=== PATIENT | female | born 1970 | race Two or more races ===

== ENCOUNTER 2020-05-09 17:50 | Outpatient (REF) | payer MEDICAID, SELFPAY | END 2020-05-09 17:51 | disposition home or self-care (01) | LOC: HO.LAB 17:50 | PROVIDERS: PCP Family Medicine; Visit Provider Internal Medicine | DX: Z20.828 Contact with and (suspected) exposure to other viral communicable diseases (principal) | CPT/HCPCS: 87635 ==

== ENCOUNTER 2020-05-09 18:02 | Emergency (ER) | payer MEDICAID, SELFPAY ==
[2020-05-09 21:18] VITALS: BP 145/73; PULSE 84; RESP 20; TEMP 36.6; O2SAT 98; BMI 57.8
[2020-05-09 21:47] VITALS: BP 150/87; PULSE 95; RESP 16; TEMP 36.6; O2SAT 98
[2020-05-09 21:53] LABS: MANUAL DIFF FLAG NO
[2020-05-09 21:54] LABS: Basophils Absolute Auto 0.1 X10*3/uL (0.0-0.2); Basophils Percent Auto 0.5 % (0-2); Eosinophils Absolute Auto 0.1 X10*3/uL (0.0-0.4); Eosinophils Percent Auto 1.3 % (0-4); Imm Gran Abs Auto 0.07 X10*3/uL (0.00-0.03); Imm Gran Pct Auto 0.7 % (0.0-0.4); Lymphocytes Absolute Auto 2.8 X10*3/uL (1.2-4.9); Lymphocytes Percent Auto 26.9 % (20-40); Mean Corpuscular HGB Conc 31.8 g/dl (31.0-35.0); Mean Corpuscular Hemoglobin 27.1 pg (27.0-33.0); Mean Corpuscular Volume 85.1 fL (80-98); Mean Platelet Volume 10.3 fL (9.4-12.3); Monocytes Absolute Auto 0.6 X10*3/uL (0.1-1.2); Monocytes Percent Auto 5.4 % (2-11); Neutrophils Absolute Auto 6.8 X10*3/uL (2.0-8.3); Neutrophils Percent Auto 65.2 % (45-73); Platelet Count 251 X10*3/uL (160-400); Red Blood Count 5.17 X10*6/uL (4.20-5.50); White Blood Count 10.4 X10*3/uL (4.8-10.8)
[2020-05-09 22:00] VITALS: BP 146/76; PULSE 76; RESP 16; O2SAT 96
[2020-05-09 22:04] LABS: Glucose Urine UA NEG (NEG); Leukocyte Esterase Urine TRACE (NEG); Nitrite Urine NEG (NEG); Specific Gravity - Urine >= 1.030 (1.005-1.025); Urine Blood 1+ (NEG); Urine Ketones 15 MG/DL (NEG); Urine Protein TRACE MG/DL (NEG-TRACE)
[2020-05-09 22:06] LABS: Appearance Urine CLOUDY; Color Urine YELLOW
[2020-05-09 22:19] LABS: Alanine Aminotransferase 15 U/L (0-31); Albumin Level 3.6 g/dL (3.5-5.0); Alkaline Phosphatase 82 U/L (39-117); Anion Gap 13 (12-20); Aspartate Amino Transferase 14 U/L (5-31); Bilirubin Direct < 0.2 mg/dL (0.0-0.5); Bilirubin Total 0.3 mg/dL (0.0-1.0); Blood Urea Nitrogen 15 mg/dL (9-16); Calcium 8.4 mg/dL (8.4-10.2); Carbon Dioxide 20 mmol/L (22-29); Chloride 108 mmol/L (96-108); Creatinine Clr Calc Pharmacy 89.1; Estimated Glomerular Filt Rate > 60; Glucose Random 96 mg/dL (60-115); Lipase 13 U/L (8-78); Potassium 4.5 mmol/l (3.3-5.1); Sodium 136 mmol/L (135-145); Total Protein 6.5 g/dL (6.5-8.0)
--- NOTE | 2020-05-09 22:19 | US_ITS ---
EXAMINATION: US ABDOMEN LIMITED CLINICAL INFORMATION: Right upper quadrant pain. COMPARISON: CT abdomen pelvis 09/02/2018 TECHNIQUE: Real-time imaging of the gallbladder was performed. FINDINGS: GALLBLADDER: The gallbladder is physiologically distended without evidence of stones, sludge, polyps, wall thickening or pericholecystic fluid. The patient did exhibit some tenderness over the gallbladder while scanning. COMMON BILE DUCT: Normal in caliber measuring 0.8 cm in diameter. US/US abdomen limited IMPRESSION: Normal-appearing gallbladder. No gallstones are seen. The patient did exhibit some tenderness over the gallbladder while scanning.
--- NOTE | 2020-05-09 22:21 | ED_ITS ---
HPI - Abdominal Pain General Chief Complaint: Abdominal Pain Stated Complaint: ABD PAIN Time Seen by Provider: 05/09/20 22:11 Source: patient Mode of arrival: ambulatory Limitations: no limitations and language barrier History of Present Illness HPI narrative: patient with no significant abdominal problems complaining of pain diffuse upper abdomen more on the right side since yesterday evening associated with fullness denies any nausea or vomiting no fever no diarrhea , patient does notice pain when she urinated with strong order for last few days MD elicited complaint: abdominal pain Onset (ago): day(s) (1) Pain Consistency: intermittent Location: epigastric, LUQ and RUQ Severity: mild Quality: cramping Migration to: no migration Exacerbating factors: eating Relieving factors: nothing Associated symptoms: denies other symptoms Related Data Previous Rx's Medication Instructions Recorded simethicone 180 mg capsule 180 mg PO QID #90 cap 05/06/20 dicyclomine 20 mg PO TID PRN #20 tab 05/10/20 levofloxacin 500 mg PO DAILY 5 Days #5 tab 05/10/20 phenazopyridine [Pyridium] 200 mg PO TID PRN #6 tab 05/10/20 Allergies Allergy/AdvReac Type Severity Reaction Status Date / Time No Known Allergies Allergy Unverified 03/31/20 16:15 Review of Systems Review of Systems REVIEW OF SYSTEMS: Pertinent positives and negatives are stated above in the history. GEN: no fevers, chills, fatigue HEENT: no nasal congestion, sore throat, ear pain NEURO: no headache, dizziness, focal weakness PULM: no cough, shortness of breath CV: no chest pain, palpitations, LE edema ABD: no nausea, vomiting, diarrhea : no dysuria, urgency, frequency SKIN: no rash ROS otherwise negative x 10 Physical Exam Vital Signs: Vital Signs: Vital Signs Temp Pulse Resp BP Pulse Ox 05/09/20 22:00 76 16 146/76 H 96 05/09/20 21:47 97.9 F 95 16 150/87 H 98 05/09/20 21:18 97.9 F 84 20 145/73 H 98 Body Mass Index 57.8 Appearance: Alert. Oriented X3. No acute distress. Eyes: Pupils equal, round and reactive to light. ENT: Pharynx normal. Neck: Normal inspection. Neck supple. CVS: Normal heart rate and rhythm. Pulses normal. Respiratory: No respiratory distress. Breath sounds normal. Abdomen: Soft and mild tenderness right upper quadrant and epigastric area no rebound tenderness or guarding no mass palpable Skin: Skin warm and dry. Normal skin color. Normal skin turgor. Extremities: No lower extremity edema. Good range of movement Neuro: Oriented X 3. No motor deficit. No sensory deficit. MDM - Abdominal Pain Differential Diagnosis Differential diagnosis: Likely constipation, gastroenteritis and gastritis Differential diagnosis narrative:: cholelithiasis, UTI Lab Data Result diagrams: 05/09/20 21:42 05/09/20 21:42 Labs: Lab Results 05/09/20 05/09/20 05/09/20 Range/Units 21:42 21:42 21:46 WBC 10.4 (4.8-10.8) X10*3/uL RBC 5.17 (4.20-5.50) X10*6/uL Hgb 14.0 (12.0-16.0) g/dl Hct 44.0 (37-47) % MCV 85.1 (80-98) fL MCH 27.1 (27.0-33.0) pg MCHC 31.8 (31.0-35.0) g/dl RDW 15.0 (11.0-16.0) % Plt Count 251 (160-400) X10*3/uL MPV 10.3 (9.4-12.3) fL Immature Gran % (Auto) 0.7 H (0.0-0.4) % Neut % (Auto) 65.2 (45-73) % Lymph % (Auto) 26.9 (20-40) % [place] % (Auto) 5.4 (2-11) % Eos % (Auto) 1.3 (0-4) % Baso % (Auto) 0.5 (0-2) % Lymph # (Auto) 2.8 (1.2-4.9) X10*3/uL [place] # (Auto) 0.6 (0.1-1.2) X10*3/uL Eos # (Auto) 0.1 (0.0-0.4) X10*3/uL Baso # (Auto) 0.1 (0.0-0.2) X10*3/uL Abs Immat Gran (auto) 0.07 H (0.00-0.03) X10*3/uL Absolute Neuts (auto) 6.8 (2.0-8.3) X10*3/uL Absolute Nucleated RBC 0.000 (0.0-0.012) X10*3/uL Nucleated RBC % (auto) 0.0 (0.0-0.2) /100WBC Sodium 136 (135-145) mmol/L Potassium 4.5 (3.3-5.1) mmol/l Chloride 108 (96-108) mmol/L Carbon Dioxide 20 L (22-29) mmol/L Anion Gap 13 (12-20) BUN 15 (9-16) mg/dL Creatinine 0.64 (0.5-1.4) mg/dL Estim Creat Clear Calc 89.1 Estimated GFR > 60 Random Glucose 96 (60-115) mg/dL Calcium 8.4 (8.4-10.2) mg/dL Total Bilirubin 0.3 (0.0-1.0) mg/dL Direct Bilirubin < 0.2 (0.0-0.5) mg/dL AST 14 (5-31) U/L ALT 15 (0-31) U/L Alkaline Phosphatase 82 (39-117) U/L Total Protein 6.5 (6.5-8.0) g/dL Albumin 3.6 (3.5-5.0) g/dL Lipase 13 (8-78) U/L Urine Color YELLOW Urine Appearance CLOUDY Urine pH 6.0 (5.0-8.0) Ur Specific [place] >= 1.030 H (1.005-1.025) Urine Protein TRACE (NEG-TRACE) MG/DL Urine Glucose (UA) NEG (NEG) MG/DL Urine Ketones 15 (NEG) MG/DL Urine Blood 1+ H (NEG) Urine Nitrite NEG (NEG) Ur Leukocyte Esterase TRACE H (NEG) Urine RBC 0-2 (0) /HPF Urine WBC 30-49 H (0-4) /HPF Ur Squamous Epith Cells 2+ /LPF Urine Bacteria 3+ /LPF Discharge Plan Discharge Clinical Impression: UTI (urinary tract infection) Qualifiers: Urinary tract infection type: acute cystitis Hematuria presence: without hematuria Qualified Code(s): N30.00 - Acute cystitis without hematuria Patient Disposition: Home, Self-Care Instructions: Urinary Tract Infection in Women (ED) Additional Instructions: drink plenty of fluids, take medication as prescribed, follow-up with primary care doctor if not better Prescriptions: New levofloxacin 500 mg tablet 500 mg PO DAILY 5 Days Qty: 5 RF: 0 phenazopyridine [Pyridium] 200 mg tablet 200 mg PO TID PRN (Reason: pain) Qty: 6 RF: 0 dicyclomine 20 mg tablet 20 mg PO TID PRN (Reason: abd cramps) Qty: 20 RF: 0 No Action simethicone 180 mg capsule 180 mg PO QID Qty: 90 RF: 1 Stand Alone Forms: Work/School Release [facility] Past Medical History Medical History Depression Fibroma Gastritis High cholesterol Hypertension Social History Social History Alcohol intake: never Smoking Status: Never smoker Smoked in Last 30 Days: No Use of substances other than those prescribed or required for medical reasons: No Advance Directives: No
[2020-05-09 22:38] LABS: Bacteria Urine 3+ /LPF; RBC Urine 0-2 /HPF (0); Squamous Epithelial Cell Urine 2+ /LPF; WBC Urine 30-49 /HPF (0-4)
[2020-05-09] MEDS: Dicyclomine HCl 10 MG CAPSULE 20 MG PO (22:39)
--- NOTE | 2020-05-09 22:42 | PC.NURSE ---
ultra sound at the bedside with the pt. pt has pain to her right upper quadrant.
--- NOTE | 2020-05-09 22:53 | PC.NURSE ---
pt zahra ultrasound, po mediation give and waiting results. pt skin pink warm and dry no s/s of distress.
[2020-05-10] VITALS: BP 140/71; PULSE 84; RESP 16; O2SAT 100
[2020-05-10] MEDS: levoFLOXacin 500 MG TABLET PO (00:13)
[2020-05-10] MEDS: Phenazopyridine HCL 200 MG TABLET PO (00:13)
== END 2020-05-10 00:20 | disposition home or self-care (01) ==
PROVIDERS: Emergency Provider Internal Medicine; PCP Family Medicine
DX: N30.00 Acute cystitis without hematuria (principal); R10.11 Right upper quadrant pain; Z79.899 Other long term (current) drug therapy
CPT/HCPCS: 36415; 76705; 80048; 80076; 81001; 81003; 83690; 85025; 87086; 99284

== ENCOUNTER 2020-08-09 17:16 | Outpatient (REF) | payer MEDICAID, SELFPAY | END 2020-08-09 17:17 | disposition home or self-care (01) | LOC: HO.LAB 17:16 | PROVIDERS: Visit Provider Internal Medicine | DX: Z20.822 Contact with and (suspected) exposure to COVID-19 (principal) | CPT/HCPCS: 36415; C9803; U0003 ==

== ENCOUNTER → 2020-08-16 14:35 | Outpatient (BNVA) | payer MEDICAID, SELFPAY | PROVIDERS: PCP Family Medicine; Referring Provider Family Medicine; Visit Provider Nurse Practitioner ==

== ENCOUNTER → 2020-10-14 13:05 | Outpatient (BNVA) | payer MEDICAID, SELFPAY | PROVIDERS: PCP Family Medicine; Visit Provider Nurse Practitioner ==

== ENCOUNTER 2020-12-08 14:37 | Outpatient (REF) | payer MEDICAID, SELFPAY | END 2020-12-08 14:38 | disposition home or self-care (01) | LOC: HO.LAB 14:37 | PROVIDERS: Visit Provider Obstetrics & Gynecology | DX: N93.9 Abnormal uterine and vaginal bleeding, unspecified (principal) | CPT/HCPCS: 58100; 88305; 99202 ==

== ENCOUNTER → 2020-12-26 08:58 | Outpatient (BNVA) | payer MEDICAID, SELFPAY | PROVIDERS: Visit Provider Obstetrics & Gynecology ==

== ENCOUNTER → 2021-03-23 10:53 | Outpatient (BNVA) | payer MEDICAID, SELFPAY | PROVIDERS: Visit Provider Obstetrics & Gynecology | DX: N93.9 Abnormal uterine and vaginal bleeding, unspecified (principal) | CPT/HCPCS: 99212 ==

== ENCOUNTER 2021-04-03 12:38 | Outpatient (REF) | payer MEDICAID, SELFPAY ==
--- NOTE | ~2021-04-03 | MM_ITS ---
EXAMINATION: MM SCREENING DIGITAL BREAST TOMOSYNTHESIS, BILATERAL CLINICAL INFORMATION: Screening. Asymptomatic. The lifetime risk of breast cancer based on the Tyrer-Cuzick Model is 17%. COMPARISON: Mammography: May 28, 2019 and studies dating back to May 07, 2011 TECHNIQUE: Digital breast tomosynthesis is performed in both the craniocaudal and mediolateral oblique views along with computer-aided detection (CAD). Synthesized 2D images are generated from the tomosynthesis. FINDINGS: There are scattered areas of fibroglandular density (ACR BI-RADS breast composition Category b). There are no significant masses, abnormal calcifications, or other abnormalities. MM/MM tomosynthesis screening BI IMPRESSION: There are no significant changes from prior study. ASSESSMENT: BI-RADS 1: Negative RECOMMENDATION: Routine annual mammography screening. This patient's information was entered into a reminder system with a target due date for their next mammogram.
== END 2021-04-03 12:39 | disposition home or self-care (01) ==
LOC: HO.MAMMO 12:38
PROVIDERS: PCP Family Medicine; Visit Provider Family Medicine
DX: Z12.31 Encounter for screening mammogram for malignant neoplasm of breast (principal)
CPT/HCPCS: 77063; 77067

== ENCOUNTER → 2021-04-17 14:16 | Outpatient (BNVA) | payer MEDICAID, SELFPAY | PROVIDERS: PCP Family Medicine; Visit Provider Nurse Practitioner ==

== ENCOUNTER 2021-04-19 13:11 | Outpatient (REF) | payer MEDICAID, SELFPAY ==
[2021-04-22 16:16] LABS: HPV mRNA E6/E7 rflx Not Detected (Not Detected)
== END 2021-04-19 13:12 | disposition home or self-care (01) ==
LOC: HO.LAB 13:11
PROVIDERS: Visit Provider Obstetrics & Gynecology
DX: Z01.411 Encounter for gynecological examination (general) (routine) with abnormal findings (principal); Z11.51 Encounter for screening for human papillomavirus (HPV); D21.9 Benign neoplasm of connective and other soft tissue, unspecified; N93.9 Abnormal uterine and vaginal bleeding, unspecified
CPT/HCPCS: 87624; 88142

== ENCOUNTER 2021-05-10 11:19 | Outpatient (REF) | payer MEDICAID, SELFPAY ==
--- NOTE | ~2021-05-10 | US_ITS ---
EXAMINATION: ULTRASOUND OF THE PELVIS CLINICAL INFORMATION: Abnormal uterine and vaginal bleeding.. COMPARISON: 04/06/2019. TECHNIQUE: Transabdominal and transvaginal pelvic ultrasound. A transvaginal study was performed in addition to the transabdominal study which did not yield an adequate examination of the uterus and ovaries due to superimposed distended gas-filled loops of bowel. FINDINGS: The uterus is normal in size and appearance, measuring 10.6 x 4.6 x 7.3 cm longitudinally, anteroposteriorly and transversely. The endometrial stripe thickness is prominent but homogenous, measuring 1.5 cm in thickness. Multiple myometrial masses are noted. The dominant is seen at the anterior fundus measuring 3.6 x 3.6 x 3.9 cm. This is similar to prior, showing somewhat heterogeneous echogenicity without significant Doppler vascularity. There is a second lesion along the anterior body measuring 1 x 0.9 x 0.9 cm. This is mostly hypoechoic. The ovaries bilaterally are visualized and appear normal, with the right ovary measuring 1.4 x 1.1 x 1.6 cm and the left ovary measuring 1.4 x 1.3 x 1.6 cm. No adnexal mass or free fluid collection seen. US/US pelvic and transvaginal IMPRESSION: Prominent endometrial stripe, though homogenous. Correlate with cycle. Uterine fibroids are again noted with the dominant fibroid appearing somewhat decreased in size from prior in 2019. No adnexal mass.
== END 2021-05-10 11:20 | disposition home or self-care (01) ==
LOC: HO.US 11:19
PROVIDERS: Visit Provider Obstetrics & Gynecology
DX: N93.9 Abnormal uterine and vaginal bleeding, unspecified (principal); D21.9 Benign neoplasm of connective and other soft tissue, unspecified
CPT/HCPCS: 76830; 76856

== ENCOUNTER → 2021-05-24 10:47 | Outpatient (BNVA) | payer MEDICAID, SELFPAY | PROVIDERS: Visit Provider Obstetrics & Gynecology | DX: D21.9 Benign neoplasm of connective and other soft tissue, unspecified (principal); E78.00 Pure hypercholesterolemia, unspecified; I10 Essential (primary) hypertension; Z78.0 Asymptomatic menopausal state | CPT/HCPCS: 99212 ==

== ENCOUNTER → 2022-07-26 09:18 | Outpatient (BNVA) | payer MEDICAID, SELFPAY | PROVIDERS: Visit Provider Obstetrics & Gynecology | DX: Z13.89 Encounter for screening for other disorder (principal) ==

== ENCOUNTER 2022-08-01 11:20 | Outpatient (REF) | payer MEDICAID, SELFPAY ==
--- NOTE | ~2022-08-01 | MM_ITS ---
EXAMINATION: MM SCREENING DIGITAL BREAST TOMOSYNTHESIS, BILATERAL CLINICAL INFORMATION: Screening. Asymptomatic. The lifetime risk of breast cancer based on the Tyrer-Cuzick Model is 5.9%. COMPARISON: Mammography: April 03, 2021 and studies dating back to May 07, 2011 TECHNIQUE: Digital breast tomosynthesis is performed in both the craniocaudal and mediolateral oblique views along with computer-aided detection (CAD). Synthesized 2D images are generated from the tomosynthesis. FINDINGS: There are scattered areas of fibroglandular density (ACR BI-RADS breast composition Category b). There are no significant masses, abnormal calcifications, or other abnormalities. MM/MM tomosynthesis screening BI IMPRESSION: No significant changes from prior exam. ASSESSMENT: BI-RADS 1: Negative RECOMMENDATION: Routine annual mammography screening. This patient's information was entered into a reminder system with a target due date for their next mammogram.
== END 2022-08-01 11:21 | disposition home or self-care (01) ==
LOC: HO.MAMMO 11:20
PROVIDERS: PCP Family Medicine; Visit Provider Family Medicine
DX: Z12.31 Encounter for screening mammogram for malignant neoplasm of breast (principal)
CPT/HCPCS: 77063; 77067

== ENCOUNTER 2022-08-21 11:43 | Outpatient (REF) | payer MEDICAID, SELFPAY ==
--- NOTE | ~2022-08-21 | US_ITS ---
EXAMINATION: US PELVIS COMPLETE CLINICAL INFORMATION: Benign neoplasm of connective tissue; the last menstrual period was approximately one week prior. COMPARISON: Pelvic ultrasound dated 05/10/2021. TECHNIQUE: Transabdominal and transvaginal imaging were performed. FINDINGS: The uterus is of normal size and echogenicity measuring 10.3 x 4.5 x 6.3 cm. The uterus is anteverted. A regular, homogeneous endometrium is identified measuring 0.9 cm. Nabothian cysts are seen within the cervix. FIBROIDS: There are 2 fibroids seen. 1. Location: Posterior fundus, myometrial. Size: 3.7 x 3.9 x 3.6 cm. Prior: 3.6 x 3.6 x 3.9 cm. Fibroid characteristics: Heterogeneously hyperechoic. 2. Location: Upper posterior body, myometrial. Size: 1.0 x 0.7 x 0.8 cm. Prior: 0.9 x 0.8 x 0.9 cm. Fibroid characteristics: Heterogeneous echotexture. The right ovary is nonvisualized. The left ovary is normal in size and echotexture, measuring 2.4 x 1.7 x 1.3 cm for a volume of 2.9 mL. There is no pelvic free fluid. A 6 x 8 x 5 mm simple left paraovarian cyst is noted.. US/US pelvic and transvaginal IMPRESSION: 1. Uterine fibroids are seen, as detailed. 2. Nabothian cysts are seen within the cervix. 3. An 8 mm left paraovarian simple cyst is incidentally noted. 4. The right ovary is nonvisualized.
== END 2022-08-21 11:44 | disposition home or self-care (01) ==
LOC: HO.US 11:43
PROVIDERS: Visit Provider Obstetrics & Gynecology
DX: D21.9 Benign neoplasm of connective and other soft tissue, unspecified (principal)
CPT/HCPCS: 76830; 76856

== ENCOUNTER → 2022-09-04 12:44 | Outpatient (BNVA) | payer MEDICAID, SELFPAY | PROVIDERS: PCP Family Medicine; Visit Provider Obstetrics & Gynecology | DX: D21.9 Benign neoplasm of connective and other soft tissue, unspecified (principal) | CPT/HCPCS: 99212 ==

== ENCOUNTER 2022-09-26 10:09 | Outpatient (REF) | payer MEDICAID, SELFPAY ==
[2022-09-26 11:16] LABS: MANUAL DIFF FLAG NO
[2022-09-26 11:57] LABS: Basophils Percent Auto 0.9 % (0-2); Eosinophils Absolute Auto 0.2 X10*3/uL (0.0-0.4); Eosinophils Percent Auto 3.4 % (0-4); Hematocrit 41.9 % (37.0-47.0); Hemoglobin 13.5 g/dl (12.0-16.0); Imm Gran Abs Auto 0.01 X10*3/uL (0.00-0.03); Imm Gran Pct Auto 0.2 % (0.0-0.4); Lymphocytes Absolute Auto 1.3 X10*3/uL (1.2-4.9); Lymphocytes Percent Auto 28.4 % (20-40); Mean Corpuscular HGB Conc 32.2 g/dl (31.0-35.0); Mean Corpuscular Hemoglobin 27.5 pg (27.0-33.0); Mean Corpuscular Volume 85.3 fL (80.0-98.0); Mean Platelet Volume 10.7 fL (9.4-12.3); Monocytes Absolute Auto 0.5 X10*3/uL (0.1-1.2); Monocytes Percent Auto 10.4 % (2-11); Neutrophils Absolute Auto 2.7 x10*3/uL (2.0-8.3); Neutrophils Percent Auto 56.7 % (45-73); Platelet Count 197 X10*3/uL (160-400); Red Blood Count 4.91 X10*6/uL (4.20-5.50); Red Cell Distribution Width 13.4 % (11.0-16.0); White Blood Count 4.7 X10*3/uL (4.8-10.8)
[2022-09-26 12:43] LABS: Alanine Aminotransferase 22 U/L (0-31); Albumin Level 3.8 g/dL (3.5-5.0); Alkaline Phosphatase 95 U/L (39-117); Anion Gap 14 (12-20); Aspartate Amino Transferase 18 U/L (5-31); Bilirubin Total 0.4 mg/dL (0.0-1.0); Blood Urea Nitrogen 14 mg/dL (9-16); Calcium 8.9 mg/dL (8.4-10.2); Carbon Dioxide 22 mmol/L (22-29); Chloride 107 mmol/L (96-108); Estimated Glomerular Filt Rate > 60; Glucose Random 83 mg/dL (60-115); Potassium 4.5 mmol/L (3.3-5.1); Sodium 138 mmol/L (135-145); Total Protein 6.9 g/dL (6.5-8.0)
== END 2022-09-26 10:10 | disposition home or self-care (01) ==
LOC: HO.LAB 10:09
PROVIDERS: PCP Family Medicine; Visit Provider Nurse Practitioner
DX: R10.9 Unspecified abdominal pain (principal)
CPT/HCPCS: 36415; 80053; 85025; 99212

== ENCOUNTER 2022-10-11 11:29 | Outpatient (REF) | payer MEDICAID, SELFPAY ==
--- NOTE | ~2022-10-11 | CT_ITS ---
EXAMINATION: CT ABDOMEN AND PELVIS WITH CONTRAST CLINICAL INFORMATION: Abdominal pain. COMPARISON: Ultrasound pelvis 08/21/2022. CT abdomen and pelvis 09/02/2018. TECHNIQUE: Multidetector volumetric images were obtained from the superior aspect of the liver through the pubic symphysis following administration 85 mL of Omnipaque 350 intravenous contrast. Sagittal and coronal reformatted images were obtained on the technologist's workstation. Oral contrast: No This CT examination was performed using dose optimization techniques as appropriate, variously including the following: *Automated exposure control *Adjustment of mA and/or kV according to patient size (this includes techniques or standardized protocols for targeted exams where dose is matched to indication/reason for exam; i.e. extremities or head) *Use of iterative reconstruction technique DLP: 543 mGy-cm. FINDINGS: LUNG BASES: The visualized lung bases are unremarkable. LIVER, GALLBLADDER, AND BILIARY TREE: The liver is normal in size, shape, and mild hypoattenuation. No focal hepatic lesion or biliary ductal dilatation is present. The gallbladder is unremarkable with no evidence of radiopaque gallstones, gallbladder wall thickening, or obvious pericholecystic inflammatory changes. PANCREAS: There is a 1.12 cm hypodensity in the distal body of pancreas, new since the previous study question focal fatty infiltration. It is unchanged. SPLEEN: Unremarkable. ADRENAL GLANDS: Unremarkable. KIDNEYS AND URETERS: The kidneys are normal in size, shape, and attenuation. No hydronephrosis, hydroureter, or calculi seen. No perinephric stranding. BLADDER: Unremarkable. GASTROINTESTINAL TRACT: The small and large bowel are unremarkable. The appendix is unremarkable. Previously visualized focal mural thickening involving a small bowel segment in the midabdomen is not visualized at this time. Oral contrast-opacified small bowel loops are normal caliber. The colon is unremarkable. Appendix is normal caliber. No free air or free fluid seen. ABDOMINAL WALL: No significant hernia is appreciated. LYMPH NODES: Normal. VASCULAR: Unremarkable. PELVIC VISCERA: There is a large hypodense lesion in the fundal uterus likely a fibroid measuring 4.3 x 5.1 x 4.1 cm. Previously it measured 4.7 x 4.8 x 4.1 cm. There is a small amount of free fluid in the cul-de-sac. No abnormal-sized pelvic or inguinal lymph nodes seen. OSSEOUS STRUCTURES: Unremarkable. CT/CT abdomen pelvis w IV con IMPRESSION: Increasing uterine fibroid likely cause of patient's abdominal pain. Correlate with ultrasound and GUIDE ALPINE followup. The GI tract is unremarkable. Especially, no small bowel mural thickening seen at this time. Hypodensity in the distal body of the pancreas likely focal fatty nodule, unchanged. Fleischner guidelines were followed.
[2022-10-11] MEDS: Barium Sulfate Oral (Vanilla) 450 ML ORAL.SUSP 900 ML PO (13:50)
[2022-10-11] MEDS: iohexoL 350 MG/ML 100 ML INFUS..BTL IV (13:51)
== END 2022-10-11 11:30 | disposition home or self-care (01) ==
LOC: HO.CT 11:29
PROVIDERS: Visit Provider Nurse Practitioner
DX: R10.9 Unspecified abdominal pain (principal)
CPT/HCPCS: 74177; Q9967

== ENCOUNTER → 2022-10-24 10:39 | Outpatient (BNVA) | payer MEDICAID, SELFPAY | PROVIDERS: PCP Family Medicine; Visit Provider Nurse Practitioner | DX: K59.04 Chronic idiopathic constipation (principal); K21.9 Gastro-esophageal reflux disease without esophagitis; K58.2 Mixed irritable bowel syndrome; R10.9 Unspecified abdominal pain | CPT/HCPCS: 99212 ==

== ENCOUNTER → 2022-11-27 11:16 | Outpatient (BNVA) | payer MEDICAID, SELFPAY | PROVIDERS: PCP Family Medicine; Visit Provider Nurse Practitioner | DX: K58.2 Mixed irritable bowel syndrome (principal); K21.9 Gastro-esophageal reflux disease without esophagitis; R10.9 Unspecified abdominal pain | CPT/HCPCS: 99212 ==

== ENCOUNTER → 2023-01-08 09:56 | Outpatient (BNVA) | payer MEDICAID, SELFPAY | PROVIDERS: PCP Family Medicine; Visit Provider Nurse Practitioner | DX: K58.2 Mixed irritable bowel syndrome (principal); R10.9 Unspecified abdominal pain; K21.9 Gastro-esophageal reflux disease without esophagitis; Z79.899 Other long term (current) drug therapy; Z80.0 Family history of malignant neoplasm of digestive organs | CPT/HCPCS: 99212 ==

== ENCOUNTER 2023-08-01 09:44 | Outpatient (REF) | payer MEDICAID, SELFPAY ==
[2023-08-01 12:22] LABS: HBc Num1 0.11 S/CO (0.00-0.79); HIV AB/AG Nonreactive (Nonreactive); HIV Num 1 0.04 S/CO (0.00-0.99); Hepatitis B Core Antibody Nonreactive (Nonreactive); ~HepC Num1 0.38 S/CO (0.00-0.79); ~Hepatitis C Antibody Nonreactive (Nonreactive)
[2023-08-01 12:23] LABS: Syphilis Screen Nonreactive (Nonreactive)
[2023-08-01 15:41] LABS: CT PCR NOT DETECTED (Not Detect.); NG PCR NOT DETECTED (Not Detect.)
[2023-08-02 15:17] LABS: BV Int Neg Control Negative (Negative); BV Int Pos Control Positive (Positive)
== END 2023-08-01 09:45 | disposition home or self-care (01) ==
LOC: HO.LAB 09:44
PROVIDERS: PCP Family Medicine; Visit Provider Advanced Practice Midwife
DX: Z01.419 Encounter for gynecological examination (general) (routine) without abnormal findings (principal); Z11.4 Encounter for screening for human immunodeficiency virus [HIV]; N39.41 Urge incontinence; Z20.2 Contact with and (suspected) exposure to infections with a predominantly sexual mode of transmission; R23.2 Flushing
CPT/HCPCS: 0353U; 83001; 86704; 86780; 86803; 87389; 87480; 87510; 87660; 99396

== ENCOUNTER 2023-08-01 09:44 | Outpatient (AMB) | payer MEDICAID, SELFPAY ==
--- NOTE | 2023-08-01 09:48 | A.OFFVIS_ITS ---
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 She is doing well with concerns: Urgency incontinence. Attempting to eat a healthy diet with calcium and vitamin D and stays active with exercise. Currently sexually active. LMP: 07/05/2023, prior to that had skipped for six- month, she reports hot flashes Denies any vaginal dryness or irritation. STI testing offered; she accepts. Last pap smear; 2020. Last mammogram; 2022. Colonoscopy is being scheduled. Family history of breast, colon cancer. Sister had BRCA testing which was negative. [facility] Medical History Diarrhea in adult patient Gastritis Fibroma Hypertension High cholesterol Depression Surgical History History of esophagogastroduodenoscopy (EGD) Hx of colonoscopy History of tubal ligation Family History (Updated 08/01/23 @ 09:51 by BEATRIZ De Oliveira) Mother History of breast cancer Colon cancer Sister History of breast cancer Other Diabetes HTN (hypertension) Heart problem Social History Alcohol intake: never Patient Tobacco Use Status: Never used Tobacco Gender identity: Female Female Reproductive History Menstrual Age of Menarche: 11 Date of last menstrual period: 07/05/23 control method: permanent sterilization Permanent Sterilization: BTL Total pregnancies: 2 Full term: 2 Number of Living Children: 2 Date of last pap smear: 04/19/21 (neg pap and hpv) Date of Mammogram: 08/01/22 (Birad 1) Review of Systems Const All systems reviewed & are unremarkable except as noted in HPI and below Reports as per HPI Eyes Reports no additional complaints ENT Reports no additional complaints Card Reports no additional complaints Resp Reports no additional complaints GI Reports as per HPI and Reports no additional complaints Reports as per HPI Musc Reports no additional complaints Skin/Breast Reports as per HPI Neuro Reports no additional complaints Psych Reports no additional complaints Endo Reports no additional complaints Armen/Lymph Reports no additional complaints Aller/Immun Reports no additional complaints Physical Exam Vital Signs: Last Vital Signs BP 134/84 08/01/23 09:49 BMI result Body Mass Index 54.9 Const General: cooperative, healthy appearing, no acute distress, well developed and alert Orientation/consciousness: patient oriented x3 HEENT Head: Yes normal to inspection Eyes General: appearance normal, both eyes and all related structures Neck Neck: Yes normal visual inspection Thyroid: Thyroid normal Chest Chest palpation & inspection: normal inspection of the chest and other (no puckering, dimpling, peau de orange, retraction, discharge, masses) Breast/axilla inspection: normal inspection of the breasts Breast/axilla palpation: normal palpation of the breasts Resp Effort & Inspection: normal respiratory effort GI Inspection: Yes normal to inspection Palpation (GI): Soft to palpation Rectal Exam - Female: deferred General: Yes bladder normal to palpation External Female Exam: normal external appearance and normal appearance of the urethra Speculum Exam - Vagina: normal appearance of the vagina, normal palpation and normal vaginal discharge Speculum Exam - Cervix: normal appearance of the cervix and normal palpation Bimanual exam- vagina & uterus: normal bimanual exam, normal palpation, uterine size normal, bladder normal to palpation, normal palpation and non-tender Bimanual Exam- Adnexa, other: no masses Skin General skin exam: no rashes or lesions noted Rashes: no rashes Neuro General: patient oriented x3 Cognition (Neuro): normal cognition Extrem General: Yes normal to inspection Psych Attitude: cooperative Thought process: Normal thought process present Assessment & Plan Assessment & Plan (1) Urgency incontinence: Code(s): N39.41 - Urge incontinence (2) Encounter for well woman exam with routine gynecological exam: Code(s): Z01.419 - Encounter for gynecological examination (general) (routine) without abnormal findings Plan Discussed: Current recommendations for pap smears per ASCCP guidelines. Breast awareness, periodic self breast exams and yearly mammogram. Maintain a healthy lifestyle, well balanced diet including Calcium 1,200 mg and Vitamin D 600 IU daily, and routine exercise. Monitor menstrual cycles, report any unscheduled bleeding, bleeding episodes <21 days apart or heavy/prolonged menstrual bleeding. Once bleeding has stopped for a full 12 months she would be considered menopausal, leading that point would not be considered normal. Call the office for a follow up for any concerns. Referral sent to urology. STD blood work with additional FSH ordered. All of her questions and concerns were addressed to the best of my ability. RTO in 1 year for annual human resources district manager exam. This note is constructed using voice recognition software. While every effort has been made to ensure accuracy, hands parter errors may have been included. Orders: Orders Hepatitis B Core Antibody Today Z20.2 - Contact with and (suspected) exposure to infections with a predominantly sexual mode of transmission Syphilis Screen Today Z20.2 - Contact with and (suspected) exposure to infections with a predominantly sexual mode of transmission Bacterial Vaginosis Panel Today Z20.2 - Contact with and (suspected) exposure to infections with a predominantly sexual mode of transmission US pelvic and transvaginal Today D21.9 - Benign neoplasm of connective and other soft tissue, unspecified HIV Ab/Ag Today Z20.2 - Contact with and (suspected) exposure to infections with a predominantly sexual mode of transmission Hepatitis C Antibody Today Z20.2 - Contact with and (suspected) exposure to infections with a predominantly sexual mode of transmission Follicle Stimulating Hormone Today R23.2 - Flushing CT NG by PCR Today Z20.2 - Contact with and (suspected) exposure to infections with a predominantly sexual mode of transmission Referrals Urology Referral N39.41 - Urge incontinence Coding Level of Care Code Est Pt Prev Care 40-64y(03580) Diagnoses Urgency incontinence N39.41 Encounter for well woman exam with routine gynecological exam Z01.419
[2023-08-01 09:49] VITALS: BP 134/84; BMI 57.0
== END 2023-08-01 10:33 | disposition home or self-care (01) ==
LOC: HO.HWS 09:44
PROVIDERS: PCP Family Medicine; Visit Provider Advanced Practice Midwife
DX: N39.41 Urge incontinence (principal); Z01.419 Encounter for gynecological examination (general) (routine) without abnormal findings
CPT/HCPCS: 99396

== ENCOUNTER 2023-08-01 10:31 | Outpatient (REF) | payer MEDICAID, SELFPAY | END 2023-08-01 10:32 | disposition home or self-care (01) | LOC: HO.LNP 10:31 | PROVIDERS: Visit Provider Advanced Practice Midwife | DX: Z13.89 Encounter for screening for other disorder (principal) ==

== ENCOUNTER 2023-08-07 11:46 | Outpatient (REF) | payer MEDICAID, SELFPAY | END 2023-08-07 11:47 | disposition home or self-care (01) | LOC: HO.MAMMO 11:46 | PROVIDERS: PCP Family Medicine; Visit Provider Family Medicine | DX: Z12.31 Encounter for screening mammogram for malignant neoplasm of breast (principal) | CPT/HCPCS: 77063; 77067 ==

== ENCOUNTER → 2023-08-07 12:00 | Outpatient (BNV) | payer MEDICAID, SELFPAY | PROVIDERS: PCP Family Medicine; Visit Provider Radiology Diagnostic Radiology | DX: Z12.31 Encounter for screening mammogram for malignant neoplasm of breast (principal) | CPT/HCPCS: 77063; 77067 ==

== ENCOUNTER 2023-08-16 11:35 | Outpatient (REF) | payer MEDICAID, SELFPAY ==
--- NOTE | ~2023-08-16 | US_ITS ---
EXAMINATION: US PELVIS CLINICAL INFORMATION: Fibroid uterus. COMPARISON: Pelvic ultrasound 08/21/2022. TECHNIQUE: Ultrasound of the pelvis is performed using both transabdominal and transvaginal transducers along with Doppler. Transvaginal imaging is performed due to inadequate visualization transabdominally. FINDINGS: Uterus: The uterus is anteverted and measures 11.5 x 4.2 x 6.4 cm. The double wall endometrial thickness is 1.1 mm. Posterior fundal fibroid measuring 4.5 cm, increased from 3.9 cm. Posterior body fibroid measures 1.7 cm, increased from 0.7 cm. Adnexa: The right ovary measures 4.6 x 2.8 x 2.8 cm, volume 19 mL. Simple cysts measuring 2.3 and 2.2 cm consistent with physiologic cysts. No imaging follow-up is recommended. The left ovary measures 2.1 x 1.7 x 2.0 cm, volume 4 mL. 1.6 cm simple cyst consistent with a physiologic cyst. No follow-up imaging is recommended. No free fluid. US/US pelvic and transvaginal IMPRESSION: Mildly increased size of uterine fibroids compared to pelvic ultrasound 08/21/2022.
== END 2023-08-16 11:36 | disposition home or self-care (01) ==
LOC: HO.US 11:35
PROVIDERS: PCP Family Medicine; Visit Provider Advanced Practice Midwife
DX: D21.9 Benign neoplasm of connective and other soft tissue, unspecified (principal)
CPT/HCPCS: 76830; 76856

== ENCOUNTER 2023-09-03 10:00 | Outpatient (REF) | payer MEDICAID, SELFPAY ==
[2023-09-04 14:00] LABS: CT PCR NOT DETECTED (Not Detect.); NG PCR NOT DETECTED (Not Detect.)
[2023-09-05 11:34] LABS: BV Int Neg Control Negative (Negative); BV Int Pos Control Positive (Positive)
== END 2023-09-03 10:01 | disposition home or self-care (01) ==
LOC: HO.HHCLNP 10:00
PROVIDERS: Visit Provider Emergency Medicine
DX: N93.9 Abnormal uterine and vaginal bleeding, unspecified (principal)
CPT/HCPCS: 0353U; 87480; 87510; 87660

== ENCOUNTER 2023-09-03 11:26 | Outpatient (REF) | payer MEDICAID, SELFPAY ==
[2023-09-03 13:14] LABS: MANUAL DIFF FLAG NO
[2023-09-03 13:38] LABS: Basophils Absolute Auto 0.1 X10*3/uL (0.0-0.2); Basophils Percent Auto 1.1 % (0-2); Eosinophils Absolute Auto 0.2 X10*3/uL (0.0-0.4); Eosinophils Percent Auto 2.9 % (0-4); Hematocrit 42.1 % (37.0-47.0); Hemoglobin 13.7 g/dl (12.0-16.0); Imm Gran Abs Auto 0.02 X10*3/uL (0.00-0.03); Imm Gran Pct Auto 0.4 % (0.0-0.4); Lymphocytes Percent Auto 35.8 % (20-40); Mean Corpuscular HGB Conc 32.5 g/dl (31.0-35.0); Mean Corpuscular Hemoglobin 27.8 pg (27.0-33.0); Mean Corpuscular Volume 85.6 fL (80.0-98.0); Monocytes Absolute Auto 0.4 X10*3/uL (0.1-1.2); Monocytes Percent Auto 7.6 % (2-11); Neutrophils Absolute Auto 2.9 x10*3/uL (2.0-8.3); Neutrophils Percent Auto 52.2 % (45-73); Platelet Count 266 X10*3/uL (160-400); Red Blood Count 4.92 X10*6/uL (4.20-5.50); Red Cell Distribution Width 13.5 % (11.0-16.0); White Blood Count 5.5 X10*3/uL (4.8-10.8)
[2023-09-03 13:51] LABS: HCG Quantitative < 2 mIU/mL
== END 2023-09-03 11:27 | disposition home or self-care (01) ==
LOC: HO.HHCL 11:26
PROVIDERS: Visit Provider Emergency Medicine
DX: N93.9 Abnormal uterine and vaginal bleeding, unspecified (principal)
CPT/HCPCS: 0353U; 36415; 84702; 85025; 87480; 87510; 87660

== ENCOUNTER 2023-09-10 13:11 | Outpatient (AMB) | payer MEDICAID, SELFPAY ==
--- NOTE | 2023-09-10 13:13 | A.OFFVIS_ITS ---
Intake Vital Signs 09/10/23 13:17 Height 4 ft 3 in Weight 214 lb BMI 57.8 BP 124/78 Intake Visit Reasons: US follow up Drilling Assistant Required: Yes Drilling Assistant Language: Charge Gang Weigher Name: Francisca [id number] Information Interpreted: non-clinical & clinical Whey Department Operator: Whey Department Operator Present Accompanied by: Self / Same As Patient Allergies No Known Allergies Allergy (Verified 09/10/23 13:18) Is last menstrual period known: Yes Last menstrual period: 08/20/23 Post menopausal: Yes Patient : No Do you need a note to return to daycare/school/sports/work: No HPI HPI Comments History of Present Illness Details Patient is here today for a follow up ultrasound results. Due to a history of fibroids. She reports spacing of a menses up to 6 months. Last menses end of June. And reported bleeding for 2 weeks after her transvaginal ultrasound recently. She denies any pelvic pain, bloating or pelvic pressure. PFSH Medical History Diarrhea in adult patient Gastritis Fibroma Hypertension High cholesterol Depression Surgical History History of esophagogastroduodenoscopy (EGD) Hx of colonoscopy History of tubal ligation Family History Mother History of breast cancer Colon cancer Sister History of breast cancer Other Diabetes HTN (hypertension) Heart problem Social History Alcohol intake: never Patient Tobacco Use Status: Never used Tobacco Patient : No Gender identity: Female Female Reproductive History Menstrual Age of Menarche: 11 Date of last menstrual period: 08/20/23 Review of Systems Const All systems reviewed & are unremarkable except as noted in HPI and below Endo Reports no additional complaints Physical Exam Vital Signs: Last Vital Signs BP 124/78 09/10/23 13:17 BMI result Body Mass Index 57.8 Const General: cooperative, healthy appearing and no acute distress Psych Appearance: well kempt Attitude: cooperative Thought process: Normal thought process present Results Reviewed Results Reviewed: [address] [address] Ultrasound Report Signed Patient: Yoana Prather MR#: [id number] : 1970 Acct:[id number] Age/Sex: 52 / F ADM Date: 08/16/23 Loc: .[place] Attending Dr: Deepti Gibson CNM Ordering Physician: Deepti Gibson CNM Date of Service: 08/16/23 Procedure(s): US pelvic and transvaginal Accession Number(s): [id number] cc: Deepti Gibson CNM; Jennifer Brown MD~ EXAMINATION: US PELVIS CLINICAL INFORMATION: Fibroid uterus. COMPARISON: Pelvic ultrasound 08/21/2022. TECHNIQUE: Ultrasound of the pelvis is performed using both transabdominal and transvaginal transducers along with Doppler. Transvaginal imaging is performed due to inadequate visualization transabdominally. FINDINGS: Uterus: The uterus is anteverted and measures 11.5 x 4.2 x 6.4 cm. The double wall endometrial thickness is 1.1 mm. Posterior fundal fibroid measuring 4.5 cm, increased from 3.9 cm. Posterior body fibroid measures 1.7 cm, increased from 0.7 cm. Adnexa: The right ovary measures 4.6 x 2.8 x 2.8 cm, volume 19 mL. Simple cysts measuring 2.3 and 2.2 cm consistent with physiologic cysts. No imaging follow-up is recommended. The left ovary measures 2.1 x 1.7 x 2.0 cm, volume 4 mL. 1.6 cm simple cyst consistent with a physiologic cyst. No follow-up imaging is recommended. No free fluid. US/US pelvic and transvaginal IMPRESSION: Mildly increased size of uterine fibroids compared to pelvic ultrasound 08/21/2022. Dictated By: Ervin Davalos MD Signed By: <Electronically signed by Ervin Davalos MD in OV> 08/19/23 1636 DD/ 1208 TD/TT: Sterile Preparation Technician: LORA Assessment & Plan Assessment & Plan (1) Abnormal uterine bleeding: Code(s): N93.9 - Abnormal uterine and vaginal bleeding, unspecified (2) Fibroids: Code(s): D21.9 - Benign neoplasm of connective and other soft tissue, unspecified Plan Discussed: Fibroid, overall increased in size from the last examination. Bilateral ovarian cyst benign in nature. Advised most likely will resolve on their own but if there is any pelvic pain unilaterally or other concerns she agrees to report back to the office. Monitor menstrual cycles, report any unscheduled bleeding, bleeding episodes <21 days apart or heavy/prolonged menstrual bleeding. Discussed perimenopause versus menopause, menopausal diagnosis is made retrospectively after 1 year of no menstrual cycle. Advised to call if there is any further vaginal bleeding that is heavy, prolonged or closely spaced. Sign for release of remaining of records from [facility]. She is agreeable to do her TSH today cassettes not on record. She declines an endometrial biopsy today and agrees to call the office if she has another bleeding episode as described above. Repeat the ultrasound for stability yearly, we will do that 2 weeks before her next annual on July. Advised to call sooner if there is any pelvic pain, bloating, pressure, or unscheduled irregular bleeding prolonged heavy are closely spaced as noted. All of her questions and concerns were addressed to the best of my ability and shared decision making. She is agreeable to the plan of care. This note is constructed using voice recognition software. While every effort has been made to ensure accuracy, manager construction errors may have been included. Orders: Orders Thyroid Stimulating Hormone Today N93.9 - Abnormal uterine and vaginal bleeding, unspecified US pelvic and transvaginal 07/15/24 D21.9 - Benign neoplasm of connective and other soft tissue, unspecified Coding Level of Care Code Est Pt Level 3 (71250) Diagnoses Abnormal uterine bleeding N93.9 Fibroids D21.9
[2023-09-10 13:17] VITALS: BP 124/78; BMI 57.8
== END 2023-09-10 14:30 | disposition home or self-care (01) ==
LOC: HO.HWS 13:12
PROVIDERS: PCP Family Medicine; Visit Provider Advanced Practice Midwife
DX: N93.9 Abnormal uterine and vaginal bleeding, unspecified (principal); D21.9 Benign neoplasm of connective and other soft tissue, unspecified
CPT/HCPCS: 99213

== ENCOUNTER 2023-09-10 13:11 | Outpatient (REF) | payer MEDICAID, SELFPAY ==
[2023-09-10 16:15] LABS: Thyroid Stimulating Hormone 0.94 uIU/mL (0.32-4.0)
== END 2023-09-10 13:12 | disposition home or self-care (01) ==
LOC: HO.LAB 13:11
PROVIDERS: PCP Family Medicine; Visit Provider Advanced Practice Midwife
DX: N93.9 Abnormal uterine and vaginal bleeding, unspecified (principal); D21.9 Benign neoplasm of connective and other soft tissue, unspecified
CPT/HCPCS: 36415; 84443; 99212

== ENCOUNTER 2023-09-20 12:52 | Outpatient (AMB) | payer MEDICAID, SELFPAY ==
--- NOTE | 2023-09-20 12:59 | A.OFFVIS_ITS ---
Intake Intake Visit Reasons: Urge incontinence Intake Note: New Patient presents for initial visit for incontinence Urology Medications: none Blood Thinner: none PVR: 0ml's Wireless Retail Manager Required: Yes Accompanied by: Self / Same As Patient Allergies No Known Allergies Allergy (Verified 09/20/23 13:42) Medication List - Last Reconciled 09/20/23 by CLAUDE Lewis atorvastatin 10 mg PO BEDTIME calcium polycarbophil (Fiber Laxative (calcium polycarbophil)) 1,250 mg (2 x 625 mg) PO BID 30 days cholecalciferol (vitamin D3) 25 mcg PO DAILY dicyclomine 20 mg PO QID lisinopril 20 mg PO DAILY omeprazole 20 mg PO DAILY 30 days oxybutynin chloride ER 10 mg PO DAILY 30 days simethicone 180 mg PO QID HPI HPI Comments History of Present Illness Details Yoana is a very pleasant 52-year-old Hebrew-speaking female patient of Dr. Brown. She has a past medical history of gastritis, constipation, fibroma, hypertension, hypercholesteremia, and depression. She presents to the office today as a new patient for ongoing lower urinary tract symptoms. In discussion with the patient today she reports noting ongoing lower urinary tract symptoms to be worsening over the last few months. However, she reports these symptoms have been present for quite some time. She reports noting urinary frequency, urinary urgency, and episodes of incontinence if not near a bathroom. She otherwise denies hematuria, dysuria, foul smelling urine, changes to urinary stream, flank pain, fever, and or chills. She also reports to be having intermittent issues with nocturia. She reports variability. She reports some nights she gets up approximately 1-2 times a night however other times she gets up more than 3 times per night. Discussed at length potential causes for lower urinary tract symptoms patient is experiencing. In office urinalysis results reviewed with the patient today. PVR 0 mL. Discussed further treatment options with lifestyle modifications, pelvic floor therapy, and or medications. This was discussed at length. Also discussed near future in office cystoscopy and or urodynamics if symptoms persist and/or worsen. Will obtain retroperitoneal ultrasound for further assessment evaluation. She otherwise offers no other issues or concerns at this time. [facility] Medical History Diarrhea in adult patient Gastritis Fibroma Hypertension High cholesterol Depression Surgical History History of esophagogastroduodenoscopy (EGD) Hx of colonoscopy History of tubal ligation Family History Mother History of breast cancer Colon cancer Sister History of breast cancer Other Diabetes HTN (hypertension) Heart problem Social History Alcohol intake: never Patient Tobacco Use Status: Never used Tobacco Gender identity: Female Female Reproductive History Menstrual Age of Menarche: 11 Review of Systems Const Reports no additional complaints Eyes Reports no additional complaints ENT Reports no additional complaints Card Reports as per HPI Resp Reports no additional complaints GI Reports as per HPI Reports as per HPI Musc Reports no additional complaints Neuro Reports no additional complaints Psych Reports as per HPI Endo Reports no additional complaints Armen/Lymph Reports no additional complaints Aller/Immun Reports no additional complaints Physical Exam Const General: cooperative, healthy appearing, comfortable, no acute distress, well developed, alert and awake Nutritional Appearance: overweight Orientation/consciousness: patient oriented x3 Limitations: no limitations HEENT Head: Yes normal to inspection, Yes normocephalic and Yes atraumatic Ears: hearing grossly normal bilaterally Eyes General: appearance normal, both eyes and all related structures Neck Neck: Yes normal visual inspection and Yes trachea midline Chest Chest palpation & inspection: normal inspection of the chest Resp Effort & Inspection: normal respiratory effort and able to speak in complete sentences Cardio Rate: regular rate GI Inspection: Yes normal to inspection General: Yes no CVA tenderness Back/Spine/Pelvis Back: no CVA tenderness Skin General skin exam: no rashes or lesions noted Neuro General: patient oriented x3 Extrem General: Yes normal to inspection Psych Appearance: grossly normal and well kempt Mental Status: mental status grossly normal Speech and movement: Normal speech and movement present and Clear speech present Affect: normal affect Attitude: cooperative Thought process: Normal thought process present Thought content: Normal thought content present Insight: Fair insight present (Psych) Judgement: Fair judgement present (Psych) Office Procedures Post Void Residual Post Residual Void Post Void Residual (PVR): 0 25679-Tdoc Void Residual by ultrasound Results AMB Urinalysis, Automated UA Leukoctes 0 Cole/uL Last Edit by Leti Pimentel on 09/20/23 13:19 UA Nitrite Negative Last Edit by Brandyce Loren on 09/20/23 13:19 UA Urobilinogen 0.2 mg/dL Last Edit by [employer] Meetingsyce Loren on 09/20/23 13:19 UA Protein 15 mg/dL Last Edit by Brandroel Pimentel on 09/20/23 13:19 UA pH 5.5 Last Edit by [employer] Meetingsyce Bress on 09/20/23 13:19 UA Blood 0 Elfego/uL Last Edit by [employer] Meetingsyce Exelonixvandana on 09/20/23 13:19 UA Specific [place] 1.025 Last Edit by [employer] Meetingsyce Exelonixvandana on 09/20/23 13:19 UA Ketone Negative Last Edit by [employer] Meetingsycdeny Exelonixvandana on 09/20/23 13:19 UA Bilirubin 0 mg/dL Last Edit by Dr. Scribblesdeny Pimentel on 09/20/23 13:19 UA Glucose 0 mg/dL Last Edit by Dr. Scribblesdeny Pimentel on 09/20/23 13:19 Results Reviewed Results Reviewed: Laboratory Last Values Urine pH (Auto) 5.5 09/20/23 13:06 Specific [place] (Auto) 1.025 09/20/23 13:06 Urine Protein (Auto) 15 mg/dL 09/20/23 13:06 Glucose (UA)(Auto) 0 mg/dL 09/20/23 13:06 Urine Ketones (Auto) Negative 09/20/23 13:06 Urine Blood (Auto) 0 Elfego/uL 09/20/23 13:06 Urine Nitrite (Auto) Negative 09/20/23 13:06 Urine Bilirubin (Auto) 0 mg/dL 09/20/23 13:06 Urine Urobilinogen (Auto) 0.2 mg/dL 09/20/23 13:06 Leukocyte Esterase (Auto) 0 Cole/uL 09/20/23 13:06 Assessment & Plan Assessment & Plan (1) Stress incontinence: Code(s): N39.3 - Stress incontinence (female) (male) (2) Urinary frequency: Code(s): R35.0 - Frequency of micturition (3) Urinary urgency: Code(s): R39.15 - Urgency of urination Plan In office urinalysis results reviewed with the patient today; as noted above. PVR 0 mL. Discussed at length lifestyle modifications to assist with lower urinary tract symptoms. Discussed pelvic floor therapy. Discussed bladder triggers/irritants. Start oxybutynin as discussed and prescribed. Will obtain retroperitoneal ultrasound for further assessment evaluation. Follow-up in 2 months with imaging to be completed prior; or sooner with any issues, concerns, and or questions. Orders: Orders AMB Urinalysis Automated Today Z13.9 - Encounter for screening, unspecified AMB Post Void Residual by ultrasound Today Z13.9 - Encounter for screening, unspecified US retroperitoneal comp Today N39.3 - Stress incontinence (female) (male), R35.0 - Frequency of micturition, R39.15 - Urgency of urination Medications: New oxybutynin chloride ER 10 mg PO DAILY 30 days 30 tabs 2RF N32.81 - Overactive bladder Patient Instructions: The patient had an opportunity to ask questions regarding the treatment plan. All questions were answered. Physical exam, labs, and imaging were discussed and reviewed in detail. As well as risks, benefits, and discussion of treatment choices. No major barriers to understanding were identified. The patient expressed understanding and agreement with the above treatment plan. The patient was made aware they should contact our office by phone for worsening of their current condition, the appearance of new symptoms, or with any questions or concerns. Compliance is encouraged with any medications and follow up testing that is ordered. It is a privilege to be allowed the opportunity to participate in? your urological care.? Again, if you have any questions or concerns If you have any questions or concerns please do not hesitate to contact me. The office is [phone]. This note is constructed using voice recognition software. While every effort has been made to ensure accuracy arterial embalmer errors may have been included. Yours sincerely, CLAUDE Lewis Coding Level of Care Code New Pt Level 4 (26260) Diagnoses Stress incontinence N39.3 Urinary frequency R35.0 Urinary urgency R39.15 CPT Codes Post Residual Void - PVR CPT Code: 52934-Npfh Void Residual by ultrasound ([id number])
== END 2023-09-20 13:43 | disposition home or self-care (01) ==
PROVIDERS: PCP Family Medicine; Visit Provider Nurse Practitioner Family
DX: N39.3 Stress incontinence (female) (male) (principal); R35.0 Frequency of micturition; R39.15 Urgency of urination; Z13.9 Encounter for screening, unspecified
CPT/HCPCS: 99204

== ENCOUNTER → 2023-09-20 12:52 | Outpatient (BNVA) | payer MEDICAID, SELFPAY | PROVIDERS: PCP Family Medicine; Visit Provider Nurse Practitioner Family | DX: N39.3 Stress incontinence (female) (male) (principal); R35.0 Frequency of micturition; R39.15 Urgency of urination | CPT/HCPCS: 51798; 81003; 99212 ==

== ENCOUNTER 2023-09-26 13:09 | Outpatient (REF) | payer MEDICAID, SELFPAY ==
--- NOTE | ~2023-09-26 | US_ITS ---
EXAMINATION: US RETROPERITONEAL COMPLETE (RENAL) CLINICAL INFORMATION: Urgency of urination. COMPARISON: CT abdomen and pelvis 10/11/2022. Ultrasound abdomen limited 05/09/2020. TECHNIQUE: Real-time imaging of the kidneys and bladder. FINDINGS: RIGHT KIDNEY: 11.1 x 5.6 x 6.6 cm (SAG x AP x TRV). The kidney is normal in size, contour, and echogenicity. Renal cortical thickness is normal. No calculi or focal parenchymal lesions. No hydronephrosis. LEFT KIDNEY: 12.0 x 4.9 x 5.4 cm (SAG x AP x TRV). The kidney is normal in size, contour, and echogenicity. Renal cortical thickness is normal. No calculi or focal parenchymal lesions. No hydronephrosis. BLADDER: Well distended and normal. Bilateral ureteral jets are demonstrated. Prevoid bladder volume is 200 mL. Postvoid bladder volume is 15 mL. US/US retroperitoneal comp IMPRESSION: Unremarkable examination.
== END 2023-09-26 13:10 | disposition home or self-care (01) ==
LOC: HO.US 13:09
PROVIDERS: PCP Family Medicine; Visit Provider Nurse Practitioner Family
DX: R39.15 Urgency of urination (principal); R35.0 Frequency of micturition; N39.3 Stress incontinence (female) (male)
CPT/HCPCS: 76770

== ENCOUNTER 2023-11-21 14:32 | Outpatient (AMB) | payer MEDICAID, SELFPAY ==
--- NOTE | 2023-11-21 14:35 | MHC.OFFVIS ---
Intake Visit Reasons: 2m/US(set) Intake Note: Patient is Present for Follow Up Urology Medication: Oxybutynin Antibiotic Allergies:None Blood Thinners: None Wafer Production Lead Worker Name: TAD OLIVEROSTrev MCKAY Allergies No Known Allergies Allergy (Verified 11/21/23 14:50) Medication List - Last Reconciled 11/21/23 by CLAUDE Lewis atorvastatin 10 mg PO BEDTIME calcium polycarbophil (Fiber Laxative (calcium polycarbophil)) 1,250 mg (2 x 625 mg) PO BID 30 days cholecalciferol (vitamin D3) 25 mcg PO DAILY dicyclomine 20 mg PO QID lisinopril 20 mg PO DAILY omeprazole 20 mg PO DAILY 30 days oxybutynin chloride ER 10 mg PO DAILY 90 days simethicone 180 mg PO QID HPI Comments Details: Yoana is a very pleasant 52-year-old Maltese-speaking female patient of Dr. Brown. She has a past medical history of gastritis, constipation, fibroma, hypertension, hypercholesteremia, and depression. She is being followed up on today via video telehealth. Of note, patient was seen approximately 2 months ago as a new patient for ongoing lower urinary tract symptoms at which time a retroperitoneal ultrasound was ordered and she was started on 10 mg of oxybutynin daily. Recent retroperitoneal ultrasound results reviewed with the patient today. Bilateral kidneys with no calculi, lesions, and or hydronephrosis. The bladder is distended and normal. Bilateral ureteral jets are demonstrated. Pre void bladder volume is approximately 200 mL. Postvoid bladder volume is approximately 15 mL. Unremarkable retroperitoneal examination. In discussion with the patient today she reports feeling happy with her current voiding parameters on 10 mg of oxybutynin as she feels lower urinary tract symptoms she had been experiencing (urinary frequency, urinary urgency, and episodes of incontinence if not near a bathroom) have significantly improved. She currently denies any bothersome urinary issues or concerns. She denies hematuria, dysuria, foul smelling urine, changes to urinary stream, flank pain, fever, and or chills. She otherwise offers no other issues or concerns at this time. [facility] Medical History Diarrhea in adult patient Gastritis Fibroma Hypertension High cholesterol Depression Surgical History History of esophagogastroduodenoscopy (EGD) Hx of colonoscopy History of tubal ligation Family History Mother History of breast cancer Colon cancer Sister History of breast cancer Other Diabetes HTN (hypertension) Heart problem Social History Alcohol intake: never Patient Tobacco Use Status: Never used Tobacco Gender identity: Female Female Reproductive History Menstrual Age of Menarche: 11 Review of Systems Const Reports no additional complaints Eyes Reports no additional complaints ENT Reports no additional complaints Card Reports as per HPI Resp Reports no additional complaints GI Reports as per HPI Reports as per HPI Musc Reports no additional complaints Neuro Reports no additional complaints Psych Reports as per HPI Endo Reports no additional complaints Armen/Lymph Reports no additional complaints Aller/Immun Reports no additional complaints Physical Exam Const General: cooperative, healthy appearing, comfortable, no acute distress, well developed, alert and awake Orientation/consciousness: patient oriented x3 Resp Effort & Inspection: normal respiratory effort and able to speak in complete sentences Neuro General: patient oriented x3 Psych Appearance: grossly normal and well kempt Speech and movement: Clear speech present Affect: normal affect Attitude: cooperative Thought process: Normal thought process present Thought content: Normal thought content present Insight: Fair insight present (Psych) Judgement: Fair judgement present (Psych) Telehealth Telehealth Telehealth Platform: [facility] Location of provider rendering services: practice address Location of patient: address on file Patient Identification confirmed using: Name, : Yes Telehealth method: voice only Patient verbally consented to treatment: Yes Patient verbally consented to billing insurance company: Yes Patient informed of any privacy concerns related to visit: Yes Minutes spent on Phone/Video with Pt.: 15 Results Reviewed Results Reviewed: Date of Service: 09/26/23 EXAMINATION: US RETROPERITONEAL COMPLETE (RENAL) FINDINGS: RIGHT KIDNEY: 11.1 x 5.6 x 6.6 cm (SAG x AP x TRV). The kidney is normal in size, contour, and echogenicity. Renal cortical thickness is normal. No calculi or focal parenchymal lesions. No hydronephrosis. LEFT KIDNEY: 12.0 x 4.9 x 5.4 cm (SAG x AP x TRV). The kidney is normal in size, contour, and echogenicity. Renal cortical thickness is normal. No calculi or focal parenchymal lesions. No hydronephrosis. BLADDER: Well distended and normal. Bilateral ureteral jets are demonstrated. Prevoid bladder volume is 200 mL. Postvoid bladder volume is 15 mL. IMPRESSION: Unremarkable examination. Assessment & Plan Assessment & Plan (1) Stress incontinence: Code(s): N39.3 - Stress incontinence (female) (male) Category: Medical (2) Urinary frequency: Code(s): R35.0 - Frequency of micturition Category: Medical (3) Urinary urgency: Code(s): R39.15 - Urgency of urination Category: Medical Plan Recent retroperitoneal ultrasound results reviewed with the patient today; as noted above. Patient reports lower urinary tract symptoms have been significantly improved with 10 mg of oxybutynin She currently denies any bothersome urinary issues or concerns. She reports be happy with current voiding parameters on 10 mg of oxybutynin; will continue; refill provided. Discussed bladder triggers/irritants. Follow-up in 6 months with PVR; or sooner with any issues, concerns, and or questions. Medications: Changed From oxybutynin chloride ER 10 mg PO DAILY 30 days 30 tabs 2RF N32.81 - Overactive bladder To oxybutynin chloride ER 10 mg PO DAILY 90 tabs 2RF 90 days N32.81 - Overactive bladder Patient Instructions: The patient had an opportunity to ask questions regarding the treatment plan. All questions were answered. Physical exam, labs, and imaging were discussed and reviewed in detail. As well as risks, benefits, and discussion of treatment choices. No major barriers to understanding were identified. The patient expressed understanding and agreement with the above treatment plan. The patient was made aware they should contact our office by phone for worsening of their current condition, the appearance of new symptoms, or with any questions or concerns. Compliance is encouraged with any medications and follow up testing that is ordered. It is a privilege to be allowed the opportunity to participate in? your urological care.? Again, if you have any questions or concerns If you have any questions or concerns please do not hesitate to contact me. The office is [phone]. This note is constructed using voice recognition software. While every effort has been made to ensure accuracy dowel setting machine operator errors may have been included. Yours sincerely, ALONDRA Lewis Coding Level of Care Code Tele Est Pt Level 3 (23862) Diagnoses Stress incontinence N39.3 Urinary frequency R35.0 Urinary urgency R39.15
== END 2023-11-21 14:55 | disposition home or self-care (01) ==
LOC: HO.HUSH 14:32
PROVIDERS: PCP Family Medicine; Visit Provider Nurse Practitioner Family
DX: N39.3 Stress incontinence (female) (male) (principal); R35.0 Frequency of micturition; R39.15 Urgency of urination
CPT/HCPCS: 99213

== ENCOUNTER → 2023-11-21 14:32 | Outpatient (BNVA) | payer MEDICAID, SELFPAY | PROVIDERS: PCP Family Medicine; Visit Provider Nurse Practitioner Family ==

== ENCOUNTER 2024-02-28 09:40 | Outpatient (AMB) | payer MEDICAID, SELFPAY ==
[2024-02-28 09:42] VITALS: BP 124/76
--- NOTE | 2024-02-28 09:42 | A.OFFVIS_ITS ---
Vital Signs 02/28/24 09:42 Height 4 ft 3 in BP 124/76 Intake Visit Reasons: Ultrasound/lab follow up Organizational Development Director Required: Yes Organizational Development Director Language: Maintenance Worker House Trailer Name: Mary District Manager Primary Care Sales: District Manager Primary Care Sales Present Allergies No Known Allergies Allergy (Verified 02/28/24 09:42) Is last menstrual period known: Yes HPI Comments Details: Patient is here today for ultrasound findings, history of uterine fibroid. Admits to having an episode of spotting 2 weeks following her transvaginal ultrasound, follow up by what she reports as a normal cycle in September. Labs 08/01/2023- FSH 18, TSH 0.94. Cycles have skip for the last 6 months, experiencing hot flashes. EMB was negative in 2020. [facility] Medical History Diarrhea in adult patient Gastritis Fibroma Hypertension High cholesterol Depression Surgical History History of esophagogastroduodenoscopy (EGD) Hx of colonoscopy History of tubal ligation Family History Mother History of breast cancer Colon cancer Sister History of breast cancer Other Diabetes HTN (hypertension) Heart problem Social History Alcohol intake: never Patient Tobacco Use Status: Never used Tobacco Gender identity: Female Female Reproductive History Menstrual Age of Menarche: 11 Review of Systems Const All systems reviewed & are unremarkable except as noted in HPI and below Endo Reports no additional complaints Physical Exam Vital Signs: Last Vital Signs BP 124/76 02/28/24 09:42 Const General: cooperative, healthy appearing and no acute distress Psych Appearance: well kempt Attitude: cooperative Thought process: Normal thought process present Results Reviewed Results Reviewed: [address] [address] Ultrasound Report Signed Patient: Yoana Prather MR#: [id number] : 1970 Acct:[id number] Age/Sex: 52 / F ADM Date: 08/16/23 Loc: HO.US Attending Dr: Deepti Gibson CNM Ordering Physician: Deepti Gibson CNM Date of Service: 08/16/23 Procedure(s): US pelvic and transvaginal Accession Number(s): [id number] cc: Deepti Gibson CNM; Jennifer Brown MD~ EXAMINATION: US PELVIS CLINICAL INFORMATION: Fibroid uterus. COMPARISON: Pelvic ultrasound 08/21/2022. TECHNIQUE: Ultrasound of the pelvis is performed using both transabdominal and transvaginal transducers along with Doppler. Transvaginal imaging is performed due to inadequate visualization transabdominally. FINDINGS: Uterus: The uterus is anteverted and measures 11.5 x 4.2 x 6.4 cm. The double wall endometrial thickness is 1.1 mm. Posterior fundal fibroid measuring 4.5 cm, increased from 3.9 cm. Posterior body fibroid measures 1.7 cm, increased from 0.7 cm. Adnexa: The right ovary measures 4.6 x 2.8 x 2.8 cm, volume 19 mL. Simple cysts measuring 2.3 and 2.2 cm consistent with physiologic cysts. No imaging follow-up is recommended. The left ovary measures 2.1 x 1.7 x 2.0 cm, volume 4 mL. 1.6 cm simple cyst consistent with a physiologic cyst. No follow-up imaging is recommended. No free fluid. US/US pelvic and transvaginal IMPRESSION: Mildly increased size of uterine fibroids compared to pelvic ultrasound 08/21/2022. Dictated By: Ervin Davalos MD Signed By: <Electronically signed by Ervin Davalos MD in OV> 08/19/23 1636 DD/ 1208 TD/TT: Concrete Buildings Assembler: LORA Assessment & Plan Assessment & Plan (1) Fibroid: Code(s): D21.9 - Benign neoplasm of connective and other soft tissue, unspecified Category: Medical (2) Encounter to discuss test results: Code(s): Z71.2 - Person consulting for explanation of examination or test findings Plan Discussed: Ultrasound findings mild increase in fibroid size. Counseled re: Leiomyoma: common pelvic neoplasm. Differential diagnosis-may include but not limited to- leiomyosarcoma which is a rare uterine sarcoma 3-7/100,000, difficult to distinguish from fibroids on ultrasound from uterine sarcoma's. Unlikely any single test will have a highly positive predictive value. Hysterectomy is not recommended for sole purpose of excluding malignant neoplasm. Consult for surgical exploration, medical treatment, other treatments, verses expectant management, pros and cons, risks and benefits. Expectant management follow up in 6 months, then yearly for stability. Order placed. Report any AUB. Pelvic pressure, bloating, or pain. Referral to MD if indicated for level of care if indicated. Perimenopause versus menopause changes and diagnosis. Recommend an endometrial biopsy to rule out any abnormal pathology is within the uterine area including atypia, precancer or cancer. All of her questions and concerns were addressed to the best of my ability and shared decision making. She is agreeable to the plan of care. This note is constructed using voice recognition software. While every effort has been made to ensure accuracy, bowling or skating front desk clerk errors may have been included. Orders: Orders US pelvic and transvaginal Today D21.9 - Benign neoplasm of connective and other soft tissue, unspecified Coding Level of Care Code Est Pt Level 3 (25784) Diagnoses Fibroid D21.9 Encounter to discuss test results Z71.2
== END 2024-02-28 10:08 | disposition home or self-care (01) ==
PROVIDERS: PCP Family Medicine; Visit Provider Advanced Practice Midwife
DX: D21.9 Benign neoplasm of connective and other soft tissue, unspecified (principal); Z71.2 Person consulting for explanation of examination or test findings
CPT/HCPCS: 99213

== ENCOUNTER → 2024-02-28 09:40 | Outpatient (BNVA) | payer MEDICAID, SELFPAY | PROVIDERS: PCP Family Medicine; Visit Provider Advanced Practice Midwife | DX: Z71.2 Person consulting for explanation of examination or test findings (principal); D21.9 Benign neoplasm of connective and other soft tissue, unspecified | CPT/HCPCS: 99212 ==

== ENCOUNTER 2024-03-11 08:00 | Outpatient (REF) | payer MEDICAID, SELFPAY | END 2024-03-11 08:01 | disposition home or self-care (01) | LOC: HO.LNP 08:00 | PROVIDERS: Visit Provider Emergency Medicine | DX: R10.13 Epigastric pain (principal); R19.7 Diarrhea, unspecified | CPT/HCPCS: 87338; 87507 ==

== ENCOUNTER 2024-04-01 11:22 | Outpatient (REF) | payer MEDICAID, SELFPAY ==
[2024-04-01 13:58] LABS: Estimated Average Glucose 114 mg/dL; Hemoglobin A1c % 5.6 % (<6.0)
[2024-04-01 14:35] LABS: TSH reflex Free T4 0.88 uIU/mL (0.32-4.0)
[2024-04-01 14:38] LABS: Anion Gap 12 (12-20)
[2024-04-01 14:43] LABS: Alanine Aminotransferase 69 U/L (0-31); Albumin Level 4.1 g/dL (3.5-5.0); Alkaline Phosphatase 102 U/L (39-117); Aspartate Amino Transferase 40 U/L (5-31); Bilirubin Total 0.4 mg/dL (0.0-1.0); Blood Urea Nitrogen 17 mg/dL (9-16); Calcium 9.2 mg/dL (8.4-10.2); Carbon Dioxide 21 mmol/L (22-29); Chloride 108 mmol/L (96-108); Cholesterol 268 mg/dL (<200); Estimated Glomerular Filt Rate > 60; Glucose Random 95 mg/dL (60-115); HDL Cholesterol 50 mg/dL (>40); LDL Cholesterol Calculated 199 mg/dL (<100); Potassium 4.2 mmol/L (3.3-5.1); Sodium 137 mmol/L (135-145); Total Protein 7.4 g/dL (6.5-8.0); Triglycerides 96 mg/dL (<150)
[2024-04-01 15:16] LABS: Reflex LDLD? No
== END 2024-04-01 11:23 | disposition home or self-care (01) ==
LOC: HO.HHCL 11:22
PROVIDERS: Visit Provider Family Medicine
DX: I10 Essential (primary) hypertension (principal)
CPT/HCPCS: 36415; 80053; 80061; 83036; 84443

== ENCOUNTER 2024-04-06 11:16 | Outpatient (REF) | payer MEDICAID, SELFPAY ==
--- NOTE | ~2024-04-06 | US_ITS ---
EXAMINATION: US PELVIS CLINICAL INFORMATION: Fibroids. COMPARISON: 08/16/[address] abdomen and pelvis 10/11/2022. TECHNIQUE: Ultrasound of the pelvis is performed using both transabdominal and transvaginal transducers along with Doppler. Transvaginal imaging is performed due to inadequate visualization transabdominally. FINDINGS: Uterus: The uterus is anteverted and measures 11.4 x 4.6 x 5.6 cm. The double wall endometrial thickness is 0.5 mm. The uterus surface is smooth in contour and has normal myometrial echogenicity. 2 uterine fibroids are seen, both of which appear smaller than previously noted. The largest is at the fundus measuring 3.4 x 3.8 x 3.4 cm (previously 3.9 x 4.5 x 3.8 cm). The smaller fibroid is just below this measuring 1.1 x 0.7 x 0.7 cm (previously 1.1 x 1.7 x 1.2 cm). Nabothian cysts are present in the cervix. Adnexa: The right ovary was not seen. Left ovary measures 1.1 x 1.3 x 1.1 cm for a volume of 0.8 mL. No free fluid is seen. US/US pelvic and transvaginal IMPRESSION: 1. Uterine fibroids have decreased in size. 2. The right ovary was not seen. Electronically signed by: Crescencio Suarez MD 04/22/2024 10:53 PM EDT
== END 2024-04-06 11:17 | disposition home or self-care (01) ==
LOC: HO.US 11:16
PROVIDERS: PCP Family Medicine; Visit Provider Advanced Practice Midwife
DX: D21.9 Benign neoplasm of connective and other soft tissue, unspecified (principal)
CPT/HCPCS: 76830; 76856

== ENCOUNTER 2024-05-07 09:58 | Outpatient (AMB) | payer MEDICAID, SELFPAY ==
--- NOTE | 2024-05-07 10:03 | MHC.OFFVIS ---
Vital Signs 05/07/24 10:08 BP 130/68 Intake Visit Reasons: US follow up/EMB Unload Associate Required: Yes Unload Associate Language: Side Seam Envelope Machine Operator Name: Isidra [id number] Information Interpreted: non-clinical & clinical Manager Research Development: Manager Research Development Present Allergies No Known Allergies Allergy (Verified 05/07/24 10:07) Is last menstrual period known: Yes HPI Comments Details: Patient is here today for a follow up pelvic ultrasound results, history of fibroid, and experienced 1 episode of vaginal bleeding after the transvaginal probe lasting 2 weeks in August. FSH 07/2023=18. No further bleeding episodes. She denies any pelvic pain or bloating. She reports some hot flashes. [facility] Medical History (Updated 05/07/24 @ 10:31 by Deepti Gibson CNM) Perimenopause Diarrhea in adult patient Gastritis Fibroma Hypertension High cholesterol Depression Surgical History History of esophagogastroduodenoscopy (EGD) Hx of colonoscopy History of tubal ligation Family History Mother History of breast cancer Colon cancer Sister History of breast cancer Other Diabetes HTN (hypertension) Heart problem Social History Alcohol intake: never Patient Tobacco Use Status: Never used Tobacco Gender identity: Female Female Reproductive History Menstrual Age of Menarche: 11 Review of Systems Const All systems reviewed & are unremarkable except as noted in HPI and below Endo Reports no additional complaints Physical Exam Vital Signs: Last Vital Signs BP 130/68 05/07/24 10:08 Const General: cooperative, healthy appearing and no acute distress Psych Appearance: well kempt Attitude: cooperative Thought process: Normal thought process present Results Reviewed Results Reviewed: [address] [address] Ultrasound Report Signed Patient: Yoana Prather MR#: [id number] : 1970 Acct:[id number] Age/Sex: 53 / F ADM Date: 04/06/24 Loc: HO.US Attending Dr: Deepti Gibson CNM Ordering Physician: Deepti Gibson CNM Date of Service: 04/06/24 Procedure(s): US pelvic and transvaginal Accession Number(s): [id number] cc: Deepti Gibson CNM; Jennifer Brown MD~ EXAMINATION: US PELVIS CLINICAL INFORMATION: Fibroids. COMPARISON: 08/16/[address] abdomen and pelvis 10/11/2022. TECHNIQUE: Ultrasound of the pelvis is performed using both transabdominal and transvaginal transducers along with Doppler. Transvaginal imaging is performed due to inadequate visualization transabdominally. FINDINGS: Uterus: The uterus is anteverted and measures 11.4 x 4.6 x 5.6 cm. The double wall endometrial thickness is 0.5 mm. The uterus surface is smooth in contour and has normal myometrial echogenicity. 2 uterine fibroids are seen, both of which appear smaller than previously noted. The largest is at the fundus measuring 3.4 x 3.8 x 3.4 cm (previously 3.9 x 4.5 x 3.8 cm). The smaller fibroid is just below this measuring 1.1 x 0.7 x 0.7 cm (previously 1.1 x 1.7 x 1.2 cm). Nabothian cysts are present in the cervix. Adnexa: The right ovary was not seen. Left ovary measures 1.1 x 1.3 x 1.1 cm for a volume of 0.8 mL. No free fluid is seen. US/US pelvic and transvaginal IMPRESSION: 1. Uterine fibroids have decreased in size. 2. The right ovary was not seen. Electronically signed by: Crescencio Suarez MD 04/22/2024 10:53 PM EDT Dictated By: Crescencio Suarez MD Signed By: <Electronically signed by Crescencio Suarez MD in OV> 04/22/24 8570 DD/ 1139 TD/TT: 04/06/24 1150 Peanut Shaker: RAMOS Assessment & Plan Assessment & Plan (1) Fibroid: Code(s): D21.9 - Benign neoplasm of connective and other soft tissue, unspecified Category: Medical (2) Encounter to discuss test results: Code(s): Z71.2 - Person consulting for explanation of examination or test findings (3) Hot flashes: Code(s): R23.2 - Flushing (4) Perimenopause: Code(s): N95.1 - Menopausal and female climacteric states Plan Discussed: Ultrasound findings: 2 staple fibroids. Counseled re: Leiomyoma: common pelvic neoplasm. Differential diagnosis-may include but not limited to- leiomyosarcoma which is a rare uterine sarcoma 3-7/100,000, difficult to distinguish from fibroids on ultrasound from uterine sarcoma's. Unlikely any single test will have a highly positive predictive value. Hysterectomy is not recommended for sole purpose of excluding malignant neoplasm. Consult for surgical exploration, medical treatment, other treatments, verses expectant management, pros and cons, risks and benefits. Report any AUB, pelvic pressure, bloating, or pain. Referral to MD if indicated for level of care if indicated. Discussed perimenopausal transitioning. Advised to monitor any bleeding episodes in if there is any closely spaced less than 24 days apart or heavy prolonged bleeding to report back to the office immediately. Menopause is diagnosed after 12 consecutive months of absence of menses. Self-help measures for hot flashes. Annual exam as scheduled for 08/03/2024. All of her questions and concerns were addressed to the best of my ability and shared decision making. She is agreeable to the plan of care. This note is constructed using voice recognition software. While every effort has been made to ensure accuracy, ophthalmic photographer errors may have been included. Coding Level of Care Code Est Pt Level 3 (53608) Diagnoses Fibroid D21.9 Encounter to discuss test results Z71.2 Hot flashes R23.2 Perimenopause N95.1
[2024-05-07 10:08] VITALS: BP 130/68
== END 2024-05-07 10:47 | disposition home or self-care (01) ==
PROVIDERS: PCP Family Medicine; Visit Provider Advanced Practice Midwife
DX: D21.9 Benign neoplasm of connective and other soft tissue, unspecified (principal); Z71.2 Person consulting for explanation of examination or test findings; N95.1 Menopausal and female climacteric states; R23.2 Flushing
CPT/HCPCS: 99213

== ENCOUNTER → 2024-05-07 09:58 | Outpatient (BNVA) | payer MEDICAID, SELFPAY | PROVIDERS: PCP Family Medicine; Visit Provider Advanced Practice Midwife | DX: N95.1 Menopausal and female climacteric states (principal); R23.2 Flushing; D21.9 Benign neoplasm of connective and other soft tissue, unspecified; Z71.2 Person consulting for explanation of examination or test findings | CPT/HCPCS: 99212 ==

== ENCOUNTER 2024-05-18 09:54 | Outpatient (AMB) | payer MEDICAID, SELFPAY ==
--- NOTE | 2024-05-18 09:56 | A.OFFVIS_ITS ---
Intake Visit Reasons: 6m follow up Intake Note: Patient presents today for follow up on: frequency, urgency, and incontinence Urology Medication: Oxybutynin Antibiotic Allergies:None Blood Thinners: None PVR:0ml's Steamer Tender Required: Yes Steamer Tender Name: KAHLILRUSSELL MARY Accompanied by: Self / Same As Patient Allergies No Known Allergies Allergy (Verified 05/18/24 10:24) Medication List - Last Reconciled 05/18/24 by CLAUDE Lewis atorvastatin 10 mg PO BEDTIME calcium polycarbophil (Fiber Laxative (calcium polycarbophil)) 1,250 mg (2 x 625 mg) PO BID 30 days cholecalciferol (vitamin D3) 25 mcg PO DAILY dicyclomine 20 mg PO QID lisinopril 20 mg PO DAILY omeprazole 20 mg PO DAILY 30 days oxybutynin chloride ER 10 mg PO DAILY 90 days simethicone 180 mg PO QID HPI Comments Details: Yoana is a very pleasant 53-year-old Bruneian-speaking female patient of Dr. Brown. She has a past medical history of gastritis, constipation, fibroma, hypertension, hypercholesteremia, and depression. She presents to the office today for follow-up of her overactive bladder. In discussion with the patient today she reports to be doing and feeling well. She reports no bothersome u rinary issues or concerns since her last visit approximately 6 months ago. She reports compliance with oxybutynin 10 mg daily in discusses feeling this has been extremely helpful in episodes of urinary frequency and urgency she had been experiencing. In office urinalysis results reviewed with the patient today. PVR 0 mL. Previous workup has included a retroperitoneal ultrasound 10/05 noting bilateral kidneys with no calculi, lesions, and or hydronephrosis. The bladder is distended and normal. Bilateral ureteral jets are demonstrated. Pre void bladder volume is approximately 200 mL. Postvoid bladder volume is approximately 15 mL. Unremarkable retroperitoneal examination. She currently denies any bothersome urinary issues or concerns. She denies hematuria, dysuria, foul smelling urine, changes to urinary stream, flank pain, fever, and or chills. She otherwise offers no other issues or concerns at this time. [facility] Medical History Perimenopause Diarrhea in adult patient Gastritis Fibroma Hypertension High cholesterol Depression Surgical History History of esophagogastroduodenoscopy (EGD) Hx of colonoscopy History of tubal ligation Family History Mother History of breast cancer Colon cancer Sister History of breast cancer Other Diabetes HTN (hypertension) Heart problem Social History Alcohol intake: never Patient Tobacco Use Status: Never used Tobacco Gender identity: Female Female Reproductive History Menstrual Age of Menarche: 11 Review of Systems Const Reports no additional complaints Eyes Reports no additional complaints ENT Reports no additional complaints Card Reports as per HPI Resp Reports no additional complaints GI Reports as per HPI Reports as per HPI Musc Reports no additional complaints Neuro Reports no additional complaints Psych Reports as per HPI Endo Reports no additional complaints Armen/Lymph Reports no additional complaints Aller/Immun Reports no additional complaints Physical Exam Const General: cooperative, healthy appearing, comfortable, no acute distress, well developed, alert and awake Nutritional Appearance: overweight Orientation/consciousness: patient oriented x3 Limitations: no limitations HEENT Head: Yes normal to inspection, Yes normocephalic and Yes atraumatic Ears: hearing grossly normal bilaterally Eyes General: appearance normal, both eyes and all related structures Neck Neck: Yes normal visual inspection and Yes trachea midline Chest Chest palpation & inspection: normal inspection of the chest Resp Effort & Inspection: normal respiratory effort and able to speak in complete sentences Cardio Rate: regular rate GI Inspection: Yes normal to inspection General: Yes no CVA tenderness Back/Spine/Pelvis Back: no CVA tenderness Skin General skin exam: no rashes or lesions noted Neuro General: patient oriented x3 Extrem General: Yes normal to inspection Psych Appearance: grossly normal and well kempt Mental Status: mental status grossly normal Speech and movement: Normal speech and movement present and Clear speech present Affect: normal affect Attitude: cooperative Thought process: Normal thought process present Thought content: Normal thought content present Insight: Fair insight present (Psych) Judgement: Fair judgement present (Psych) Office Procedures Post Void Residual Post Residual Void Post Void Residual (PVR): 0 [id number]-[id number] Void Residual by ultrasound Results AMB Urinalysis, Automated UA Leukoctes 0 Ocle/uL Last Edit by [employer] Loren on 05/18/24 10:12 UA Nitrite Last Edit by [employer] on 05/18/24 10:12 UA Urobilinogen 0.2 mg/dL Last Edit by Grata on 05/18/24 10:12 UA Protein 15 mg/dL Last Edit by [employer] on 05/18/24 10:12 UA pH 5.5 Last Edit by [employer] on 05/18/24 10:12 UA Blood 0 Elfego/uL Last Edit by [employer] on 05/18/24 10:12 UA Specific [place] 1.025 Last Edit by Grata on 05/18/24 10:12 UA Ketone Last Edit by Grata on 05/18/24 10:12 UA Bilirubin 1 mg/dL Last Edit by Grata on 05/18/24 10:12 UA Glucose 0 mg/dL Last Edit by [employer] on 05/18/24 10:12 Results Reviewed Results Reviewed: Laboratory Last Values Urine pH (Auto) 5.5 05/18/24 10:10 Specific [place] (Auto) 1.025 05/18/24 10:10 Urine Protein (Auto) 15 mg/dL 05/18/24 10:10 Glucose (UA)(Auto) 0 mg/dL 05/18/24 10:10 Urine Blood (Auto) 0 Elfego/uL 05/18/24 10:10 Urine Bilirubin (Auto) 1 mg/dL 05/18/24 10:10 Urine Urobilinogen (Auto) 0.2 mg/dL 05/18/24 10:10 Leukocyte Esterase (Auto) 0 Cole/uL 05/18/24 10:10 Assessment & Plan Assessment & Plan (1) Stress incontinence: Code(s): N39.3 - Stress incontinence (female) (male) Category: Medical (2) Urinary frequency: Code(s): R35.0 - Frequency of micturition Category: Medical (3) Urinary urgency: Code(s): R39.15 - Urgency of urination Category: Medical Plan In office urinalysis results reviewed with the patient today; as noted above. PVR 0 mL. Patient currently denies any bothersome urinary issues or concerns. She reports be happy with current voiding parameters. Continue oxybutynin 10 mg daily as discussed and prescribed; refill provided. Follow-up in 6 months with PVR; or sooner with any issues, concerns, and or questions. Orders: Orders AMB Urinalysis Automated Today Z13.9 - Encounter for screening, unspecified AMB Post Void Residual by ultrasound Today N39.3 - Stress incontinence (female) (male) Medications: Refilled oxybutynin chloride ER 10 mg PO DAILY 90 days 90 tabs 3RF N32.81 - Overactive bladder Patient Instructions: The patient had an opportunity to ask questions regarding the treatment plan. All questions were answered. Physical exam, labs, and imaging were discussed and reviewed in detail. As well as risks, benefits, and discussion of treatment choices. No major barriers to understanding were identified. The patient expressed understanding and agreement with the above treatment plan. The patient was made aware they should contact our office by phone for worsening of their current condition, the appearance of new symptoms, or with any questions or concerns. Compliance is encouraged with any medications and follow up testing that is ordered. It is a privilege to be allowed the opportunity to participate in? your urological care.? Again, if you have any questions or concerns If you have any questions or concerns please do not hesitate to contact me. The office is [phone]. This note is constructed using voice recognition software. While every effort has been made to ensure accuracy revenue manager errors may have been included. Yours sincerely, CLAUDE Lewis Coding Level of Care Code Est Pt Level 3 (24445) Complex EM visit Add On G2211 Diagnoses Stress incontinence N39.3 Urinary frequency R35.0 Urinary urgency R39.15 CPT Codes Post Residual Void - PVR CPT Code: 10222-[id number] Void Residual by ultrasound ([id number])
== END 2024-05-18 10:26 | disposition home or self-care (01) ==
LOC: HO.HUSH 09:55
PROVIDERS: PCP Family Medicine; Visit Provider Nurse Practitioner Family
DX: N39.3 Stress incontinence (female) (male) (principal); R35.0 Frequency of micturition; R39.15 Urgency of urination; Z13.9 Encounter for screening, unspecified
CPT/HCPCS: 99213

== ENCOUNTER → 2024-05-18 09:54 | Outpatient (BNVA) | payer MEDICAID, SELFPAY | PROVIDERS: PCP Family Medicine; Visit Provider Nurse Practitioner Family | DX: N39.3 Stress incontinence (female) (male) (principal); R35.0 Frequency of micturition; R39.15 Urgency of urination | CPT/HCPCS: 51798; 81003; 99212 ==

== ENCOUNTER 2024-05-20 11:38 | Outpatient (AMB) | payer MEDICAID, SELFPAY ==
--- NOTE | 2024-05-20 11:47 | A.OFFVIS_ITS ---
Vital Signs 05/20/24 11:57 Height 4 ft 3 in Weight 208 lb 8.917 oz BMI 56.4 BP 149/59 H Blood Pressure Location Rt brachial Position Sitting Pulse 61 Intake Visit Reasons: Follow up Gerd Intake Note: Patient in office today in follow up of GERD. CC: Patient states that last Saturday she ate spaghettis and she woke up around 3 PM with pain vomiting and feelings that she needed to have a BM. She states that she still having LUQ abdominal pain and c/o nausea and watery mouth. She also reports seeing mild blood yesterday when she wiped after having a BM. She states that she was never scheduled for colonoscopy. Allergies No Known Allergies Allergy (Verified 05/20/24 12:00) HPI HPI Follow up Gerd: Details: Assessment & Plan (1) Irritable bowel syndrome with both constipation and diarrhea: Code(s): K58.2 - Mixed irritable bowel syndrome Plan: [place]ic #Victor Manuel, Live She continues to do well and has not had to go back to the [employer]. She is doing well on higher dose 220 mg Bentyl 4 times a day, her fiber therapy, simethicone, and omeprazole. At this time she is satisfied with her GI regimen. She is overdue for repeat colonoscopy, as the last was in 2018 and she was to have a 3 year repeat r/t high risk for CRC familiar. There are no prior problems with anesthesia or sedation. She denies any cardiac or respiratory problems. No ID problems. Strong FHX of crc in 1st and second degree relatives. ROV 6 mos and after scope. (2) Left sided abdominal pain: Code(s): R10.9 - Unspecified abdominal pain (3) GERD (gastroesophageal reflux disease): Code(s): K21.9 - Gastro-esophageal reflux disease without esophagitis (4) Family history of colon cancer: Comment: 10/2018 Dr. Owens- [facility] [place] CURRENT PLAN: The patient is high risk with marginal prep. Would recommend that repeat screening to be done in 3 years. High-risk with mother with colon cancer and first-degree cousins with colon cancer. Code(s): Z80.0 - Family history of malignant neoplasm of digestive organs Medications: New peg 3350-electrolytes 236-22.74-6.74 -5.86 gram (Golytely) until fecal effluent is clear; do not exceed a total volume of 2,000 mL 240 mL PO Q10M 1 day 4,000 mL 0RF Z12.11 - Encounter for screening for malignant neoplasm of colon Refilled simethicone 180 mg PO QID 30 days 120 caps 6RF omeprazole 20 mg PO DAILY 30 days 30 caps 6RF K21.9 - Gastro-esophageal reflux disease without esophagitis dicyclomine 20 mg PO QID 30 days 120 tabs 6RF calcium polycarbophil (Fiber Laxative (calcium polycarbophil)) 1,250 mg (2 x 625 mg) PO BID 30 days 120 tabs 6RF K58.2 - Mixed irritable bowel syndrome Discontinued linaclotide (Linzess) Discontinued Reason: Doctor's Order 145 mcg PO DAILY 30 days 30 caps 6RF K59.04 - Chronic idiopathic constipation COLONOSCOPY BIOPSY ? TODAY'S VISIT [place]ic #Eliane Live Patient has been lost to follow-up since 12/2022 She made some spaghetti and then she had nausea and swelling in the LUQ with pain. She forced herself to vomit and only green bile was produced. SHe then became white and her BP dropped. When she calmed down, she had a BM with a little blood. She says she had a similar pain ocne before and she presented to [facility] walk in and they checked her stool and it was negative for HP. She says she never received a call to schedule the colonoscopy. At this time she has a little pain in the left flank with slight nausea. She admits that she does not move her bowels but every 2-3 days. In the past she a constipation alternating with diarrhea but now her medication regimen is changed to include Wegovy along with chlorthalidone and oxybutynin all which are contributing factors to constipation. With this I think we need to restart her Linzess 72 micro g and titrate to affect her side effect. To be thorough all scan ultrasound of the abdomen to rule out any gallbladder disease. She is overdue for colonoscopy and will also add an upper endoscopy to be thorough. Bentyl 4 times a day, her fiber therapy, simethicone, and omeprazole. She is overdue for repeat colonoscopy, as the last was in 2018 and she was to have a 3 year repeat r/t high risk for CRC familiar. There are no prior problems with anesthesia or sedation. She denies any cardiac or respiratory problems. No ID problems. Strong FHX of crc in 1st and second degree relatives. Return office visit in 4 weeks. [facility] Medical History (Updated 07/23/24 @ 09:09 by WILMER Roberts) Urinary urgency Well woman exam Perimenopause Diarrhea in adult patient Gastritis Fibroma Hypertension High cholesterol Depression Surgical History History of esophagogastroduodenoscopy (EGD) Hx of colonoscopy History of tubal ligation Family History Mother History of breast cancer Colon cancer Sister History of breast cancer Other Diabetes HTN (hypertension) Heart problem Social History Alcohol intake: never Patient Tobacco Use Status: Never used Tobacco Gender identity: Female Female Reproductive History Menstrual Age of Menarche: 11 Review of Systems Const Denies fatigue, Denies fever(s), Denies night sweats, Denies poor appetite and Denies weight loss ENT Reports Normal hearing present, Denies dental pain, Denies dysphagia, Denies hearing loss, Denies mouth pain, Denies odynophagia, Denies throat swelling, Denies tongue swelling and Reports other (Dentition adequate) Card Reports no additional complaints Resp Reports no additional complaints GI Details: Reports abdominal pain, Denies melena, Denies bloating, Denies hematochezia, Reports constipation, Denies GI cramping, Denies dysphagia, Denies excessive flatus, Denies early satiety, Denies heartburn, Denies diarrhea, Reports nausea, Denies odynophagia, Denies vomiting and Denies hematemesis Skin/Breast Denies pruritus, Denies lesions, Denies rash and Denies jaundice Neuro Reports Normal hearing present and Denies Abnormal speech present Endo Denies fatigue Aller/Immun Denies throat swelling and Denies tongue swelling Physical Exam Vital Signs: Last Vital Signs Pulse 61 05/20/24 11:57 BP 149/59 H 05/20/24 11:57 BMI result Body Mass Index 56.4 Const General: cooperative, no acute distress, well developed and well groomed Nutritional Appearance: well nourished and obese Orientation/consciousness: oriented to person, oriented to place and oriented to time Limitations: language barrier HEENT Head: Yes normocephalic and Yes atraumatic Eyes General: appearance normal, both eyes and all related structures Pupils: Equal, round and reactive pupils present Neck Neck: Yes normal visual inspection and Yes no lymphadenopathy Thyroid: Thyroid normal Resp Effort & Inspection: normal respiratory effort and able to speak in complete sentences Auscultation: clear to auscultation bilaterally Cardio Rate: regular rate Rhythm: regular rhythm Heart sounds: Normal, physiologic split S2 sound present Peripheral pulses: radial pulses present and posterior tibial pulses present GI Inspection: No distended, Yes Abdominal panniculus present and Yes obesity Palpation (GI): Soft to palpation, Tenderness to palpation present (GI) in the LUQ, no guarding, not rigid and No hepatosplenomegaly present Percussion: Yes normal to percussion Auscultation: normal bowel sounds Rectal Exam - Female: deferred Skin General skin exam: no rashes or lesions noted, turgor normal, skin not dry, no jaundice, No spider nevi and no striae Rashes: no rashes Nails: normal Neuro General: oriented to person, oriented to place and oriented to time Cranial nerves: Yes Equal, round and reactive pupils present and Yes Normal hearing present Speech: No Abnormal speech present Extrem General: Yes normal to inspection, No clubbing, No cyanosis and No edema Psych Appearance: grossly normal and well kempt Mental Status: mental status grossly normal Speech and movement: Normal speech and movement present Affect: normal affect Attitude: cooperative Thought process: Normal thought process present and not confabulating Thought content: Normal thought content present Insight: Limited insight present (Psych) Judgement: Limited judgement present (Psych) Results Reviewed Results Reviewed: Laboratory Tests 09/03/23 04/01/24 11:28 11:25 WBC 5.5 Hgb 13.7 Hct 42.1 Plt Count 266 D Estimated GFR > 60 Total Bilirubin 0.4 AST 40 H ALT 69 H Alkaline Phosphatase 102 TSH 0.88 Assessment & Plan Assessment & Plan (1) GERD (gastroesophageal reflux disease): Code(s): K21.9 - Gastro-esophageal reflux disease without esophagitis Category: Medical (2) Chronic idiopathic constipation: Code(s): K59.04 - Chronic idiopathic constipation Category: Medical (3) Family history of colon cancer: Comment: 10/2018 Dr. Owens- [facility] [place] CURRENT PLAN: The patient is high risk with marginal prep. Would recommend that repeat screening to be done in 3 years. High-risk with mother with colon cancer and first-degree cousins with colon cancer. Code(s): Z80.0 - Family history of malignant neoplasm of digestive organs Category: Medical (4) Upper abdominal pain: Code(s): R10.10 - Upper abdominal pain, unspecified Category: Medical (5) Pre-op examination: Code(s): Z01.818 - Encounter for other preprocedural examination Category: Medical (6) Left sided abdominal pain: Code(s): R10.9 - Unspecified abdominal pain Category: Medical Plan Icelandic #Eliane Live Patient has been lost to follow-up since 12/2022 She made some spaghetti and then she had nausea and swelling in the LUQ with pain. She forced herself to vomit and only green bile was produced. SHe then became white and her BP dropped. When she calmed down, she had a BM with a little blood. She says she had a similar pain ocne before and she presented to [facility] walk in and they checked her stool and it was negative for HP. She says she never received a call to schedule the colonoscopy. At this time she has a little pain in the left flank with slight nausea. She admits that she does not move her bowels but every 2-3 days. In the past she a constipation alternating with diarrhea but now her medication regimen is changed to include Wegovy along with chlorthalidone and oxybutynin all which are contributing factors to constipation. With this I think we need to restart her Linzess 72 micro g and titrate to affect her side effect. To be thorough all scan ultrasound of the abdomen to rule out any gallbladder disease. She is overdue for colonoscopy and will also add an upper endoscopy to be thorough. Bentyl 4 times a day, her fiber therapy, simethicone, and omeprazole. She is overdue for repeat colonoscopy, as the last was in 2018 and she was to have a 3 year repeat r/t high risk for CRC familiar. There are no prior problems with anesthesia or sedation. She denies any cardiac or respiratory problems. No ID problems. Strong FHX of crc in 1st and second degree relatives. Return office visit in 4 weeks. Orders: Orders EGD/[facility] Combo - GI Use Only 05/20/24 R10.10 - Upper abdominal pain, unspecified Complete Blood Count Auto Diff 05/20/24 R10.10 - Upper abdominal pain, unspecified, K59.04 - Chronic idiopathic constipation TSH reflex Free T4 05/20/24 R10.10 - Upper abdominal pain, unspecified, K59.04 - Chronic idiopathic constipation US abdomen complete 05/20/24 R10.10 - Upper abdominal pain, unspecified Comprehensive Met. Panel 05/20/24 R10.10 - Upper abdominal pain, unspecified, K59.04 - Chronic idiopathic constipation Medications: New linaclotide (Linzess) 72 mcg PO QAM 30 caps 3RF K59.04 - Chronic idiopathic constipation bisacodyl (Dulcolax (bisacodyl)) 10 mg (2 x 5 mg) PO BEDTIME 4 tabs 0RF 2 days peg 3350-electrolytes 236-22.74-6.74 -5.86 gram (Golytely) until fecal effluent is clear; do not exceed a total volume of 2,000 mL 240 mL PO Q10M 4,000 mL 0RF 1 day Z12.11 - Encounter for screening for malignant neoplasm of colon Coding Level of Care Code Est Pt Level 4 (80317) Diagnoses GERD (gastroesophageal reflux disease) K21.9 Chronic idiopathic constipation K59.04 Family history of colon cancer Z80.0 Upper abdominal pain R10.10 Pre-op examination Z01.818 Left sided abdominal pain R10.9
[2024-05-20 11:57] VITALS: BP 149/59; PULSE 61; BMI 56.4
== END 2024-05-20 13:00 | disposition home or self-care (01) ==
LOC: HO.HGI 11:38
PROVIDERS: PCP Family Medicine; Visit Provider Nurse Practitioner
DX: K21.9 Gastro-esophageal reflux disease without esophagitis (principal); K59.04 Chronic idiopathic constipation; Z12.11 Encounter for screening for malignant neoplasm of colon; Z80.0 Family history of malignant neoplasm of digestive organs
CPT/HCPCS: 99214

== ENCOUNTER → 2024-05-20 11:38 | Outpatient (BNVA) | payer MEDICAID, SELFPAY | PROVIDERS: PCP Family Medicine; Visit Provider Nurse Practitioner | DX: Z01.818 Encounter for other preprocedural examination (principal); K21.9 Gastro-esophageal reflux disease without esophagitis; K58.2 Mixed irritable bowel syndrome; K59.04 Chronic idiopathic constipation; R11.2 Nausea with vomiting, unspecified; R10.12 Left upper quadrant pain; Z80.0 Family history of malignant neoplasm of digestive organs | CPT/HCPCS: 99212 ==

== ENCOUNTER 2024-06-05 08:56 | Outpatient (REF) | payer MEDICAID, SELFPAY ==
[2024-06-05 13:07] LABS: MANUAL DIFF FLAG NO
[2024-06-05 13:15] LABS: Basophils Absolute Auto 0.1 X10*3/uL (0.0-0.2); Basophils Percent Auto 1.1 % (0-2); Eosinophils Absolute Auto 0.1 X10*3/uL (0.0-0.4); Eosinophils Percent Auto 2.6 % (0-4); Hematocrit 41.6 % (37.0-47.0); Hemoglobin 13.7 g/dl (12.0-16.0); Imm Gran Abs Auto 0.01 X10*3/uL (0.00-0.03); Imm Gran Pct Auto 0.2 % (0.0-0.4); Lymphocytes Absolute Auto 2.1 X10*3/uL (1.2-4.9); Lymphocytes Percent Auto 38.4 % (20-40); Mean Corpuscular HGB Conc 32.9 g/dl (31.0-35.0); Mean Corpuscular Hemoglobin 27.6 pg (27.0-33.0); Mean Corpuscular Volume 83.7 fL (80.0-98.0); Mean Platelet Volume 11.2 fL (9.4-12.3); Monocytes Absolute Auto 0.4 X10*3/uL (0.1-1.2); Monocytes Percent Auto 7.5 % (2-11); Neutrophils Absolute Auto 2.8 x10*3/uL (2.0-8.3); Neutrophils Percent Auto 50.2 % (45-73); Platelet Count 242 X10*3/uL (160-400); Red Blood Count 4.97 X10*6/uL (4.20-5.50); White Blood Count 5.5 X10*3/uL (4.8-10.8)
[2024-06-05 13:53] LABS: Alanine Aminotransferase 39 U/L (0-31); Alkaline Phosphatase 103 U/L (39-117); Anion Gap 13 (12-20); Aspartate Amino Transferase 27 U/L (5-31); Bilirubin Total 0.3 mg/dL (0.0-1.0); Blood Urea Nitrogen 14 mg/dL (9-16); Calcium 9.5 mg/dL (8.4-10.2); Carbon Dioxide 24 mmol/L (22-29); Chloride 103 mmol/L (96-108); Estimated Glomerular Filt Rate > 60; Glucose Random 87 mg/dL (60-115); Sodium 136 mmol/L (135-145); Total Protein 7.3 g/dL (6.5-8.0)
== END 2024-06-05 08:57 | disposition home or self-care (01) ==
LOC: HO.US 08:56
PROVIDERS: PCP Family Medicine; Visit Provider Nurse Practitioner
DX: R10.13 Epigastric pain (principal); R10.10 Upper abdominal pain, unspecified; K59.04 Chronic idiopathic constipation
CPT/HCPCS: 36415; 76700; 80053; 84443; 85025

== ENCOUNTER 2024-06-05 11:01 | Outpatient (REF) | payer MEDICAID, SELFPAY | END 2024-06-05 11:02 | disposition home or self-care (01) | LOC: HO.HHCL 11:01 | PROVIDERS: Visit Provider Nurse Practitioner | DX: Z13.89 Encounter for screening for other disorder (principal) ==

== ENCOUNTER 2024-07-17 10:56 | Outpatient (REF) | payer MEDICAID, SELFPAY ==
--- NOTE | ~2024-07-17 | US_ITS ---
CLINICAL HISTORY: D21.9 - Benign neoplasm of connective and other soft tissue, unspecified US female pelvis LMP: Postmenopausal. Technique: Ultrasound examination of the pelvis was performed with transabdominal and transvaginal technique for better visualization of the uterus. Images include: color Doppler. Comparison: None Findings: Anteverted uterus measuring 9.2.4.6 x 6.7 cm with fibroids. There is a subserosal fibroid at the fundus measuring 3.9 x 4.2 x 4.2 cm, previously reported by car tester to measure 3.4 x 3.8 x 3.4 cm. There is an intramural fibroid in the posterior uterine body measuring 1.1 x 1.0 x 1.2 cm, previously reported by car tester to measure 1.1 x 0.7 x 0.7 cm. Normal endometrial thickness of 0.7 cm. Nabothian cysts in the cervix. The right ovary was not visualized. No lesions in the right adnexa. The left ovary is normal in size, measuring 2.0 x 1.4 x 0.9 cm, volume of 1.3 mL. There is normal echogenicity and vascularity. No lesions. No free fluid. Impression: Fibroid uterus. Mild interval increase in size of the fibroids reported by the car tester; the prior study was not available at time interpretation. An addendum can be provided if the prior study or prior report is submitted for review. This document has been electronically signed by: Mone Quevedo MD on 07/20/2024 16:17:00
== END 2024-07-17 10:57 | disposition home or self-care (01) ==
LOC: HO.US 10:56
PROVIDERS: PCP Family Medicine; Visit Provider Advanced Practice Midwife
DX: D21.9 Benign neoplasm of connective and other soft tissue, unspecified (principal)
CPT/HCPCS: 76830; 76856

== ENCOUNTER → 2024-07-17 10:58 | Outpatient (BNV) | payer MEDICAID, SELFPAY | PROVIDERS: PCP Family Medicine; Visit Provider Radiology Diagnostic Radiology | DX: D25.9 Leiomyoma of uterus, unspecified (principal); N85.4 Malposition of uterus | CPT/HCPCS: 76830; 76856 ==

== ENCOUNTER 2024-08-04 10:39 | Outpatient (AMB) | payer MEDICAID, SELFPAY ==
--- NOTE | 2024-08-04 10:47 | MHC.OFFVIS ---
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 She is doing well with no laminator preforms concerns. Currently sexually active. Denies any vaginal dryness or irritation. STI testing offered; she declines. Menopausal for over a year. Attempting to eat a healthy diet with vitamin D and stays active with exercise at work. Last pap smear; 2020. Last mammogram; 2023. Colonoscopy is ?UTD. Denies any family history of breast, ovarian or colon cancer. [facility] Medical History (Updated 08/04/24 @ 14:51 by Deepti Gibson CNM) Encounter for annual routine gynecological examination Endometrial thickening on ultrasound FH: breast cancer Urinary urgency Well woman exam Perimenopause Diarrhea in adult patient Gastritis Fibroma Hypertension High cholesterol Depression Surgical History History of esophagogastroduodenoscopy (EGD) Hx of colonoscopy History of tubal ligation Family History Mother History of breast cancer Colon cancer Sister History of breast cancer Other Diabetes HTN (hypertension) Heart problem Social History Alcohol intake: never Patient Tobacco Use Status: Never used Tobacco Gender identity: Female Female Reproductive History Menstrual Age of Menarche: 11 control method: permanent sterilization Permanent Sterilization: BTL Total pregnancies: 2 Full term: 2 Number of Living Children: 2 Date of last pap smear: 04/19/21 (neg pap and hpv) Date of Mammogram: 08/07/23 (Birad 1) Review of Systems Const All systems reviewed & are unremarkable except as noted in HPI and below Reports as per HPI Eyes Reports no additional complaints ENT Reports no additional complaints Card Reports no additional complaints Resp Reports no additional complaints GI Reports as per HPI and Reports no additional complaints Reports as per HPI Musc Reports no additional complaints Skin/Breast Reports as per HPI Neuro Reports no additional complaints Psych Reports no additional complaints Endo Reports no additional complaints Armen/Lymph Reports no additional complaints Aller/Immun Reports no additional complaints Physical Exam Vital Signs: Last Vital Signs BP 108/66 08/04/24 10:51 BMI result Body Mass Index 55.1 Const General: cooperative, healthy appearing, no acute distress, well developed and alert Orientation/consciousness: patient oriented x3 HEENT Head: Yes normal to inspection Eyes General: appearance normal, both eyes and all related structures Neck Neck: Yes normal visual inspection Thyroid: Thyroid normal Chest Chest palpation & inspection: normal inspection of the chest and other (no puckering, dimpling, peau de orange, retraction, discharge, masses) Breast/axilla inspection: normal inspection of the breasts Breast/axilla palpation: normal palpation of the breasts Resp Effort & Inspection: normal respiratory effort GI Inspection: Yes normal to inspection Palpation (GI): Soft to palpation Rectal Exam - Female: deferred General: Yes bladder normal to palpation External Female Exam: normal external appearance and normal appearance of the urethra Speculum Exam - Vagina: normal appearance of the vagina, normal palpation and normal vaginal discharge Speculum Exam - Cervix: normal appearance of the cervix and normal palpation Bimanual exam- vagina & uterus: normal bimanual exam, normal palpation, uterine size normal, bladder normal to palpation, normal palpation and non-tender Bimanual Exam- Adnexa, other: no masses Skin General skin exam: no rashes or lesions noted Rashes: no rashes Neuro General: patient oriented x3 Cognition (Neuro): normal cognition Extrem General: Yes normal to inspection Psych Attitude: cooperative Thought process: Normal thought process present Results Reviewed Results Reviewed: [address] [address] Ultrasound Report Signed Patient: Yoana Prather MR#: [id number] : 1970 Acct:[id number] Age/Sex: 53 / F ADM Date: 07/17/24 Loc: HO.US Attending Dr: Deepti Gibson CNM Ordering Physician: Deepti Gibson CNM Date of Service: 07/17/24 Procedure(s): US pelvic and transvaginal Accession Number(s): [id number] cc: Deepti Gibson CNM; Jennifer Brown MD~ CLINICAL HISTORY: D21.9 - Benign neoplasm of connective and other soft tissue, unspecified US female pelvis LMP: Postmenopausal. Technique: Ultrasound examination of the pelvis was performed with transabdominal and transvaginal technique for better visualization of the uterus. Images include: color Doppler. Comparison: None Findings: Anteverted uterus measuring 9.2.4.6 x 6.7 cm with fibroids. There is a subserosal fibroid at the fundus measuring 3.9 x 4.2 x 4.2 cm, previously reported by school occupational therapist to measure 3.4 x 3.8 x 3.4 cm. There is an intramural fibroid in the posterior uterine body measuring 1.1 x 1.0 x 1.2 cm, previously reported by school occupational therapist to measure 1.1 x 0.7 x 0.7 cm. Normal endometrial thickness of 0.7 cm. Nabothian cysts in the cervix. The right ovary was not visualized. No lesions in the right adnexa. The left ovary is normal in size, measuring 2.0 x 1.4 x 0.9 cm, volume of 1.3 mL. There is normal echogenicity and vascularity. No lesions. No free fluid. Impression: Fibroid uterus. Mild interval increase in size of the fibroids reported by the school occupational therapist; the prior study was not available at time interpretation. An addendum can be provided if the prior study or prior report is submitted for review. 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 The patient expressed understanding and agreement with the plan of care. All of her questions and concerns were addressed to the best of my ability. (2) Endometrial thickening on ultrasound: Code(s): R93.89 - Abnormal findings on diagnostic imaging of other specified body structures Category: Medical Plan: Discussed: Plan for endometrial biopsy due to thickened endometrial lining in postmenopausal range. Advised biopsy procedure to rule out uterine abnormality include atypical, pre cancerous, cancer cells. Pre procedure planning reviewed to eat and drink and take Tylenol or ibuprofen depending on contraindications allergies follow up by manufacture's instructions 1 hour before her procedure time. Patient is agreeable to schedule appointment will be made before leaving the office today. (3) Fibroid: Code(s): D21.9 - Benign neoplasm of connective and other soft tissue, unspecified Category: Medical Plan: Discussed: Enlarging fibroids in post menopause, hormonal disruption, Counseled re: Leiomyoma: common pelvic neoplasm. Differential diagnosis-may include but not limited to- leiomyosarcoma which is a rare uterine sarcoma 3-7/100,000, difficult to distinguish from fibroids on ultrasound from uterine sarcoma's. Unlikely any single test will have a highly positive predictive value. Hysterectomy is not recommended for sole purpose of excluding malignant neoplasm. Consult for surgical exploration, medical treatment, other treatments, verses expectant management, pros and cons, risks and benefits. Expectant management follow up in 4months, then yearly for stability. Patient prefers to proceed with expectant management. Report any PMB, pelvic pressure, bloating, or pain. Referral to MD if indicated for level of care if indicated. Total time I personally spent on visit and management today: ?25 minutes. Time spent included review of pertinent office notes in the electronic health record; review of laboratory and imaging results; review of personal family medical history; performing physical examination; discussing diagnosis and plan of care with the patient; documenting the encounter in the EMR. (4) Encounter for annual routine gynecological examination: Code(s): Z01.419 - Encounter for gynecological examination (general) (routine) without abnormal findings Category: Medical Plan Discussed: Current recommendations for pap smears per ASCCP guidelines. Breast awareness, periodic self breast exams and yearly mammogram. Maintain a healthy lifestyle, well balanced diet including Calcium 1,200 mg and Vitamin D 600 IU daily, and routine exercise. Contact the office with any postmenopausal bleeding. Patient verbalizes understanding and agrees to the plan of care. She was given opportunity to ask questions and all questions were answered to the best of my ability. RTO in 1 year for annual laminator preforms exam. This note is constructed using voice recognition software. While every effort has been made to ensure accuracy, equipment or machinery cleaner errors may have been included. Orders: Orders US pelvic and transvaginal 10/13/24 D21.9 - Benign neoplasm of connective and other soft tissue, unspecified Referrals Breast Surgery Referral Z80.3 - Family history of malignant neoplasm of breast Coding Level of Care Code Est Pt Level 3 (68124) Est Pt Prev Care 40-64y(40766) Diagnoses FH: breast cancer Z80.3 Endometrial thickening on ultrasound R93.89 Fibroid D21.9 Encounter for annual routine gynecological examination Z01.419
[2024-08-04 10:51] VITALS: BP 108/66; BMI 55.1
--- OUTSIDE RECORDS SUMMARY | 2024-08-04 12:04 | XMS_ITS | Clinical Summary ---
Author Organization [facility] [employer] [facility] ity Address [address] [place] [address] Care Team Providers Care Ropewalk Rope Maker Name Role Phone Unavailable Primary Care Provider Unavailabl e Social History Tobacco Use Types Packs/Day Years Used Date Smoking Tobacco: Never Assessed Sex and Gender Information Value Date Recorded Sex Assigned at Not on file Gender Identity Not on file Sexual Orientation Not on file Plan of Treatment Health Maintenance Due Date Last Done Comments Breast Cancer Screening 1969 DTaP,Tdap,and Td Vaccines (1 - Tdap) 1988 Hepatitis B Vaccines (1 of 3 - 19+ 3-dose series) 1988 Cervical Cancer Screening: P ap Smear 1990 Zoster Vaccines (1 of 2) 12/07/2019 Colorectal Cancer Screening: Colonoscopy 06/12/2022 Depression Screening 06/12/2022 HIV Screening 06/12/2022 Hepatitis C Screening 06/12/2022 Social Influencers of Health Screening 06/12/2022 COVID-19 Vaccine (2023-2 5 season) 2024 Influenza Vaccine (#1) 2024 HIB Vaccines Aged Out No longer eligi ble based on patient's age to complete this topic HPV Vaccines Aged Out No longer eligi ble based on patient's age to complete this topic Hepatitis A Vaccines Aged Out No long er eligible based on patient's age to complete this topic IPV Vaccines Aged Out No longer eligi ble based on patient's age to complete this topic MMR Vaccines Aged Out No longer eligi ble based on patient's age to complete this topic Meningococcal ACWY Vaccine Aged Out N o longer eligible based on patient's age to complete this topic Pneumococcal Vaccine: Pediat rics (0 to 5 Years) and At-Risk Patients (6 to 64 Years) Aged Out No longer eligible b ased on patient's age to complete this topic RSV Immunization Patients Un fish 20 months Aged Out No longer eligible b ased on patient's age to complete this topic Varicella Vaccines Aged Out No longer eligible based on patient's age to complete this topic
--- OUTSIDE RECORDS SUMMARY | 2024-08-04 12:05 | XMS_ITS | Encounter Summary ---
Author Organization [employer] Address [address] [facility] 7t [place] [address] Care Team Providers Care Nursing Program Chair Name Role Phone Jeninfer Brown MD Primary Care Provider [phone] Scott Riley PharmD Unavailable [phone] Reason for Visit * Reason Onset Date Comments Med Refill 04/06/2024 Encounter Details Date Type Department Care Team (Late st Contact Info) Description 04/06/2024 Refill [facility] [address] [place] [address] Ayan Madsen MD [address] [place] [address] Social History Tobacco Use Types Packs/Day Years Used Date Smoking Tobacco: Never Passive Smoke Exposure: Never Smokeless Tobacco: Never Depression Answer Date Recorded Patient Health Questionnaire-9 Score 5 03/11/2024 Patient Health Questionnaire-9 Score 5 03/11/2024 Last PHQ-9: Questionnaire Data Not on file 0 03/11/2024 Housing Stability Answer Date Recorded What is your housing situation today? I do not have housing (Staying with others, in a hotel, in a usp, living outside on the street, on a beach, in a car, or in a park 02/21/[address] you li ve. Do you have problems with any of the following? None of the above 02/21/2024 Food Insecurity Answer Date Recorded Within the past 12 months, y ou worried that your food would run out before you got money to buy more: Never True 02/21/2024 Within the past 12 months,th e food you bought just didn't last and you didn't have enough money to get more: Never True 03/2024 Transportation Answer Date Recorded In the past 12 months, has l ack of transportation kept you from medical appts, meetings, work or from getting things needed for daily living? I am not sure 02/28/2024 Utilities Answer Date Recorded In the past 12 months, has t he electric, gas, oil or water company threatened to shut off services in your home? No 02/21/2024 Depression Answer Date Recorded Patient Health Questionnaire-2 Score 2 03/11/2024 Internet Access Answer Date Recorded Internet Access Q1 Yes 03/13/2024 Internet Access Q2 Not on file 03/13/2024 Comments Unknown Sex and Gender Information Value Date Recorded Sex Assigned at Female 05/14/2022 10:19 AM EDT Legal Sex Female 10:19 AM EDT Gender Identity Female 05/14/2022 10:19 AM EDT Sexual Orientation Choose not to disclose 2021 10:19 AM EDT documented as of this encounter Plan of Treatment Upcoming Encounters Date Type Department Care Team (Late st Contact Info) Description 08/21/2024 11:00 AM EST Medication Management [facility] [address] [place] [phone] Scott Riley, PharmD [address] [place] [address] documented as of this encounter Visit Diagnoses Not on filedocumented in this encounter Additional Health Concerns Assessment Noted Time PHQ-9 Depression Total Score: 5 03/11/20 24 11:51 AM EDT documented as of this encounter Care Teams Nursing Program Chair Relationship Specialty Start Date End Date Jennifer Brown MD [address] [place] [phone] PCP - General Family Medicine 07/15/18 Scott Riley, PharmD [address] [place] [address] Pharmacist Internal Medicine 07/01/24 documented as of this encounter
--- OUTSIDE RECORDS SUMMARY | 2024-08-04 12:05 | XMS_ITS | Encounter Summary ---
Author Organization [employer] Address 75 [facility] 7t [place] [address] Care Team Providers Care Instructional Technology Instructor Name Role Phone Jennifer Brown MD Primary Care Provider [phone] Scott Riley PharmD Unavailable [phone] Reason for Visit * Reason Onset Date Comments Letter for School/Work 07/24/2024 Encounter Details Date Type Department Care Team ([facility] st Contact Info) Description 07/24/2024 Telephone [facility] [address] [place] [address] Scott Riley, PharmD [address] [place] [address] Letter for School/Work Social History Tobacco Use Types Packs/Day Years [...] with others, in a hotel, in a jail, living outside on the street, on a [...] AM EDT documented as of this encounter Miscellaneous Notes * Telephone Encounter - Luci Mendoza - 07/24/2024 4:03 PM EST Work note documented in this encounter Plan of Treatment Upcoming Encounters Date Type Department Care Team (Late st Contact Info) Description 08/21/2024 11:00 AM EST Medication Management [facility] [address] [place] [address] Scott Riley PharmD [address] [place] [address] documented as of this encounter Visit Diagnoses Not on filedocumented in this encounter Additional Health Concerns Assessment Noted Time PHQ-9 Depression Total Score: 5 03/11/20 24 11:51 AM EDT documented as of this encounter Care Teams Instructional Technology Instructor Relationship Specialty Start Date End Date Jennifer Brown MD [address] [place] [address] PCP - General Family Medicine 07/15/18 Scott Riley, PharmD [address] [place] [address] Pharmacist Internal Medicine 07/01/24 documented as of this encounter
--- OUTSIDE RECORDS SUMMARY | 2024-08-04 12:05 | XMS_ITS | Encounter Summary ---
Author Organization [employer] Address 75 [facility] 7t [place] [address] Care Team Providers Care Cdl Flatbed Truck Driver Name Role Phone Jennifer Brown MD Primary Care Provider [phone] Scott Riley PharmD Unavailable [phone] Encounter Details Date Type Department Care Team (Latest Contact Info) Description 07/23/2024 Travel Social History Tobacco Use Types Packs/Day Years [...] with others, in a hotel, in a care home, living outside on the street, on a [...] Description 08/21/2024 11:00 AM EST Medication Management [facility] [address] [place] [address] Scott Riley, PharmD [address] [place] [address] documented as of this encounter Visit Diagnoses Not on filedocumented in this encounter Additional Health Concerns Assessment Noted Time PHQ-9 Depression Total Score: 5 03/11/20 24 11:51 AM EDT documented as of this encounter Care Teams Cdl Flatbed Truck Driver Relationship Specialty Start Date End Date Jennifer Brown MD [address] [place] [id number] PCP - General Family Medicine 07/15/18 Scott Riley, PharmD [address] [place] [address] Pharmacist Internal Medicine 07/01/24 documented as of this encounter
--- OUTSIDE RECORDS SUMMARY | 2024-08-04 12:05 | XMS_ITS | Encounter Summary ---
Author Organization [employer] Address [address] [facility] 7t [place] [address] Care Team Providers Care Wholesaler Name Role Phone Jennifer Brown MD Primary Care Provider [phone] Scott Riley PharmD Unavailable [phone] Reason for Visit * Reason Onset Date Comments Prior Authorization 03/12/2024 Encounter Details Date Type Department Care Team (Late st Contact Info) Description 03/12/2024 Telephone [facility] [address] [place] [address] Jennifer Brown MD [address] [place] [address] Prior Authorization Social History Tobacco Use Types Packs/Day Years [...] with others, in a hotel, in a snf, living outside on the street, on a [...] encounter Miscellaneous Notes * Telephone Encounter - Kathleen Emerson - 03/12/2024 3:02 PM EDT Tc from pt stating script for Semaglutide-Weight Management (Wegovy) 0.25 MG/0.5ML solution auto-injector requires a PA, Transmission Operator confirmed with pharmacy. documented in this encounter Plan of Treatment Upcoming Encounters Date Type Department Care Team (Late st Contact Info) Description 08/21/2024 11:00 AM EST Medication Management [facility] [address] [place] [address] Scott Riley, PharmD [address] [place] [address] documented as of this encounter Visit Diagnoses Not on filedocumented in this encounter Additional Health Concerns Assessment Noted Time PHQ-9 Depression Total Score: 5 03/11/20 24 11:51 AM EDT documented as of this encounter Care Teams Wholesaler Relationship Specialty Start Date End Date Jennifer Brown MD [address] [place] [address] PCP - General Family Medicine 07/15/18 Scott Riley, AnabellaD [address] [place] [address] Pharmacist Internal Medicine 07/01/24 documented as of this encounter
--- OUTSIDE RECORDS SUMMARY | 2024-08-04 12:05 | XMS_ITS | Encounter Summary ---
Author Organization [employer] Address [address] [facility] 7t [place] [address] Care Team Providers Care Blood Donor Unit Assistant Name Role Phone Jennifer Brown MD Primary Care Provider [phone] Scott Riley PharmD Unavailable [phone] Reason for Visit * Reason Onset Date Comments Med Refill 07/15/2024 Encounter Details Date Type Department Care Team (Late st Contact Info) Description 07/15/2024 Refill [facility] [address] [place] [address] Lisbeth Felton ANP [address] [place] [address] Social History Tobacco Use Types Packs/Day Years [...] with others, in a hotel, in a mcfp, living outside on the street, on a [...] Description 08/21/2024 11:00 AM EST Medication Management [facility] [address] [place] [phone] Scott Riley, PharmD [address] [place] [address] documented as of this encounter Visit Diagnoses Not on filedocumented in this encounter Additional Health Concerns Assessment Noted Time PHQ-9 Depression Total Score: 5 03/11/20 24 11:51 AM EDT documented as of this encounter Care Teams Blood Donor Unit Assistant Relationship Specialty Start Date End Date Jennifer Brown MD [address] [place] [address] PCP - General Family Medicine 07/15/18 Scott Riley, PharmD [address] [place] [address] Pharmacist Internal Medicine 07/01/24 documented as of this encounter
--- OUTSIDE RECORDS SUMMARY | 2024-08-04 12:05 | XMS_ITS | Encounter Summary ---
Author Organization [employer] Address 75 [facility] 7t [place] [address] Care Team Providers Care Skidder Loader Name Role Phone Jennifer Brown MD Primary Care Provider [phone] Scott Riley PharmD Unavailable [phone] Reason for Visit * Reason Onset Date Comments Prior Authorization 07/20/2024 Encounter Details Date Type Department Care Team (Late st Contact Info) Description 07/20/2024 Telephone [facility] [address] [place] [address] Jennifer Brown MD [address] [place] [address] Prior Authorization Social History Tobacco Use Types [...] encounter Miscellaneous Notes * Telephone Encounter - Madhu Salgado RN - 07/20/2024 1:12 PM EST PA request received for wegovy. [facility] preferred formulary is now zebound. Patient is currentlyprescribed the 1.7mg dose of wegovy would you like to send the equivalent dose of zepbound? documented in this encounter Plan of Treatment Upcoming Encounters Date Type Department Care Team (Late st Contact Info) Description 08/21/2024 11:00 AM EST Medication Management [facility] [address] [place] [address] Scott Riley, PharmD [address] [place] [address] documented as of this encounter Visit Diagnoses Not on filedocumented in this encounter Additional Health Concerns Assessment Noted Time PHQ-9 Depression Total Score: 5 03/11/20 24 11:51 AM EDT documented as of this encounter Care Teams Skidder Loader Relationship Specialty Start Date End Date Jennifer Brown MD [address] [place] [address] PCP - General Family Medicine 07/15/18 Scott Riley, AnabellaD [address] [place] [address] Pharmacist Internal Medicine 07/01/24 documented as of this encounter
--- OUTSIDE RECORDS SUMMARY | 2024-08-04 12:05 | XMS_ITS | Encounter Summary ---
Author Organization [employer] Address 75 [facility] 7t [place] [address] Care Team Providers Care Road Design Draftsperson Name Role Phone Jennifer Brown MD Primary Care Provider [phone] Scott Riley PharmD Unavailable [phone] Encounter Details Date Type Department Care Team ([facility] st Contact Info) Description 07/23/2024 3:15 PM EST Office Visit [facility] [address] [place] [address] Emmy Caruso, OD [address] [place] [address] Presbyopia (Primary Dx); Cortical cataract of right eye Social History Tobacco Use Types Packs/Day Years [...] with others, in a hotel, in a fpc, living outside on the street, on a [...] AM EDT documented as of this encounter Progress Notes * Emmy Caruso, JUHI - 07/23/2024 3:15 PM EST Eye Care Progress Note Patient ID: Yoana Prather is a 53 y.o. female. HPI Patient reports blurry vision both eyes (OU) at near. Patient does not wear any glasses Today is the patient's first eye exam. Last edited by Emmy Caruso, OD on 07/23/2024 3:05 PM. Current Outpatient Medications Medication Sig Dispense Refill Acetaminophen Extra Strength 500 MG tablet TAKE 1 TO 2 TABLETS BY MOUTH EVERY 8 HOURS NEEDED FORPAIN OR FEVER 30 tablet 3 atorvastatin (Lipitor) 10 MG tablet Take 1 tablet (10 mg) by mouth at bedtime. 90 tablet 1 Blood Pressure kit Use to check blood pressure once daily. XL Cuff 1 kit 0 chlorthalidone (Hygroton) 25 MG tablet Take 0.5 tablets (12.5 mg) by mouth Once per day. 45 tablet 3 cholecalciferol (Vitamin D High Potency) 25 MCG (1000 UT) capsule Take 1 capsule (25 mcg) by mouth Once per day. 90 capsule 3 Diclofenac Sodium 1 % gel APPLY 2 GRAMS APPLY TO THE AFFECTED AREA(S) TWICE DAILY NEEDED FOR PAIN 100 g 3 dicyclomine (Bentyl) 20 MG tablet Take 20 mg by mouth 4 times daily. famotidine (Pepcid) 20 MG tablet Take 1 tablet (20 mg) by mouth 2 times daily. 180 tablet 0 Linzess 72 MCG capsule Take 72 mcg by mouth in the morning. lisinopril 40 MG tablet Take 1 tablet (40 mg) by mouth Once per day. 90 tablet 3 naproxen (Naprosyn) 500 MG tablet Take 1 tablet (500 mg) by mouth with breakfast and with evening meal. 60 tablet 3 omeprazole (PriLOSEC) [address] capsule TAKE 1 CAPSULE BY MOUTH EVERY TWELVE HOURS 180 capsule 0 oxybutynin XL (Ditropan-XL) 10 MG 24 hr tablet Take 10 mg by mouth Once per day. Semaglutide-Weight Management (Wegovy) 1 MG/0.5ML solution auto-injector INJECT 1mg SUBCUTANEOUSLY ONCE A WEEK 2 mL 0 Semaglutide-Weight Management (Wegovy) 1.7 MG/0.75ML solution auto-injector INJECT ONE PEN (=1.7 MG) SUBCUTANEOUSLY ONCE A WEEK 3 mL 0 Simethicone Ultra Strength 180 MG capsule Take 180 mg by mouth 4 times daily. No current facility-administered medications for this visit. Past Medical History: Diagnosis Date Hypertension Obesity Past Surgical History: Procedure Laterality Date TUBAL LIGATION Family History Problem Relation Name Age of Onset Colon cancer Mother Breast cancer Mother Other (diabetes mellitus) Father Asthma Father Breast cancer Sister Tobacco Use: Low Risk (07/23/2024) Tobacco Smoking Tobacco Use: Never Smokeless Tobacco Use: Never Passive Exposure: Never No Known Allergies ROS Positive for: Eyes Negative for: Constitutional, Gastrointestinal, Neurological, Skin, Genitourinary, Musculoskeletal,HENT, Endocrine, Cardiovascular, Respiratory, Psychiatric, Allergic/Imm, Heme/Lymph Last edited by Emmy Caruso OD on 07/23/2024 3:05 PM. Base Eye Exam Visual Acuity (Snellen - Linear) Right Left Both Dist sc 20/20 20/20 Near sc 20/30 Tonometry (iCare , 3:13 PM) Right Left Pressure 13 14 Pupils Pupils APD Right PERRL None Left PERRL None Visual Andrade (Counting fingers) Left Right Full Full Extraocular Movement Right Left Full Full Neuro/Psych Oriented x3: Yes Mood/Affect: Normal Dilation Both eyes: 1.0% Mydriacyl @ 3:13 PM Slit Lamp and Fundus Exam External Exam Right Left External Normal Normal Slit Lamp Exam Right Left Lids/Lashes Clean and clear Clean and clear Conjunctiva/Sclera White and quiet White and quiet Cornea Clear Clear Anterior Chamber Deep and quiet, angles open Deep and quiet, angles open Iris Flat, round Flat, round Lens Cortical spoking inferior Clear Fundus Exam Right Left Vitreous Clear Clear Disc [place] and healthy [place] and healthy C/D Ratio Vertical 0.45 0.45 C/D Ratio Horizontal 0.45 0.45 Macula Flat, even pigmentation Flat, even pigmentation Vessels AV 2/3, normal course and caliber AV 2/3, normal course and caliber Periphery No holes/tears/detachments 360 No holes/tears/detachments 360 Refraction Manifest Refraction Sphere Cylinder Add Right -0.25 Sphere +2.00 Left +0.00 Sphere +2.00 Final Rx Sphere Cylinder Add Right -0.25 Sphere +2.00 Left +0.00 Sphere +2.00 Expiration Date: 07/23/2025 Assessment and Plan Diagnoses and all orders for this visit: Presbyopia - Dispensed updated spec Rx Cortical cataract of right eye - Visually insignificant both eyes (OU) - Discussed the importance of UV protection including wearing sunglasses and avoiding smoking RTC in 1 year for comprehensive eye exam or soon as needed Emmy Caruso, OD 07/23/2024, 3:42 PM Assessment Coordinator Source: ___ None __x_ Bilingual Staff ___ Qualified Staff Chemistry Technician ___ Telephone Assessment Coordinator; ID# ___ Assessment Coordinator brought by patient (family member, friend, HEALTH MANAGEMENT CONSULTANT, etc) ___ In person transit driver ___ Ipad Assessment Coordinator; ID#: Language Spoken During Exam: Canadian documented in this encounter Plan of Treatment Upcoming Encounters Date Type Department Care Team (Late st Contact Info) Description 08/21/2024 11:00 AM EST Medication Management [facility] [address] [place] [address] Scott Riley, AnabellaD [address] [place], [place] [phone] documented as of this encounter Visit Diagnoses Diagnosis Presbyopia- Primary Cortical cataract of right eye Unspecified cataract documented in this encounter Additional Health Concerns Assessment Noted Time PHQ-9 Depression Total Score: 5 03/11/20 24 11:51 AM EDT documented as of this encounter Care Teams Road Design Draftsperson Relationship Specialty Start Date End Date Jennifer Brown MD [address] [place] [address] PCP - General Family Medicine 07/15/18 Scott Riley, Teresa [address] [place] [address] Pharmacist Internal Medicine 07/01/24 documented as of this encounter
--- OUTSIDE RECORDS SUMMARY | 2024-08-04 12:05 | XMS_ITS | Encounter Summary ---
Author Organization [employer] Address [address] [facility] 7t [place] [address] Care Team Providers Care Senior Sales Representative Name Role Phone Jennifer Brown MD Primary Care Provider [phone] Scott Riley PharmD Unavailable [phone] Reason for Visit * Reason Onset Date Comments Med Refill 11/07/2023 Encounter Details Date Type Department Care Team (Late st Contact Info) Description 11/07/2023 Refill [facility] [address] [place] [address] Jennifer Brown MD [address] [place] [address] Trochanteric bursitis of both hips; Viral syndrome Social History Tobacco Use Types Packs/Day Years Used Date Smoking Tobacco: Never Passive Smoke Exposure: Never Smokeless Tobacco: Never Depression Answer Date Recorded Patient Health Questionnaire-9 Score 0 07/12/2022 Housing Stability Answer Date Recorded What is your housing situation today? I am not s ure 05/14/[address] you li ve. Do you have problems with any of the following? I am not sure 05/14/2023 Food Insecurity Answer Date Recorded Within the past 12 months, y ou worried that your food would run out before you got money to buy more: Sometimes True 2022 Within the past 12 months,th e food you bought just didn't last and you didn't have enough money to get more: Sometimes True 05/14/2023 Transportation Answer Date Recorded In the past 12 months, has l ack of transportation kept you from medical appts, meetings, work or from getting things needed for daily living? No 05/14/2023 Utilities Answer Date Recorded In the past 12 months, has t he electric, gas, oil or water company threatened to shut off services in your home? No 05/14/2023 Depression Answer Date Recorded Patient Health Questionnaire-2 Score 0 07/12/2022 Comments Unknown Sex and Gender Information Value [...] Description 08/21/2024 11:00 AM EST Medication Management [facility] [address] [place] [phone] Scott Riley, AnabellaD [address] [place] [phone] documented as of this encounter Visit Diagnoses Diagnosis Trochanteric bursitis of both hips Viral syndrome Unspecified viral infection, in conditions classified elsewhere and of unspecified site documented in this encounter Additional Health Concerns Assessment Noted Time PHQ-9 Depression Total Score: 0 07/12/20 22 10:25 AM EST documented as of this encounter Care Teams Senior Sales Representative Relationship Specialty Start Date End Date Jennifer Brown MD [address] [place] [address] PCP - General Family Medicine 07/15/18 Scott Riley, PharmD [address] [place] [address] Pharmacist Internal Medicine 07/01/24 documented as of this encounter
--- OUTSIDE RECORDS SUMMARY | 2024-08-04 12:05 | XMS_ITS | Encounter Summary ---
Author Organization [employer] Address [address] [facility] 7t [place] [address] Care Team Providers Care Magnetic Healer Name Role Phone Jennifer Brown MD Primary Care Provider [phone] Scott Riley PharmD Unavailable [phone] Reason for Visit * Reason Onset Date Comments Med Refill 07/15/2024 Encounter Details Date Type Department Care Team (Late st Contact Info) Description 07/15/2024 Refill [facility] [address] [place] [address] Jennifer Brown MD [address] [place] [address] Social History Tobacco Use Types Packs/Day Years [...] with others, in a hotel, in a custodial, living outside on the street, on a [...] Description 08/21/2024 11:00 AM EST Medication Management [facility] [address] [place] [phone] Scott Riley, PharmD [address] [place] [address] documented as of this encounter Visit Diagnoses Not on filedocumented in this encounter Additional Health Concerns Assessment Noted Time PHQ-9 Depression Total Score: 5 03/11/20 24 11:51 AM EDT documented as of this encounter Care Teams Magnetic Healer Relationship Specialty Start Date End Date Jennifer Brown MD [address] [place] [address] PCP - General Family Medicine 07/15/18 Scott Rilye, PharmD [address] [place] [address] Pharmacist Internal Medicine 07/01/24 documented as of this encounter
--- OUTSIDE RECORDS SUMMARY | 2024-08-04 12:05 | XMS_ITS | Encounter Summary ---
Author Organization [employer] Address [address] [facility] 7t [place] [address] Care Team Providers Care Sap Administrator Name Role Phone Jennifer Brown MD Primary Care Provider [phone] Scott Riley PharmD Unavailable [phone] Reason for Visit * Reason Onset Date Comments Med Refill 07/15/2024 Encounter Details Date Type Department Care Team (Late st Contact Info) Description 07/15/2024 Refill [facility] 230 [place] [address] Jennifer Brown MD 230 [place] [address] Vitamin D insufficiency; Viral syndrome; Trochanteric bursitis of both hips Social History Tobacco Use Types Packs/Day Years [...] with others, in a hotel, in a nursing home, living outside on the street, on [...] Description 08/21/2024 11:00 AM EST Medication Management [facility] [address] [place] [address] Scott Riley, Teresa [address] [place] [phone] documented as of this encounter Visit Diagnoses Diagnosis Vitamin D insufficiency Viral syndrome Unspecified viral infection, in conditions classified elsewhere and of unspecified site Trochanteric bursitis of both hips documented in this encounter Additional Health Concerns Assessment Noted Time PHQ-9 Depression Total Score: 5 03/11/20 24 11:51 AM EDT documented as of this encounter Care Teams Sap Administrator Relationship Specialty Start Date End Date Jennifer Brown MD [address] [place] [address] PCP - General Family Medicine 07/15/18 Soctt Riley, PharmD [address] [place] [address] Pharmacist Internal Medicine 07/01/24 documented as of this encounter
--- OUTSIDE RECORDS SUMMARY | 2024-08-04 12:05 | XMS_ITS | Encounter Summary ---
Author Organization [employer] Address [address] [facility] 7t [place] [address] Care Team Providers Care Die Baker Name Role Phone Jennifer Brown MD Primary Care Provider [phone] Scott Riley PharmD Unavailable [phone] Encounter Details Date Type Department Care Team (Latest Contact Info) Description 07/24/2024 Travel Social History Tobacco Use Types Packs/Day [...] Description 08/21/2024 11:00 AM EST Medication Management [facility] [address] [place] [phone] Scott Riley, PharmD [address] [place] [address] documented as of this encounter Visit Diagnoses Not on filedocumented in this encounter Additional Health Concerns Assessment Noted Time PHQ-9 Depression Total Score: 5 03/11/20 24 11:51 AM EDT documented as of this encounter Care Teams Die Baker Relationship Specialty Start Date End Date Jennifer Brown MD [address] [place] [phone] PCP - General Family Medicine 07/15/18 Scott Riley, PharmD [address] [place] [phone] Pharmacist Internal Medicine 07/01/24 documented as of this encounter
--- OUTSIDE RECORDS SUMMARY | 2024-08-04 12:05 | XMS_ITS | Encounter Summary ---
Author Organization [employer] Address [address] [facility] 7t [place] [address] Care Team Providers Care Metals Sales Representative Name Role Phone Jennifer Brown MD Primary Care Provider [phone] Scott Riley PharmD Unavailable [phone] Encounter Details Date Type Department Care Team (Late st Contact Info) Description 07/17/2024 Orders Only [facility] External Provider, [facility] Social History Tobacco Use Types Packs/Day Years [...] with others, in a hotel, in a correction, living outside on the street, on a [...] Description 08/21/2024 11:00 AM EST Medication Management [facility] 230 [place] [address] Scott Riley, PharmD [address] [place] [address] documented as of this encounter Procedures Procedure Name Priority Date/Time Associated Diagnosis Comments US PELVIS TRANSVAGINAL Routine 07/20/2024 4:17 PM EST documented in this encounter Results * US Pelvis Transvaginal (07/20/2024 4:17 PM EST) Anatomical Region Laterality Modality Pelvis Ultrasound 07/20/2024 4:17 PM EST Narrative 07/20/2024 4:18 PM EST ? [facility] ?[address] ?[place] [address] ? Ultrasound Report ? Signed ? Patient: Prather,Yoana ?MR#: [id number] ?? 59 ? : 1970 ?Acct:[id number] ? Age/Sex: 53 / F ?ADM Date: 01/03/25 ? Loc: HO.US ? Attending Dr: Deepti Gibson CNM ? Ordering Physician: Deepti Gibson CNM ?? Date of Service: 07/17/24 ?? Procedure(s): US pelvic and transvaginal ?? Accession Number(s): [id number] ? cc: Deepti Gibson CNM; Jennifer Brown MD ? CLINICAL HISTORY: D21.9 - Benign neoplasm of connective and other soft tissue, unspecified ? US female pelvis ? LMP: Postmenopausal. ? Technique: Ultrasound examination of the pelvis was performed with ?? transabdominal and transvaginal technique for better visualization of the ?? uterus. Images include: color Doppler. ? Comparison: None ? Findings: ?? Anteverted uterus measuring 9.2.4.6 x 6.7 cm with fibroids. There is a ?? subserosal fibroid at the fundus measuring 3.9 x 4.2 x 4.2 cm, previously ?? reported by aegis console operator track to measure 3.4 x 3.8 x 3.4 cm. There is an ?? intramural fibroid in the posterior uterine body measuring 1.1 x 1.0 x 1.2 ?? cm, previously reported by aegis console operator track to measure 1.1 x 0.7 x 0.7 cm. ?? Normal endometrial thickness of 0.7 cm. Nabothian cysts in the cervix. ?? The right ovary was not visualized. No lesions in the right adnexa. ?? The left ovary is normal in size, measuring 2.0 x 1.4 x 0.9 cm, volume of ?? 1.3 mL. There is normal echogenicity and vascularity. No lesions. ?? No free fluid. ? Impression: ?? Fibroid uterus. Mild interval increase in size of the fibroids reported by ?? the aegis console operator track; the prior study was not available at time interpretation. ?? An addendum can be provided if the prior study or prior report is ?? submitted for review. ? This document has been electronically signed by: Mone Quevedo MD ?? on 07/20/2024 16:17:00 ? Dictated By: ?Mone Lyon MD ? Signed By: ?<Electronically signed by Mone Lyon MD in OV> ? 07/20/24 1617 ? DD/ 1617 ? TD/TT: 07/20/24 1617 ? Customer Consultant: ? Procedure Note Ken Otero - 07/20/2024 [facility] [address] [facility] [place] [address] Ultrasound Report Signed Patient: Yoana PratherMR#: [id number] 59 : 1970Acct:[id number] Age/Sex: 53 / FADM Date: 07/17/24 Loc: HO.US Attending Dr: Deepti Gibson CNM Ordering Physician: Deepti Gibson CNM Date of Service: 07/17/24 Procedure(s): US pelvic and transvaginal Accession Number(s): [id number] cc: Deepti Gibson CNM; Jennifer Brown MD CLINICAL HISTORY: D21.9 - Benign neoplasm of connective and other softtissue, unspecified US female pelvis LMP: Postmenopausal. Technique: Ultrasound examination of the pelvis was performed with transabdominal and transvaginal technique for better visualization of the uterus. Images include: color Doppler. Comparison: None Findings: Anteverted uterus measuring 9.2.4.6 x 6.7 cm with fibroids. There is a subserosal fibroid at the fundus measuring 3.9 x 4.2 x 4.2 cm, previously reported by aegis console operator track to measure 3.4 x 3.8 x 3.4 cm. There is an intramural fibroid in the posterior uterine body measuring 1.1 x 1.0 x 1.2 cm, previously reported by aegis console operator track to measure 1.1 x 0.7 x 0.7 cm. Normal endometrial thickness of 0.7 cm. Nabothian cysts in the cervix. The right ovary was not visualized. No lesions in the right adnexa. The left ovary is normal in size, measuring 2.0 x 1.4 x 0.9 cm, volume of 1.3 mL. There is normal echogenicity and vascularity. No lesions. No free fluid. Impression: Fibroid uterus. Mild interval increase in size of the fibroids reported by the aegis console operator track; the prior study was not available at time interpretation. An addendum can be provided if the prior study or prior report is submitted for review. This document has been electronically signed by: Mone Quevedo MD on 07/20/2024 16:17:00 Dictated By: Mone Lyon MD Signed By: <Electronically signed by Mone Lyon MD in OV> 07/20/241616 DD/ 16 TD/TT: 07/20/24 1617 Customer Consultant: [facility] External Provider IMG US PROCEDURES Final Result documented in this encounter Visit Diagnoses Not on filedocumented in this encounter Additional Health Concerns Assessment Noted Time PHQ-9 Depression Total Score: 5 03/11/20 24 11:51 AM EDT documented as of this encounter Care Teams Metals Sales Representative Relationship Specialty Start Date End Date Jennifer Brown MD [address] [place] [address] PCP - General Family Medicine 07/15/18 Scott Riley, AnabellaD [address] [place] [address] Pharmacist Internal Medicine 07/01/24 documented as of this encounter
--- OUTSIDE RECORDS SUMMARY | 2024-08-04 12:05 | XMS_ITS | Encounter Summary ---
Author Organization [employer] Address [address] [facility] 7t [place] [address] Care Team Providers Care Embroidery Supervisor Name Role Phone Jenniefr Brown MD Primary Care Provider [phone] Scott Riley PharmD Unavailable [phone] Reason for Visit * Reason Onset Date Comments Med Refill 07/15/2024 Encounter Details Date Type Department Care Team (Late st Contact Info) Description 07/15/2024 Refill [facility] [address] [place] [address] Jennifer Brown MD [address] [place] [address] Social History Tobacco Use Types Packs/Day Years [...] with others, in a hotel, in a senior living, living outside on the street, on a [...] Description 08/21/2024 11:00 AM EST Medication Management [facility] [address] [place] [phone] Scott Riley, PharmD [address] [place] [address] documented as of this encounter Visit Diagnoses Not on filedocumented in this encounter Additional Health Concerns Assessment Noted Time PHQ-9 Depression Total Score: 5 03/11/20 24 11:51 AM EDT documented as of this encounter Care Teams Embroidery Supervisor Relationship Specialty Start Date End Date Jennifer Brown MD [address] [place] [address] PCP - General Family Medicine 07/15/18 Scott Riley, PharmD [address] [place] [phone] Pharmacist Internal Medicine 07/01/24 documented as of this encounter
--- OUTSIDE RECORDS SUMMARY | 2024-08-04 12:05 | XMS_ITS | Encounter Summary ---
Author Organization [employer] Address [address] [facility] 7t [place] [address] Care Team Providers Care Bait Tier Name Role Phone Jennifer Brown MD Primary Care Provider [phone] Scott Riley PharmD Unavailable [phone] Reason for Visit * Reason Onset Date Comments Med Refill 05/15/2024 Encounter Details Date Type Department Care Team (Late st Contact Info) Description 05/15/2024 Refill [facility] 230 [place] [address] Jennifer Brown MD [address] [place] [address] Social History Tobacco Use Types Packs/Day Years [...] Description 08/21/2024 11:00 AM EST Medication Management [facility] [address] [place] [phone] Scott Riley, PharmD [address] [place] [address] documented as of this encounter Visit Diagnoses Not on filedocumented in this encounter Additional Health Concerns Assessment Noted Time PHQ-9 Depression Total Score: 5 03/11/20 24 11:51 AM EDT documented as of this encounter Care Teams Bait Tier Relationship Specialty Start Date End Date Jennifer Brown MD [address] [place] [phone] PCP - General Family Medicine 07/15/18 Scott Riley, PharmD [address] [place] [phone] Pharmacist Internal Medicine 07/01/24 documented as of this encounter
--- OUTSIDE RECORDS SUMMARY | 2024-08-04 12:05 | XMS_ITS | Encounter Summary ---
Author Organization [employer] Address [address] [facility] 7t [place] [address] Care Team Providers Care Wheelchair Rental Clerk Name Role Phone Jennifer Brown MD Primary Care Provider [phone] Scott Riley PharmD Unavailable [phone] Reason for Visit * Reason Onset Date Comments Med Refill 11/07/2023 Encounter Details Date Type Department Care Team (Late st Contact Info) Description 11/07/2023 Refill [facility] [address] [place] [address] Jennifer Brown MD [address] [place] [address] Vitamin D insufficiency Social History Tobacco Use Types Packs/Day Years [...] Description 08/21/2024 11:00 AM EST Medication Management [facility] [address] [place] [address] Scott Riley, PharmD [address] [place] [address] documented as of this encounter Visit Diagnoses Diagnosis Vitamin D insufficiency documented in this encounter Additional Health Concerns Assessment Noted Time PHQ-9 Depression Total Score: 0 07/12/20 22 10:25 AM EST documented as of this encounter Care Teams Wheelchair Rental Clerk Relationship Specialty Start Date End Date Jennifer Brown MD [address] [place] [phone] PCP - General Family Medicine 07/15/18 Scott Riley, PharmD [address] [place] [address] Pharmacist Internal Medicine 07/01/24 documented as of this encounter
--- OUTSIDE RECORDS SUMMARY | 2024-08-04 12:05 | XMS_ITS | Clinical Summary ---
Author Organization [employer] Address [address] [facility] [address] [place] [address] Care Team Providers Care Area Field Person Name Role Phone Jennifer Brown MD Primary Care Provider [phone] Scott Riley PharmD Unavailable [phone] Allergies No known active allergies Medications * This document contains information received from the source organization and may not represent a complete record from that organization. Simethicone Ultra Strength 180 MG capsule Take 180 mg by mouth 4 times daily. 022 Active dicyclomine (Bentyl) 20 MG tablet Take 20 mg by mouth 4 times daily. Active oxybutynin XL (Ditropan-XL) 10 MG 24 hr tablet Take 10 mg by mouth Once per day. Active cholecalciferol (Vitamin D High Potency) 25 MCG (1000 UT) capsuleIndicatio ns:Vitamin D insufficiency Take 1 capsule (25 mcg) by mouth Once per day. 90 capsule 3 Active Diclofenac Sodium 1 % gel APPLY 2 GRAMS APPLY TO THE AFFECTED AREA(S) TWICE DAILY NEEDED FOR PAIN 100 g 3 024 Active Acetaminophen Extra Strength 500 MG tabletIndication s:Viral syndrome TAKE 1 TO 2 TABLETS BY MOUTH EVERY 8 HOURS NEEDED FOR PAIN OR FEVER 30 tablet 3 024 Active naproxen (Naprosyn) 500 MG tabletIndication s:Trochanteric bursitis of both hips Take 1 tablet (500 mg) by mouth with breakfast and with evening meal. 60 tablet 3 024 Active lisinopril 40 MG tablet Take 1 tablet (40 mg) by mouth Once per day. 90 tablet 3 024 Active famotidine (Pepcid) 20 MG tablet Take 1 tablet (20 mg) by mouth 2 times daily. 180 tablet 024 Active Linzess 72 MCG capsule Take 72 mcg by mouth in the morning. 024 Active Blood Pressure kitIndications:P rimary hypertension Use to check blood pressure once daily. XL Cuff 1 kit Active omeprazole (PriLOSEC) [address] capsule TAKE 1 CAPSULE BY MOUTH EVERY TWELVE HOURS 180 capsule 024 Active Semaglutide-Weig ht Management (Wegovy) 1.7 MG/0.75ML solution auto-injector INJECT ONE PEN (=1.7 MG) SUBCUTANEOUSLY ONCE A WEEK 3 mL 025 Active atorvastatin (Lipitor) 40 MG tabletIndication s:Dyslipidemia Take 1 tablet (40 mg) by mouth Once per day. 90 tablet 3 025 Active chlorthalidone (Hygroton) 25 MG tabletIndication s:Primary hypertension Take 1 tablet by mouth once daily 90 tablet 3 025 Active chlorthalidone (Hygroton) 25 MG tablet Take 0.5 tablets (12.5 mg) by mouth Once per day. 45 tablet 3 024 2024 Discontinued(D ose adjustment) atorvastatin (Lipitor) 10 MG tablet Take 1 tablet (10 mg) by mouth at bedtime. 90 tablet 1 024 2024 Discontinued(D ose adjustment) Semaglutide-Weig ht Management (Wegovy) 1 MG/0.5ML solution auto-injector INJECT 1mg SUBCUTANEOUSLY ONCE A WEEK 2 mL 024 2024 Discontinued Active Problems Problem Noted Date Diagnosed Date Anxiety 03/11/2024 Assessment & Plan (03/11/2024 11:18 AM EDT): - patient was seen by [facility] Adjustment disorder with mixed anxiety and depre ssed mood 03/11/2024 Pain of right heel 07/15/2022 Assessment & Plan (03/11/2024 4:36 AM EDT): -Likely plantar fasciitis -Continue wearing comfortable shoes -Ice, judicious use of NSAIDs or APAP, and heel stretching exercise -Reviewed stretching exercise she can do at home -Offered podiatry referral, but pt does not have time -Consider imaging if her symptoms worsen Assessment & Plan (07/15/2022 4:41 PM EST): -Likely plantar fasciitis -Continue wearing comfortable shoes -Ice, judicious use of NSAIDs or APAP, and heel stretching exercise -Reviewed stretching exercise she can do at home -Offered podiatry referral, but pt does not have time -Consider imaging if her symptoms worsen Trochanteric bursitis of both hips 07/15/2022 Assessment & Plan (03/11/2024 4:37 AM EDT): -She has a difficulty finding time for PT -Reviewed home exercise -She is not interested in referral to orthopedist Assessment & Plan (07/15/2022 5:09 PM EST): -She has a difficulty finding time for PT -Reviewed home exercise -She is not interested in referral to orthopedist Chronic idiopathic constipation 07/12/2022 Assessment & Plan (03/11/2024 4:36 AM EDT): -Followed by [facility] -Continue working on fiber-rich diet -Continue linaclotide Assessment & Plan (07/15/2022 4:57 PM EST): -Followed by [facility] -Continue working on fiber-rich diet -Continue linaclotide Dyslipidemia 07/12/2022 Assessment & Plan (03/11/2024 4:37 AM EDT): -Last lipid profile: TC 286; TG 140; HDL 66; LDL 191 -Current medication: Atorvastatin 10 mg at bedtime -Treatment Hx: Previously on pravastatin, but switched to atorvastatin due to inadequate response -Continue working on medication adherence -Continue working on lifestyle modifications Assessment & Plan (07/15/2022 5:02 PM EST): -Last lipid profile: TC 286; TG 140; HDL 66; LDL 191 -Current medication: Atorvastatin 10 mg at bedtime -Treatment Hx: Previously on pravastatin, but switched to atorvastatin due to inadequate response -Continue working on medication adherence -Continue working on lifestyle modifications Hepatitis C antibody test positive 07/12/2022 Assessment & Plan (03/11/2024 4:37 AM EDT): -Hepatitis C antibody reactive in 2018 -Completed immunizations for Hep A and B -Viral load undetectable, most recently checked on 01/30/22 -LFT wnl on 01/30/22 -Continue precautionary measure -Continue periodic lab Assessment & Plan (07/15/2022 5:06 PM EST): -Hepatitis C antibody reactive in 2018 -Completed immunizations for Hep A and B -Viral load undetectable, most recently checked on 01/30/22 -LFT wnl on 01/30/22 -Continue precautionary measure -Continue periodic lab Leiomyoma 07/12/2022 Assessment & Plan (03/11/2024 4:38 AM EDT): -Evaluated by [facility] -Anticipating shrinkage since she is going through menopause Assessment & Plan (07/15/2022 5:07 PM EST): -Evaluated by [facility] -Anticipating shrinkage since she is going through menopause Obesity 07/12/2022 Assessment & Plan (03/11/2024 11:17 AM EDT): - continue lifestyle modifications - consider sleep study - will start GLP1-RA and discussed about its risks and benefits Assessment & Plan (07/15/2022 5:00 PM EST): -Continue working on lifestyle modifications Tubular adenoma of colon 07/12/2022 Assessment & Plan (03/11/2024 4:36 AM EDT): -Family Hx colon cancer -10/21/18 Colonoscopy: ascending colon polyp (tubular adenoma), diverticulosis, poor prep. -Recommended repeat in 3 yrs -Called [facility] office; they will review her pathology report and will contact pt Assessment & Plan (07/15/2022 4:59 PM EST): -Family Hx colon cancer -10/21/18 Colonoscopy: ascending colon polyp (tubular adenoma), diverticulosis, poor prep. -Recommended repeat in 3 yrs -Called [facility] office; they will review her pathology report and will contact pt Vitamin D insufficiency 04/21/2018 Primary hypertension 07/24/2014 Assessment & Plan (03/13/2024 6:11 AM EDT): -Goal BP < 140/90 per JNC-8 and < 130/80 per ACC/AHA guideline (Tx threshold >= 140/90) -BP at goal today -Treatment Hx: Dx 2014, initially tried hydrochlorothiazide, but changed to lisinopril due to ineffectiveness -Continue working on lifestyle modifications -Continue current medication: Lisinopril 20 mg daily; will add chlorthalidone 12.5 mg daily, anticipates GLP1-RA will improve her BP as well once she loses weight -Follow up with RN in 3 wks for BP check; if SBP > 140, increase chlorthalidone to 25 mg daily and recheck BMP Assessment & Plan (07/15/2022 4:56 PM EST): -Goal BP < 140/90 per JNC-8 and < 130/80 per ACC/AHA guideline (Tx threshold >= 140/90) -BP at goal today -Treatment Hx: Dx 2014, initially tried hydrochlorothiazide, but changed to lisinopril due to ineffectiveness -Continue working on lifestyle modifications -Continue current medication: Lisinopril 20 mg daily -Follow up in 3-6 mo, sooner if any problem arises Resolved Problems Problem Noted Date Diagnosed Date Resolved Date Poor vision 03/11/2024 07/23/2024 Encounters Date Type Department Care Team Description 07/24/2024 Telephone [facility] [address] [place] [address] Scott Riley, PharmD Letter for School/Work 07/24/2024 Travel 07/23/2024 3:15 PM EST Office Visit [facility] [address] [place] [address] Emmy Caruso, OD Presbyopia (Primary Dx); Cortical cataract of right eye 07/23/2024 Travel 07/20/2024 Telephone [facility] [address] [place] [address] Jennifer Brown MD Prior Authorization 07/17/2024 Orders Only [facility] External Provider, [facility] 07/15/2024 Refill [facility] [address] [place] [address] Lisbeth Felton ANP 07/15/2024 Refill [facility] [address] [place] [address] Jennifer Brown MD 07/15/2024 Refill [facility] [address] [place] [address] Jennifer Brown MD Vitamin D insufficiency; Viral syndrome; Trochanteric bursitis of both hips 07/15/2024 Refill [facility] [address] [place] [address] Jennifer Brown MD 07/01/2024 Refill [facility] [address] [place] [address] Jennifer Brown MD 06/25/2024 Travel 06/17/2024 Refill [facility] [address], [place] [phone] Jennifer Brown MD 06/15/2024 Refill [facility] [address] [place] [address] Jennifer Brown MD 06/05/2024 Orders Only GENERIC EXTERNAL DATA DEPARTMENT Provider, Generic External Data 05/26/2024 Orders Only [facility] [address] [place] [address] Jennifer Brown MD Primary hypertension (Primary Dx) 05/15/2024 Refill [facility] [address] [place] [phone] Jennifer Brown MD 05/08/2024 Refill [facility] [address] [place] [address] Jennifer Brown MD from Last 3 Months Immunizations Name Administration Dates Next Due Hep A, Adult 01/12/2019,04/21/2018 Hep B, adult 09/15/2018,05/22/2018,04/21/2018 Influenza, IIV3, injectable 05/18/2014 Tdap 07/24/2024,05/18/2014 Zoster, Recombinant 02/27/2021,12/26/2020 Family History Medical History Relation Name Comments Asthma Father diabetes mellitus Father Breast cancer Mother Colon cancer Mother Breast cancer Sister Relation Name Status Comments Father Mother Sister Social History Tobacco Use Types Packs/Day Years Used Date Smoking Tobacco: Never Passive Smoke Exposure: Never Smokeless Tobacco: Never Tobacco Cessation:Counseling Given: Not Answered Depression Answer Date Recorded Patient Health Questionnaire-9 [...] not to disclose 2021 10:19 AM EDT Last Filed Vital Signs Vital Sign Reading Time Taken Comments Blood Pressure 136/84 07/24/2024 3:46 PM EST Pulse 62 07/24/2024 3:34 PM EST Temperature 36.6 ??C (97.8 ??F) 03/11/2024 10:25 AM E DT Respiratory Rate 18 04/17/2024 11:16 AM EDT Oxygen Saturation 98% 04/17/2024 11:16 AM EDT Inhaled Oxygen Concentration - - Weight 98.1 kg (216 lb 4 oz) 03/11/2024 10:25 AM EDT Height 146.1 cm (4' 9.5 ) 03/11/2024 10:25 AM ED T Body Mass Index 45.99 03/11/2024 10:25 AM EDT Plan of Treatment Upcoming Encounters Date Type Department Care Team (Late st Contact Info) Description 08/21/2024 11:00 AM EST Medication Management [facility] [address] [place] [address] Scott Riley, PharmD [address] [place] [address] Health Maintenance Due Date Last Done Comments CT Colonography 1970 FIT DNA/Cologuard 1970 FIT 1970 FOBT 1970 Sigmoidoscopy 1970 Colonoscopy 10/21/2021 10/21/2018 Colorectal Cancer Screening 10/21/2021 COVID-19 Vaccine ( season) 2024 Influenza Vaccine (#1) 2024 05/18/2014 SDOH Screening 02/27/2025 02/28/2024 Alcohol/Substance Use Screening 03/11/2025 03/11/2024 Depression Screening 03/11/2025 03/11/2024, 03/11/20 Tobacco Screening 07/23/2025 07/23/2024 Mammogram 08/07/2025 08/07/2023, 07/15, 08/01/2022, Additional history exists Cervical Cancer Screening 04/19/2026 HPV/Cotest 04/19/2026 04/19/2021 Pap Smear 04/19/2026 04/19/2021 Lipid Panel 04/01/2029 04/01/2024, 01/12, 11/30/2020, Additional history exists DTaP/Tdap/Td Vaccines (3 - Td or Tdap) 07/24/2034 07/24/2024, 05/18/2014 RSV Patients and Patients Aged 60 years or older (1 - 1-dose 75+ series) 2044 Hepatitis B Vaccines Completed 09/15/2018, 05/22/2018, 04/21/2018 Hepatitis A Vaccines Aged Out 01/12/2019, 04/21/20 18 No longer eligible based on patient's age to complete this topic Zoster Vaccines Completed 02/27/2021, 12/26/2020 HIV Screening Completed 08/01/2023, 11/12, 03/14/2020 Hepatitis C Screening Completed 08/01/2023 , 01/30/2022, 11/30/2020, Additional history exists HIB Vaccines Aged Out No longer eligi ble based on patient's age to complete this topic HPV Vaccines Aged Out No longer eligi ble based on patient's age to complete this topic IPV Vaccines Aged Out No longer eligi ble based on patient's age to complete this topic Meningococcal Vaccine Aged Out No junaid chicho eligible based on patient's age to complete this topic Pneumococcal Vaccine: Pediatrics (0 to 5 Years) and At-Risk Patients (6 to 64 Years) Aged Out No longer eligible based on patient's age to complete this topic RSV under 20 months Aged Out No longe r eligible based on patient's age to complete this topic Rotavirus Vaccines Aged Out No longer eligible based on patient's age to complete this topic Procedures Procedure Name Priority Date/Time Associated Diagnosis Comments US PELVIS TRANSVAGINAL Routine 07/20/2024 4:17 PM EST TSH W/REFLEX TO FT4 Routine 06/05/2024 1 1:06 AM EST COMPREHENSIVE METABOLIC PANEL Routine 06/05/2024 11:06 AM EST CBC WITH AUTO DIFFERENTIAL Routine 06/05/2024 11:06 AM EST US ABDOMEN COMPLETE Routine 06/05/2024 9 :35 AM EST LIPID PANEL WITH REFLEX TO DIRECT LDL Routine 04/01/2024 11:25 AM EDT Primary hypertension BI MAMMOGRAM SCREENING TOMOSYNTHESIS BILATERAL Routine 08/07/2023 12:04 PM EST HEPATITIS C ANTIBODY Routine 08/01/2023 10:52 AM EST HIV 1/2 ANTIGEN/ANTIBODY, FOURTH GENERATION W/RFL Routine 08/01/2023 10:52 AM EST HM PAP/HPV Routine 04/19/2021 HM COLONOSCOPY Routine 10/21/2018 from Last 3 Months or Most Recently Relevant to Health Maintenance Results * US Pelvis Transvaginal (07/20/2024 4:17 PM EST) Anatomical Region Laterality Modality Pelvis Ultrasound 07/20/2024 4:17 PM EST Narrative 07/20/2024 4:18 PM EST ? [facility] ?[address] ?[place] [address] ? Ultrasound Report ? Signed ? Patient: Prather,Yoana ?MR#: [id number] ?? 59 ? : 1970 ?Acct:[id number] ? Age/Sex: 53 / F ?ADM Date: 07/17/24 ? Loc: HO.US ? Attending Dr: Deepti Gibson CNM ? Ordering Physician: Deepti Gibson CNLexie ?? Date of Service: 07/17/24 ?? Procedure(s): US pelvic and transvaginal ?? Accession Number(s): [id number] ? cc: Deepti Gibson CNM; Jennifer Brown [...] x 4.2 cm, previously ?? reported by spring assembler to measure 3.4 x 3.8 x 3.4 cm. There is an ?? intramural fibroid in the posterior uterine body measuring 1.1 x 1.0 x 1.2 ?? cm, previously reported by spring assembler to measure 1.1 x 0.7 x 0.7 [...] of the fibroids reported by ?? the spring assembler; the prior study was not available at time interpretation. ?? An addendum can be provided if the prior study or prior report is ?? submitted for review. ? This document has been electronically signed by: Mone Quevedo MD ?? on 07/20/2024 16:17:00 ? Dictated By: ?Mone Lyon MD ? Signed By: ?<Electronically signed by Mone Lyon MD in OV> ? 07/20/247 ? DD/ 16 ? TD/TT: 07/20/241616 ? Court Reporter: ? Procedure Note Shanna Image - 07/20/2024 [facility] [address] [place] [phone] Ultrasound Report Signed Patient: Yoana PratherMR#: [id number] 59 : 1970Acct:[id number] Age/Sex: 53 / FADM Date: 07/17/24 Loc: HO.US Attending Dr: Deepti Gibson CNM Ordering Physician: Deepti Gibson CNM Date of Service: 07/17/24 Procedure(s): US pelvic and transvaginal Accession Number(s): [id number] cc: Deepti Gibson CNM; Jennifer Brown MD [...] 4.2 x 4.2 cm, previously reported by spring assembler to measure 3.4 x 3.8 x 3.4 cm. There is an intramural fibroid in the posterior uterine body measuring 1.1 x 1.0 x 1.2 cm, previously reported by spring assembler to measure 1.1 x 0.7 x 0.7 [...] size of the fibroids reported by the spring assembler; the prior study was not available at time interpretation. An addendum can be provided if the prior study or prior report is submitted for review. This document has been electronically signed by: Mone Quevedo MD on 07/20/2024 16:17:00 Dictated By: Mone Lyon MD Signed By: <Electronically signed by Mone Lyon MD in OV> 07/20/247 DD/ 161 TD/TT: 07/20/[address] Reporter: us [facility] External Provider IMG US PROCEDURES Final Result * TSH with Reflex to Free T4 (06/05/2024 11:06 AM EST) TSH reflex Free T4 0.90 0.32 - 4.0 uIU/mL [facility] 06/05/2024 11:0 6 AM EST 06/05/2024 1:07 PM EST us Generic External Data Provider LAB BLOOD ORDERAB LES Final Result [facility] [address] [place] [phone] * CBC auto differential (06/05/2024 11:06 AM EST) Pathologist [facility] White Blood Count 5.5 4.8 - 10.8 X10*3/uL [facility] Red Blood Count 4.97 4.20 - 5.50 X10*6/uL [facility] Hemoglobin 13.7 12.0 - 16.0 g/dl [facility] Hematocrit 41.6 37.0 - 47.0 % [facility] Mean Corpuscular Volume 83.7 80.0 - 98.0 fL [facility] Mean Corpuscular Hemoglobin 27.6 27.0 - 33.0 pg [facility] Mean Corpuscular HGB Conc 32.9 31.0 - 35.0 g/dl [facility] Red Cell Distribution Width 14.0 11.0 - 16.0 % [facility] Platelet Count 242 160 - 400 X10*3/uL [facility] Mean Platelet Volume 11.2 9.4 - 12.3 fL [facility] Neutrophils Percent Auto 50.2 45 - 73 % [facility] Imm Gran Pct Auto 0.2 0.0 - 0.4 % [facility] Lymphocytes Percent Auto 38.4 20 - 40 % [facility] Monocytes Percent Auto 7.5 2 - 11 % [facility] Eosinophils Percent Auto 2.6 0 - 4 % [facility] Basophils Percent Auto 1.1 0 - 2 % [facility] NRBC Pct Auto 0.0 0.0 - 0.2 /100WBC [facility] Neutrophils Absolute Auto 2.8 2.0 - 8.3 x10*3/uL [facility] Imm Gran Abs Auto 0.01 0.00 - 0.03 X10*3/uL [facility] Lymphocytes Absolute Auto 2.1 1.2 - 4.9 X10*3/uL [facility] Monocytes Absolute Auto 0.4 0.1 - 1.2 X10*3/uL [facility] Eosinophils Absolute Auto 0.1 0.0 - 0.4 X10*3/uL [facility] Basophils Absolute Auto 0.1 0.0 - 0.2 X10*3/uL [facility] NRBC Abs Auto 0.000 0.0 - 0.012 X10*3/uL [facility] 06/05/2024 11:0 6 AM EST 06/05/2024 1:03 PM EST us Generic External Data Provider LAB BLOOD ORDERAB LES Final Result [facility] [address] [place], [place] [phone] * (ABNORMAL) Comprehensive Metabolic Panel (06/05/2024 11:06 AM EST) Sodium 136 135 - 145 mmol/L [facility] Potassium 4.0 3.3 - 5.1 mmol/L [facility] Chloride 103 96 - 108 mmol/L [facility] Carbon Dioxide 24 22 - 29 mmol/L [facility] Anion Gap 13 12 - 20 [facility] Urea Nitrogen (BUN) 14 9 - 16 mg/dL [facility] Creatinine, Serum 0.61 0.5 - 1.4 mg/dL [facility] Estimated Glomerular Filt Rate >60 [facility] Comment:Chronic Kidney Disea se: Estimated GFR < 60 mL/min/1.69a0Cglmxs Kidney Disease: Estimated GFR < 15 mL/min/1.73m2 Glucose 87 60 - 115 mg/dL [facility] Calcium 9.5 8.4 - 10.2 mg/dL [facility] Bilirubin, Total 0.3 0.0 - 1.0 mg/dL [facility] Aspartate Amino Transferase 27 5 - 31 U/L [facility] Alanine Aminotransferase 39(H) 0 - 31 U/L [facility] Total Protein 7.3 6.5 - 8.0 g/dL [facility] Albumin Level 4.0 3.5 - 5.0 g/dL [facility] Alkaline Phosphatase 103 39 - 117 U/L [facility] 06/05/2024 11:0 6 AM EST 06/05/2024 1:07 PM EST us Generic External Data Provider LAB BLOOD ORDERAB LES Final Result [facility] [address] [place] [phone] * US Abdomen Complete (06/05/2024 9:35 AM EST) Anatomical Region Laterality Modality Abdomen Ultrasound 06/05/2024 9:35 AM EST Narrative 07/05/2024 12:33 PM EST ? [facility] ?[address] ?[place] [address] ? Ultrasound Report ? Signed ? Patient: Prather,Yoana ?MR#: [id number] ?? 59 ? : 1970 ?Acct:[id number] ? Age/Sex: 53 / F ?ADM Date: 06/05/24 ? Loc: HO.US ? Attending Dr: Jillian Hewitt ANP-C ? Ordering Physician: Jillian Hewitt ANP-C ?? Date of Service: 06/05/24 ?? Procedure(s): US abdomen complete ?? Accession Number(s): [id number] ? cc: Jillian Hewitt-C; Jennifer Brown MD ? EXAMINATION: ?? US ABDOMEN COMPLETE ? CLINICAL INFORMATION: ?? Right upper abdominal pain, unspecified. ? COMPARISON: ?? Ultrasound kidneys and bladder 09/26/2023. CT abdomen and pelvis ?? 10/11/2022. Ultrasound abdomen limited 05/09/2020. ? TECHNIQUE: ?? Real-time imaging of the abdominal viscera. ? FINDINGS: ? PANCREAS: Normal. ? ABDOMINAL AORTA: The proximal, mid, and distal segments are normal in ?? caliber. ? INFERIOR VENA CAVA: Visualized portions are normal. ? LIVER: The liver is normal in size. The liver contour is normal. ?? Increased echogenicity of the liver parenchyma, this can be seen in the ?? setting of hepatic steatosis or liver parenchymal disease. No focal ?? hepatic lesion. There is no intrahepatic biliary duct dilatation seen. ? GALLBLADDER: Normal. The gallbladder is physiologically distended ?? without evidence of stones, sludge, polyps, wall thickening or ?? pericholecystic fluid. ? COMMON BILE DUCT: Normal in caliber measuring 0.23 cm in diameter. ? RIGHT KIDNEY: Normal. No hydronephrosis. No renal calculi or focal ?? parenchymal lesions. The kidney measures 10.3 cm in maximum dimension. ? LEFT KIDNEY: Normal. No hydronephrosis. No renal calculi or focal ?? parenchymal lesions. The kidney measures 10.2 cm in maximum dimension. ? SPLEEN: Normal. The spleen measures 9.3 cm in maximum dimension. ? FREE FLUID: None. ? US/US abdomen complete ?? IMPRESSION: ? 1. ??Increased echogenicity of the liver parenchyma, this can be seen in ?? the setting of hepatic steatosis or liver parenchymal disease. ? 2. ??Ultrasound otherwise normal. ? Electronically signed by: ??Emerald Robison MD ??07/05/2024 12:30 PM EST ? Dictated By: ?Emerald Robison MD ? Signed By: ?<Electronically signed by Emerald Robison MD in OV> ?07/05/24 1230 ? DD/ 0935 ? TD/TT: 06/05/24 1003 ? Court Reporter: HS ? Procedure Note Ken Otero - 07/05/2024 [facility] [address] [facility] [place] [address] Ultrasound Report Signed Patient: Yoana PratherMR#: [id number] 59 : 1970Acct:[id number] Age/Sex: 53 / FADM Date: 06/05/24 Loc: HO.US Attending Dr: Jillian GUILLEN Ordering Physician: Jillian Hewitt Date of Service: 06/05/24 Procedure(s): US abdomen complete Accession Number(s): [id number] cc: Jillian Hewitt; Jennifer Brown MD EXAMINATION: US ABDOMEN COMPLETE CLINICAL INFORMATION: Right upper abdominal pain, unspecified. COMPARISON: Ultrasound kidneys and bladder 09/26/2023. CT abdomen and pelvis 10/11/2022. Ultrasound abdomen limited 05/09/2020. TECHNIQUE: Real-time imaging of the abdominal viscera. FINDINGS: PANCREAS: Normal. ABDOMINAL AORTA: The proximal, mid, and distal segments are normal in caliber. INFERIOR VENA CAVA: Visualized portions are normal. LIVER: The liver is normal in size. The liver contour is normal. Increased echogenicity of the liver parenchyma, this can be seen in the setting of hepatic steatosis or liver parenchymal disease. No focal hepatic lesion. There is no intrahepatic biliary duct dilatation seen. GALLBLADDER: Normal. The gallbladder is physiologically distended without evidence of stones, sludge, polyps, wall thickening or pericholecystic fluid. COMMON BILE DUCT: Normal in caliber measuring 0.23 cm in diameter. RIGHT KIDNEY: Normal. No hydronephrosis. No renal calculi or focal parenchymal lesions. The kidney measures 10.3 cm in maximum dimension. LEFT KIDNEY: Normal. No hydronephrosis. No renal calculi or focal parenchymal lesions. The kidney measures 10.2 cm in maximum dimension. SPLEEN: Normal. The spleen measures 9.3 cm in maximum dimension. FREE FLUID: None. US/US abdomen complete IMPRESSION: 1. Increased echogenicity of the liver parenchyma, this can be seen in the setting of hepatic steatosis or liver parenchymal disease. 2. Ultrasound otherwise normal. Electronically signed by: Emerald Robison MD 07/05/2024 12:30 PM [facility] Dictated By: Emerald Robison MD Signed By: <Electronically signed by Emerald Robison MD in OV> 07/05/24 1230 DD/ 0935 TD/TT: 06/05/[address] Reporter: KAR[facility] External Provider IMG US PROCEDURES Edited Result - Final * (ABNORMAL) Lipid Panel with Reflex to Direct LDL (04/01/2024 11:25 AM EDT) Triglycerides 96 <150 mg/dL [facility] Comment:Desirable Triglyceri de: less than 150 mg/dLBorderline High Triglyceride 150-199 mg/dLHigh Triglyceride: 200-499 mg/dLVery High Triglyceride: greater than or equal to 5OO mg/dL Cholesterol 268(H) <200 mg/dL [facility] Comment:Desirable Cholestero l: less than 200 mg/dLBorderline High Cholesterol: 200-239 mg/dLHigh Cholesterol: greater than 239 mg/dL LDL Cholesterol Calculated 199(H) <100 mg/dL [facility] Comment:Desirable LDL: less than 100 mg/dLNear Optimal/Above Optimal LDL: 110- 129 mg/dLBorderline High LDL: 130-159 mg/dLHigh LDL: 160-189 mg/dLVery High LDL: greater than or equal to 190 mg/dL HDL Cholesterol 50 >40 mg/dL [facility] Comment:Desirable HDL: great er than 40 mg/dL Note: This HDL assay may give artificially low results in patients with liver disease. Blood 04/01/2024 11:2 5 AM EDT 04/01/2024 1:00 PM EDT Jennifer Brown MD LAB BLOOD ORDERABLES Final Resul t [facility] [address] [place] [address] [phone] * BI Mammogram Screening Tomosynthesis Bilateral (08/07/2023 12:04 PM EST) Anatomical Region Laterality Modality Breast Bilateral Mammography 08/07/2023 12:0 4 PM EST Narrative 08/20/2023 6:14 AM EST ? [facility] ? [address] ?[place] [address] ? Mammography Report ? Signed ? Patient: Prather,Yoana ?MR#: [id number] ?? 59 ? : 1970 ?Acct:[id number] ? Age/Sex: 52 / F ?ADM Date: 08/07/23 ? Loc: HO.MAMMO ? Attending Dr: Jennifer Brown MD ? Ordering Physician: Jennifer Brown MD ?Results: 1Negative ? Date of Service: 08/07/23 ?Follow Up: 1 Year From Orig ?? inal Mammogram ? Procedure(s): MM tomosynthesis screening BI ?? Accession Number(s): [id number] ? cc: Jennifer Brown MD ? EXAMINATION: ?? MM SCREENING DIGITAL BREAST TOMOSYNTHESIS, BILATERAL ? CLINICAL INFORMATION: ? Screening. Asymptomatic. ? COMPARISON: ?? Mammography: This study is compared with prior exams dating back to ?? 2019. ? TECHNIQUE: ?? Digital breast tomosynthesis is performed in both the craniocaudal and ?? mediolateral oblique views along with computer-aided detection (CAD). ?? Synthesized 2D images are generated from the tomosynthesis. ? FINDINGS: ?? The breasts are almost entirely fatty (ACR BI-RADS breast composition ?? Category a). ? There are no significant masses, abnormal calcifications, or other ?? abnormalities. ? MM/MM tomosynthesis screening BI ?? IMPRESSION: ?? No mammographic evidence of malignancy. ? ASSESSMENT: ? BI-RADS BI-RADS 1 - Negative ? RECOMMENDATION: ?? Routine annual mammography screening. ? 1 year F/U ? This examination should not preclude the clinical evaluation of a ?? suspicious palpable abnormality. ? This patient's information was entered into a reminder system with a ?? target due date for their next mammogram. ? Dictated By: ?Mariposa Cantu MD ? Signed By: ?<Electronically signed by Mariposa Cantu MD in OV> ? 08/20/23609 ? DD/ 1204 ? TD/TT: ? Court Reporter: ? Procedure Note Donsandrine, Image - 08/20/2023 Andre [facility] [address] [place] [address] Mammography Report Signed Patient: Yoana PratherMR#: [id number] 59 : 1970Acct:[id number] Age/Sex: 52 / FADM Date: 08/07/23 Loc: .MAMMO Attending Dr: Jennifer Brown MD Ordering Physician: Jennifer Brown MDResults: 1Negative Date of Service: 08/07/23Follow Up: 1 Year From Orig ina Mammogram Procedure(s): MM tomosynthesis screening BI Accession Number(s): [id number] cc: Jennifer Brown MD EXAMINATION: MM SCREENING DIGITAL BREAST TOMOSYNTHESIS, BILATERAL CLINICAL INFORMATION: Screening. Asymptomatic. COMPARISON: Mammography: This study is compared with prior exams dating back to 2019. TECHNIQUE: Digital breast tomosynthesis is performed in both the craniocaudal and mediolateral oblique views along with computer-aided detection (CAD). Synthesized 2D images are generated from the tomosynthesis. FINDINGS: The breasts are almost entirely fatty (ACR BI-RADS breast composition Category a). There are no significant masses, abnormal calcifications, or other abnormalities. MM/MM tomosynthesis screening BI IMPRESSION: No mammographic evidence of malignancy. ASSESSMENT: BI-RADS BI-RADS 1 - Negative RECOMMENDATION: Routine annual mammography screening. 1 year F/U This examination should not preclude the clinical evaluation of a suspicious palpable abnormality. This patient's information was entered into a reminder system with a target due date for their next mammogram. Dictated By: Mariposa Cantu MD Signed By: <Electronically signed by Mariposa Cantu MD in OV> 08/20/23 0610 DD/ 1204 TD/TT: Court Reporter: us Jennifer Brown MD IMG BI PROCEDURES Edited Result - Final * Hepatitis C Ab (08/01/2023 10:52 AM EST) Hepatitis C Antibody Nonreactive Nonreactive [facility] Comment:Antibodies to HCV no t detected; does not exclude early acuteHCV infection. 08/01/2023 10:5 2 AM EST 08/01/2023 10:52 AM EST us Generic External Data Provider LAB BLOOD ORDERAB LES Final Result [facility] [address] [place] [phone] * HIV-1/2 Antigen and Antibodies, Fourth Generation, with Reflexes (08/01/2023 10:52 AM EST) HIV AB/AG Nonreactive Nonreactive [facility] Comment:HIV-1 p24 Ag and/or HIV-1/HIV-2 Ab not detected.A test result that is nonreactive does not exclude thepossibility of exposure to or infection with HIV-1 and/orHIV-2. Nonreactive results in this assay for individualswith prior exposure to HIV-1 and/or HIV-2 may be due toantigen and antibody levels that are below the limit ofdetection of this assay.The [employer] HIV Ag/Ab Combo assay result andsupplemental assay results should be interpreted inconjunction with the patient's clinical presentation,history and other laboratory results. If the results areinconsistent with clinical evidence, additional testing issuggested to confirm the result. 08/01/2023 10:5 2 AM EST 08/01/2023 10:52 AM EST Generic External Data Provider LAB BLOOD ORDERAB LES Final Result [facility] [address] [place] [phone] [phone] * Pap Smear (04/19/2021) Pap Negative for intraephithelial lesion or malignancy Negative for intraephithelial lesion or malignancy, Other HPV Undetected Undetected, Indeterminate, Quantitative, Not Detected Historical Provider MD HEALTH MAINTENANCE Final Result * Colonoscopy (10/21/2018) Colonoscopy Normal Normal Historical Provider HEALTH MAINTENANCE Final Result from Last 3 Months or Most Recently Relevant to Health Maintenance Insurance [employer] C3 Care Teams Area Field Person Relationship Specialty Start Date End Date Jennifer Brown MD [address] [place] [address] PCP - General Family Medicine 07/15/18 Scott Riley, AnabellaD [address] [place] [phone] Pharmacist Internal Medicine 07/01/24
== END 2024-08-04 14:23 | disposition home or self-care (01) ==
PROVIDERS: PCP Family Medicine; Visit Provider Advanced Practice Midwife
DX: Z01.419 Encounter for gynecological examination (general) (routine) without abnormal findings (principal); Z80.3 Family history of malignant neoplasm of breast; R93.89 Abnormal findings on diagnostic imaging of other specified body structures; D21.9 Benign neoplasm of connective and other soft tissue, unspecified
CPT/HCPCS: 99213; 99396

== ENCOUNTER → 2024-08-04 10:39 | Outpatient (BNVA) | payer MEDICAID, SELFPAY | PROVIDERS: PCP Family Medicine; Visit Provider Advanced Practice Midwife | DX: Z01.419 Encounter for gynecological examination (general) (routine) without abnormal findings (principal); D21.9 Benign neoplasm of connective and other soft tissue, unspecified; R93.89 Abnormal findings on diagnostic imaging of other specified body structures; Z80.3 Family history of malignant neoplasm of breast | CPT/HCPCS: 99212; 99396 ==

== ENCOUNTER 2024-08-28 11:02 | Outpatient (REF) | payer MEDICAID, SELFPAY ==
--- OUTSIDE RECORDS SUMMARY | 2024-08-28 11:59 | XMS_ITS | Encounter Summary ---
Author Organization [employer] Address [address] [facility] [address]t [place] [address] Care Team Providers Care Sales And Support Center Agent Name Role Phone Jennifer Brown MD Primary Care Provider [phone] Scott Riley PharmD Unavailable [phone] Reason for Visit * Reason Onset Date Comments Med Refill 11/07/2023 Encounter Details Date Type Department Care Team (Late st Contact Info) Description 11/07/2023 Refill [facility] [address] [place] [address] Jennifer Brown MD [address] [place] [address] Trochanteric bursitis of both hips; Viral syndrome [...] Care Team (Late st Contact Info) Description 10/06/2024 3:30 PM EDT Office Visit [facility] [address] [place] [phone] Jennifer Brown MD [address] [place] [phone] 11/13/2024 11:00 AM EDT Medication Management [address] [address] Scott Riley, PharmD [address] [place] [address] documented as of this encounter Visit Diagnoses Diagnosis Trochanteric bursitis of both hips Viral syndrome Unspecified viral infection, in conditions classified elsewhere and of unspecified site documented in this encounter Additional Health Concerns Assessment Noted Time PHQ-9 Depression Total Score: 0 07/12/20 22 10:25 AM EST documented as of this encounter Care Teams Sales And Support Center Agent Relationship Specialty Start Date End Date Jennifer Brown MD [address] [place] [phone] PCP - General Family Medicine 07/15/18 Scott Riley, PharmD [address] [place] [phone] Pharmacist Internal Medicine 07/01/24 documented as of this encounter
--- OUTSIDE RECORDS SUMMARY | 2024-08-28 11:59 | XMS_ITS | Encounter Summary ---
Author Organization [employer] Address [address] [facility] 7t [place] [address] Care Team Providers Care Automatic Lump Making Machine Tender Name Role Phone Jennifer Brown MD Primary Care Provider [phone] Scott Riley PharmD Unavailable [phone] Encounter Details Date Type Department Care Team (Latest Contact Info) Description 08/21/2024 Travel Social History Tobacco Use Types Packs/Day [...] Description 10/06/2024 3:30 PM EDT Office Visit [facility] [address] [place] [phone] Jennifer Brown MD [address] [place] [phone] 11/13/2024 11:00 AM EDT Medication Management [facility] [address] [place] [phone] Scott Riley, Teresa [address] [place] [phone] documented as of this encounter Visit Diagnoses Not on filedocumented in this encounter Additional Health Concerns Assessment Noted Time PHQ-9 Depression Total Score: 5 03/11/20 24 11:51 AM EDT documented as of this encounter Care Teams Automatic Lump Making Machine Tender Relationship Specialty Start Date End Date Jennifer Brown MD [address] [place] [phone] PCP - General Family Medicine 07/15/18 Scott Riley, AnabellaD [address] [place] [phone] Pharmacist Internal Medicine 07/01/24 documented as of this encounter
--- OUTSIDE RECORDS SUMMARY | 2024-08-28 11:59 | XMS_ITS | Encounter Summary ---
Author Organization [employer] Address [address] [facility] [address] [place] [address] Care Team Providers Care Management Information Systems Director Name Role Phone Jennifer Brown MD Primary Care Provider [phone] Scott Riley PharmD Unavailable [phone] Reason for Visit * Reason Onset Date Comments Appointment Confirmation 08/17/2024 Encounter Details Date Type Department Care Team ([facility] st Contact Info) Description 08/17/[address] [facility] [address] [place] [address] Brianna Christy [place] Appointment Confirmation Social History Tobacco Use Types Packs/Day Years [...] with others, in a hotel, in a longterm, living outside on the street, on a [...] encounter Miscellaneous Notes * Telephone Encounter - Brianna Christy [place] - 08/17/2024 2:59 PM EST [facility] pt needs a f/u weight appt * Telephone Encounter - Brianna Christy [place] - 08/17/2024 2:59 PM EST ----- Message from Jennifer Brown MD sent at 08/14/2024 6:46 AM EST ----- Please schedule a visit if she has not been seen for > 4 mo. She needs to have a weight for Zepbound. Thank you documented in this encounter Plan of Treatment Upcoming Encounters Date Type Department Care Team (Late st Contact Info) Description 10/06/2024 3:30 PM EDT Office Visit [facility] [address] [place] [phone] Jennifer Brown MD [address] [place] [phone] 11/13/2024 11:00 AM EDT Medication Management [address] [address] Scott Riley, PharmD [address] [place] [phone] documented as of this encounter Visit Diagnoses Not on filedocumented in this encounter Additional Health Concerns Assessment Noted Time PHQ-9 Depression Total Score: 5 03/11/20 24 11:51 AM EDT documented as of this encounter Care Teams Management Information Systems Director Relationship Specialty Start Date End Date Jennifer Brown MD [address] [place] [phone] PCP - General Family Medicine 07/15/18 Scott Riley, PharmD [address] [place] [phone] Pharmacist Internal Medicine 07/01/24 documented as of this encounter
--- OUTSIDE RECORDS SUMMARY | 2024-08-28 11:59 | XMS_ITS | Encounter Summary ---
Author Organization [employer] Address [address] [facility] 7t [place] [address] Care Team Providers Care Business Developer Name Role Phone Jennifer Brown MD Primary Care Provider [phone] Scott Riley PharmD Unavailable [phone] Reason for Visit * Reason Onset Date Comments Med Refill 05/15/2024 Encounter Details Date Type Department Care Team (Late st Contact Info) Description 05/15/2024 Refill [facility] [address] [place] [address] Jennifer Brown MD [address] [place] [address] Social History Tobacco Use Types Packs/Day Years [...] with others, in a hotel, in a residential, living outside on the street, on a [...] Description 10/06/2024 3:30 PM EDT Office Visit [facility] [address] [place] [phone] Jennifer Brown MD [address] [place] [phone] 11/13/2024 11:00 AM EDT Medication Management [address] [address] Scott Riley, PharmLucila [address] [place] [phone] documented as of this encounter Visit Diagnoses Not on filedocumented in this encounter Additional Health Concerns Assessment Noted Time PHQ-9 Depression Total Score: 5 03/11/20 24 11:51 AM EDT documented as of this encounter Care Teams Business Developer Relationship Specialty Start Date End Date Jennifer Brown MD [address] [place] [phone] PCP - General Family Medicine 07/15/18 Scott Riley, PharmD [address] [place] [address] Pharmacist Internal Medicine 07/01/24 documented as of this encounter
--- OUTSIDE RECORDS SUMMARY | 2024-08-28 11:59 | XMS_ITS | Clinical Summary ---
Author Organization [email or web address] Address [address] [facility] 7[address] [place] [address] Care Team Providers Care Developer Designer Name Role Phone Jennifer Brown MD Primary Care Provider [phone] Scott Riley PharmD Unavailable [phone] Allergies No known active allergies Medications * This document contains information received from the source organization and may not represent a complete record from that organization. Simethicone Ultra Strength 180 MG capsule Take 180 mg by mouth 4 times daily. 02/07/20 22 Active dicyclomine (Bentyl) 20 MG tablet Take 20 mg by mouth 4 times daily. 02/28/20 24 Active oxybutynin XL (Ditropan-XL) 10 MG 24 hr tablet Take 10 mg by mouth Once per day. 02/28/20 24 Active cholecalciferol (Vitamin D High Potency) 25 MCG (1000 UT) capsuleIndication s:Vitamin D insufficiency Take 1 capsule (25 mcg) by mouth Once per day. 90 capsule 3 04/06/20 24 Active Diclofenac Sodium 1 % gel APPLY 2 GRAMS APPLY TO THE AFFECTED AREA(S) TWICE DAILY NEEDED FOR PAIN 100 g 3 04/06/20 24 Active Acetaminophen Extra Strength 500 MG tabletIndications :Viral syndrome TAKE 1 TO 2 TABLETS BY MOUTH EVERY 8 HOURS NEEDED FOR PAIN OR FEVER 30 tablet 3 04/06/20 24 Active naproxen (Naprosyn) 500 MG tabletIndications :Trochanteric bursitis of both hips Take 1 tablet (500 mg) by mouth with breakfast and with evening meal. 60 tablet 3 04/06/20 24 Active lisinopril 40 MG tablet Take 1 tablet (40 mg) by mouth Once per day. 90 tablet 3 05/26/20 24 Active famotidine (Pepcid) 20 MG tablet Take 1 tablet (20 mg) by mouth 2 times daily. 180 tablet 06/17/20 24 Active Linzess 72 MCG capsule Take 72 mcg by mouth in the morning. 06/18/20 24 Active Blood Pressure kitIndications:Pr imary hypertension Use to check blood pressure once daily. XL Cuff 1 kit 07/01/20 24 Active omeprazole (PriLOSEC) [address] capsule TAKE 1 CAPSULE BY MOUTH EVERY TWELVE HOURS 180 capsule 07/02/20 24 Active Semaglutide-Weigh t Management (Wegovy) 1.7 MG/0.75ML solution auto-injector INJECT ONE PEN (=1.7 MG) SUBCUTANEOUSLY ONCE A WEEK 3 mL 07/16/19 25 Active atorvastatin (Lipitor) 40 MG tabletIndications :Dyslipidemia Take 1 tablet (40 mg) by mouth Once per day. 90 tablet 3 07/24/19 25 Active chlorthalidone (Hygroton) 25 MG tabletIndications :Primary hypertension Take 1 tablet by mouth once daily 90 tablet 3 07/24/19 25 Active Tirzepatide-Weigh t Management (Zepbound) 5 MG/0.5ML solution auto-injector Inject 0.5 mL (5 mg) under the skin 1 (one) time per week. 2 mL 08/06/19 25 025 Active Active Problems Problem Noted Date Diagnosed Date Anxiety 03/11/2024 Assessment & Plan (03/11/2024 11:18 AM EDT): - patient was seen by [facility] [place] Adjustment disorder with mixed anxiety and depre [...] Plan (03/11/2024 4:36 AM EDT): -Followed by [facility] -Continue working on fiber-rich diet -Continue linaclotide Assessment & Plan (07/15/2022 4:57 PM EST): -Followed by [facility] -Continue working on fiber-rich diet -Continue [...] Plan (03/11/2024 4:38 AM EDT): -Evaluated by [employer] -Anticipating shrinkage since she is going through menopause Assessment & Plan (07/15/2022 5:07 PM EST): -Evaluated by [employer] -Anticipating shrinkage since she is going through [...] prep. -Recommended repeat in 3 yrs -Called [facility] office; they will review her pathology report and will contact pt Assessment & Plan (07/15/2022 4:59 PM EST): -Family Hx colon cancer -10/21/18 Colonoscopy: ascending colon polyp (tubular adenoma), diverticulosis, poor prep. -Recommended repeat in 3 yrs -Called [facility] office; they will review her pathology [...] Encounters Date Type Department Care Team Description 08/21/2024 Telephone [facility] [address] [place] [address] Jennifer Brown MD 08/21/2024 Travel 08/17/2024 Telephone [facility] [address] [place] [address] Brianna Christy MA Appointment Confirmation 08/15/2024 Telephone [facility] [address] [place] [address] Soila Bloom, advisor to command in combat 07/24/2024 Telephone [facility] [address] [place] [address] Scott Riley, PharmD Letter for School/Work 07/24/2024 Travel 07/23/2024 3:15 PM EST Office Visit [facility] [address] [place] [address] Emmy Caruso, OD Presbyopia (Primary Dx); Cortical cataract of right eye 07/23/2024 Travel 07/20/2024 Refill [facility] [address] [place] [address] Jennifer Brown MD 07/17/2024 Orders Only [facility] External Provider, [facility] 07/15/2024 Refill [facility] [address] [place] [address] Lisbeth Felton ANP 07/15/2024 Refill [facility] [address] [place], [place] [phone] Jennifer Brown MD 07/15/2024 Refill [facility] [address] [place] [phone] Jennifer Brown MD Vitamin D insufficiency; Viral syndrome; Trochanteric bursitis of both hips 07/15/2024 Refill [facility] [address] [place] [address] Jennifer Brown MD 07/01/2024 Refill [facility] [address] [place] [phone] Jennifer Brown MD 06/25/2024 Travel 06/17/2024 Refill [facility] [address] [place], [place] [phone] Jennifer Brown MD 06/15/2024 Refill [facility] [address] [place] [phone] Jennifer Brown MD 06/05/2024 Orders Only GENERIC EXTERNAL DATA DEPARTMENT Provider, Generic External Data from Last 3 Months Immunizations Name Administration [...] with others, in a hotel, in a halfway, living outside on the street, on a [...] Sign Reading Time Taken Comments Blood Pressure 134/84 08/21/2024 11:12 AM EST Pulse 63 08/21/2024 11:11 AM EST Temperature 36.6 ??C (97.8 ??F) 03/11/2024 1 0:25 AM EDT Respiratory Rate 18 04/17/2024 11:1 6 AM EDT Oxygen Saturation 98% 04/17/2024 11: 16 AM EDT Inhaled Oxygen Concentration - - Weight 89.7 kg (197 lb 12.8 oz) 025 11:13 AM EST Height 146.1 cm (4' 9.5 ) 03/11/2024 10 :25 AM EDT Body Mass Index 42.06 03/11/2024 10:25 AM EDT Plan of Treatment Upcoming Encounters Date Type Department Care Team (Late st Contact Info) Description 10/06/2024 3:30 PM EDT Office Visit [facility] [address] [place] [phone] Jennifer Brown MD [address] [place] [address] 11/13/2024 11:00 AM EDT Medication Management [facility] [address] [place] [phone] Scott Riley, PharmD [address] [place] [address] Health Maintenance Due Date Last Done Comments CT Colonography 1969 FIT DNA/Cologuard 1969 FIT 1969 FOBT 1970 Sigmoidoscopy 1970 Pneumococcal Vaccine: 50+ Years (1 of 1 - PCV) 12/07/2019 Colonoscopy 10/21/2021 10/21/2018 Colorectal Cancer Screening 10/21/2021 COVID-19 Vaccine ( - season) 2024 Influenza Vaccine (#1) 2024 05/18/2014 SDOH Screening 02/27/2025 02/28/2024 Alcohol/Substance Use Screening 03/11/2025 03/11/2024 Depression Screening 03/11/2025 03/11/2024, 03/11/20 24 Tobacco Screening 07/23/2025 07/23/2024 Mammogram 08/07/2025 08/07/2023, [...] EST Narrative 07/20/2024 4:18 PM EST ? [facility] ?[address] ?[place] [address] ? Ultrasound Report ? Signed ? Patient: Yoana Prather ?MR#: [id number] ?? 59 ? : 1970 ?Acct:[id number] ? Age/Sex: 53 / F ?ADM Date: 07/17/24 ? Loc: HO.US ? Attending Dr: Deepti Gibson CNM ? Ordering Physician: Deepti Gibson CNM ?? Date of Service: 07/17/24 ?? Procedure(s): US pelvic and transvaginal ?? Accession Number(s): [id number] ? cc: Deepti Gibson CNM; Jennifer Brown [...] x 4.2 cm, previously ?? reported by ordnance truck installation mechanic to measure 3.4 x 3.8 x 3.4 cm. There is an ?? intramural fibroid in the posterior uterine body measuring 1.1 x 1.0 x 1.2 ?? cm, previously reported by ordnance truck installation mechanic to measure 1.1 x 0.7 x 0.7 [...] of the fibroids reported by ?? the ordnance truck installation mechanic; the prior study was not available at time interpretation. ?? An addendum can be provided if the prior study or prior report is ?? submitted for review. ? This document has been electronically signed by: Mone Quevedo MD ?? on 07/20/2024 16:17:00 ? Dictated By: ?Mone Lyon MD ? Signed By: ?<Electronically signed by Mone Lyon MD in OV> ? 07/20/241616 ? DD/ 16 ? TD/TT: 07/20/241616 ? Infantry Weapons Officer: ? Procedure Note Ken Otero - 07/20/[address] [address] Ultrasound Report Signed Patient: Yoana PratherMR#: [id number] 59 : 1970Acct:[id number] Age/Sex: 53 / FADM Date: 07/17/24 Loc: HO.US Attending Dr: Deepti Gibson CNM Ordering Physician: Deepti Gibson CNM Date of Service: 07/17/24 Procedure(s): US pelvic and transvaginal Accession Number(s): [id number] cc: Deepti Gibson CNM; Jennifer Brown MD [...] 4.2 x 4.2 cm, previously reported by ordnance truck installation mechanic to measure 3.4 x 3.8 x 3.4 cm. There is an intramural fibroid in the posterior uterine body measuring 1.1 x 1.0 x 1.2 cm, previously reported by ordnance truck installation mechanic to measure 1.1 x 0.7 x 0.7 [...] size of the fibroids reported by the ordnance truck installation mechanic; the prior study was not available at time interpretation. An addendum can be provided if the prior study or prior report is submitted for review. This document has been electronically signed by: Mone Quevedo MD on 07/20/2024 16:17:00 Dictated By: Mone Lyon MD Signed By: <Electronically signed by Mone Lyon MD in OV> 07/20/24 1617 DD/ 1617 TD/TT: 07/20/24 161 Infantry Weapons Officer: us [facility] External Provider IMG US PROCEDURES Final Result * TSH with Reflex to Free T4 (06/05/2024 11:06 AM EST) TSH reflex Free T4 0.90 0.32 - 4.0 uIU/mL [facility] 06/05/2024 11:0 6 AM EST 06/05/2024 1:07 PM EST us Generic External Data Provider LAB BLOOD ORDERAB LES Final Result [facility] [address] [place] [phone] * CBC auto differential (06/05/2024 11:06 AM EST) White Blood Count 5.5 4.8 - 10.8 X10*3/uL [facility] Red Blood Count 4.97 4.20 - 5.50 X10*6/uL [facility] Hemoglobin 13.7 12.0 - 16.0 g/dl [facility] Hematocrit 41.6 37.0 - 47.0 % [facility] Mean Corpuscular Volume 83.7 80.0 - 98.0 fL [facility] Mean Corpuscular Hemoglobin 27.6 27.0 - 33.0 pg [facility] Mean Corpuscular HGB Conc 32.9 31.0 - 35.0 g/dl [facility] Red Cell Distribution Width 14.0 11.0 - 16.0 % [facility] Platelet Count 242 160 - 400 X10*3/uL [facility] Mean Platelet Volume 11.2 9.4 - 12.3 fL [facility] Neutrophils Percent Auto 50.2 45 - 73 % [facility] Imm Gran Pct Auto 0.2 0.0 - 0.4 % [facility] Lymphocytes Percent Auto 38.4 20 - 40 % [facility] Monocytes Percent Auto 7.5 2 - 11 % [facility] Eosinophils Percent Auto 2.6 0 - 4 % [facility] Basophils Percent Auto 1.1 0 - 2 % [facility] NRBC Pct Auto 0.0 0.0 - 0.2 /100WBC [facility] Neutrophils Absolute Auto 2.8 2.0 - 8.3 x10*3/uL [facility] Imm Gran Abs Auto 0.01 0.00 - 0.03 X10*3/uL [facility] Lymphocytes Absolute Auto 2.1 1.2 - 4.9 X10*3/uL [facility] Monocytes Absolute Auto 0.4 0.1 - 1.2 X10*3/uL [facility] Eosinophils Absolute Auto 0.1 0.0 - 0.4 X10*3/uL [facility] Basophils Absolute Auto 0.1 0.0 - 0.2 X10*3/uL [facility] NRBC Abs Auto 0.000 0.0 - 0.012 X10*3/uL [facility] 06/05/2024 11:0 6 AM EST 06/05/2024 1:03 PM EST us Generic External Data Provider LAB BLOOD ORDERAB LES Final Result Performing Organization Address City/State/[facility] Co de Phone Number [facility] [address] [place] [phone] * (ABNORMAL) Comprehensive Metabolic Panel (06/05/2024 11:06 AM EST) Sodium 136 135 - 145 mmol/L [facility] Potassium 4.0 3.3 - 5.1 mmol/L [facility] Chloride 103 96 - 108 mmol/L [facility] Carbon Dioxide 24 22 - 29 mmol/L [facility] Anion Gap 13 12 - 20 [facility] Urea Nitrogen (BUN) 14 9 - 16 mg/dL [facility] Creatinine, Serum 0.61 0.5 - 1.4 mg/dL [facility] Estimated Glomerular Filt Rate >60 [facility] Comment:Chronic Kidney Disea se: Estimated GFR < 60 mL/min/1.96b2Rjdwif Kidney Disease: Estimated GFR < 15 mL/min/1.73m2 Glucose 87 60 - 115 mg/dL [facility] Calcium 9.5 8.4 - 10.2 mg/dL [facility] Bilirubin, Total 0.3 0.0 - 1.0 mg/dL [facility] Aspartate Amino Transferase 27 5 - 31 U/L [facility] Alanine Aminotransferase 39(H) 0 - 31 U/L [facility] Total Protein 7.3 6.5 - 8.0 g/dL [facility] Albumin Level 4.0 3.5 - 5.0 g/dL [facility] Alkaline Phosphatase 103 39 - 117 U/L [facility] 06/05/2024 11:0 6 AM EST 06/05/2024 1:07 PM EST us Generic External Data Provider LAB BLOOD ORDERAB LES Final Result Performing Organization Address City/State/[facility] Co de Phone Number [facility] [address] [place] [phone] * US Abdomen Complete (06/05/2024 9:35 AM EST) Anatomical Region Laterality Modality Abdomen Ultrasound 06/05/2024 9:35 AM EST Narrative 07/05/2024 12:33 PM EST ? [facility] ?[address] ?[place] [address] ? Ultrasound Report ? Signed ? Patient: Yoana Prather ?MR#: [id number] ?? 59 ? : 1970 ?Acct:[id number] ? Age/Sex: 53 / F ?ADM Date: 06/05/24 ? Loc: HO.US ? Attending Dr: Jillian NELSON-C ? Ordering Physician: Jillian Hewitt-Myrna ?? Date of Service: 06/05/24 ?? Procedure(s): US abdomen complete ?? Accession Number(s): [id number] ? cc: Jillian Hewitt-C; Jennifer Brown MD [...] DD/ 0935 ? TD/TT: 06/05/24 1003 ? Infantry Weapons Officer: HS ? Procedure Note Ken Otero - 07/05/[address] [address] Ultrasound Report Signed Patient: Yoana PratherMR#: [id number] 59 : 1970Acct:[id number] Age/Sex: 53 / FADM Date: 06/05/24 Loc: HO.US Attending Dr: Jillian GUILLEN Ordering Physician: Jillian Hewitt Date of Service: 06/05/24 Procedure(s): US abdomen complete Accession Number(s): [id number] cc: Jillian Hewitt; Jennifer Brown MD EXAMINATION: [...] by: Emerald Robison MD 07/05/2024 12:[address] [facility] Dictated By: Emerald Robison MD Signed By: <Electronically signed by Emerald Robison MD in OV> 07/05/24 1230 DD/ 0935 TD/TT: 06/05/24 1003 Infantry Weapons Officer: HS us [facility] External Provider IMG US PROCEDURES Edited Result - Final * (ABNORMAL) Lipid Panel with Reflex to Direct LDL (04/01/2024 11:25 AM EDT) Triglycerides 96 <150 mg/dL [facility] Comment:Desirable Triglyceri de: less than 150 mg/dLBorderline High Triglyceride 150-199 mg/dLHigh Triglyceride: 200-499 mg/dLVery High Triglyceride: greater than or equal to 5OO mg/dL Cholesterol 268(H) <200 mg/dL [facility] Comment:Desirable Cholestero l: less than 200 mg/dLBorderline High Cholesterol: 200-239 mg/dLHigh Cholesterol: greater than 239 mg/dL LDL Cholesterol Calculated 199(H) <100 mg/dL [facility] Comment:Desirable LDL: less than 100 mg/dLNear Optimal/Above Optimal LDL: 110- 129 mg/dLBorderline High LDL: 130-159 mg/dLHigh LDL: 160-189 mg/dLVery High LDL: greater than or equal to 190 mg/dL HDL Cholesterol 50 >40 mg/dL [facility] Comment:Desirable HDL: great er than 40 mg/dL Note: This HDL assay may give artificially low results in patients with liver disease. Blood 04/01/2024 11:2 5 AM EDT 04/01/2024 1:00 PM EDT Jennifer Brown MD LAB BLOOD ORDERABLES Final Resul t [facility] [address] [place] [phone] * BI Mammogram Screening Tomosynthesis Bilateral (08/07/2023 12:04 PM EST) Anatomical Region Laterality Modality Breast Bilateral Mammography 08/07/2023 12:0 4 PM EST Narrative 08/20/2023 6:14 AM EST ? [facility] ? [address] ?[place] [address] ? Mammography Report ? Signed ? Patient: Prather,Yoana ?MR#: [id number] ?? 59 ? : 1970 ?Acct:[id number] ? Age/Sex: 52 / F ?ADM Date: 01/24/24 ? Loc: HO.MAMMO ? Attending Dr: Jennifer Brown MD ? Ordering Physician: Jennifer Brown MD ?Results: 1Negative ? Date of Service: 08/07/23 ?Follow Up: 1 Year From Orig ?? inal Mammogram ? Procedure(s): MM tomosynthesis screening BI ?? Accession Number(s): [id number] ? cc: Jennifer Brown MD ? EXAMINATION: [...] 08/20/23609 ? DD/ 1204 ? TD/TT: ? Infantry Weapons Officer: ? Procedure Note Dontobyter, Image - 08/20/2023 [facility] [address] [place] [address] Mammography Report Signed Patient: Yoana PratherMR#: [id number] 59 : 1970Acct:[id number] Age/Sex: 52 / FADM Date: 08/07/23 Loc: [facility]EN[facility] Attending Dr: Jennifer Brown MD Ordering Physician: Jennifer Brown MDResults: 1Negative Date of Service: 08/07/23Follow Up: 1 Year From Orig ina Mammogram Procedure(s): MM tomosynthesis screening BI Accession Number(s): [id number] cc: Jennifer Brown MD EXAMINATION: MM SCREENING [...] in OV> 08/20/23 0610 DD/ 1204 TD/TT: Infantry Weapons Officer: Jennifer Brown MD IMG BI PROCEDURES Edited Result - Final * Hepatitis C Ab (08/01/2023 10:52 AM EST) Hepatitis C Antibody Nonreactive Nonreactive [facility] Comment:Antibodies to HCV no t detected; does not exclude early acuteHCV infection. 08/01/2023 10:5 2 AM EST 08/01/2023 10:52 AM EST us Generic External Data Provider LAB BLOOD ORDERAB LES Final Result [facility] [address] [place] [phone] * HIV-1/2 Antigen and Antibodies, Fourth [...] below the limit ofdetection of this assay.The Compare And Share HIV Ag/Ab Combo assay result andsupplemental assay results should be interpreted inconjunction with the patient's clinical presentation,history and other laboratory results. If the results areinconsistent with clinical evidence, additional testing issuggested to confirm the result. 08/01/2023 10:5 2 AM EST 08/01/2023 10:52 AM EST us Generic External Data Provider LAB BLOOD ORDERAB LES Final Result [facility] [address] [place] [address] [phone] * Pap Smear (04/19/2021) Pap Negative for intraephithelial lesion or malignancy Negative for intraephithelial lesion or malignancy, Other HPV Undetected Undetected, Indeterminate, Quantitative, Not Detected Historical Provider HEALTH MAINTENANCE Final Result * Colonoscopy (10/21/2018) Colonoscopy Normal Normal Historical Provider HEALTH MAINTENANCE Final Result from Last 3 Months or Most Recently Relevant to Health Maintenance Insurance [facility] C3 Care Teams Developer Designer Relationship Specialty Start Date End Date Jennifer Brown MD [address] [place] [address] PCP - General Family Medicine 07/15/18 Scott Riley, AnabellaD [address] [place] [phone] Pharmacist Internal Medicine 07/01/24
--- OUTSIDE RECORDS SUMMARY | 2024-08-28 11:59 | XMS_ITS | Encounter Summary ---
Author Organization [employer] Address [address] [facility] [address] [place] [address] Care Team Providers Care Windows Mobile Developer Name Role Phone Jennifer Brown MD Primary Care Provider [phone] Scott Riley PharmD Unavailable [phone] Reason for Visit * Reason Onset Date Comments Prior Authorization 08/15/2024 Encounter Details Date Type Department Care Team (Late st Contact Info) Description 08/15/2024 Telephone [facility] [address] [place] [address] Soila Bloom, RN [address] [place] [address] Prior Authorization Social History Tobacco Use Types [...] with others, in a hotel, in [place], living outside on the street, on a [...] encounter Miscellaneous Notes * Telephone Encounter - Soila Bloom RN - 08/15/2024 11:51 AM EST Telephone call placed to pt. No answer, left v/m. If pt returns call please inform that we need an updated weight in order to have her insurance cover weight loss medication. She can either request pharmacist weight her at her appt 08/21 or can book nurse visit to check her weight sooner. Thank you! NS Please schedule RN visit for weight check. Patient has CDTM in August. If it is in-person, she can get checked during CDTM. If not, please schedule RN visit. BRENNEN I am attempting to complete the requested PA for Zepbound for the above patient. It appears that the last progress notes for this on were in 02/2024. There are no wt/BMI records/or office notes in the last 90 days. The PA will require weight/BMI in the last 90 days. Additionally, Sec 4 of the PA requests information regarding contraindication of prescribing phentermine. I see that pt has diagnosis of anxiety but I do not see relevant notes to that effect. Thank you documented in this encounter Plan of Treatment Upcoming Encounters Date Type Department Care Team (Late st Contact Info) Description 10/06/2024 3:30 PM EDT Office Visit [facility] [address] [place] [address] Jennifer Brown MD [address] [place] [address] 11/13/2024 11:00 AM EDT Medication Management [facility] [address] [place] [address] Scott Riley, [place] [address] documented as of this encounter Visit Diagnoses Not on filedocumented in this encounter Additional Health Concerns Assessment Noted Time PHQ-9 Depression Total Score: 5 03/11/20 24 11:51 AM EDT documented as of this encounter Care Teams Windows Mobile Developer Relationship Specialty Start Date End Date Jennifer Brown MD [address] [place] [phone] PCP - General Family Medicine 07/15/18 Scott Riley, PharmD [address] [place] [address] [phone] Pharmacist Internal Medicine 07/01/24 documented as of this encounter
--- OUTSIDE RECORDS SUMMARY | 2024-08-28 11:59 | XMS_ITS | Encounter Summary ---
Author Organization [employer] Address [address] [facility] 7t [place] [address] Care Team Providers Care Registered Nurse Maternal Child Name Role Phone Jennifer Brown MD Primary Care Provider [phone] Scott Riley PharmD Unavailable [phone] Reason for Visit * Reason Onset Date Comments Med Refill 11/07/2023 Encounter Details Date Type Department Care Team (Late st Contact Info) Description 11/07/2023 Refill [facility] [address] [place] [address] Jennifer Brown MD [address] [place] [address] Vitamin D insufficiency Social History Tobacco Use [...] Description 10/06/2024 3:30 PM EDT Office Visit [facility] [address] [place] [address] Jennifer Brown MD [address] [place] [address] 11/13/2024 11:00 AM EDT Medication Management [address] [address] Scott Riley, PharmD [address] [place] [address] documented as of this encounter Visit Diagnoses Diagnosis Vitamin D insufficiency documented in this encounter Additional Health Concerns Assessment Noted Time PHQ-9 Depression Total Score: 0 07/12/20 22 10:25 AM EST documented as of this encounter Care Teams Registered Nurse Maternal Child Relationship Specialty Start Date End Date Jennifer Brown MD [address] [place] [address] PCP - General Family Medicine 07/15/18 Scott Riley, PharmD [address] [place] [address] [phone] Pharmacist Internal Medicine 07/01/24 documented as of this encounter
--- OUTSIDE RECORDS SUMMARY | 2024-08-28 11:59 | XMS_ITS | Encounter Summary ---
Author Organization [employer] Address [address] [facility] 7t [place] [address] Care Team Providers Care Grain Broker Name Role Phone Jennifer Brown MD Primary Care Provider Scott Riley PharmD Unavailable [phone] Reason for Visit * Reason Onset Date Comments Med Refill 07/15/2024 Encounter Details Date Type Department Care Team (Late st Contact Info) Description 07/15/2024 Refill [facility] [address] [place] [address] Jennifer Brown MD [address] [place] [address] Social History Tobacco Use Types Packs/Day Years [...] Description 10/06/2024 3:30 PM EDT Office Visit [facility] [address] [place] [address] Jennifer Brown MD [address] [place] [address] 11/13/2024 11:00 AM EDT Medication Management [facility] [address] [place] [address] Scott Riley, PharmD [address] [place] [address] documented as of this encounter Visit Diagnoses Not on filedocumented in this encounter Additional Health Concerns Assessment Noted Time PHQ-9 Depression Total Score: 5 03/11/20 24 11:51 AM EDT documented as of this encounter Care Teams Grain Broker Relationship Specialty Start Date End Date Jennifer Brown MD [address] [place] [address] PCP - General Family Medicine 07/15/18 Scott Riley, PharmD [address] [place] [address] Pharmacist Internal Medicine 07/01/24 documented as of this encounter
--- OUTSIDE RECORDS SUMMARY | 2024-08-28 11:59 | XMS_ITS | Encounter Summary ---
Author Organization [employer] Address [address] [facility] 7t [place] [address] Care Team Providers Care Lump Roller Name Role Phone Jennifer Brown MD Primary Care Provider [phone] Scott Riley PharmD Unavailable [phone] Reason for Visit * Reason Onset Date Comments Med Refill 04/06/2024 Encounter Details Date Type Department Care Team (Late st Contact Info) Description 04/06/2024 Refill [facility] 230 [place] [address] Ayan Madsen MD [address] [place] [address] Social History Tobacco Use Types Packs/Day Years [...] with others, in a hotel, in a retirement, living outside on the street, on a [...] Description 10/06/2024 3:30 PM EDT Office Visit [facility] [address] [place] [address] Jennifer Brown MD [address] [place] [address] 11/13/2024 11:00 AM EDT Medication Management [address] [address] Scott Riley, PharmLucila [address] [place] [address] documented as of this encounter Visit Diagnoses Not on filedocumented in this encounter Additional Health Concerns Assessment Noted Time PHQ-9 Depression Total Score: 5 03/11/20 24 11:51 AM EDT documented as of this encounter Care Teams Lump Roller Relationship Specialty Start Date End Date Jennifer Brown MD [address] [place] [address] PCP - General Family Medicine 07/15/18 Scott Riley, PharmD [address] [place] [address] Pharmacist Internal Medicine 07/01/24 documented as of this encounter
--- OUTSIDE RECORDS SUMMARY | 2024-08-28 11:59 | XMS_ITS | Encounter Summary ---
Author Organization [employer] Address 75 [facility] 7t [place] [address] Care Team Providers Care Carbon Setter Name Role Phone Jennifer Brown MD Primary Care Provider [phone] Scott Riley PharmD Unavailable [phone] Reason for Visit * Reason Onset Date Comments Prior Authorization 07/20/2024 Medication Question 07/20/2024 Encounter Details Date Type Department Care Team (Late st Contact Info) Description 07/20/2024 Refill [facility] [address] [place] [address] Jennifer Brown MD [address] [place] [address] Social History Tobacco Use Types Packs/Day Years [...] as of this encounter Miscellaneous Notes * Addendum Note - Soila Bloom RN - 08/06/2024 4:22 PM ESTAddended by: SOILA BLOOM on: 08/06/2024 04:22 PM Modules accepted: Orders * Telephone Encounter - Zane Hand - 08/06/2024 3:26 PM EST Tc from pt requesting status on zepbound weight loss injection. Pt requested a call back at [phone] (Guyanese) * Telephone Encounter - Madhu Salgado RN - 07/20/2024 1:12 PM EST PA request received for wegovy. [facility] preferred formulary is now zebound. Patient is currentlyprescribed the 1.7mg dose of wegovy would you like to send the equivalent dose of zepbound? documented in this encounter Plan of Treatment Upcoming Encounters Date Type Department Care Team (Late st Contact Info) Description 10/06/2024 3:30 PM EDT Office Visit [facility] [address] [place] [address] Jennifer Brown MD [address] [place] [address] 11/13/2024 11:00 AM EDT Medication Management [facility] [address] [place] [address] Scott Riley, PharmD [address] [place] [address] documented as of this encounter Visit Diagnoses Not on filedocumented in this encounter Additional Health Concerns Assessment Noted Time PHQ-9 Depression Total Score: 5 03/11/20 24 11:51 AM EDT documented as of this encounter Care Teams Carbon Setter Relationship Specialty Start Date End Date Jennifer Brown MD [address] [place] [address] PCP - General Family Medicine 07/15/18 Scott Riley, AnabellaD [address] [place] [address] [phone] Pharmacist Internal Medicine 07/01/24 documented as of this encounter
--- OUTSIDE RECORDS SUMMARY | 2024-08-28 11:59 | XMS_ITS | Encounter Summary ---
Author Organization [employer] Address 75 [facility] 7t [place] [address] Care Team Providers Care Medical Education Coordinator Name Role Phone Jennifer Brown MD Primary Care Provider [phone] Scott Riley PharmD Unavailable [phone] Reason for Visit * Reason Onset Date Comments Med Refill 07/15/2024 Encounter Details Date Type Department Care Team (Late st Contact Info) Description 07/15/2024 Refill [facility] [address] [place] [address] Jennifer Brown MD [address] [place] [address] Social History Tobacco Use Types Packs/Day Years [...] with others, in a hotel, in a mcc, living outside on the street, on a [...] 3:30 PM EDT Office Visit [facility] [address] [place] [address] Jennifer Brown MD [address] [place] [address] 11/13/2024 11:00 AM EDT Medication Management [address] [address] Scott Riley, PharmLucila [address] [place] [address] documented as of this encounter Visit Diagnoses Not on filedocumented in this encounter Additional Health Concerns Assessment Noted Time PHQ-9 Depression Total Score: 5 03/11/20 24 11:51 AM EDT documented as of this encounter Care Teams Medical Education Coordinator Relationship Specialty Start Date End Date Jennifer Brown MD [address] [place] [address] PCP - General Family Medicine 07/15/18 Scott Riley, PharmD [address] [place] [address] Pharmacist Internal Medicine 07/01/24 documented as of this encounter
--- OUTSIDE RECORDS SUMMARY | 2024-08-28 11:59 | XMS_ITS | Encounter Summary ---
Author Organization [employer] Address [address] [facility] 7t [place] [address] Care Team Providers Care Radiology Physician Name Role Phone Jennifer Brown MD Primary Care Provider [phone] Scott Riley PharmD Unavailable [phone] Encounter Details Date Type Department Care Team ([facility] st Contact Info) Description 08/21/2024 Telephone [facility] 230 [place], [place] [phone] Jennifer Brown MD [address] [place], [place] [phone] Social History Tobacco Use Types Packs/Day Years [...] with others, in a hotel, in a assisted, living outside on the street, on a [...] Description 10/06/2024 3:30 PM EDT Office Visit [facility] [address] [place] [address] Jennifer Brown MD [address] [place] [address] 11/13/2024 11:00 AM EDT Medication Management [address] [address] Scott Riley PharmD [address] [place] [address] documented as of this encounter Visit Diagnoses Not on filedocumented in this encounter Additional Health Concerns Assessment Noted Time PHQ-9 Depression Total Score: 5 03/11/20 24 11:51 AM EDT documented as of this encounter Care Teams Radiology Physician Relationship Specialty Start Date End Date Jennifer Brown MD [address] [place] [address] PCP - General Family Medicine 07/15/18 Scott Riley, AnabellaD [address] [place] [address] Pharmacist Internal Medicine 07/01/24 documented as of this encounter
--- OUTSIDE RECORDS SUMMARY | 2024-08-28 11:59 | XMS_ITS | Encounter Summary ---
Author Organization [employer] Address [address] [facility] 7t [place] [address] Care Team Providers Care Waterside Worker Name Role Phone Jennifer Brown MD Primary Care Provider [phone] Scott Riley PharmD Unavailable [phone] Reason for Visit * Reason Onset Date Comments Med Refill 07/15/2024 Encounter Details Date Type Department Care Team (Late st Contact Info) Description 07/15/2024 Refill [facility] 230 [place] [address] Lisbeth Felton ANP [address] [place] [address] Social History Tobacco Use Types Packs/Day Years [...] with others, in a hotel, in a fdc, living outside on the street, on a [...] 10/06/2024 3:30 PM EDT Office Visit [facility] [address] [place] [address] Jennifer Brown MD [address] [place] [address] 11/13/2024 11:00 AM EDT Medication Management [address] [address] Scott Riley PharmD [address] [place] [address] documented as of this encounter Visit Diagnoses Not on filedocumented in this encounter Additional Health Concerns Assessment Noted Time PHQ-9 Depression Total Score: 5 03/11/20 24 11:51 AM EDT documented as of this encounter Care Teams Waterside Worker Relationship Specialty Start Date End Date Jennifer Brown MD [address] [place] [address] PCP - General Family Medicine 07/15/18 Scott Riley, PharmD [address] [place] [address] Pharmacist Internal Medicine 07/01/24 documented as of this encounter
--- OUTSIDE RECORDS SUMMARY | 2024-08-28 11:59 | XMS_ITS | Clinical Summary ---
Author Organization [facility] Address [address] [place] [address] Care Team Providers Care Compliance Lead Name Role Phone Unavailable Primary Care Provider Unavailabl e Social History Tobacco Use Types Packs/Day Years Used Date Smoking Tobacco: Never Assessed Comments Unknown Sex and Gender Information Value Date Recorded Sex Assigned at Not on file Legal Sex Female 1:10 PM EST Gender Identity Not on file Sexual Orientation Not on file Plan of Treatment Health Maintenance Due Date Last Done Comments Breast Cancer Screening 1969 DTaP,Tdap,and Td Vaccines (1 - Tdap) 1988 Hepatitis B Vaccines (1 of 3 - 19+ 3-dose series) 1988 Cervical Cancer Screening: P ap Smear 1990 Pneumococcal Vaccine: 50+ Ye ars (1 of 1 - PCV) 12/07/2019 Zoster Vaccines (1 of 2) 12/07/2019 Colorectal Cancer Screening: Colonoscopy 06/12/2022 Depression Screening 06/12/2022 HIV Screening 06/12/2022 Hepatitis C Screening 06/12/2022 Social Influencers of Health Screening 06/12/2022 COVID-19 Vaccine (1 - 2023-2 5 season) 2024 Influenza Vaccine (#1) 2024 [...] patient's age to complete this topic Meningococcal B Vacine Aged Out No lo nger eligible based on patient's age to complete [...]
[2024-08-28 13:46] LABS: Alanine Aminotransferase 27 U/L (0-31); Albumin Level 3.9 g/dL (3.5-5.0); Alkaline Phosphatase 106 U/L (39-117); Anion Gap 11 (12-20); Aspartate Amino Transferase 21 U/L (5-31); Bilirubin Direct 0.1 mg/dL (0.0-0.5); Bilirubin Total 0.3 mg/dL (0.0-1.0); Blood Urea Nitrogen 16 mg/dL (9-16); Calcium 9.1 mg/dL (8.4-10.2); Carbon Dioxide 22 mmol/L (22-29); Chloride 108 mmol/L (96-108); Cholesterol 258 mg/dL (<200); Estimated Glomerular Filt Rate > 60; Glucose Random 83 mg/dL (60-115); HDL Cholesterol 49 mg/dL (>40); LDL Cholesterol Calculated 184 mg/dL (<100); Potassium 4.3 mmol/L (3.3-5.1); Sodium 137 mmol/L (135-145); Total Protein 7.4 g/dL (6.5-8.0); Triglycerides 128 mg/dL (<150)
== END 2024-08-28 11:03 | disposition home or self-care (01) ==
LOC: HO.HHCL 11:02
PROVIDERS: Visit Provider Family Medicine
DX: I10 Essential (primary) hypertension (principal); E78.5 Hyperlipidemia, unspecified
CPT/HCPCS: 36415; 80048; 80061; 80076

== ENCOUNTER 2024-09-22 14:26 | Outpatient (AMB) | payer MEDICAID, SELFPAY ==
--- NOTE | 2024-09-22 14:39 | MHC.OFFVIS ---
Vital Signs 09/22/24 15:12 Height 4 ft 3 in Weight 199 lb BMI 53.8 BP 139/67 Blood Pressure Location Lt brachial Position Sitting Pulse 68 Intake Visit Reasons: Family history of malignant neoplasm of breast Intake Note: Patient is seen in office for family history of malignant neoplasm of the breast. Pt c/o: denies any concerns regarding her breast or any family hx of breast cancer, does have two sister with uterine cancer, pt will like to have genetic testing done mm:08/07/23 (DUE) Health Care Law Specialist Required: Yes Health Care Law Specialist Language: Pull Up Hand Services: Health Care Law Specialist Present Health Care Law Specialist Name: Emmy HENDERSON Accompanied by: Self / Same As Patient Allergies No Known Allergies Allergy (Verified 09/22/24 15:14) Medication List - Last Reconciled 09/24/24 by Beltran Hagan MD atorvastatin 10 mg PO BEDTIME atorvastatin 40 mg PO DAILY bisacodyl (Dulcolax (bisacodyl)) 10 mg (2 x 5 mg) PO BEDTIME 2 days calcium polycarbophil (Fiber Laxative (calcium polycarbophil)) 1,250 mg (2 x 625 mg) PO BID 30 days chlorthalidone 12.5 mg PO DAILY cholecalciferol (vitamin D3) 25 mcg PO DAILY dicyclomine 20 mg PO QID linaclotide (Linzess) 72 mcg PO QAM lisinopril 20 mg PO DAILY omeprazole 20 mg PO DAILY 30 days oxybutynin chloride ER 10 mg PO DAILY 90 days peg 3350-electrolytes 236-22.74-6.74 -5.86 gram (Golytely) 240 mL PO Q10M 1 day semaglutide (weight loss) (Wegovy) mg subcut QWEEK simethicone 180 mg PO QID tirzepatide (weight loss) (Zepbound) mg subcut QWEEK HPI Comments Details: 53-year-old female patient presenting with a strong family history of cancer and apparently a sister with BRCA positive gene. The patient does not know the full extent of her family history but denies any previous history of breast problems or breast surgery. Her family history is significant for uterine cancer in 2 sisters. She denies a family history of breast cancer and is uncertain about ovarian cancer. She is , menarche is at the age of 11. She denies breast-feeding. [facility] Medical History Encounter for annual routine gynecological examination Endometrial thickening on ultrasound FH: breast cancer Urinary urgency Well woman exam Perimenopause Diarrhea in adult patient Gastritis Fibroma Hypertension High cholesterol Depression Surgical History History of esophagogastroduodenoscopy (EGD) Hx of colonoscopy History of tubal ligation Family History Mother Colon cancer Sister Uterine cancer Sister Uterine cancer Other Diabetes HTN (hypertension) Heart problem Social History Alcohol intake: never Patient Tobacco Use Status: Never used Tobacco Gender identity: Female Female Reproductive History Menstrual Age of Menarche: 11 Total pregnancies: 2 Physical Exam Vital Signs: Last Vital Signs Pulse 68 09/22/24 15:12 BP 139/67 09/22/24 15:12 BMI result Body Mass Index 53.8 Const General: cooperative and no acute distress Nutritional Appearance: well nourished Orientation/consciousness: patient oriented x3 Limitations: no limitations HEENT Head: Yes normocephalic and Yes atraumatic Ears: hearing grossly normal bilaterally Resp Effort & Inspection: normal respiratory effort, no audible wheezes, no cough and no respiratory distress Cardio Jugular venous distension: no JVD GI Inspection: Yes normal to inspection Skin Other: Warm, dry, no rash Neuro General: patient oriented x3 Extrem General: Yes no clubbing, cyanosis or edema Assessment & Plan Assessment & Plan (1) Family history of cancer: Code(s): Z80.9 - Family history of malignant neoplasm, unspecified Category: Medical Plan 53-year-old female patient with multiple cancer history in her family including a sister who may be BRCA positive and 2 sisters with uterine cancer and a mother with colon cancer. We discussed the risks and benefits of genetic testing in detail and she wishes to proceed with this testing today. She will return approximately 6 weeks to review the results and discuss recommendations. Coding Level of Care Code New Pt Level 4 (55950) Diagnoses Family history of cancer Z80.9
[2024-09-22 15:12] VITALS: BP 139/67; PULSE 68; BMI 53.8
--- OUTSIDE RECORDS SUMMARY | 2024-09-22 17:42 | XMS_ITS | Encounter Summary ---
Author Organization [employer] Address 75 [facility] 7t [place] [address] Care Team Providers Care Veterinary Technician Name Role Phone Jennifer Brown MD Primary Care Provider [phone] Scott Riley PharmD Unavailable [phone] Reason for Visit * Reason Onset Date Comments Med Refill 04/06/2024 Encounter Details Date Type Department Care Team (Late st Contact Info) Description 04/06/2024 Refill [facility] 230 [place] [address] Ayan Madsen MD [address] [place] [address] Social History Tobacco Use Types Packs/Day Years [...] with others, in a hotel, in a long-term, living outside on the street, on a [...] Description 10/06/2024 3:30 PM EDT Office Visit [facility] [address] [place] [address] Jennifer Brown MD [address] [place] [address] 11/13/2024 11:00 AM EDT Medication Management [address] [address] Scott Riley, PharmLucila [address] [place] [address] documented as of this encounter Visit Diagnoses Not on filedocumented in this encounter Additional Health Concerns Assessment Noted Time PHQ-9 Depression Total Score: 5 03/11/20 24 11:51 AM EDT documented as of this encounter Care Teams Veterinary Technician Relationship Specialty Start Date End Date Jennifer Brown MD [address] [place] [address] PCP - General Family Medicine 07/15/18 Scott Riley, PharmD [address] [place] [address] Pharmacist Internal Medicine 07/01/24 documented as of this encounter
--- OUTSIDE RECORDS SUMMARY | 2024-09-22 17:42 | XMS_ITS | Encounter Summary ---
Author Organization [employer] Address 75 [facility] 7t [place] [address] Care Team Providers Care Transportation Economics Teacher Name Role Phone Jennifer Brown MD Primary Care Provider [phone] Scott Riley PharmD Unavailable [phone] Reason for Visit * Reason Onset Date Comments Med Refill 07/15/2024 Encounter Details Date Type Department Care Team (Late st Contact Info) Description 07/15/2024 Refill [facility] [address] [place] [address] Jennifer Brown MD [address] [place] [address] Social History Tobacco Use Types Packs/Day Years [...] Description 10/06/2024 3:30 PM EDT Office Visit [facility] [address] [place] [address] Jennifer Brown MD [address] [place] [address] 11/13/2024 11:00 AM EDT Medication Management [address] [address] Scott Riley, PharmLucila [address] [place] [address] documented as of this encounter Visit Diagnoses Not on filedocumented in this encounter Additional Health Concerns Assessment Noted Time PHQ-9 Depression Total Score: 5 03/11/20 24 11:51 AM EDT documented as of this encounter Care Teams Transportation Economics Teacher Relationship Specialty Start Date End Date Jennifer Brown MD [address] [place] [address] PCP - General Family Medicine 07/15/18 Scott Riley, PharmD [address] [place] [address] Pharmacist Internal Medicine 07/01/24 documented as of this encounter
--- OUTSIDE RECORDS SUMMARY | 2024-09-22 17:43 | XMS_ITS | Clinical Summary ---
Author Organization [facility] Address [address] [place] [address] Care Team Providers Care Photo Engraver Name Role Phone Unavailable Primary Care Provider [...]
--- OUTSIDE RECORDS SUMMARY | 2024-09-22 17:43 | XMS_ITS | Encounter Summary ---
Author Organization [employer] Address 75 [facility] 7t [place] [address] Care Team Providers Care Building Insulation Installer Name Role Phone Jennifer Brown MD Primary Care Provider [phone] Scott Riley PharmD Unavailable [phone] Reason for Visit * Reason Onset Date Comments Med Refill 07/15/2024 Encounter Details Date Type Department Care Team (Late st Contact Info) Description 07/15/2024 Refill [facility] [address] [place] [address] Lisbeth Felton ANP [address] [place] [address] Social History Tobacco Use Types Packs/Day Years [...] Description 10/06/2024 3:30 PM EDT Office Visit [facility] [address] [place] [address] Jennifer Brown MD [address] [place] [address] 11/13/2024 11:00 AM EDT Medication Management [address] [address] Scott Riley PharmD [address] [place] [address] documented as of this encounter Visit Diagnoses Not on filedocumented in this encounter Additional Health Concerns Assessment Noted Time PHQ-9 Depression Total Score: 5 03/11/20 24 11:51 AM EDT documented as of this encounter Care Teams Building Insulation Installer Relationship Specialty Start Date End Date Jennifer Brown MD [address] [place] [address] PCP - General Family Medicine 07/15/18 Scott Riley, PharmD [address] [place] [address] Pharmacist Internal Medicine 07/01/24 documented as of this encounter
--- OUTSIDE RECORDS SUMMARY | 2024-09-22 17:43 | XMS_ITS | Clinical Summary ---
Author Organization [employer] Address 75 [facility] 7t [place] [address] Care Team Providers Care Fly Rail Operator Name Role Phone Jennifer Brown MD Primary Care Provider [phone] Scott Riley PharmD Unavailable [phone] Allergies No known active allergies Medications * [...] pressure once daily. XL Cuff 1 kit 024 Active omeprazole (PriLOSEC) [address] capsule [...] once daily 90 tablet 3 025 Active Zepbound 5 MG/0.5ML solution auto-injector INJECT ONE PEN (=5MG) SUBCUTANEOUSLY ONCE A WEEK DIRECTED 2 mL 025 Active Tirzepatide-Weig ht Management (Zepbound) 5 MG/0.5ML solution auto-injector Inject 0.5 mL (5 mg) under the skin 1 (one) time per week. 2 mL 025 2024 Discontinued Active Problems Problem Noted Date Diagnosed Date Anxiety 03/11/2024 Assessment & Plan (03/11/2024 11:18 AM EDT): - patient was seen by [facility] Adjustment disorder with mixed anxiety and depre [...] Plan (03/11/2024 4:36 AM EDT): -Followed by [facility] -Continue working on fiber-rich diet -Continue linaclotide Assessment & Plan (07/15/2022 4:57 PM EST): -Followed by [facility] -Continue working on fiber-rich diet -Continue [...] Plan (03/11/2024 4:38 AM EDT): -Evaluated by [employer]PERATOR -Anticipating shrinkage since she is going through menopause Assessment & Plan (07/15/2022 5:07 PM EST): -Evaluated by HYDRAULIC PUNCH PRESS OPERATOR -Anticipating shrinkage since she is going through [...] prep. -Recommended repeat in 3 yrs -Called [facility] office; they will review her pathology report and will contact pt Assessment & Plan (07/15/2022 4:59 PM EST): -Family Hx colon cancer -10/21/18 Colonoscopy: ascending colon polyp (tubular adenoma), diverticulosis, poor prep. -Recommended repeat in 3 yrs -Called [facility] office; they will review her pathology [...] Encounters Date Type Department Care Team Description 09/08/2024 2:15 PM EST Office Visit [facility] [address] [place], [place] [phone] Handy, Ni, OD Presbyopia (Primary Dx) 09/01/2024 Refill [facility] [address] [place], [place] [phone] Jennifer Brown MD 08/28/2024 Orders Only [facility] [address] [place] [address] Jennifer Brown MD 08/21/2024 Telephone [facility] [address] [place], [place] [phone] Jennifer Brown MD 08/21/2024 Travel 08/17/2024 Telephone [facility] [address] [place] [address] Brianna Christy MA Appointment Confirmation 08/15/2024 Telephone [facility] [address] [place] [address] Soila Bloom RNcompressor operator 07/24/2024 Telephone [facility] [address] [place] [address] Scott Riley, PharmD Letter for School/Work 07/24/2024 Travel 07/23/2024 3:15 PM EST Office Visit [facility] [address] [place] [address] Emmy Caruso OD Presbyopia (Primary Dx); Cortical cataract of right eye 07/23/2024 Travel 07/20/2024 Refill [facility] [address] [place] [address] Jennifer Brown MD 07/17/2024 Orders Only [facility] External Provider, [facility] 07/15/2024 Refill [facility] [address] [place], [place] [phone] Lisbeth Felton ANP 07/15/2024 Refill [facility] [address] [place], [place] [phone] Jennifer Brown MD 07/15/2024 Refill [facility] [address] [place] [address] [phone] Jennifer Brown MD Vitamin D insufficiency; Viral syndrome; Trochanteric bursitis of both hips 07/15/2024 Refill [facility] [address] [place], [place] [phone] Jennifer Brown MD 07/01/2024 Refill [facility] [address] [place] [phone] Jennifer Brown MD 06/25/2024 Travel from Last 3 Months Immunizations Name Administration [...] with others, in a hotel, in a alf, living outside on the street, on a [...] Description 10/06/2024 3:30 PM EDT Office Visit [facility] [address] [place] [phone] Jennifer Brown MD [address] [place] [address] 11/13/2024 11:00 AM EDT Medication Management [address] [address] Scott Riley, PharmD [address] [place] [address] Health Maintenance Due Date Last Done Comments [...] 04/19/2021 Pap Smear 04/19/2026 04/19/2021 Lipid Panel 08/28/2029 08/28/2024, 03/15, 01/30/2022, Additional history exists DTaP/Tdap/Td Vaccines (3 - [...] Procedure Name Priority Date/Time Associated Diagnosis Comments LIPID PANEL, STANDARD Routine 08/28/2024 11:03 AM EST BASIC METABOLIC PANEL Routine 08/28/2024 11:03 AM EST HEPATIC FUNCTION PANEL Routine 5 11:03 AM EST US PELVIS TRANSVAGINAL Routine 4:17 PM EST BI MAMMOGRAM SCREENING TOMOSYNTHESIS BILATERAL Routine 08/07/2023 12:04 PM EST HEPATITIS C ANTIBODY Routine 08/01/2023 10:52 AM EST HIV 1/2 ANTIGEN/ANTIBODY, FOURTH GENERATION W/RFL Routine 08/01/2023 10:52 AM EST HM PAP/HPV Routine 04/19/2021 HM COLONOSCOPY Routine 10/21/2018 from Last 3 Months or Most Recently Relevant to Health Maintenance Results * Hepatic Function Panel (08/28/2024 11:03 AM EST) Bilirubin, Total 0.3 0.0 - 1.0 mg/dL [facility] Bilirubin, Direct 0.1 0.0 - 0.5 mg/dL [facility] Aspartate Amino Transferase 21 5 - 31 U/L [facility] Alanine Aminotransferase 27 0 - 31 U/L [facility] Total Protein 7.4 6.5 - 8.0 g/dL [facility] Albumin Level 3.9 3.5 - 5.0 g/dL [facility] Alkaline Phosphatase 106 39 - 117 U/L [facility] 08/28/2024 11:0 3 AM EST 08/28/2024 1:10 PM EST us Jennifer Brown MD LAB BLOOD ORDERABLES Final Resul t [facility] [address] [place] [address] [phone] * (ABNORMAL) Lipid Panel, Standard (08/28/2024 11:03 AM EST) Triglycerides 128 <150 mg/dL [facility] Comment:Desirable Triglyceri de: less than 150 mg/dLBorderline High Triglyceride 150-199 mg/dLHigh Triglyceride: 200-499 mg/dLVery High Triglyceride: greater than or equal to 5OO mg/dL Cholesterol 258(H) <200 mg/dL [facility] Comment:Desirable Cholestero l: less than 200 mg/dLBorderline High Cholesterol: 200-239 mg/dLHigh Cholesterol: greater than 239 mg/dL LDL Cholesterol Calculated 184(H) <100 mg/dL [facility] Comment:Desirable LDL: less than 100 mg/dLNear Optimal/Above Optimal LDL: 110- 129 mg/dLBorderline High LDL: 130-159 mg/dLHigh LDL: 160-189 mg/dLVery High LDL: greater than or equal to 190 mg/dL HDL Cholesterol 49 >40 mg/dL [facility] Comment:Desirable HDL: great er than 40 mg/dL Note: This HDL assay may give artificially low results in patients with liver disease. 08/28/2024 11:0 3 AM EST 08/28/2024 1:10 PM EST us Jennifer Brown MD LAB BLOOD ORDERABLES Final Resul t [facility] [address] [place] [phone] * (ABNORMAL) Basic Metabolic Panel (08/28/2024 11:03 AM EST) Sodium 137 135 - 145 mmol/L [facility] Potassium 4.3 3.3 - 5.1 mmol/L [facility] Chloride 108 96 - 108 mmol/L [facility] Carbon Dioxide 22 22 - 29 mmol/L [facility] Anion Gap 11(L) 12 - 20 [facility] Urea Nitrogen (BUN) 16 9 - 16 mg/dL [facility] Creatinine, Serum 0.58 0.5 - 1.4 mg/dL [facility] Estimated Glomerular Filt Rate >60 [facility] Comment:Chronic Kidney Disea se: Estimated GFR < 60 mL/min/[id number] Kidney Disease: Estimated GFR < 15 mL/min/1.73m2 Glucose 83 60 - 115 mg/dL [facility] Calcium 9.1 8.4 - 10.2 mg/dL [facility] 08/28/2024 11:0 3 AM EST 08/28/2024 1:10 PM EST us Jennifer Brown MD LAB BLOOD ORDERABLES Final Resul t [facility] [address] [place] [address] [phone] * US Pelvis Transvaginal (07/20/2024 4:17 PM EST) Anatomical Region Laterality Modality Pelvis Ultrasound 07/20/2024 4:17 PM EST Narrative 07/20/2024 4:18 PM EST ? [facility] ?[address] ?[place] [address] ? Ultrasound Report ? Signed ? Patient: Yoana Prather ?MR#: [id number] ?? 59 ? : 1970 ?Acct:[id number] ? Age/Sex: 53 / F ?ADM Date: 07/17/24 ? Loc: HO.US ? Attending Dr: Deepti Gibson CNM ? Ordering Physician: Deepti Gibson CNM ?? Date of Service: 07/17/24 ?? Procedure(s): US pelvic and transvaginal ?? Accession Number(s): [id number] ? cc: Deepti Gibson CNM; Jennifer Brown [...] x 4.2 cm, previously ?? reported by chief talent officer to measure 3.4 x 3.8 x 3.4 cm. There is an ?? intramural fibroid in the posterior uterine body measuring 1.1 x 1.0 x 1.2 ?? cm, previously reported by chief talent officer to measure 1.1 x 0.7 x 0.7 [...] of the fibroids reported by ?? the chief talent officer; the prior study was not available at [...] ? DD/ 16 ? TD/TT: 07/20/241616 ? Reading Assistant: ? Procedure Note Shanna, Image - 07/20/2024 [place] [address] Ultrasound Report Signed Patient: Yoana PratherMR#: [id number] 59 : 1970Acct:[id number] Age/Sex: 53 / FADM Date: 07/17/24 Loc: HO.US Attending Dr: Deepti Gibson CNM Ordering Physician: Deepti Gibson CNM Date of Service: 07/17/24 Procedure(s): US pelvic and transvaginal Accession Number(s): [id number] cc: Deepti Gibson CNM; Jennifer Brown MD [...] 4.2 x 4.2 cm, previously reported by chief talent officer to measure 3.4 x 3.8 x 3.4 cm. There is an intramural fibroid in the posterior uterine body measuring 1.1 x 1.0 x 1.2 cm, previously reported by chief talent officer to measure 1.1 x 0.7 x 0.7 [...] size of the fibroids reported by the chief talent officer; the prior study was not available at time interpretation. An addendum can be provided if the prior study or prior report is submitted for review. This document has been electronically signed by: Mone Quevedo MD on 07/20/2024 16:17:00 Dictated By: Mone Lyon MD Signed By: <Electronically signed by Mone Lyon MD in OV> 07/20/24 1617 DD/ 1617 TD/TT: 07/20/24 1617 Reading Assistant: [facility] External Provider IMG US PROCEDURES Final Result * BI Mammogram Screening Tomosynthesis Bilateral (08/07/2023 12:04 PM EST) Anatomical Region Laterality Modality Breast Bilateral Mammography 08/07/2023 12:0 4 PM EST Narrative 08/20/2023 6:14 AM EST ? [facility] ? [address] ?[place] [address] ? Mammography Report ? Signed ? Patient: Prather,Yoana ?MR#: [id number] ?? 59 ? : 1970 ?Acct:[id number] ? Age/Sex: 52 / F ?ADM Date: 08/07/23 ? Loc: HO.MAMMO ? Attending Dr: Jennifer Brown MD ? Ordering Physician: Jennifer Brown MD ?Results: 1Negative ? Date of Service: 08/07/23 ?Follow Up: 1 Year From Orig ?? inal Mammogram ? Procedure(s): MM tomosynthesis screening BI ?? Accession Number(s): [id number] ? cc: Jennifer Brown MD ? EXAMINATION: [...] 08/20/23609 ? DD/ 1204 ? TD/TT: ? Reading Assistant: ? Procedure Note Donjaeyshstivencarlater, Image - 08/20/2023 [facility] [address] [place] [address] Mammography Report Signed Patient: Yoana PratherMR#: [id number] 59 : 1970Acct:[id number] Age/Sex: 52 / FADM Date: 08/07/23 Loc: [facility] Attending Dr: Jennifer Brown MD Ordering Physician: Jennifer Brown MDResults: 1Negative Date of Service: 08/07/23Follow Up: 1 Year From Orig inal Mammogram Procedure(s): MM tomosynthesis screening BI Accession Number(s): [id number] cc: Jennifer Brown MD EXAMINATION: MM SCREENING [...] in OV> 08/20/23 0610 DD/ 1204 TD/TT: Reading Assistant: Jennifer Brown MD IMG BI PROCEDURES Edited Result - Final * Hepatitis C Ab (08/01/2023 10:52 AM EST) Hepatitis C Antibody Nonreactive Nonreactive [facility] Comment:Antibodies to HCV no t detected; does not exclude early acuteHCV infection. 08/01/2023 10:5 2 AM EST 08/01/2023 10:52 AM EST Generic External Data Provider LAB BLOOD ORDERAB LES Final Result [facility] [address] [place] [phone] * HIV-1/2 Antigen and Antibodies, Fourth Generation, with Reflexes (08/01/2023 10:52 AM EST) HIV AB/AG Nonreactive Nonreactive [facility] Comment:HIV-1 p24 Ag and/or HIV-1/HIV-2 Ab not detected.A test result that is nonreactive does not exclude thepossibility of exposure to or infection with HIV-1 and/orHIV-2. Nonreactive results in this assay for individualswith prior exposure to HIV-1 and/or HIV-2 may be due toantigen and antibody levels that are below the limit ofdetection of this assay.The [employer] HIV Ag/Ab Combo assay result andsupplemental assay results should be interpreted inconjunction with the patient's clinical presentation,history and other laboratory results. If the results areinconsistent with clinical evidence, additional testing issuggested to confirm the result. 08/01/2023 10:5 2 AM EST 08/01/2023 10:52 AM EST Generic External Data Provider LAB BLOOD ORDERAB LES Final Result [facility] [address] [place] [address] [phone] * Pap Smear (04/19/2021) Pap Negative for intraephithelial lesion or malignancy Negative for intraephithelial lesion or malignancy, Other HPV Undetected Undetected, Indeterminate, Quantitative, Not Detected Historical Provider MD HEALTH MAINTENANCE Final Result * Colonoscopy (10/21/2018) Colonoscopy Normal Normal Historical Provider HEALTH MAINTENANCE Final Result from Last 3 Months or Most Recently Relevant to Health Maintenance [facility] Care Teams Fly Rail Operator Relationship Specialty Start Date End Date Jennifer Brown MD [address] [place] [address] PCP - General Family Medicine 07/15/18 Scott Riley, AnabellaD [address] [place] [address] Pharmacist Internal Medicine 07/01/24
--- OUTSIDE RECORDS SUMMARY | 2024-09-22 17:43 | XMS_ITS | Encounter Summary ---
Author Organization [employer] Address [address] [facility] 7t [place] [address] Care Team Providers Care Air Intelligence Specialist Name Role Phone Jennifer Brown MD Primary Care Provider [phone] Scott Riley PharmD Unavailable [phone] Reason for Visit * Reason Onset Date Comments Med Refill 11/07/2023 Encounter Details Date Type Department Care Team (Late st Contact Info) Description 11/07/2023 Refill [facility] [address] [place] [address] Jennifer Brown MD [address] [place] [address] Trochanteric bursitis of both hips; Viral syndrome [...] Description 10/06/2024 3:30 PM EDT Office Visit [facility] [address] [place] [address] Jennifer Brown MD [address] [place] [address] 11/13/2024 11:00 AM EDT Medication Management [address] [address] Scott Riley, PharmD [address] [place] [address] documented as of this encounter Visit Diagnoses Diagnosis Trochanteric bursitis of both hips Viral syndrome Unspecified viral infection, in conditions classified elsewhere and of unspecified site documented in this encounter Additional Health Concerns Assessment Noted Time PHQ-9 Depression Total Score: 0 07/12/20 22 10:25 AM EST documented as of this encounter Care Teams Air Intelligence Specialist Relationship Specialty Start Date End Date Jennifer Brown MD [address] [place] [phone] PCP - General Family Medicine 07/15/18 Scott Riley, PharmD [address] [place] [phone] Pharmacist Internal Medicine 07/01/24 documented as of this encounter
--- OUTSIDE RECORDS SUMMARY | 2024-09-22 17:43 | XMS_ITS | Encounter Summary ---
Author Organization [employer] Address 75 [facility] 7t [place] [address] Care Team Providers Care Floor Tiling Professional Name Role Phone Jennifer Brown MD Primary Care Provider [phone] Scott Riley PharmD Unavailable [phone] Encounter Details Date Type Department Care Team ([facility] st Contact Info) Description 08/28/2024 Orders Only [facility] [address] [place], [place] [phone] Jennifer Brown MD [address] [place] [address] Social History Tobacco Use Types Packs/Day Years [...] Description 10/06/2024 3:30 PM EDT Office Visit [facility] [address] [place] [phone] Jennifer Brown MD [address] [place] [address] 11/13/2024 11:00 AM EDT Medication Management [facility] [address] [place] [phone] Scott Riley, PharmD [address] [place] [address] documented as of this encounter Procedures Procedure Name Priority Date/Time Associated Diagnosis Comments HEPATIC FUNCTION PANEL Routine 08/28/2024 11:03 AM EST LIPID PANEL, STANDARD Routine 08/28/2024 11:03 AM EST BASIC METABOLIC PANEL Routine 08/28/2024 11:03 AM EST documented in this encounter Results * (ABNORMAL) Lipid Panel, Standard (08/28/2024 11:03 AM EST) Triglycerides 128 <150 mg/dL [facility] Comment:Desirable Triglyceri de: less than 150 mg/dLBorderline High Triglyceride 150-199 mg/dLHigh Triglyceride: 200-499 mg/dLVery High Triglyceride: greater than or equal to 5OO mg/dL Cholesterol 258(H) <200 mg/dL [facility] Comment:Desirable Cholestero l: less than 200 mg/dLBorderline High Cholesterol: 200-239 mg/dLHigh Cholesterol: greater than 239 mg/dL LDL Cholesterol Calculated 184(H) <100 mg/dL [facility] Comment:Desirable LDL: less than 100 mg/dLNear Optimal/Above Optimal LDL: 110- 129 mg/dLBorderline High LDL: 130-159 mg/dLHigh LDL: 160-189 mg/dLVery High LDL: greater than or equal to 190 mg/dL HDL Cholesterol 49 >40 mg/dL [facility] Comment:Desirable HDL: great er than 40 mg/dL Note: This HDL assay may give artificially low results in patients with liver disease. 08/28/2024 11:0 3 AM EST 08/28/2024 1:10 PM EST us Jennifer Brown MD LAB BLOOD ORDERABLES Final Resul t [facility] [address] [place] [phone] * (ABNORMAL) Basic Metabolic Panel (08/28/2024 11:03 AM EST) Sodium 137 135 - 145 mmol/L [facility] Potassium 4.3 3.3 - 5.1 mmol/L [facility] Chloride 108 96 - 108 mmol/L [facility] Carbon Dioxide 22 22 - 29 mmol/L [facility] Anion Gap 11(L) 12 - 20 [facility] Urea Nitrogen (BUN) 16 9 - 16 mg/dL [facility] Creatinine, Serum 0.58 0.5 - 1.4 mg/dL [facility] Estimated Glomerular Filt Rate >60 [facility] Comment:Chronic Kidney Disea se: Estimated GFR < 60 mL/min/1.23o4Nrkstf Kidney Disease: Estimated GFR < 15 mL/min/1.73m2 Glucose 83 60 - 115 mg/dL [facility] Calcium 9.1 8.4 - 10.2 mg/dL [facility] 08/28/2024 11:0 3 AM EST 08/28/2024 1:10 PM EST us Jennifer Brown MD LAB BLOOD ORDERABLES Final Resul t Performing Organization Address [facility] Co de Phone Number [facility] [address] [place] [phone] * Hepatic Function Panel (08/28/2024 11:03 AM EST) Bilirubin, Total 0.3 0.0 - 1.0 mg/dL [facility] Bilirubin, Direct 0.1 0.0 - 0.5 mg/dL [facility] Aspartate Amino Transferase 21 5 - 31 U/L [facility] Alanine Aminotransferase 27 0 - 31 U/L [facility] Total Protein 7.4 6.5 - 8.0 g/dL [facility] Albumin Level 3.9 3.5 - 5.0 g/dL [facility] Alkaline Phosphatase 106 39 - 117 U/L [facility] 08/28/2024 11:0 3 AM EST 08/28/2024 1:10 PM EST us Jennifer Brown MD LAB BLOOD ORDERABLES Final Resul t Performing Organization Address [facility] Co de Phone Number [facility] [address] [place] [phone] documented in this encounter Visit Diagnoses Not on filedocumented in this encounter Additional Health Concerns Assessment Noted Time PHQ-9 Depression Total Score: 5 03/11/20 24 11:51 AM EDT documented as of this encounter Care Teams Floor Tiling Professional Relationship Specialty Start Date End Date Jennifer Brown MD [address] [place] [address] PCP - General Family Medicine 07/15/18 Scott Riley, AnabellaD [address] [place] [address] Pharmacist Internal Medicine 07/01/24 documented as of this encounter
--- OUTSIDE RECORDS SUMMARY | 2024-09-22 17:43 | XMS_ITS | Encounter Summary ---
Author Organization [employer] Address 75 [facility] 7t [place] [address] Care Team Providers Care Cushion Gum Applicator Name Role Phone Jennifer Brown MD Primary Care Provider [phone] Scott Riley PharmD Unavailable [phone] Reason for Visit * Reason Comments Med Refill Encounter Details Date Type Department Care Team (Late st Contact Info) Description 09/01/2024 Refill [facility] MED[facility] [address] [place] [address] Jennifer Brown MD [address] [place] [address] Social History Tobacco Use Types Packs/Day Years [...] Description 10/06/2024 3:30 PM EDT Office Visit [facility] [address] [place] [phone] Jennifer Brown MD [address] [place] [phone] 11/13/2024 11:00 AM EDT Medication Management [address] [address] Scott Riley PharmD [address] [place] [phone] documented as of this encounter Visit Diagnoses Not on filedocumented in this encounter Additional Health Concerns Assessment Noted Time PHQ-9 Depression Total Score: 5 03/11/20 24 11:51 AM EDT documented as of this encounter Care Teams Cushion Gum Applicator Relationship Specialty Start Date End Date Jennifer Brown MD [address] [place] [phone] PCP - General Family Medicine 07/15/18 Scott Riley, PharmD [address] [place] [address] Pharmacist Internal Medicine 07/01/24 documented as of this encounter
--- OUTSIDE RECORDS SUMMARY | 2024-09-22 17:43 | XMS_ITS | Encounter Summary ---
Author Organization [employer] Address [address] [facility] 7t [place] [address] Care Team Providers Care Playground Official Name Role Phone Jennifer Brown MD Primary Care Provider [phone] Scott Riley PharmD Unavailable [phone] Reason for Visit * Reason Onset Date Comments Med Refill 07/15/2024 Encounter Details Date Type Department Care Team (Late st Contact Info) Description 07/15/[address] [facility] [address] [place] [address] Jennifer Brown MD [address] [place] [address] Social History Tobacco Use Types Packs/Day Years [...] with others, in a hotel, in a long term, living outside on the street, on a [...] Description 10/06/2024 3:30 PM EDT Office Visit [facility] [address] [place] [address] Jennifer Brown MD [address] [place] [address] 11/13/2024 11:00 AM EDT Medication Management [facility] [address] [place] [address] Scott Riley, PharmD [address] [place] [address] documented as of this encounter Visit Diagnoses Not on filedocumented in this encounter Additional Health Concerns Assessment Noted Time PHQ-9 Depression Total Score: 5 03/11/20 24 11:51 AM EDT documented as of this encounter Care Teams Playground Official Relationship Specialty Start Date End Date Jennifer Brown MD [address] [place] [address] PCP - General Family Medicine 07/15/18 Scott Riley, PharmD [address] [place] [address] Pharmacist Internal Medicine 07/01/24 documented as of this encounter
--- OUTSIDE RECORDS SUMMARY | 2024-09-22 17:43 | XMS_ITS | Encounter Summary ---
Author Organization [employer] Address 75 [facility] 7t [place] [address] Care Team Providers Care Sand Wheeler Name Role Phone Jennifer Brown MD Primary Care Provider [phone] Scott Riley PharmD Unavailable [phone] Reason for Visit * Reason Onset Date Comments Med Refill 05/15/2024 Encounter Details Date Type Department Care Team (Late st Contact Info) Description 05/15/2024 Refill [facility] [address] [place] [address] Jennifer Brown MD [address] [place] [address] Social History Tobacco Use Types Packs/Day Years [...] Description 10/06/2024 3:30 PM EDT Office Visit [facility] [address] [place] [address] Jennifer Brown MD [address] [place] [address] 11/13/2024 11:00 AM EDT Medication Management [address] [address] Scott Riley, PharmLucila [address] [place] [address] documented as of this encounter Visit Diagnoses Not on filedocumented in this encounter Additional Health Concerns Assessment Noted Time PHQ-9 Depression Total Score: 5 03/11/20 24 11:51 AM EDT documented as of this encounter Care Teams Sand Wheeler Relationship Specialty Start Date End Date Jennifer Brown MD [address] [place] [address] PCP - General Family Medicine 07/15/18 Scott Riley, PharmD [address] [place] [address] Pharmacist Internal Medicine 07/01/24 documented as of this encounter
--- OUTSIDE RECORDS SUMMARY | 2024-09-22 17:43 | XMS_ITS | Encounter Summary ---
Author Organization [employer] Address 75 [facility] 7t [place] [address] Care Team Providers Care Commercial Lines Underwriter Name Role Phone Jennifer Brown MD Primary Care Provider Scott Riley PharmD Unavailable [phone] Reason for Visit * Reason Onset Date Comments Med Refill 11/07/2023 Encounter Details Date Type Department Care Team (Late st Contact Info) Description 11/07/2023 Refill [facility] [address] [place] [address] Jennifer Brown MD 230 [place] [address] Vitamin D insufficiency Social History Tobacco Use [...] Description 10/06/2024 3:30 PM EDT Office Visit [facility] [address] [place] [address] Jennifer Brown MD [address] [place] [address] 11/13/2024 11:00 AM EDT Medication Management [address] [address] Scott Riley, PharmD [address] [place] [address] documented as of this encounter Visit Diagnoses Diagnosis Vitamin D insufficiency documented in this encounter Additional Health Concerns Assessment Noted Time PHQ-9 Depression Total Score: 0 07/12/20 22 10:25 AM EST documented as of this encounter Care Teams Commercial Lines Underwriter Relationship Specialty Start Date End Date Jennifer Brown MD [address] [place] [address] PCP - General Family Medicine 07/15/18 Scott Riley, PharmD [address] [place] [address] [phone] Pharmacist Internal Medicine 07/01/24 documented as of this encounter
--- OUTSIDE RECORDS SUMMARY | 2024-09-22 17:43 | XMS_ITS | Encounter Summary ---
Author Organization [employer] Address 75 [facility] 7t [place] [address] Care Team Providers Care Sketch Liner Name Role Phone Jennifer Brown MD Primary Care Provider [phone] Scott Riley PharmD Unavailable [phone] Encounter Details Date Type Department Care Team (Late st Contact Info) Description 09/08/2024 2:15 PM EST Office Visit [facility] [address] [place] [address] Handy, Ni, OD [address] [place] [address] Presbyopia (Primary Dx) Social History Tobacco Use Types Packs/Day Years [...] as of this encounter Progress Notes * Ni Murrell OD - 09/08/2024 2:15 PM EST MH glasses were dispensed. documented in this encounter Plan of Treatment Upcoming Encounters Date Type Department Care Team (Late st Contact Info) Description 10/06/2024 3:30 PM EDT Office Visit [facility] MEDICINE [address] [place] [address] Jennifer Brown MD [address] [place] [address] 11/13/2024 11:00 AM EDT Medication Management [facility] [address] [place] [address] Scott Riley, AnabellaD [address] [place] [address] documented as of this encounter Visit Diagnoses Diagnosis Presbyopia- Primary documented in this encounter Additional Health Concerns Assessment Noted Time PHQ-9 Depression Total Score: 5 03/11/20 24 11:51 AM EDT documented as of this encounter Care Teams Sketch Liner Relationship Specialty Start Date End Date Jennifer Brown MD [address] [place] [address] PCP - General Family Medicine 07/15/18 Scott Riley, AnabellaD [address] [place] [address] Pharmacist Internal Medicine 07/01/24 documented as of this encounter
== END 2024-09-22 15:53 | disposition home or self-care (01) ==
LOC: HO.HGS 14:27
PROVIDERS: PCP Family Medicine; Visit Provider Surgery
DX: Z80.9 Family history of malignant neoplasm, unspecified (principal)
CPT/HCPCS: 99204

== ENCOUNTER → 2024-09-22 14:26 | Outpatient (BNVA) | payer MEDICAID, SELFPAY | PROVIDERS: PCP Family Medicine; Visit Provider Surgery | DX: Z80.3 Family history of malignant neoplasm of breast (principal); Z80.9 Family history of malignant neoplasm, unspecified | CPT/HCPCS: 99202 ==

== ENCOUNTER 2024-10-13 12:45 | Outpatient (REF) | payer MEDICAID, SELFPAY ==
--- NOTE | ~2024-10-13 | US_ITS ---
EXAMINATION: US PELVIS TRANSABDOMINAL AND TRANSVAGINAL HISTORY: D21.9 - Benign neoplasm of connective and other soft tissue, unspecified COMPARISON: Comparison is made with the prior examination dated 07/17/2024. TECHNIQUE: Transabdominal and endovaginal real-time 2D gracia-scale ultrasound was performed. FINDINGS: Uterus: The uterus is normal in size, measuring 9.9 x 6.8 x 7.1 cm. Myometrium has a normal echotexture. Again seen is a fundal fibroid to the left of midline measuring 3.9 x 3.9 x 4.4 cm (previously 3.9 x 4.2 x 4.2 cm), and a small posterior fibroid measuring 0.9 x 0.8 x 0.9 cm (previously 1.1 x 1.0 x 1.2 cm). Endometrium: The endometrial stripe measures 5 mm in thickness. There are nabothian cysts in the cervix. Right ovary: The right ovary measures 1.3 x 0.7 x 1.0 cm. The right ovary is normal in size and echotexture. Left ovary: The left ovary measures 1.3 x 1.7 x 0.8 cm. The left ovary is normal in size and echotexture. Pelvic fluid: none. US/US pelvic and transvaginal IMPRESSION: Stable uterine fibroids as described. Electronically signed by: Emre Julio MD 10/14/2024 07:13 AM EDT
--- OUTSIDE RECORDS SUMMARY | 2024-10-13 14:51 | XMS_ITS | Clinical Summary ---
Author Organization [facility] ity Address [address] [place] [address] Care Team Providers Care Field Mechanical Meter Tester Name Role Phone Unavailable Primary Care Provider [...]
== END 2024-10-13 12:46 | disposition home or self-care (01) ==
LOC: HO.US 12:45
PROVIDERS: PCP Family Medicine; Visit Provider Advanced Practice Midwife
DX: D21.9 Benign neoplasm of connective and other soft tissue, unspecified (principal)
CPT/HCPCS: 76830; 76856

== ENCOUNTER → 2024-10-13 12:47 | Outpatient (BNV) | payer MEDICAID, SELFPAY | PROVIDERS: PCP Family Medicine; Visit Provider Radiology Diagnostic Radiology | DX: D25.9 Leiomyoma of uterus, unspecified (principal) | CPT/HCPCS: 76830; 76856 ==

== ENCOUNTER 2024-10-21 14:39 | Outpatient (AMB) | payer MEDICAID, SELFPAY ==
[2024-10-21 14:45] VITALS: BP 124/78; BMI 53.8
--- NOTE | 2024-10-21 14:45 | A.OFFVIS_ITS ---
Vital Signs 10/21/24 14:45 Height 4 ft 3 in Weight 199 lb BMI 53.8 BP 124/78 Intake Visit Reasons: EMB/US Follow up Retail Attendant Required: Yes Retail Attendant Language: Railroad Worker Services: Retail Attendant Present (in person) Retail Attendant Name: Alana HENDERSON Information Interpreted: non-clinical & clinical Complaint Investigations Officer: Complaint Investigations Officer Present (Mary HENDERSON /Victorina) Accompanied by: Self / Same As Patient Allergies No Known Allergies Allergy (Verified 10/21/24 14:58) Post menopausal: Yes HPI Comments Details: Patient is here today for ultrasound follow up and endometrial biopsy due to to endometrial thickening seen on ultrasound. History of fibroids. [facility] Medical History Encounter for annual routine gynecological examination FH: breast cancer Urinary urgency Well woman exam Perimenopause Diarrhea in adult patient Gastritis Fibroma Hypertension High cholesterol Depression Surgical History History of esophagogastroduodenoscopy (EGD) Hx of colonoscopy History of tubal ligation Family History Mother Colon cancer Sister Uterine cancer Sister Uterine cancer Other Diabetes HTN (hypertension) Heart problem Social History Alcohol intake: never Patient Tobacco Use Status: Never used Tobacco Gender identity: Female Female Reproductive History Menstrual Age of Menarche: 11 Review of Systems Const All systems reviewed & are unremarkable except as noted in HPI and below Physical Exam Vital Signs: BMI result Body Mass Index 53.8 Const General: cooperative, healthy appearing and no acute distress Orientation/consciousness: patient oriented x3 GI Inspection: Yes normal to inspection Palpation (GI): Soft to palpation and Other GI palpation findings present (Nontender) Rectal Exam - Female: visual inspection normal General: Yes bladder normal to palpation External Female Exam: normal appearance of the urethra Speculum Exam - Vagina: normal appearance of the vagina, normal palpation and normal vaginal discharge Speculum Exam - Cervix: normal appearance of the cervix and normal palpation Bimanual exam- vagina & uterus: normal bimanual exam, normal palpation, uterine size normal, bladder normal to palpation, normal palpation, uterine shape normal, non-tender and other (Irregular contour) Bimanual Exam- Adnexa, other: normal adnexae Neuro General: patient oriented x3 Office Procedures Endometrial Biopsy Details: The patient is here today for an endometrial biopsy due to thickened endometrial lining in postmenopause, to rule out any pathology including atypical, hyperplasia or cancer cells of the uterus. She was counseled regarding anticipatory guidance for the procedure including the risks for pain, infection, bleeding, perforation, potential injury to the tissues may include the cervix, uterus, tubes, bladder and bowels. These injuries may include further treatment and evaluation including surgery, blood transfusions, antibiotics, hospitalizations and anesthesia. Permanent injury and scarring can occur. She was consented for the procedure, and the consent forms were signed. She is agreeable to have the procedure today. All questions were answered. Endometrial Biopsy Procedure: The patient was placed in the dorsal lithotomy position and a sterile speculum inserted. Using aseptic technique for the procedure. The cervix was cleansed with Betadine x 3 swabs. A single toothed tenaculum was placed on the cervix for stabilization, unable to advance the 4mm pipelle beyond 4-5 cm, no tissue was collected with pass, the procedure was stopped as the patient would prefer to have anesthesia to proceed. Minimal bleeding was observed, Monsel's applied to tenaculum site for hemostasis. The patient tolerate the procedure well and was in good condition when leaving the department. Endometrial Biopsy Post Procedure Care: Nothing in the vagina including: tampons, douching or intimacy until all the bleeding has subsided. There may be some post procedure bleeding for several days, this bleeding is usually light and may turn to a light brown or pink color. Mild cramps may occurs. Nothing in the vaginal including: tampons, douching, or intimacy until all the bleeding has subsided. You may take an over the counter mild analgesic such as Tylenol or Advil (if no allergies) per the manufactures recommendation on dosing, frequency, and follow the directions completely. Call the office if any: fever (over 100.4), flu like symptoms, abdominal pain (worse than cramping), foul smelling, infected appearing vaginal discharge, or heavy bleeding. If indicated: Use condoms to prevent STI's, and only after the bleeding has stopped completely. Return to the office in 2 weeks for results and plan of care. This note is constructed using voice recognition software. While every effort has been made to ensure accuracy, senior information developer errors may have been included. [id number] Biopsy Results Reviewed Results Reviewed: [address] [address] Ultrasound Report Signed Patient: Yoana Prather MR#: [id number] : 1970 Acct:[id number] Age/Sex: 53 / F ADM Date: 10/13/24 Loc: .US Attending Dr: Deepti Gibson CNM Ordering Physician: Deepti Gibson CNM Date of Service: 10/13/24 Procedure(s): US pelvic and transvaginal Accession Number(s): [id number] cc: Deepti Gibson CNM; Jennifer Brown MD~ EXAMINATION: US PELVIS TRANSABDOMINAL AND TRANSVAGINAL HISTORY: D21.9 - Benign neoplasm of connective and other soft tissue, unspecified COMPARISON: Comparison is made with the prior examination dated 07/17/2024. TECHNIQUE: Transabdominal and endovaginal real-time 2D gracia-scale ultrasound was performed. FINDINGS: Uterus: The uterus is normal in size, measuring 9.9 x 6.8 x 7.1 cm. Myometrium has a normal echotexture. Again seen is a fundal fibroid to the left of midline measuring 3.9 x 3.9 x 4.4 cm (previously 3.9 x 4.2 x 4.2 cm), and a small posterior fibroid measuring 0.9 x 0.8 x 0.9 cm (previously 1.1 x 1.0 x 1.2 cm). Endometrium: The endometrial stripe measures 5 mm in thickness. There are nabothian cysts in the cervix. Right ovary: The right ovary measures 1.3 x 0.7 x 1.0 cm. The right ovary is normal in size and echotexture. Left ovary: The left ovary measures 1.3 x 1.7 x 0.8 cm. The left ovary is normal in size and echotexture. Pelvic fluid: none. US/US pelvic and transvaginal IMPRESSION: Stable uterine fibroids as described. Electronically signed by: Emre Julio MD 10/14/2024 07:13 AM EDT Dictated By: Emre Julio MD Signed By: <Electronically signed by Emre Julio MD in OV> 10/14/24 0713 DD/ 1307 Assessment & Plan Assessment & Plan (1) Fibroid: Code(s): D21.9 - Benign neoplasm of connective and other soft tissue, unspecified Category: Medical (2) Endometrial thickening on ultrasound: Code(s): R93.89 - Abnormal findings on diagnostic imaging of other specified body structures Category: Medical Plan: Endometrial biopsy incomplete. Discuss options to have anesthesia and hysteroscopy procedure for uterine sampling. Appointment will be made for a consult with Dr. Coelho. The patient expressed understanding and agreement with the plan of care. All of her questions and concerns were addressed to the best of my ability. Plan Discussed ultrasound findings: IMPRESSION: Stable uterine fibroids as described. No follow up indicated at this time, unless there are symptoms of bloating pressure. The patient expressed understanding and agreement with the plan of care. All of her questions and concerns were addressed to the best of my ability. This note is constructed using voice recognition software. While every effort has been made to ensure accuracy, senior information developer errors may have been included. Coding Level of Care Code Procedure Only Diagnoses Fibroid D21.9 Endometrial thickening on ultrasound R93.89 CPT Codes Endometrial Biopsy - CPT: 58397-[id number] Biopsy ([id number])
--- OUTSIDE RECORDS SUMMARY | 2024-10-21 16:52 | XMS_ITS | Encounter Summary ---
Author Organization [employer] Address 75 [facility] 7t [place] [address] Care Team Providers Care Self Pay Collector Name Role Phone Jennifer Brown MD Primary Care Provider [phone] Scott Riley PharmD Unavailable [phone] Reason for Visit * Reason Onset Date Comments Med Refill 05/15/2024 Encounter Details Date Type Department Care Team (Late st Contact Info) Description 05/15/2024 Refill [facility] [address] [place] [address] Jennifer Brown MD [address] [place] [address] Social History Tobacco Use Types Packs/Day Years [...] Care Team (Late st Contact Info) Description 11/13/2024 11:00 AM EDT Medication Management [facility] [address] [place] [address] Scott Riley, PharmD [address] [place] [address] documented as of this encounter Visit Diagnoses Not on filedocumented in this encounter Additional Health Concerns Assessment Noted Time PHQ-9 Depression Total Score: 5 03/11/20 24 11:51 AM EDT documented as of this encounter Care Teams Self Pay Collector Relationship Specialty Start Date End Date Jennifer Brown MD [address] [place] [address] PCP - General Family Medicine 07/15/18 Scott Riley, PharmD [address] [place] [address] Pharmacist Internal Medicine 07/01/24 documented as of this encounter
--- OUTSIDE RECORDS SUMMARY | 2024-10-21 16:52 | XMS_ITS | Encounter Summary ---
Author Organization [employer] Address 75 [facility] 7t [place] [address] Care Team Providers Care Event Promoter Name Role Phone Jennifer Brown MD Primary Care Provider [phone] Scott Riley PharmD Unavailable [phone] Reason for Visit * Reason Onset Date Comments Med Refill 07/15/2024 Encounter Details Date Type Department Care Team (Late st Contact Info) Description 07/15/[address] [facility] [address] [place] [address] Jennifer Brown MD [address] [place] [address] Social History Tobacco Use Types Packs/Day Years [...] Description 11/13/2024 11:00 AM EDT Medication Management [facility] [address] [place] [address] Scott Riley, PharmD [address] [place] [address] documented as of this encounter Visit Diagnoses Not on filedocumented in this encounter Additional Health Concerns Assessment Noted Time PHQ-9 Depression Total Score: 5 03/11/20 24 11:51 AM EDT documented as of this encounter Care Teams Event Promoter Relationship Specialty Start Date End Date Jennifer Brown MD [address] [place] [address] PCP - General Family Medicine 07/15/18 Scott Riley, PharmD [address] [place] [address] Pharmacist Internal Medicine 07/01/24 documented as of this encounter
--- OUTSIDE RECORDS SUMMARY | 2024-10-21 16:52 | XMS_ITS | Encounter Summary ---
Author Organization [employer] Address 75 [facility] 7t [place] [address] Care Team Providers Care Auditor Supervisor Name Role Phone Jennifer Brown MD Primary Care Provider [phone] Scott Riley PharmD Unavailable [phone] Reason for Visit * Reason Onset Date Comments Med Refill 11/07/2023 Encounter Details Date Type Department Care Team (Late st Contact Info) Description 11/07/2023 Refill [facility] [address] [place] [address] Jennifer Brown MD [address] [place] [address] Vitamin D insufficiency Social History Tobacco Use [...] Description 11/13/2024 11:00 AM EDT Medication Management [facility] [address] [place] [address] Scott Riley, PharmD [address] [place] [address] documented as of this encounter Visit Diagnoses Diagnosis Vitamin D insufficiency documented in this encounter Additional Health Concerns Assessment Noted Time PHQ-9 Depression Total Score: 0 07/12/20 22 10:25 AM EST documented as of this encounter Care Teams Auditor Supervisor Relationship Specialty Start Date End Date Jennifer Brown MD [address] [place] [address] PCP - General Family Medicine 07/15/18 Scott Riley, PharmD [address] [place] [address] Pharmacist Internal Medicine 07/01/24 documented as of this encounter
--- OUTSIDE RECORDS SUMMARY | 2024-10-21 16:52 | XMS_ITS | Clinical Summary ---
Author Organization [facility] [employer] [facility] ity Address [address] [place] [address] Care Team Providers Care Professor Of Geology Name Role Phone Unavailable Primary Care Provider [...] - 2023-2 5 season) 2024 Influenza Vaccine (Season Ended) 2025 HIB Vaccines Aged Out No longer eligi [...] age to complete this topic Meningococcal B Vaccine Aged Out No l onger eligible based on patient's age to complete [...]
--- OUTSIDE RECORDS SUMMARY | 2024-10-21 16:52 | XMS_ITS | Encounter Summary ---
Author Organization [employer] Address 75 [facility] 7t [place] [address] Care Team Providers Care Forensic Identification Specialist Name Role Phone Jennifer Brown MD Primary Care Provider [phone] Scott Riley PharmD Unavailable [phone] Reason for Visit * Reason Onset Date Comments Med Refill 07/15/2024 Encounter Details Date Type Department Care Team (Late st Contact Info) Description 07/15/2024 Refill [facility] [address] [place] [address] Lisbeth Felton ANP [address] [place] [address] Social History Tobacco Use Types Packs/Day Years [...] Description 11/13/2024 11:00 AM EDT Medication Management [facility] [address] [place] [phone] Scott Riley, PharmD [address] [place] [address] documented as of this encounter Visit Diagnoses Not on filedocumented in this encounter Additional Health Concerns Assessment Noted Time PHQ-9 Depression Total Score: 5 03/11/20 24 11:51 AM EDT documented as of this encounter Care Teams Forensic Identification Specialist Relationship Specialty Start Date End Date Jennifer Brown MD [address] [place] [address] PCP - General Family Medicine 07/15/18 Scott Riley, PharmD [address] [place] [address] Pharmacist Internal Medicine 07/01/24 documented as of this encounter
--- OUTSIDE RECORDS SUMMARY | 2024-10-21 16:52 | XMS_ITS | Encounter Summary ---
Author Organization [employer] Address 75 [facility] 7t [place] [address] Care Team Providers Care In Flight Refueling System Repairer Name Role Phone Jennifer Brown MD Primary Care Provider [phone] Scott Riley PharmD Unavailable [phone] Reason for Visit * Reason Onset Date Comments Med Refill 04/06/2024 Encounter Details Date Type Department Care Team (Late st Contact Info) Description 04/06/2024 Refill [facility] [address] [place] [address] Ayan Madsen MD [address] [place] [address] Social History Tobacco Use Types Packs/Day Years [...] Description 11/13/2024 11:00 AM EDT Medication Management [facility] [address] [place] [address] Scott Riley, PharmD [address] [place] [address] documented as of this encounter Visit Diagnoses Not on filedocumented in this encounter Additional Health Concerns Assessment Noted Time PHQ-9 Depression Total Score: 5 03/11/20 24 11:51 AM EDT documented as of this encounter Care Teams In Flight Refueling System Repairer Relationship Specialty Start Date End Date Jennifer Brown MD [address] [place] [address] PCP - General Family Medicine 07/15/18 Scott Riley, PharmD [address] [place] [address] Pharmacist Internal Medicine 07/01/24 documented as of this encounter
--- OUTSIDE RECORDS SUMMARY | 2024-10-21 16:52 | XMS_ITS | Clinical Summary ---
Author Organization [employer] Address [address] [facility] 7t [place] [address] Care Team Providers Care Nanny/Household Manager Name Role Phone Jennifer Brown MD Primary Care Provider [phone] Scott Riley PharmD Unavailable [phone] Allergies No known active allergies Medications * This document contains information received from the source organization and may not represent a complete record from that organization. Simethicone Ultra Strength 180 MG capsule Take 180 mg by mouth 4 times daily. 022 Active dicyclomine (Bentyl) 20 MG tablet Take 20 mg by mouth 4 times daily. 024 Active oxybutynin XL (Ditropan-XL) 10 MG 24 hr tablet Take 10 mg by mouth Once per day. Active cholecalciferol (Vitamin D High Potency) 25 MCG (1000 UT) capsuleIndicatio ns:Vitamin D insufficiency Take 1 capsule (25 mcg) by mouth Once per day. 90 capsule 3 024 Active naproxen (Naprosyn) 500 MG [...] 72 mcg by mouth in the morning. Active Blood Pressure kitIndications:P rimary hypertension Use to check blood pressure once daily. XL Cuff 1 kit Active chlorthalidone (Hygroton) 25 MG tabletIndication s:Primary hypertension Take 1 tablet by mouth once daily 90 tablet 3 Active Acetaminophen Extra Strength 500 MG tabletIndication s:Viral syndrome TAKE 1 TO 2 TABLETS BY MOUTH EVERY 8 HOURS NEEDED FOR PAIN OR FEVER 30 tablet 3 Active omeprazole (PriLOSEC) [address] capsule TAKE 1 CAPSULE BY MOUTH EVERY TWELVE HOURS 180 capsule Active Tirzepatide-Weig ht Management (Zepbound) 7.5 MG/0.5ML solution auto-injector Inject 0.5 mL (7.5 mg) under the skin 1 (one) time per week. 2 mL 11 Active rosuvastatin (Crestor) 40 MG tablet Take 1 tablet (40 mg) by mouth Once per day. 90 tablet 3 025 2025 Active Diclofenac Sodium 1 % gel APPLY 2 GRAMS TOPICALLY TO AFFECTED AREA(S) TWICE DAILY NEEDED FOR PAIN 100 g 3 Active Diclofenac Sodium 1 % gel APPLY 2 GRAMS APPLY TO THE AFFECTED AREA(S) TWICE DAILY NEEDED FOR PAIN 100 g 3 024 2024 Discontinued Acetaminophen Extra Strength 500 MG tabletIndication s:Viral syndrome TAKE 1 TO 2 TABLETS BY MOUTH EVERY 8 HOURS NEEDED FOR PAIN OR FEVER 30 tablet 3 024 2024 Discontinued omeprazole (PriLOSEC) [address] capsule TAKE 1 CAPSULE BY MOUTH EVERY TWELVE HOURS 180 capsule 024 2024 Discontinued(R eorder (will not trigger notification to Pharmacy)) Semaglutide-Weig ht Management (Wegovy) 1.7 MG/0.75ML solution auto-injector INJECT ONE PEN (=1.7 MG) SUBCUTANEOUSLY ONCE A WEEK 3 mL 025 2024 Discontinued(A lternate therapy) atorvastatin (Lipitor) 40 MG tabletIndication s:Dyslipidemia Take 1 tablet (40 mg) by mouth Once per day. 90 tablet 3 025 2024 Discontinued Zepbound 5 MG/0.5ML solution auto-injector INJECT ONE PEN (=5MG) SUBCUTANEOUSLY ONCE A WEEK DIRECTED 2 mL 025 2024 Discontinued Active Problems Problem Noted Date Diagnosed Date Anxiety 03/11/2024 Assessment & Plan (03/11/2024 11:18 AM EDT): - patient was seen by [facility] Adjustment disorder with mixed anxiety and depre [...] Plan (03/11/2024 4:36 AM EDT): -Followed by [facility] -Continue working on fiber-rich diet -Continue linaclotide Assessment & Plan (07/15/2022 4:57 PM EST): -Followed by [facility] -Continue working on fiber-rich diet -Continue linaclotide Dyslipidemia 07/12/2022 Assessment & Plan (10/10/2024 7:28 AM EDT): -Last lipid profile: TC 286; TG 140; HDL 66; LDL 191 -Current medication: Atorvastatin 40 mg at bedtime, will switch to rosuvastatin 40 mg daily per patient's request -Treatment Hx: Previously on pravastatin, but switched to atorvastatin due to inadequate response -Continue working on medication adherence -Continue working on lifestyle modifications Assessment & Plan (03/11/2024 4:37 AM EDT): [...] PM EST): -Hepatitis C antibody reactive in 2017 -Completed immunizations for Hep A and B -Viral load undetectable, most recently checked on 01/30/22 -LFT wnl on 01/30/22 -Continue precautionary measure -Continue periodic lab Leiomyoma 07/12/2022 Assessment & Plan (10/10/2024 7:27 AM EDT): -Evaluated by SPA THERAPIST Assessment & Plan (03/11/2024 4:38 AM EDT): -Evaluated by SPA THERAPIST -Anticipating shrinkage since she is going through menopause Assessment & Plan (07/15/2022 5:07 PM EST): -Evaluated by SPA THERAPIST -Anticipating shrinkage since she is going through menopause Obesity 07/12/2022 Assessment & Plan (10/10/2024 7:27 AM EDT): - will advance GLP1 RA dose, currently trazepatide - Continue working on lifestyle modifications. - Generic advice as below. Tailor for your unique body, character, and specific condition. Dietary Recommendations: Fruits, vegetables, whole grains, protein foods, and fat-free or low-fat dairy products are healthy choices. Eat different types of protein foods in your diet. This can include seafood, lean meats, poultry, beans, peas, lentils, nuts, seeds, soy products, and eggs. Limit foods and beverages higher in added sugars, saturated fat, and sodium. Exercise Recommendations: At least 150 minutes of moderate-intensity physical activity per week, or an equivalent combination of moderate- and vigorous-intensity activity Assessment & Plan (03/11/2024 11:17 AM EDT): [...] prep. -Recommended repeat in 3 yrs -Called [facility] office; they will review her pathology report and will contact pt Assessment & Plan (07/15/2022 4:59 PM EST): -Family Hx colon cancer -10/21/18 Colonoscopy: ascending colon polyp (tubular adenoma), diverticulosis, poor prep. -Recommended repeat in 3 yrs -Called [facility] office; they will review her pathology report and will contact pt Vitamin D insufficiency 04/21/2018 Primary hypertension 07/24/2014 Assessment & Plan (10/10/2024 7:25 AM EDT): -Goal BP < 140/90 per JNC-8 and < 130/80 per ACC/AHA guideline (Tx threshold >= 140/90) -BP not at goal today -Treatment Hx: Dx 2014, initially tried hydrochlorothiazide, but changed to lisinopril due to ineffectiveness -Continue working on lifestyle modifications -Continue current medication: Lisinopril 20 mg daily; chlorthalidone 25 mg daily, anticipates GLP1-RA will improve her BP as well once she loses weight Assessment & Plan (03/13/2024 6:11 AM EDT): [...] Encounters Date Type Department Care Team Description 10/21/2024 Refill [facility] [address] [place] [address] Jennifer Brown MD Trochanteric bursitis of both hips 10/16/2024 Refill [facility] [address] [place] [address] Jennifer Brown MD 10/13/2024 Orders Only [facility] External Provider, [facility] 10/07/2024 Telephone [facility] [address] [place] [address] Jennifer Brown MD 10/06/2024 3:30 PM EDT Office Visit [facility] [address] [place] [address] Jennifer Brown MD Primary hypertension (Primary Dx); Class 3 severe obesity due to excess calories with body mass index (BMI) of 40.0 to 44.9 in adult, unspecified whether serious comorbidity present ([facility]); Dyslipidemia; Leiomyoma 10/06/2024 Travel 10/02/2024 Telephone [facility] [address] [place] [address] Jennifer Brown MD chart prep 09/28/2024 Refill [facility] [address] [place] [address] Jennifer Brown MD Viral syndrome 09/25/2024 Population Health Risk Score [facility] () Department [address] [place] [phone] Provider, Population Health Generic 09/08/2024 2:15 PM EST Office Visit [facility] [address] [place] [address] Handy, Ni, OD Presbyopia (Primary Dx) 09/01/2024 Refill [facility] [address] [place] [address] Jennifer Brown MD 08/28/2024 Orders Only [facility] [address] [place] [address] Jennifer Brown MD 08/21/2024 Telephone [facility] [address] [place] [phone] Jennifer Brown MD 08/21/2024 Travel 08/17/2024 Telephone [facility] [address] [place] [address] Brianna Christy [place] Appointment Confirmation 08/15/2024 Telephone [facility] [address] [place] [address] Soila Bloom RNpeanut farmer 07/24/2024 Telephone [facility] [address] [place] [address] Scott Riley, PharmD Letter for School/Work 07/24/2024 Travel 07/23/2024 3:15 PM EST Office Visit [facility] [address] [place] [address] Emmy Caruso OD Presbyopia (Primary Dx); Cortical cataract of right eye 07/23/2024 Travel from Last 3 Months Immunizations Name [...] Sign Reading Time Taken Comments Blood Pressure 142/80 10/06/2024 3:51 PM EDT Pulse 64 10/06/2024 3:29 PM EDT Temperature 35.9 ??C (96.6 ??F) 10/06/2024 3:29 PM ED T Respiratory Rate 20 10/06/2024 3:29 PM EDT Oxygen Saturation 99% 10/06/2024 3:29 PM EDT Inhaled Oxygen Concentration - - Weight 89.9 kg (198 lb 3.2 oz) 10/06/2024 3:29 P M EDT Height 146.1 cm (4' 9.5 ) 10/06/2024 3:29 PM EDT Body Mass Index 42.15 10/06/2024 3:29 PM EDT Plan of Treatment Upcoming Encounters Date Type Department Care Team (Late st Contact Info) Description 11/13/2024 11:00 AM EDT Medication Management [facility] [address] [place] [address] Scott Riley, PharmD [address] [place] [address] Health Maintenance Due Date Last Done Comments CT Colonography 1969 FIT DNA/Cologuard 1969 FIT 1970 FOBT 1970 Sigmoidoscopy 1970 Pneumococcal Vaccine: 50+ Years (1 of 1 - PCV) 12/07/2019 Colonoscopy 10/21/2021 10/21/2018 Colorectal Cancer Screening 10/21/2021 COVID-19 Vaccine (1 - 2023- season) 2024 Influenza Vaccine (#1) 2024 05/18/2014 SDOH Screening 02/27/2025 02/28/2024 Alcohol/Substance Use Screening 03/11/2025 03/11/2024 Depression Screening 03/11/2025 03/11/2024, 03/11/20 24 Mammogram 08/07/2025 08/07/2023, 07/15, 08/01/2022, Additional history exists Tobacco Screening 10/06/2025 10/06/2024 Cervical Cancer Screening 04/19/2026 HPV/Cotest 04/19/2026 04/19/2021 [...] Associated Diagnosis Comments US PELVIS TRANSVAGINAL Routine 1:07 PM EDT LIPID PANEL, STANDARD Routine 08/28/2024 11:03 AM EST BASIC METABOLIC PANEL Routine 08/28/2024 11:03 AM EST HEPATIC FUNCTION PANEL Routine 11:03 AM EST BI MAMMOGRAM SCREENING TOMOSYNTHESIS BILATERAL Routine 08/07/2023 12:04 PM EST HEPATITIS C ANTIBODY Routine 08/01/2023 10:52 AM EST HIV 1/2 ANTIGEN/ANTIBODY, FOURTH GENERATION W/RFL Routine 08/01/2023 10:52 AM EST HM PAP/HPV Routine 04/19/2021 COLONOSCOPY Routine 10/21/2018 from Last 3 Months or Most Recently Relevant to Health Maintenance Results * US Pelvis Transvaginal (10/13/2024 1:07 PM EDT) Anatomical Region Laterality Modality Pelvis Ultrasound 10/13/2024 1:07 PM EDT Narrative 10/14/2024 7:16 AM EDT ? [facility] ?[address] ?[place] [address] ? Ultrasound Report ? Signed ? Patient: Prather,Yoana ?MR#: [id number] ?? 59 ? : 1970 ?Acct:[id number] ? Age/Sex: 53 / F ?ADM Date: 10/13/24 ? Loc: HO.US ? Attending Dr: Deepti Gibson CNM ? Ordering Physician: Deepti Gibson CNM ?? Date of Service: 10/13/24 ?? Procedure(s): US pelvic and transvaginal ?? Accession Number(s): [id number] ? cc: Deepti Gibson CNM; Jennifer Brown MD ? EXAMINATION: ??US PELVIS TRANSABDOMINAL AND TRANSVAGINAL ? HISTORY: D21.9 - Benign neoplasm of connective and other soft tissue, ?? unspecified ? COMPARISON: Comparison is made with the prior examination dated ?? 07/17/2024. ? TECHNIQUE: ? Transabdominal and endovaginal real-time 2D gracia-scale ultrasound was ?? performed. ? FINDINGS: ? Uterus: ??The uterus is normal in size, measuring 9.9 x 6.8 x 7.1 cm. ? Myometrium has a normal echotexture. ??Again seen is a fundal fibroid to ?? the left of midline measuring 3.9 x 3.9 x 4.4 cm (previously 3.9 x 4.2 ?? x 4.2 cm), and a small posterior fibroid measuring 0.9 x 0.8 x 0.9 cm ?? (previously 1.1 x 1.0 x 1.2 cm). ? Endometrium: ??The endometrial stripe measures 5 mm in thickness. There ?? are nabothian cysts in the cervix. ? Right ovary: ??The right ovary measures 1.3 x 0.7 x 1.0 cm. ??The right ?? ovary is normal in size and echotexture. ? Left ovary: ?? The left ovary measures 1.3 x 1.7 x 0.8 cm. ??The left ?? ovary is normal in size and echotexture. ? Pelvic fluid: none. ? US/US pelvic and transvaginal ?? IMPRESSION: ?? Stable uterine fibroids as described. ? Electronically signed by: ??Emre Julio MD ??10/14/2024 07:13 AM EDT ?? RP ? Dictated By: ?Emre Julio MD ? Signed By: ?<Electronically signed by Emre Julio MD in OV> ?10/14/24712 ? DD/ 06 ? TD/TT: 10/13/24 1319 ? Beam Dyer Operator: ? Procedure Note Donotuseinterpreter, Image - 10/14/[address] [address] Ultrasound Report Signed Patient: Yoana PratherMR#: [id number] 59 : 1970Acct:[id number] Age/Sex: 53 / FADM Date: 10/13/24 Loc: HO.US Attending Dr: Deepti Gibson CNM Ordering Physician: Deepti Gibson CNM Date of Service: 10/13/24 Procedure(s): US pelvic and transvaginal Accession Number(s): [id number] cc: Deepti Gibson CNM; Jennifer Brown MD EXAMINATION: US PELVIS TRANSABDOMINAL AND TRANSVAGINAL HISTORY: D21.9 - Benign neoplasm of connective and other soft tissue, unspecified COMPARISON: Comparison is made with the prior examination dated 07/17/2024. TECHNIQUE: Transabdominal and endovaginal real-time 2D gracia-scale ultrasound was performed. FINDINGS: Uterus: The uterus is normal in size, measuring 9.9 x 6.8 x 7.1 cm. Myometrium has a normal echotexture. Again seen is a fundal fibroid to the left of midline measuring 3.9 x 3.9 x 4.4 cm (previously 3.9 x 4.2 x 4.2 cm), and a small posterior fibroid measuring 0.9 x 0.8 x 0.9 cm (previously 1.1 x 1.0 x 1.2 cm). Endometrium: The endometrial stripe measures 5 mm in thickness. There are nabothian cysts in the cervix. Right ovary: The right ovary measures 1.3 x 0.7 x 1.0 cm. The right ovary is normal in size and echotexture. Left ovary: The left ovary measures 1.3 x 1.7 x 0.8 cm. The left ovary is normal in size and echotexture. Pelvic fluid: none. US/US pelvic and transvaginal IMPRESSION: Stable uterine fibroids as described. Electronically signed by: Emre Julio MD 10/14/2024 07:13 AM EDT Dictated By: Emre Julio MD Signed By: <Electronically signed by Emre Julio MD in OV> 10/14/24 0713 DD/ 1307 TD/TT: 10/13/24 1319 Beam Dyer Operator: [facility] External Provider IMG US PROCEDURES Edited Result - Final * Hepatic Function Panel (08/28/2024 11:03 AM EST) [facility] Bilirubin, Total 0.3 0.0 - 1.0 mg/dL [facility] Bilirubin, Direct 0.1 0.0 - 0.5 mg/dL [facility] Aspartate Amino Transferase 21 5 - 31 U/L [facility] Alanine Aminotransferase 27 0 - 31 U/L [facility] Total Protein 7.4 6.5 - 8.0 g/dL [facility] Albumin Level 3.9 3.5 - 5.0 g/dL [facility] Alkaline Phosphatase 106 39 - 117 U/L [facility] 08/28/2024 11:0 3 AM EST 08/28/2024 1:10 PM EST Jennifer Brown MD LAB BLOOD ORDERABLES Final Resul t [facility] [address] [place] [address] [phone] * (ABNORMAL) Lipid Panel, Standard (08/28/2024 11:03 AM EST) Triglycerides 128 <150 mg/dL [facility] Comment:Desirable Triglyceri de: less than 150 mg/dLBorderline High Triglyceride 150-199 mg/dLHigh Triglyceride: 200-499 mg/dLVery High Triglyceride: greater than or equal to 5OO mg/dL Cholesterol 258(H) <200 mg/dL [facility] Comment:Desirable Cholestero l: less than 200 mg/dLBorderline High Cholesterol: 200-239 mg/dLHigh Cholesterol: greater than 239 mg/dL LDL Cholesterol Calculated 184(H) <100 mg/dL [facility] Comment:Desirable LDL: less than 100 mg/dLNear Optimal/Above Optimal LDL: 110- 129 mg/dLBorderline High LDL: 130-159 mg/dLHigh LDL: 160-189 mg/dLVery High LDL: greater than or equal to 190 mg/dL HDL Cholesterol 49 >40 mg/dL [facility] Comment:Desirable HDL: great er than 40 mg/dL Note: This HDL assay may give artificially low results in patients with liver disease. 08/28/2024 11:0 3 AM EST 08/28/2024 1:10 PM EST us Jennifer Brown MD LAB BLOOD ORDERABLES Final Resul t [facility] [address] [place] [phone] * (ABNORMAL) Basic Metabolic Panel (08/28/2024 11:03 AM EST) Sodium 137 135 - 145 mmol/L [facility] Potassium 4.3 3.3 - 5.1 mmol/L [facility] Chloride 108 96 - 108 mmol/L [facility] Carbon Dioxide 22 22 - 29 mmol/L [facility] Anion Gap 11(L) 12 - 20 [facility] Urea Nitrogen (BUN) 16 9 - 16 mg/dL [facility] Creatinine, Serum 0.58 0.5 - 1.4 mg/dL [facility] Estimated Glomerular Filt Rate >60 [facility] Comment:Chronic Kidney Disea se: Estimated GFR < 60 mL/min/1.09y0Eeyukn Kidney Disease: Estimated GFR < 15 mL/min/1.73m2 Glucose 83 60 - 115 mg/dL [facility] Calcium 9.1 8.4 - 10.2 mg/dL [facility] 08/28/2024 11:0 3 AM EST 08/28/2024 1:10 PM EST us Jennifer Brown MD LAB BLOOD ORDERABLES Final Resul t [facility] [address] [place] [address] [phone] * BI Mammogram Screening Tomosynthesis Bilateral (08/07/2023 12:04 PM EST) Anatomical Region Laterality Modality Breast Bilateral Mammography 08/07/2023 12:0 4 PM EST Narrative 08/20/2023 6:14 AM EST ? [facility] [place] ? [address] ?[place] [address] ? Mammography Report ? Signed ? Patient: Prather,Yoana ?MR#: [id number] ?? 59 ? : 1970 ?Acct:[id number] ? Age/Sex: 52 / F ?ADM Date: 08/07/24 ? Loc: HO.MAMMO ? Attending Dr: Jennifer Brown MD ? Ordering Physician: Jennifer Brown MD ?Results: 1Negative ? Date of Service: 08/07/ ?Follow Up: 1 Year From Orig ?? inal Mammogram ? Procedure(s): MM tomosynthesis screening BI ?? Accession Number(s): [id number] ? cc: Jennifer Brown MD ? EXAMINATION: [...] by Mariposa Cantu MD in OV> ? 08/20/23 0610 ? DD/ 1204 ? TD/TT: ? Beam Dyer Operator: ? Procedure Note Ken Otero - 08/20/2023 [place] [facility] [address] [place], [place] [address] Mammography Report Signed Patient: Clay PrathertabithaMR#: [id number] 59 : 1970Acct:[id number] Age/Sex: 52 / FADM Date: 08/07/23 Loc: HO.MAMMO Attending Dr: Jennifer Brown MD Ordering Physician: Jennifer Brown MDResults: 1Negative Date of Service: 08/07/23Follow Up: 1 Year From Orig ina Mammogram Procedure(s): MM tomosynthesis screening BI Accession Number(s): [id number] cc: Jennifer Brown MD EXAMINATION: MM SCREENING [...] in OV> 08/20/23 0610 DD/ 1204 TD/TT: Beam Dyer Operator: Jennifer Brown MD IMG BI PROCEDURES Edited Result - Final * Hepatitis C Ab (08/01/2023 10:52 AM EST) Hepatitis C Antibody Nonreactive Nonreactive [facility] Comment:Antibodies to HCV no t detected; does not exclude early acuteHCV infection. 08/01/2023 10:5 2 AM EST 08/01/2023 10:52 AM EST Generic External Data Provider LAB BLOOD ORDERAB LES Final Result [facility] [address] [place] [address] [phone] * HIV-1/2 Antigen and Antibodies, Fourth Generation, with Reflexes (08/01/2023 10:52 AM EST) HIV AB/AG Nonreactive Nonreactive [facility] Comment:HIV-1 p24 Ag and/or HIV-1/HIV-2 Ab not detected.A test result that is nonreactive does not exclude thepossibility of exposure to or infection with HIV-1 and/orHIV-2. Nonreactive results in this assay for individualswith prior exposure to HIV-1 and/or HIV-2 may be due toantigen and antibody levels that are below the limit ofdetection of this assay.[employer] HIV Ag/Ab Combo assay result andsupplemental assay results should be interpreted inconjunction with the patient's clinical presentation,history and other laboratory results. If the results areinconsistent with clinical evidence, additional testing issuggested to confirm the result. 08/01/2023 10:5 2 AM EST 08/01/2023 10:52 AM EST us Generic External Data Provider LAB BLOOD ORDERAB LES Final Result Performing Organization Address City/[facility]/ZIP Co de Phone Number [facility] [address] [place] [address] [phone] * Pap Smear (04/19/2021) Pap Negative for intraephithelial lesion or malignancy Negative for intraephithelial lesion or malignancy, Other HPV Undetected Undetected, Indeterminate, Quantitative, Not Detected Historical Provider HEALTH MAINTENANCE Final Result * Colonoscopy (10/21/2018) Colonoscopy Normal Normal us Historical Provider HEALTH MAINTENANCE Final Result from Last 3 Months or Most Recently Relevant to Health Maintenance Insurance [facility] C3 Care Teams Nanny/Household Manager Relationship Specialty Start Date End Date Jennifer Brown MD [address] [place] [address] PCP - General Family Medicine 07/15/18 Scott Riley, Teresa [address] [place] [address] Pharmacist Internal Medicine 07/01/24
--- OUTSIDE RECORDS SUMMARY | 2024-10-21 16:52 | XMS_ITS | Encounter Summary ---
Author Organization [employer] Address [address] [facility] [address] [place] [address] Care Team Providers Care Department Store Manager Name Role Phone Jennifer Brown MD Primary Care Provider [phone] Scott Riley PharmD Unavailable [phone] Reason for Visit * Reason Onset Date Comments Med Refill 11/07/2023 Encounter Details Date Type Department Care Team (Late st Contact Info) Description 11/07/2023 Refill [facility] [address] [place] [address] Jennifer Brown MD [address] [place] [address] Trochanteric bursitis of both hips; Viral syndrome [...] Description 11/13/2024 11:00 AM EDT Medication Management [facility] [address] [place] [phone] Scott Riley, PharmD [address] [place] [phone] documented as of this encounter Visit Diagnoses Diagnosis Trochanteric bursitis of both hips Viral syndrome Unspecified viral infection, in conditions classified elsewhere and of unspecified site documented in this encounter Additional Health Concerns Assessment Noted Time PHQ-9 Depression Total Score: 0 07/12/20 22 10:25 AM EST documented as of this encounter Care Teams Department Store Manager Relationship Specialty Start Date End Date Jennifer Brown MD [address] [place] [phone] PCP - General Family Medicine 07/15/18 Scott Riley, PharmD [address] [place] [phone] Pharmacist Internal Medicine 07/01/24 documented as of this encounter
--- OUTSIDE RECORDS SUMMARY | 2024-10-21 16:52 | XMS_ITS | Encounter Summary ---
Author Organization [employer] Address [address] [facility] [address]t [place] [address] Care Team Providers Care Public Safety Dispatcher Name Role Phone Jennifer Brown MD Primary Care Provider [phone] Scott Riley PharmD Unavailable [phone] Reason for Visit * Reason Comments Med Refill Encounter Details Date Type Department Care Team (Late st Contact Info) Description 10/21/2024 Refill [facility] [address] [place] [address] Jennifer Brown MD [address] [place] [address] Trochanteric bursitis of both hips Social History [...] Description 11/13/2024 11:00 AM EDT Medication Management [facility] [address] [place] [phone] Scott Riley, PharmD [address] [place] [phone] documented as of this encounter Visit Diagnoses Diagnosis Trochanteric bursitis of both hips documented in this encounter Additional Health Concerns Assessment Noted Time PHQ-9 Depression Total Score: 5 03/11/20 24 11:51 AM EDT documented as of this encounter Care Teams Public Safety Dispatcher Relationship Specialty Start Date End Date Jennifer Brown MD [address] [place] [phone] PCP - General Family Medicine 07/15/18 Scott Riley, PharmD [address] [place] [phone] Pharmacist Internal Medicine 07/01/24 documented as of this encounter
--- OUTSIDE RECORDS SUMMARY | 2024-10-21 16:52 | XMS_ITS | Encounter Summary ---
Author Organization [employer] Address [address] [facility] 7t [place] [address] Care Team Providers Care Air Transport Professionals Name Role Phone Jennifer Brown MD Primary Care Provider [phone] Scott Riley PharmD Unavailable [phone] Reason for Visit * Reason Onset Date Comments Med Refill 07/15/2024 Encounter Details Date Type Department Care Team (Late st Contact Info) Description 07/15/2024 Refill [facility] [address] [place] [address] Jennifer Brown MD [address] [place] [address] Social History Tobacco Use Types Packs/Day Years [...] Description 11/13/2024 11:00 AM EDT Medication Management [facility] [address] [place] [phone] Scott Riley, PharmD [address] [place] [address] documented as of this encounter Visit Diagnoses Not on filedocumented in this encounter Additional Health Concerns Assessment Noted Time PHQ-9 Depression Total Score: 5 03/11/20 24 11:51 AM EDT documented as of this encounter Care Teams Air [employer] Professionals Relationship Specialty Start Date End Date Jennifer Brown MD [address] [place] [phone] PCP - General Family Medicine 07/15/18 Scott Riley, PharmD [address] [place] [phone] Pharmacist Internal Medicine 07/01/24 documented as of this encounter
--- OUTSIDE RECORDS SUMMARY | 2024-10-21 16:52 | XMS_ITS | Encounter Summary ---
Author Organization [employer] Address 75 [facility] 7t [place] [address] Care Team Providers Care Geopolitics Teacher Name Role Phone Jennifer Brown MD Primary Care Provider [phone] Scott Riley PharmD Unavailable [phone] Reason for Visit * Reason Comments Med Refill Encounter Details Date Type Department Care Team (Late st Contact Info) Description 10/16/2024 Refill [facility] [address] [place], [place] [phone] Jennifer Brown MD [address] [place], [place] [phone] Social History Tobacco Use Types Packs/Day Years [...] Description 11/13/2024 11:00 AM EDT Medication Management [facility] [address] [place] [phone] Scott Riley, PharmD [address] [place] [phone] documented as of this encounter Visit Diagnoses Not on filedocumented in this encounter Additional Health Concerns Assessment Noted Time PHQ-9 Depression Total Score: 5 03/11/20 24 11:51 AM EDT documented as of this encounter Care Teams Geopolitics Teacher Relationship Specialty Start Date End Date Jennifer Brown MD [address] [place] [phone] PCP - General Family Medicine 07/15/18 Scott Riley, PharmD [address] [place] [phone] Pharmacist Internal Medicine 07/01/24 documented as of this encounter
== END 2024-10-21 15:18 | disposition home or self-care (01) ==
LOC: HO.HWS 14:39
PROVIDERS: PCP Family Medicine; Visit Provider Advanced Practice Midwife
DX: D25.9 Leiomyoma of uterus, unspecified (principal); R93.89 Abnormal findings on diagnostic imaging of other specified body structures
CPT/HCPCS: 58100

== ENCOUNTER → 2024-10-21 14:39 | Outpatient (BNVA) | payer MEDICAID, SELFPAY | PROVIDERS: PCP Family Medicine; Visit Provider Advanced Practice Midwife | DX: D21.9 Benign neoplasm of connective and other soft tissue, unspecified (principal); R93.89 Abnormal findings on diagnostic imaging of other specified body structures | CPT/HCPCS: 58100 ==

== ENCOUNTER 2024-10-29 16:23 | Outpatient (AMB) | payer MEDICAID, SELFPAY ==
[2024-10-29 16:31] VITALS: BP 143/65; PULSE 73; BMI 52.0
--- NOTE | 2024-10-29 16:31 | MHC.OFFVIS ---
Vital Signs 10/29/24 16:31 Height 4 ft 3 in Weight 192 lb 3.889 oz BMI 52.0 BP 143/65 H Blood Pressure Location Lt brachial Position Sitting Pulse 73 Intake Visit Reasons: follow up labs and US Intake Note: Patient in office today in follow up of labs and US. CC: Patient states that she is due for colonoscopy and EGD. Director Of Clinical Trials Required: Yes Accompanied by: Self / Same As Patient Allergies No Known Allergies Allergy (Verified 10/29/24 16:32) HPI HPI follow up labs and US: Details: Assessment & Plan (1) GERD (gastroesophageal reflux disease): Code(s): K21.9 - Gastro-esophageal reflux disease without esophagitis Category: Medical (2) Chronic idiopathic constipation: Code(s): K59.04 - Chronic idiopathic constipation Category: Medical (3) Family history of colon cancer: Comment: 10/2018 Dr. Owens- [facility] CURRENT PLAN: The patient is high risk with marginal prep. Would recommend that repeat screening to be done in 3 years. High-risk with mother with colon cancer and first-degree cousins with colon cancer. Code(s): Z80.0 - Family history of malignant neoplasm of digestive organs Category: Medical (4) Upper abdominal pain: Code(s): R10.10 - Upper abdominal pain, unspecified Category: Medical (5) Pre-op examination: Code(s): Z01.818 - Encounter for other preprocedural examination Category: Medical (6) Left sided abdominal pain: Code(s): R10.9 - Unspecified abdominal pain Category: Medical Plan Citizen [place] #Eliane Live Patient has been lost to follow-up since 12/2022 She made some spaghetti and then she had nausea and swelling in the LUQ with pain. She forced herself to vomit and only green bile was produced. She then became white and her BP dropped. When she calmed down, she had a BM with a little blood. She says she had a similar pain once before and she presented to [facility] walk in and they checked her stool and it was negative for HP. She says she never received a call to schedule the colonoscopy. At this time she has a little pain in the left flank with slight nausea. She admits that she does not move her bowels but every 2-3 days. In the past she a constipation alternating with diarrhea but now her medication regimen is changed to include Wegovy along with chlorthalidone and oxybutynin all which are contributing factors to constipation. With this I think we need to restart her Linzess 72 micro g and titrate to affect her side effect. To be thorough all scan ultrasound of the abdomen to rule out any gallbladder disease. She is overdue for colonoscopy and will also add an upper endoscopy to be thorough. Bentyl 4 times a day, her fiber therapy, simethicone, and omeprazole. She is overdue for repeat colonoscopy, as the last was in 2018 and she was to have a 3 year repeat r/t high risk for CRC familiar. There are no prior problems with anesthesia or sedation. She denies any cardiac or respiratory problems. No ID problems. Strong FHX of crc in 1st and second degree relatives. Return office visit in 4 weeks. Orders: Orders EGD/[facility] Combo - GI Use Only 05/20/24 R10.10 - Upper abdominal pain, unspecified Complete Blood Count Auto Diff 05/20/24 R10.10 - Upper abdominal pain, unspecified, K59.04 - Chronic idiopathic constipation TSH reflex Free T4 05/20/24 R10.10 - Upper abdominal pain, unspecified, K59.04 - Chronic idiopathic constipation US abdomen complete 05/20/24 R10.10 - Upper abdominal pain, unspecified Comprehensive Met. Panel 05/20/24 R10.10 - Upper abdominal pain, unspecified, K59.04 - Chronic idiopathic constipation Medications: New linaclotide (Linzess) 72 mcg PO QAM 30 caps 3RF K59.04 - Chronic idiopathic constipation bisacodyl (Dulcolax (bisacodyl)) 10 mg (2 x 5 mg) PO BEDTIME 4 tabs 0RF 2 days peg 3350-electrolytes 236-22.74-6.74 -5.86 gram (Golytely) until fecal effluent is clear; do not exceed a total volume of 2,000 mL 240 mL PO Q10M 4,000 LABS: Laboratory Tests 06/05/24 08/28/24 11:06 11:03 WBC 5.5 Hgb 13.7 Hct 41.6 Plt Count 242 Estimated GFR > 60 Total Bilirubin 0.3 Direct Bilirubin 0.1 AST 21 ALT 27 Alkaline Phosphatase 106 TSH 0.90 ULTRASOUND OF THE ABDOMEN 07/05/2024 FINDINGS: PANCREAS: Normal. ABDOMINAL AORTA: The proximal, mid, and distal segments are normal in caliber. INFERIOR VENA CAVA: Visualized portions are normal. LIVER: The liver is normal in size. The liver contour is normal. Increased echogenicity of the liver parenchyma, this can be seen in the setting of hepatic steatosis or liver parenchymal disease. No focal hepatic lesion. There is no intrahepatic biliary duct dilatation seen. GALLBLADDER: Normal. The gallbladder is physiologically distended without evidence of stones, sludge, polyps, wall thickening or pericholecystic fluid. COMMON BILE DUCT: Normal in caliber measuring 0.23 cm in diameter. RIGHT KIDNEY: Normal. No hydronephrosis. No renal calculi or focal parenchymal lesions. The kidney measures 10.3 cm in maximum dimension. LEFT KIDNEY: Normal. No hydronephrosis. No renal calculi or focal parenchymal lesions. The kidney measures 10.2 cm in maximum dimension. SPLEEN: Normal. The spleen measures 9.3 cm in maximum dimension. FREE FLUID: None. US/US abdomen complete IMPRESSION: 1. Increased echogenicity of the liver parenchyma, this can be seen in the setting of hepatic steatosis or liver parenchymal disease. 2. Ultrasound otherwise normal. EGD/COLONOSCOPY BIOPSY ? TODAY'S VISIT [place] #V Live She continues to have a mild pain in the afternoons. She can not tolerate the bisacodyl, but she is moving her bowels better wtih the LInzess 72mcg. She feels this is of sufficient dose. She is only taking it if I don't have a BM and I encourage her to take it every day unless she develops diarrhea. I think the left sided pain may be bowel spasm, so this would be effective. However, to be thorough since the pain has always been left-sided I did note that they saw a lesion that they thought was a fatty nodule on her distal pancreas in 2022. This would correspond to the left sides adjust to be completely thorough all get a lipase and amylase to see if this any reason for concern about pancreatitis etc. given that she is on Ozempic and proceed from there. We may want to repeat the CAT scan depending on these lab values. Fortunately the left-sided pain is milder than it was in the past. I am hoping it will continue to be manageable but since we do not known exact cause it is hard to predict. She has not yet heard to schedule the EGD and colonoscopy and I think that just because our schedulers her far behind. The ultrasound did not show any concerning pathology to explain the pain. Her current GI regimen consists of dicyclomine 20 mg 4 times a day, famotidine 20 mg twice a day, Linzess 72 micro g daily, omeprazole 20 mg daily, and simethicone 180 mg 4 times a day. This may be due to constipation and bowel spasm and Wegovy along with chlorthalidone and oxybutynin all which are contributing factors to constipation. Return office visit next available [facility] Medical History (Updated 10/29/24 @ 17:02 by WILMER Roberts) Left sided abdominal pain Pre-op examination FH: breast cancer Encounter for annual routine gynecological examination Family history of cancer Urinary urgency Well woman exam Perimenopause Diarrhea in adult patient Gastritis Fibroma Hypertension High cholesterol Depression Surgical History History of esophagogastroduodenoscopy (EGD) Hx of colonoscopy History of tubal ligation Family History Mother Colon cancer Sister Uterine cancer Sister Uterine cancer Other Diabetes HTN (hypertension) Heart problem Social History Alcohol intake: never Patient Tobacco Use Status: Never used Tobacco Gender identity: Female Female Reproductive History Menstrual Age of Menarche: 11 Review of Systems Const Denies fatigue, Denies fever(s), Denies night sweats, Denies poor appetite and Reports weight loss (Mostly from Ozempic and intentional dieting) ENT Reports Normal hearing present, Denies dental pain, Denies dysphagia, Denies hearing loss, Denies mouth pain, Denies odynophagia, Denies throat swelling, Denies tongue swelling and Reports other (Dentition adequate) Card Reports no additional complaints Resp Reports no additional complaints GI Details: Reports abdominal pain, Denies melena, Denies bloating, Denies hematochezia, Reports constipation, Denies GI cramping, Denies dysphagia, Denies excessive flatus, Denies early satiety, Reports heartburn, Denies diarrhea, Denies nausea, Denies odynophagia, Denies vomiting and Denies hematemesis Skin/Breast Denies pruritus, Denies lesions, Denies rash and Denies jaundice Neuro Reports Normal hearing present and Denies Abnormal speech present Endo Denies fatigue Aller/Immun Denies throat swelling and Denies tongue swelling Physical Exam Vital Signs: Last Vital Signs Pulse 73 10/29/24 16:31 BP 143/65 H 10/29/24 16:31 BMI result Body Mass Index 52.0 Const General: cooperative, no acute distress, well developed and well groomed Nutritional Appearance: well nourished and obese Orientation/consciousness: oriented to person, oriented to place and oriented to time Limitations: language barrier HEENT Head: Yes normocephalic and Yes atraumatic Eyes General: appearance normal, both eyes and all related structures Pupils: Equal, round and reactive pupils present Neck Neck: Yes normal visual inspection and Yes no lymphadenopathy Thyroid: Thyroid normal Resp Effort & Inspection: normal respiratory effort and able to speak in complete sentences Auscultation: clear to auscultation bilaterally Cardio Rate: regular rate Rhythm: regular rhythm Heart sounds: Normal, physiologic split S2 sound present Peripheral pulses: radial pulses present and posterior tibial pulses present GI Inspection: No distended, Yes Abdominal panniculus present and Yes obesity Palpation (GI): Soft to palpation, Tenderness to palpation present (GI) (Left mid quadrant mild), no guarding, not rigid and No hepatosplenomegaly present Percussion: Yes normal to percussion Auscultation: normal bowel sounds Rectal Exam - Female: deferred Skin General skin exam: no rashes or lesions noted, turgor normal, skin not dry, no jaundice, No spider nevi and no striae Rashes: no rashes Nails: normal Neuro General: oriented to person, oriented to place and oriented to time Cranial nerves: Yes Equal, round and reactive pupils present and Yes Normal hearing present Speech: No Abnormal speech present Extrem General: Yes normal to inspection, No clubbing, No cyanosis and No edema Psych Appearance: grossly normal and well kempt Mental Status: mental status grossly normal Speech and movement: Normal speech and movement present Affect: normal affect Attitude: cooperative Thought process: Normal thought process present and not confabulating Thought content: Normal thought content present Insight: Fair insight present (Psych) and Limited insight present (Psych) Judgement: Fair judgement present (Psych) and Limited judgement present (Psych) Results Reviewed Results Reviewed: Laboratory Tests 06/05/24 08/28/24 11:06 11:03 WBC 5.5 Hgb 13.7 Hct 41.6 Plt Count 242 Estimated GFR > 60 Total Bilirubin 0.3 Direct Bilirubin 0.1 AST 21 ALT 27 Alkaline Phosphatase 106 TSH 0.90 ULTRASOUND OF THE ABDOMEN 07/05/2024 FINDINGS: PANCREAS: Normal. ABDOMINAL AORTA: The proximal, mid, and distal segments are normal in caliber. INFERIOR VENA CAVA: Visualized portions are normal. LIVER: The liver is normal in size. The liver contour is normal. Increased echogenicity of the liver parenchyma, this can be seen in the setting of hepatic steatosis or liver parenchymal disease. No focal hepatic lesion. There is no intrahepatic biliary duct dilatation seen. GALLBLADDER: Normal. The gallbladder is physiologically distended without evidence of stones, sludge, polyps, wall thickening or pericholecystic fluid. COMMON BILE DUCT: Normal in caliber measuring 0.23 cm in diameter. RIGHT KIDNEY: Normal. No hydronephrosis. No renal calculi or focal parenchymal lesions. The kidney measures 10.3 cm in maximum dimension. LEFT KIDNEY: Normal. No hydronephrosis. No renal calculi or focal parenchymal lesions. The kidney measures 10.2 cm in maximum dimension. SPLEEN: Normal. The spleen measures 9.3 cm in maximum dimension. FREE FLUID: None. US/US abdomen complete IMPRESSION: 1. Increased echogenicity of the liver parenchyma, this can be seen in the setting of hepatic steatosis or liver parenchymal disease. 2. Ultrasound otherwise normal. Assessment & Plan Assessment & Plan (1) Upper abdominal pain: Code(s): R10.10 - Upper abdominal pain, unspecified Category: Medical (2) Irritable bowel syndrome with both constipation and diarrhea: Code(s): K58.2 - Mixed irritable bowel syndrome Category: Medical (3) Chronic idiopathic constipation: Code(s): K59.04 - Chronic idiopathic constipation Category: Medical (4) GERD (gastroesophageal reflux disease): Code(s): K21.9 - Gastro-esophageal reflux disease without esophagitis Category: Medical Plan Citizen [place] #V Live She continues to have a mild pain in the afternoons. She can not tolerate the bisacodyl, but she is moving her bowels better wtih the LInzess 72mcg. She feels this is of sufficient dose. She is only taking it if I don't have a BM and I encourage her to take it every day unless she develops diarrhea. I think the left sided pain may be bowel spasm, so this would be effective. However, to be thorough since the pain has always been left-sided I did note that they saw a lesion that they thought was a fatty nodule on her distal pancreas in 2022. This would correspond to the left sides adjust to be completely thorough all get a lipase and amylase to see if this any reason for concern about pancreatitis etc. given that she is on Ozempic and proceed from there. We may want to repeat the CAT scan depending on these lab values. Fortunately the left-sided pain is milder than it was in the past. I am hoping it will continue to be manageable but since we do not known exact cause it is hard to predict. She has not yet heard to schedule the EGD and colonoscopy and I think that just because our schedulers her far behind. The ultrasound did not show any concerning pathology to explain the pain. Her current GI regimen consists of dicyclomine 20 mg 4 times a day, famotidine 20 mg twice a day, Linzess 72 micro g daily, omeprazole 20 mg daily, and simethicone 180 mg 4 times a day. This may be due to constipation and bowel spasm and Wegovy along with chlorthalidone and oxybutynin all which are contributing factors to constipation. Return office visit next available EGD/COLONOSCOPY BIOPSY ? Orders: Orders Lipase Today R10.10 - Upper abdominal pain, unspecified, R93.89 - Abnormal findings on diagnostic imaging of other specified body structures Amylase Today R10.10 - Upper abdominal pain, unspecified, R93.89 - Abnormal findings on diagnostic imaging of other specified body structures Medications: Refilled bisacodyl (Dulcolax (bisacodyl)) 10 mg (2 x 5 mg) PO BEDTIME 2 days 4 tabs 0RF linaclotide (Linzess) 72 mcg PO QAM 30 caps 3RF K59.04 - Chronic idiopathic constipation Coding Level of Care Code Est Pt Level 3 (68515) Diagnoses Upper abdominal pain R10.10 Irritable bowel syndrome with both constipation and diarrhea K58.2 Chronic idiopathic constipation K59.04 GERD (gastroesophageal reflux disease) K21.9
--- OUTSIDE RECORDS SUMMARY | 2024-10-29 18:23 | XMS_ITS | Encounter Summary ---
Author Organization [employer] Address 75 [facility] 7t [place] [address] Care Team Providers Care Compensation And Benefits Advisor Name Role Phone Jennifer Brown MD Primary Care Provider [phone] Scott Riley PharmD Unavailable [phone] Reason for Visit * Reason Onset Date Comments Med Refill 11/07/2023 Encounter Details Date Type Department Care Team (Late st Contact Info) Description 11/07/2023 Refill [facility] [address] [place] [address] Jennifer Brown MD [address] [place] [address] Vitamin D insufficiency Social History Tobacco Use [...] Description 11/13/2024 11:00 AM EDT Medication Management [facility] [address] [place] [address] Scott Riley, PharmD [address] [place] [address] documented as of this encounter Visit Diagnoses Diagnosis Vitamin D insufficiency documented in this encounter Additional Health Concerns Assessment Noted Time PHQ-9 Depression Total Score: 0 07/12/20 22 10:25 AM EST documented as of this encounter Care Teams Compensation And Benefits Advisor Relationship Specialty Start Date End Date Jennifer Brown MD [address] [place] [phone] PCP - General Family Medicine 07/15/18 Scott Riley, PharmD [address] [place] [phone] Pharmacist Internal Medicine 07/01/24 documented as of this encounter
--- OUTSIDE RECORDS SUMMARY | 2024-10-29 18:23 | XMS_ITS | Encounter Summary ---
Author Organization [employer] Address 75 [facility] 7t [place] [address] Care Team Providers Care Materials And Corrosion Engineer Name Role Phone Jennifer Brown MD Primary Care Provider [phone] Scott Riley PharmD Unavailable [phone] Reason for Visit * Reason Onset Date Comments Med Refill 07/15/2024 Encounter Details Date Type Department Care Team (Late st Contact Info) Description 07/15/2024 Refill [facility] [address] [place] [address] Jennifer Brown MD [address] [place] [address] Social History Tobacco Use Types Packs/Day Years [...] Description 11/13/2024 11:00 AM EDT Medication Management [facility] [address] [place] [phone] Scott Riley, PharmD [address] [place] [phone] documented as of this encounter Visit Diagnoses Not on filedocumented in this encounter Additional Health Concerns Assessment Noted Time PHQ-9 Depression Total Score: 5 03/11/20 24 11:51 AM EDT documented as of this encounter Care Teams Materials And Corrosion Engineer Relationship Specialty Start Date End Date Jennifer Brown MD [address] [place] [phone] PCP - General Family Medicine 07/15/18 Scott Riley, PharmD [address] [place] [phone] Pharmacist Internal Medicine 07/01/24 documented as of this encounter
--- OUTSIDE RECORDS SUMMARY | 2024-10-29 18:23 | XMS_ITS | Encounter Summary ---
Author Organization [employer] Address 75 [facility] 7t [place] [address] Care Team Providers Care Hospice Care Transitions Coordinator Name Role Phone Jennifer Brown MD Primary Care Provider [phone] Scott Riley PharmD Unavailable [phone] Reason for Visit * Reason Onset Date Comments Med Refill 05/15/2024 Encounter Details Date Type Department Care Team (Late st Contact Info) Description 05/15/2024 Refill [facility] [address] [place] [address] Jennifer Brown MD [address] [place] [address] Social History Tobacco Use Types Packs/Day Years [...] Description 11/13/2024 11:00 AM EDT Medication Management [facility] [address] [place] [phone] Scott Riley, PharmD [address] [place] [phone] documented as of this encounter Visit Diagnoses Not on filedocumented in this encounter Additional Health Concerns Assessment Noted Time PHQ-9 Depression Total Score: 5 03/11/20 24 11:51 AM EDT documented as of this encounter Care Teams Hospice Care Transitions Coordinator Relationship Specialty Start Date End Date Jennifer Brown MD [address] [place] [phone] PCP - General Family Medicine 07/15/18 Scott Riley, PharmD [address] [place] [phone] Pharmacist Internal Medicine 07/01/24 documented as of this encounter
--- OUTSIDE RECORDS SUMMARY | 2024-10-29 18:23 | XMS_ITS | Encounter Summary ---
Author Organization [employer] Address 75 [facility] 7t [place] [address] Care Team Providers Care Mop Maker Name Role Phone Jennifer Brown MD Primary Care Provider [phone] Scott Riley PharmD Unavailable [phone] Reason for Visit * Reason Onset Date Comments PA 10/27/2024 Encounter Details Date Type Department Care Team ([facility] st Contact Info) Description 10/27/2024 Telephone [facility] [address] [place], [place] [phone] Jennifer Brown MD [address] [place], [place] [phone] PA Social History Tobacco Use Types Packs/Day Years [...] encounter Miscellaneous Notes * Telephone Encounter - Soraida Bray RN - 10/28/2024 12:30 PM EDT Tc from pt calling to inform a PA is needed for medication Tirzepatide-Weight Management (Zepbound)7.5 MG/0.5ML solution auto-injector. PA initiation awaiting responses * Telephone Encounter - Aisha Somers - 10/27/2024 12:09 PM EDT Tc from pt calling to inform a PA is needed for medication Tirzepatide-Weight Management (Zepbound)7.5 MG/0.5ML solution auto-injector. documented in this encounter Plan of Treatment Upcoming Encounters Date Type Department Care Team (Late st Contact Info) Description 11/13/2024 11:00 AM EDT Medication Management [facility] [address] [place] [address] Scott Riley, PharmD [address] [place], [place] [phone] documented as of this encounter Visit Diagnoses Not on filedocumented in this encounter Additional Health Concerns Assessment Noted Time PHQ-9 Depression Total Score: 5 03/11/20 24 11:51 AM EDT documented as of this encounter Care Teams Mop Maker Relationship Specialty Start Date End Date Jennifer Brown MD [address] [place] [address] PCP - General Family Medicine 07/15/18 Scott Riley, AnabellaD [address] [place] [address] Pharmacist Internal Medicine 07/01/24 documented as of this encounter
--- OUTSIDE RECORDS SUMMARY | 2024-10-29 18:23 | XMS_ITS | Encounter Summary ---
Author Organization [employer] Address 75 [facility] 7t [place] [address] Care Team Providers Care Head Boys Golf Coach Name Role Phone Jennifer Brown MD Primary Care Provider [phone] Scott Riley PharmD Unavailable [phone] Reason for Visit * Reason Onset Date Comments Med Refill 04/06/2024 Encounter Details Date Type Department Care Team (Late st Contact Info) Description 04/06/2024 Refill [facility] 230 [place] [address] Ayan Madsen MD 230 [place] [address] Social History Tobacco Use Types Packs/Day Years [...] with others, in a hotel, in a group home, living outside on the street, on [...] Description 11/13/2024 11:00 AM EDT Medication Management [facility] [address] [place] [address] Scott Riley, PharmD [address] [place] [phone] documented as of this encounter Visit Diagnoses Not on filedocumented in this encounter Additional Health Concerns Assessment Noted Time PHQ-9 Depression Total Score: 5 03/11/20 24 11:51 AM EDT documented as of this encounter Care Teams Head Boys Golf Coach Relationship Specialty Start Date End Date Jennifer Brown MD [address] [place] [phone] PCP - General Family Medicine 07/15/18 Scott Riley, PharmD [address] [place] [phone] Pharmacist Internal Medicine 07/01/24 documented as of this encounter
--- OUTSIDE RECORDS SUMMARY | 2024-10-29 18:23 | XMS_ITS | Encounter Summary ---
Author Organization [employer] Address 75 [facility] 7t [place] [address] Care Team Providers Care Wire Chief Name Role Phone Jennifer Brown MD Primary Care Provider [phone] Scott Riley PharmD Unavailable [phone] Reason for Visit * Reason Onset Date Comments Med Refill 07/15/2024 Encounter Details Date Type Department Care Team (Late st Contact Info) Description 07/15/2024 Refill [facility] MEDICINE 230 [place] [address] Lisbeth Felton ANP 230 [place] [address] Social History Tobacco Use Types Packs/Day Years [...] with others, in a hotel, in a half-way, living outside on the street, on a [...] Description 11/13/2024 11:00 AM EDT Medication Management [facility] MEDICINE [address] [place] [phone] Scott Riley, PharmD [address] [place] [address] documented as of this encounter Visit Diagnoses Not on filedocumented in this encounter Additional Health Concerns Assessment Noted Time PHQ-9 Depression Total Score: 5 03/11/20 24 11:51 AM EDT documented as of this encounter Care Teams Wire Chief Relationship Specialty Start Date End Date Jennifer Brown MD [address] [place] [phone] PCP - General Family Medicine 07/15/18 Scott Riley, PharmD [address] [place] [phone] Pharmacist Internal Medicine 07/01/24 documented as of this encounter
--- OUTSIDE RECORDS SUMMARY | 2024-10-29 18:23 | XMS_ITS | Encounter Summary ---
Author Organization [employer] Address 75 [facility] 7t [place] [address] Care Team Providers Care Bakery Machine Mechanic Name Role Phone Jennifer Brown MD Primary Care Provider [phone] Scott Riley PharmD Unavailable [phone] Reason for Visit * Reason Onset Date Comments Med Refill 10/26/2024 Encounter Details Date Type Department Care Team (Late st Contact Info) Description 10/26/2024 Refill [facility] [address] [place] [address] Jennifer Brown MD 230 [place] [address] Social History Tobacco Use Types Packs/Day Years [...] others, in a hotel, in a senior care, living outside on the street, on a [...] Description 11/13/2024 11:00 AM EDT Medication Management [facility] MED[facility] [address] [place] [phone] Scott Riley, PharmD [address] [place] [phone] documented as of this encounter Visit Diagnoses Not on filedocumented in this encounter Additional Health Concerns Assessment Noted Time PHQ-9 Depression Total Score: 5 03/11/20 24 11:51 AM EDT documented as of this encounter Care Teams Bakery Machine Mechanic Relationship Specialty Start Date End Date Jennifer Brown MD [address] [place] [address] PCP - General Family Medicine 07/15/18 Scott Riley, PharmD [address] [place] [phone] Pharmacist Internal Medicine 07/01/24 documented as of this encounter
--- OUTSIDE RECORDS SUMMARY | 2024-10-29 18:23 | XMS_ITS | Clinical Summary ---
Author Organization [employer] Address 75 [facility] 7t [place] [address] Care Team Providers Care Experience Specialist Name Role Phone Jennifer Brown MD Primary Care Provider Scott Riley PharmD Unavailable [phone] Allergies No known active allergies Medications * [...] 10 mg by mouth Once per day. 024 Active cholecalciferol (Vitamin D High Potency) 25 MCG (1000 UT) capsuleIndicatio ns:Vitamin D insufficiency Take 1 capsule (25 mcg) by mouth Once per day. 90 capsule 3 024 Active lisinopril 40 MG tablet Take 1 tablet (40 mg) by mouth Once per day. 90 tablet 3 024 Active Linzess 72 MCG capsule Take 72 mcg by mouth in the morning. 024 Active Blood Pressure kitIndications:P rimary hypertension Use to check blood pressure once daily. XL Cuff 1 kit 024 Active chlorthalidone (Hygroton) 25 MG tabletIndication s:Primary hypertension Take 1 tablet by mouth once daily 90 tablet 3 025 Active Acetaminophen Extra Strength 500 MG tabletIndication s:Viral syndrome TAKE 1 TO 2 TABLETS BY MOUTH EVERY 8 HOURS NEEDED FOR PAIN OR FEVER 30 tablet 3 025 Active omeprazole (PriLOSEC) [address] capsule TAKE 1 CAPSULE BY MOUTH EVERY TWELVE HOURS 180 capsule 025 Active Tirzepatide-Weig ht Management (Zepbound) 7.5 MG/0.5ML [...] NEEDED FOR PAIN 100 g 3 Active naproxen (Naprosyn) 500 MG tabletIndication s:Trochanteric bursitis of both hips TAKE 1 TABLET BY MOUTH TWICE DAILY WITH BREAKFAST AND WITH DINNER 60 tablet 3 Active famotidine (Pepcid) 20 MG tablet Take 1 tablet (20 mg) by mouth 2 times daily. 180 tablet Active Diclofenac Sodium 1 % gel APPLY 2 GRAMS APPLY TO THE AFFECTED AREA(S) TWICE DAILY NEEDED FOR PAIN 100 g 3 024 2024 Discontinued naproxen (Naprosyn) 500 MG tabletIndication s:Trochanteric bursitis of both hips Take 1 tablet (500 mg) by mouth with breakfast and with evening meal. 60 tablet 3 024 2024 Discontinued famotidine (Pepcid) 20 MG tablet Take 1 tablet (20 mg) by mouth 2 times daily. 180 tablet 024 2024 Discontinued(R eorder (will not trigger [...] - patient was seen by [facility] Adjustment disorder with mixed anxiety and [...] Plan (03/11/2024 4:36 AM EDT): -Followed by [facility] -Continue working on fiber-rich diet -Continue linaclotide Assessment & Plan (07/15/2022 4:57 PM EST): -Followed by [facility] -Continue working on fiber-rich diet -Continue [...] Plan (10/10/2024 7:27 AM EDT): -Evaluated by LINUX SYSTEM ADMINISTRATOR Assessment & Plan (03/11/2024 4:38 AM EDT): -Evaluated by LINUX SYSTEM ADMINISTRATOR -Anticipating shrinkage since she is going through menopause Assessment & Plan (07/15/2022 5:07 PM EST): -Evaluated by LINUX SYSTEM ADMINISTRATOR -Anticipating shrinkage since she is going through [...] prep. -Recommended repeat in 3 yrs -Called [facility] office; they will review her pathology report and will contact pt Assessment & Plan (07/15/2022 4:59 PM EST): -Family Hx colon cancer -10/21/18 Colonoscopy: ascending colon polyp (tubular adenoma), diverticulosis, poor prep. -Recommended repeat in 3 yrs -Called [facility] office; they will review her pathology [...] Encounters Date Type Department Care Team Description 10/27/2024 Telephone [facility] MEDICINE [address] [place] [phone] Jennifer Brown MD PA 10/26/2024 Refill [facility] MEDICINE [address] [place] [address] Jennifer Brown MD 10/26/2024 Refill [facility] [address] [place] [address] Jennifer Brown MD 10/26/2024 Refill [facility] [address] [place] [address] Jennifer Brown MD Vitamin D insufficiency 10/26/2024 Refill [facility] MEDICINE [address] [place] [address] Jennifer Brown MD Viral syndrome; Trochanteric bursitis of both hips 10/21/2024 Refill [facility] [address] [place] [address] Jennifer Brown MD Trochanteric bursitis of both hips 10/16/2024 Refill [facility] [address] [place] [address] Jennifer Brown MD 10/13/2024 Orders Only [facility] External Provider, [facility] 10/07/[address] [address] Jennifer Brown MD 10/06/2024 3:30 PM EDT Office Visit [facility] MEDICINE [address] [place] [address] Jennifer Brown MD Primary hypertension (Primary Dx); Class 3 severe obesity due to excess calories with body mass index (BMI) of 40.0 to 44.9 in adult, unspecified whether serious comorbidity present ([facility]CC); Dyslipidemia; Leiomyoma 10/06/2024 Travel 10/02/2024 Telephone [facility] MEDICINE [address] [place] [address] Jennifer Brown MD chart prep 09/28/2024 Refill [facility] [address] [place] [address] Jennifer Brown MD Viral syndrome 09/25/2024 Population Health Risk Score [facility] (C3) Department [address] [place] [phone] Provider, Population Health Generic 09/08/2024 2:15 PM EST Office Visit [facility] OPTOMETRY [address] [place] [address] Handy, Ni, OD Presbyopia (Primary Dx) 09/01/2024 Refill [facility] MEDICINE [address] [place] [address] Jennifer Brown MD 08/28/2024 Orders Only [facility] MEDICINE [address] [place] [address] Jennifer Brown MD 08/21/2024 Telephone [facility] MEDICINE [address] [place] [address] Jennifer Brown MD 08/21/2024 Travel 08/17/2024 Telephone [facility] MEDICINE [address] [place], [place] [phone] Brianna Christy [place] Appointment Confirmation 08/15/2024 Telephone [facility] MEDICINE [address] [place], [place] [phone] Soila Bloom, software verification engineer from Last 3 Months Immunizations Name Administration [...] Medication Management [facility] MEDICINE [address] [place] [address] Scott Riley, PharmD [address] [place], [place] [phone] Health Maintenance Due Date Last Done Comments [...] Associated Diagnosis Comments US PELVIS TRANSVAGINAL Routine 5 1:07 PM EDT LIPID PANEL, STANDARD Routine [...] EDT Narrative 10/14/2024 7:16 AM EDT ? [facility] ?[address] ?[place] [address] ? Ultrasound Report ? Signed ? Patient: Prather,Yoana ?MR#: [id number] ?? 59 ? : 1970 ?Acct:[id number] ? Age/Sex: 53 / F ?ADM Date: 10/13/24 ? Loc: HO.US ? Attending Dr: Deepti Gibson CNM ? Ordering Physician: Deepti Gibson CNM ?? Date of Service: 10/13/24 ?? Procedure(s): US pelvic and transvaginal ?? Accession Number(s): [id number] ? cc: Deepti Gibson CNM; Jennifer Brown [...] Julio MD in OV> ?10/14/24712 ? DD/ 1307 ? TD/TT: 10/13/24 1319 ? Child Watch Attendant: ? Procedure Note Donsandrine, Image - 10/14/2024 [place] [address] Ultrasound Report Signed Patient: Yoana PratherMR#: [id number] 59 : 1970Acct:[id number] Age/Sex: 53 / FADM Date: 10/13/24 Loc: HO.US Attending Dr: Deepti Gibson CNM Ordering Physician: Deepti Gibson CNM Date of Service: 10/13/24 Procedure(s): US pelvic and transvaginal Accession Number(s): [id number] cc: Deepti Gibson CNM; Jennifer Brown MD [...] 10/14/24 0713 DD/ 1307 TD/TT: 10/13/24 1319 Child Watch Attendant: us [facility] External Provider IMG US PROCEDURES Edited Result - Final * Hepatic Function Panel (08/28/2024 11:03 AM EST) Bilirubin, Total 0.3 0.0 - 1.0 mg/dL [facility] Bilirubin, Direct 0.1 0.0 - 0.5 mg/dL [facility] Aspartate Amino Transferase 21 5 - 31 U/L [facility] Alanine Aminotransferase 27 0 - 31 U/L [facility] Total Protein 7.4 6.5 - 8.0 g/dL [facility] Albumin Level 3.9 3.5 - 5.0 g/dL [facility] Alkaline Phosphatase 106 39 - 117 U/L [facility] 08/28/2024 11:0 3 AM EST 08/28/2024 1:10 PM EST Jennifer Brown MD LAB BLOOD ORDERABLES Final Resul t Performing Organization Address [facility] Co de Phone Number [facility] [address] [place] [phone] * (ABNORMAL) Lipid Panel, Standard (08/28/2024 11:03 AM EST) Triglycerides 128 <150 mg/dL [facility] Comment:Desirable Triglyceri de: less than 150 mg/dLBorderline High Triglyceride 150-199 mg/dLHigh Triglyceride: 200-499 mg/dLVery High Triglyceride: greater than or equal to 5OO mg/dL Cholesterol 258(H) <200 mg/dL [facility] Comment:Desirable Cholestero l: less than 200 mg/dLBorderline High Cholesterol: 200-239 mg/dLHigh Cholesterol: greater than 239 mg/dL LDL Cholesterol Calculated 184(H) <100 mg/dL [facility] Comment:Desirable LDL: less than 100 mg/dLNear Optimal/Above Optimal LDL: 110- 129 mg/dLBorderline High LDL: 130-159 mg/dLHigh LDL: 160-189 mg/dLVery High LDL: greater than or equal to 190 mg/dL HDL Cholesterol 49 >40 mg/dL [facility] Comment:Desirable HDL: great er than 40 mg/dL Note: This HDL assay may give artificially low results in patients with liver disease. 08/28/2024 11:0 3 AM EST 08/28/2024 1:10 PM EST us Jennifer Brown MD LAB BLOOD ORDERABLES Final Resul t Performing Organization Address [facility]/ZIP Co de Phone Number [facility] [address] [place] [phone] * (ABNORMAL) Basic Metabolic Panel (08/28/2024 11:03 AM EST) Sodium 137 135 - 145 mmol/L [facility] Potassium 4.3 3.3 - 5.1 mmol/L [facility] Chloride 108 96 - 108 mmol/L [facility] Carbon Dioxide 22 22 - 29 mmol/L [facility] Anion Gap 11(L) 12 - 20 [facility] Urea Nitrogen (BUN) 16 9 - 16 mg/dL [facility] Creatinine, Serum 0.58 0.5 - 1.4 mg/dL [facility] Estimated Glomerular Filt Rate >60 [facility] Comment:Chronic Kidney Disea se: Estimated GFR < 60 mL/min/1.67j8Qtudta Kidney Disease: Estimated GFR < 15 mL/min/1.73m2 Glucose 83 60 - 115 mg/dL [facility] Calcium 9.1 8.4 - 10.2 mg/dL [facility] 08/28/2024 11:0 3 AM EST 08/28/2024 1:10 PM EST Jennifer Brown MD LAB BLOOD ORDERABLES Final Resul t Performing Organization Address City/State/[facility] Co de Phone Number [facility] [address] [place] [address] [phone] * BI Mammogram Screening Tomosynthesis Bilateral (08/07/2023 12:04 PM EST) Anatomical Region Laterality Modality Breast Bilateral Mammography 08/07/2023 12:0 4 PM EST Narrative 08/20/2023 6:14 AM EST ? [facility] ? [address] [facility] ?[place] [address] ? Mammography Report ? Signed ? Patient: Prather,Yoana ?MR#: [id number] ?? 59 ? : 1970 ?Acct:[id number] ? Age/Sex: 52 / F ?ADM Date: 01/24/24 ? Loc: HO.MAMMO ? Attending Dr: Jennifer Brown MD ? Ordering Physician: Jennifer Brown MD ?Results: 1Negative ? Date of Service: 08/07/23 ?Follow Up: 1 Year From Orig ?? inal Mammogram ? Procedure(s): MM tomosynthesis screening BI ?? Accession Number(s): [id number] ? cc: Jennifer Brown MD ? EXAMINATION: ?? MM SCREENING DIGITAL BREAST TOMOSYNTHESIS, BILATERAL ? CLINICAL INFORMATION: ? Screening. Asymptomatic. ? COMPARISON: ?? Mammography: This study is compared with prior exams dating back to ?? 2018. ? TECHNIQUE: ?? Digital breast tomosynthesis is [...] MD in OV> ? 08/20/23609 ? DD/ ? TD/TT: ? Child Watch Attendant: ? Procedure Note Donotuseinterpreter, Image - 08/20/2023 [facility] [address] [place] [address] Mammography Report Signed Patient: Yoana PratherMR#: [id number] 59 : 1970Acct:[id number] Age/Sex: 52 / FADM Date: 08/07/23 Loc: HO.MAMMO Attending Dr: Jennifer Brown MD Ordering Physician: Jennifer Brownesults: 1Negative Date of Service: 08/07/23Follow Up: 1 Year From Orig inal Mammogram Procedure(s): MM tomosynthesis screening BI Accession Number(s): [id number] cc: Jennifer Brown MD EXAMINATION: MM SCREENING [...] in OV> 08/20/23 0610 DD/ 1204 TD/TT: Child Watch Attendant: Jennifer Brown MD IMG BI PROCEDURES Edited Result - Final * Hepatitis C Ab (08/01/2023 10:52 AM EST) Hepatitis C Antibody Nonreactive Nonreactive [facility] Comment:Antibodies to HCV no t detected; does not exclude early acuteHCV infection. 08/01/2023 10:5 2 AM EST 08/01/2023 10:52 AM EST us Generic External Data Provider LAB BLOOD ORDERAB LES Final Result Performing Organization Address [facility]/ZIP Co de Phone Number [facility] [address] [place] [phone] * HIV-1/2 Antigen and Antibodies, Fourth Generation, with Reflexes (08/01/2023 10:52 AM EST) Pathologist [facility] HIV AB/AG Nonreactive Nonreactive [facility] Comment:HIV-1 p24 Ag and/or HIV-1/HIV-2 Ab not detected.A test result that is nonreactive does not exclude thepossibility of exposure to or infection with HIV-1 and/orHIV-2. Nonreactive results in this assay for individualswith prior exposure to HIV-1 and/or HIV-2 may be due toantigen and antibody levels that are below the limit ofdetection of this assay.[employer] HIV Ag/Ab Combo assay result andsupplemental assay results should be interpreted inconjunction with the patient's clinical presentation,history and other laboratory results. If the results areinconsistent with clinical evidence, additional testing issuggested to confirm the result. 08/01/2023 10:5 2 AM EST 08/01/2023 10:52 AM EST us Generic External Data Provider LAB BLOOD ORDERAB LES Final Result Performing Organization Address [facility] Co de Phone Number [facility] [address] [place] [phone] * Hm Pap Smear (04/19/2021) Pathologist [facility] Pap Negative for intraephithelial lesion or malignancy Negative for intraephithelial lesion or malignancy, Other HPV Undetected Undetected, Indeterminate, Quantitative, Not Detected us Historical Provider HEALTH MAINTENANCE Final Result * Colonoscopy (10/21/2018) Colonoscopy Normal Normal us Historical Provider HEALTH MAINTENANCE Final Result from Last 3 Months or Most Recently Relevant to Health Maintenance Insurance [employer] Care Teams Experience Specialist Relationship Specialty Start Date End Date Jennifer Brown MD [address] [place] [address] PCP - General Family Medicine 07/15/18 Scott Riley, PharmD [address] [place] [address] Pharmacist Internal Medicine 07/01/24
--- OUTSIDE RECORDS SUMMARY | 2024-10-29 18:23 | XMS_ITS | Encounter Summary ---
Author Organization [employer] Address 75 [facility] 7t [place] [address] Care Team Providers Care Ironing Pleater Name Role Phone Jennifer Brown MD Primary Care Provider [phone] Scott Riley PharmD Unavailable [phone] Reason for Visit * Reason Onset Date Comments Med Refill 07/15/2024 Encounter Details Date Type Department Care Team (Late st Contact Info) Description 07/15/2024 Refill [facility] MEDICINE [address] [place] [address] Jennifer Brown MD [address] [place] [address] Social History Tobacco Use Types Packs/Day Years [...] Description 11/13/2024 11:00 AM EDT Medication Management [facility] MEDICINE [address] [place] [phone] Scott Riley, PharmD [address] [place] [phone] documented as of this encounter Visit Diagnoses Not on filedocumented in this encounter Additional Health Concerns Assessment Noted Time PHQ-9 Depression Total Score: 5 03/11/20 24 11:51 AM EDT documented as of this encounter Care Teams Ironing Pleater Relationship Specialty Start Date End Date Jennifer Brown MD [address] [place] [phone] PCP - General Family Medicine 07/15/18 Scott Riley, PharmD [address] [place] [phone] Pharmacist Internal Medicine 07/01/24 documented as of this encounter
--- OUTSIDE RECORDS SUMMARY | 2024-10-29 18:23 | XMS_ITS | Encounter Summary ---
Author Organization [employer] Address 75 [facility] 7t [place] [address] Care Team Providers Care Actionscript Developer Name Role Phone Jennifer Brown MD Primary Care Provider [phone] Scott Riley PharmD Unavailable [phone] Reason for Visit * Reason Onset Date Comments Med Refill 11/07/2023 Encounter Details Date Type Department Care Team (Late st Contact Info) Description 11/07/2023 Refill [facility] 230 [place] [address] Jennifer Brown MD 230 [place] [address] Trochanteric bursitis of both hips; Viral syndrome [...] Description 11/13/2024 11:00 AM EDT Medication Management [facility] [address] [place] [address] Scott Riley, PharmD [address] [place] [address] documented as of this encounter Visit Diagnoses Diagnosis Trochanteric bursitis of both hips Viral syndrome Unspecified viral infection, in conditions classified elsewhere and of unspecified site documented in this encounter Additional Health Concerns Assessment Noted Time PHQ-9 Depression Total Score: 0 07/12/20 22 10:25 AM EST documented as of this encounter Care Teams Actionscript Developer Relationship Specialty Start Date End Date Jennifer Brown MD [address] [place] [address] PCP - General Family Medicine 07/15/18 Scott Riley, PharmD [address] [place] [address] 11916 Pharmacist Internal Medicine 07/01/24 documented as of this encounter
--- OUTSIDE RECORDS SUMMARY | 2024-10-29 18:23 | XMS_ITS | Clinical Summary ---
Author Organization [facility] ity Address [address] [place] [address] Care Team Providers Care Hide Curer Name Role Phone Unavailable Primary Care Provider [...]
--- OUTSIDE RECORDS SUMMARY | 2024-10-29 18:23 | XMS_ITS | Encounter Summary ---
Author Organization [employer] Address 75 [facility] 7t [place] [address] Care Team Providers Care Tar Roofer Name Role Phone Jennifer Brown MD Primary Care Provider [phone] Scott Riley PharmD Unavailable [phone] Reason for Visit * Reason Onset Date Comments Med Refill 10/26/2024 Encounter Details Date Type Department Care Team (Late st Contact Info) Description 10/26/2024 Refill [facility] 230 [place] [address] Jennifer Brown MD 230 [place] [address] Social History Tobacco Use Types Packs/Day Years [...] Description 11/13/2024 11:00 AM EDT Medication Management [facility] [address] [place] [address] Scott Riley, PharmD [address] [place] [address] documented as of this encounter Visit Diagnoses Not on filedocumented in this encounter Additional Health Concerns Assessment Noted Time PHQ-9 Depression Total Score: 5 03/11/20 24 11:51 AM EDT documented as of this encounter Care Teams Tar Roofer Relationship Specialty Start Date End Date Jennifer Brown MD [address] [place] [address] PCP - General Family Medicine 07/15/18 Scott Riley, PharmD [address] [place] [address] Pharmacist Internal Medicine 07/01/24 documented as of this encounter
--- OUTSIDE RECORDS SUMMARY | 2024-10-29 18:23 | XMS_ITS | Encounter Summary ---
Author Organization [employer] Address 75 [facility] 7t [place] [address] Care Team Providers Care Net Software Developer Name Role Phone Jennifer Brown MD Primary Care Provider [phone] Scott Riley PharmD Unavailable [phone] Reason for Visit * Reason Onset Date Comments Med Refill 10/26/2024 Encounter Details Date Type Department Care Team (Late st Contact Info) Description 10/26/2024 Refill [facility] 230 [place] [address] Jennifer Brown MD 230 [place] [address] Viral syndrome; Trochanteric bursitis of both hips [...] EDT Medication Management [facility] [address] [place] [address] Scott Riley, PharmLucila [address] [place] [address] documented as of this encounter Visit Diagnoses Diagnosis Viral syndrome Unspecified viral infection, in conditions classified elsewhere and of unspecified site Trochanteric bursitis of both hips documented in this encounter Additional Health Concerns Assessment Noted Time PHQ-9 Depression Total Score: 5 03/11/20 24 11:51 AM EDT documented as of this encounter Care Teams Net Software Developer Relationship Specialty Start Date End Date Jennifer Brown MD [address] [place] [address] PCP - General Family Medicine 07/15/18 Scott Riley, PharmD [address] [place] [address] Pharmacist Internal Medicine 07/01/24 documented as of this encounter
--- OUTSIDE RECORDS SUMMARY | 2024-10-29 18:23 | XMS_ITS | Encounter Summary ---
Author Organization [employer] Address 75 [facility] 7t [place] [address] Care Team Providers Care Health And Wellness Director Name Role Phone Jennifer Brown MD Primary Care Provider [phone] Scott Riley PharmD Unavailable [phone] Reason for Visit * Reason Onset Date Comments Med Refill 10/26/2024 Encounter Details Date Type Department Care Team (Late st Contact Info) Description 10/26/2024 Refill [facility] 230 [place] [address] Jennifer Brown MD 230 [place] [address] Vitamin D insufficiency Social History Tobacco Use [...] with others, in a hotel, in a intermediate, living outside on the street, on a [...] Description 11/13/2024 11:00 AM EDT Medication Management [facility] [address] [place] [address] Scott Riley, PharmD [address] [place] [address] documented as of this encounter Visit Diagnoses Diagnosis Vitamin D insufficiency documented in this encounter Additional Health Concerns Assessment Noted Time PHQ-9 Depression Total Score: 5 03/11/20 24 11:51 AM EDT documented as of this encounter Care Teams Health And Wellness Director Relationship Specialty Start Date End Date Jennifer Brown MD [address] [place] [address] PCP - General Family Medicine 07/15/18 Scott Riley, PharmD [address] [place] [address] Pharmacist Internal Medicine 07/01/24 documented as of this encounter
== END 2024-10-29 17:09 | disposition home or self-care (01) ==
LOC: HO.HGI 16:24
PROVIDERS: PCP Family Medicine; Visit Provider Nurse Practitioner
DX: R10.10 Upper abdominal pain, unspecified (principal); K58.2 Mixed irritable bowel syndrome; K59.04 Chronic idiopathic constipation; K21.9 Gastro-esophageal reflux disease without esophagitis
CPT/HCPCS: 99213

== ENCOUNTER → 2024-10-29 16:23 | Outpatient (BNVA) | payer MEDICAID, SELFPAY | PROVIDERS: PCP Family Medicine; Visit Provider Nurse Practitioner | DX: K58.2 Mixed irritable bowel syndrome (principal); K59.04 Chronic idiopathic constipation; K21.9 Gastro-esophageal reflux disease without esophagitis; R10.10 Upper abdominal pain, unspecified | CPT/HCPCS: 99212 ==

== ENCOUNTER → 2024-11-06 09:46 | Outpatient (BNVA) | payer MEDICAID, SELFPAY | PROVIDERS: PCP Family Medicine; Visit Provider Surgery | DX: Z13.79 Encounter for other screening for genetic and chromosomal anomalies (principal) | CPT/HCPCS: 99211 ==

== ENCOUNTER 2024-11-09 14:06 | Outpatient (REF) | payer MEDICAID, SELFPAY ==
[2024-11-09 16:22] LABS: Lipase 19 U/L (8-78)
[2024-11-09 16:47] LABS: Amylase 40 U/L (28-100)
--- OUTSIDE RECORDS SUMMARY | 2024-11-09 16:54 | XMS_ITS | Encounter Summary ---
Author Organization [employer] Address 75 [facility] 7t [place] [address] Care Team Providers Care Machine Cell Tuber Name Role Phone Jennifer Brown MD Primary Care Provider [phone] Scott Riley PharmD Unavailable [phone] Reason for Visit * Reason Onset Date Comments Med Refill 07/15/2024 Encounter Details Date Type Department Care Team (Late st Contact Info) Description 07/15/2024 Refill [facility] 230 [place] [address] Lisbeth Felton ANP 230 [place] [address] Social History Tobacco Use Types Packs/Day Years [...] Description 11/13/2024 11:00 AM EDT Medication Management [facility] [address] [place] [address] Scott Riley PharmD [address] [place] [address] 01/12/2025 3:15 PM EDT Office Visit [address] [address] Jennifer Brown MD [address] [place] [address] documented as of this encounter Visit Diagnoses Not on filedocumented in this encounter Additional Health Concerns Assessment Noted Time PHQ-9 Depression Total Score: 5 03/11/20 24 11:51 AM EDT documented as of this encounter Care Teams Machine Cell Tuber Relationship Specialty Start Date End Date Jennifer Brown MD [address] [place] [address] PCP - General Family Medicine 07/15/18 Scott Riley, PharmD 230 [place] [address] Pharmacist Internal Medicine 07/01/24 documented as of this encounter
--- OUTSIDE RECORDS SUMMARY | 2024-11-09 16:54 | XMS_ITS | Encounter Summary ---
Author Organization [employer] Address 75 [facility] 7t [place] [address] Care Team Providers Care Asic Verification Engineer Name Role Phone Jennifer Brown MD Primary Care Provider [phone] Scott Riley PharmD Unavailable [phone] Reason for Visit * Reason Onset Date Comments Med Refill 07/15/2024 Encounter Details Date Type Department Care Team (Late st Contact Info) Description 07/15/2024 Refill [facility] [address] [place] [address] Jennifer Brown MD 230 [place] [address] Social History Tobacco Use Types Packs/Day Years [...] 11:00 AM EDT Medication Management [facility] [address] [place] [address] Scott Riley, PharmD [address] [place] [address] 01/12/2025 3:15 PM EDT Office Visit [facility] [address] [place] [address] Jennifer Brown MD [address] [place] [address] documented as of this encounter Visit Diagnoses Not on filedocumented in this encounter Additional Health Concerns Assessment Noted Time PHQ-9 Depression Total Score: 5 03/11/20 24 11:51 AM EDT documented as of this encounter Care Teams Asic Verification Engineer Relationship Specialty Start Date End Date Jennifer Brown MD [address] [place] [address] PCP - General Family Medicine 07/15/18 Scott Riley, PharmD [address] [place] [address] Pharmacist Internal Medicine 07/01/24 documented as of this encounter
--- OUTSIDE RECORDS SUMMARY | 2024-11-09 16:54 | XMS_ITS | Encounter Summary ---
Author Organization [employer] Address 75 [facility] 7t [place] [address] Care Team Providers Care Oil Recovery Unit Operator Name Role Phone Jennifer Brown MD Primary Care Provider [phone] Scott Riley PharmD Unavailable [phone] Reason for Visit * Reason Onset Date Comments Med Refill 07/15/2024 Encounter Details Date Type Department Care Team (Late st Contact Info) Description 07/15/2024 Refill [facility] 230 [place] [address] Jennifer Brown MD 230 [place] [address] Social History Tobacco Use Types Packs/Day Years [...] Description 11/13/2024 11:00 AM EDT Medication Management [facility] [address] [place] [address] Scott Riley, PharmD [address] [place] [address] 01/12/2025 3:15 PM EDT Office Visit [address] [address] Jennifer Brown MD [address] [place] [address] documented as of this encounter Visit Diagnoses Not on filedocumented in this encounter Additional Health Concerns Assessment Noted Time PHQ-9 Depression Total Score: 5 03/11/20 24 11:51 AM EDT documented as of this encounter Care Teams Oil Recovery Unit Operator Relationship Specialty Start Date End Date Jennifer Brown MD [address] [place] [address] PCP - General Family Medicine 07/15/18 Scott Riley, PharmD 230 [place] [address] Pharmacist Internal Medicine 07/01/24 documented as of this encounter
--- OUTSIDE RECORDS SUMMARY | 2024-11-09 16:54 | XMS_ITS | Encounter Summary ---
Author Organization [employer] Address 75 [facility] 7t [place] [address] Care Team Providers Care Fire Extinguisher Installer Name Role Phone Jennifer Brown MD Primary Care Provider [phone] Scott Riley PharmD Unavailable [phone] Reason for Visit * Reason Onset Date Comments Med Refill 04/06/2024 Encounter Details Date Type Department Care Team (Late st Contact Info) Description 04/06/2024 Refill [facility] 230 [place] [address] Ayan Madsen MD 230 [place] [address] Social History Tobacco Use Types Packs/Day Years [...] Description 11/13/2024 11:00 AM EDT Medication Management [facility] [address] [place] [address] Scott Riley, PharmD [address] [place] [address] 01/12/2025 3:15 PM EDT Office Visit [address] [address] Jennifer Brown MD [address] [place] [address] documented as of this encounter Visit Diagnoses Not on filedocumented in this encounter Additional Health Concerns Assessment Noted Time PHQ-9 Depression Total Score: 5 03/11/20 24 11:51 AM EDT documented as of this encounter Care Teams Fire Extinguisher Installer Relationship Specialty Start Date End Date Jennifer Brown MD [address] [place] [address] PCP - General Family Medicine 07/15/18 Scott Riley, PharmD 230 [place] [address] Pharmacist Internal Medicine 07/01/24 documented as of this encounter
--- OUTSIDE RECORDS SUMMARY | 2024-11-09 16:54 | XMS_ITS | Clinical Summary ---
Author Organization [facility] [employer] [facility] ity Address [address] [place] [address] Care Team Providers Care Screw Machine Operator Single Spindle Name Role Phone Unavailable Primary Care Provider [...] 12/07/2019 Zoster Vaccines (1 of 2) 12/07/2019 COVID-19 Vaccine ( - 2023-2 5 season) 2024 Influenza Vaccine [...]
--- OUTSIDE RECORDS SUMMARY | 2024-11-09 16:54 | XMS_ITS | Encounter Summary ---
Author Organization [employer] Address 75 [facility] 7t [place] [address] Care Team Providers Care Shoe Cementer Name Role Phone Jennifer Brown MD Primary Care Provider [phone] Scott Riley PharmD Unavailable [phone] Reason for Visit * Reason Onset Date Comments Med Refill 05/15/2024 Encounter Details Date Type Department Care Team (Late st Contact Info) Description 05/15/2024 Refill [facility] 230 [place] [address] Jennifer Brown MD 230 [place] [address] Social History Tobacco Use Types Packs/Day Years [...] AM EDT Medication Management [facility] [address] [place] [address] Scott Riley, PharmD [address] [place] [address] 01/12/2025 3:15 PM EDT Office Visit [address] [address] Jennifer Brown MD [address] [place] [address] documented as of this encounter Visit Diagnoses Not on filedocumented in this encounter Additional Health Concerns Assessment Noted Time PHQ-9 Depression Total Score: 5 03/11/20 24 11:51 AM EDT documented as of this encounter Care Teams Shoe Cementer Relationship Specialty Start Date End Date Jennifer Brown MD [address] [place] [address] PCP - General Family Medicine 07/15/18 Scott Riley, PharmD 230 [place] [address] Pharmacist Internal Medicine 07/01/24 documented as of this encounter
--- OUTSIDE RECORDS SUMMARY | 2024-11-09 16:55 | XMS_ITS | Encounter Summary ---
Author Organization [employer] Address 75 [facility] 7t [place] [address] Care Team Providers Care Facilities Maintenance Assistant Name Role Phone Jennifer Brown MD Primary Care Provider [phone] Scott Riley PharmD Unavailable [phone] Reason for Visit * Reason Onset Date Comments Med Refill 11/07/2023 Encounter Details Date Type Department Care Team (Late st Contact Info) Description 11/07/2023 Refill [facility] 230 [place] [address] Jennifer Brown MD 230 [place] [address] Trochanteric bursitis of both hips; Viral syndrome [...] Description 11/13/2024 11:00 AM EDT Medication Management [facility] [address] [place] [address] Scott Riley, Teresa [address] [place] [address] 01/12/2025 3:15 PM EDT Office Visit [facility] [address] [place] [address] Jennifer Brown MD [address] [place] [address] documented as of this encounter Visit Diagnoses Diagnosis Trochanteric bursitis of both hips Viral syndrome Unspecified viral infection, in conditions classified elsewhere and of unspecified site documented in this encounter Additional Health Concerns Assessment Noted Time PHQ-9 Depression Total Score: 0 07/12/20 22 10:25 AM EST documented as of this encounter Care Teams Facilities Maintenance Assistant Relationship Specialty Start Date End Date Jennifer Brown MD [address] [place] [address] PCP - General Family Medicine 07/15/18 Scott Riley, PharmD [address] [place] [address] Pharmacist Internal Medicine 07/01/24 documented as of this encounter
--- OUTSIDE RECORDS SUMMARY | 2024-11-09 16:55 | XMS_ITS | Encounter Summary ---
Author Organization [employer] Address 75 [facility] 7t [place] [address] Care Team Providers Care Senior Program Manager Name Role Phone Jennifer Brwon MD Primary Care Provider [phone] Scott Riley PharmD Unavailable [phone] Reason for Visit * Reason Onset Date Comments PA 10/27/2024 Encounter Details Date Type Department Care Team ([facility] st Contact Info) Description 10/27/2024 Telephone [facility] 230 [place], [place] [phone] Jennifer Brown MD 230 [place], [place] [phone] PA Social History Tobacco Use Types Packs/Day [...] with others, in a hotel, in a fci, living outside on the street, on a [...] encounter Miscellaneous Notes * Telephone Encounter - Sakina Toney - 11/06/2024 4:30 PM EDT PA for Zepbound signed and faxed to [employer]. Confirmation received and sent to scan. If patient calls to check status on above, please advise them to contact [facility] at [phone]. * Telephone Encounter - Alex Edwards - 11/04/2024 3:38 PM EDT Tc from pt requesting updates on PA for medication Tirzepatide-Weight Management (Zepbound) 7.5 MG/0.5ML solution auto-injector. * Telephone Encounter - Soraida Bray RN [...] Medication Management [facility] [address] [place] [address] Scott Riley, Teresa [address] [place] [address] 01/12/2025 3:15 PM EDT Office Visit [facility] [address] [place] [address] Jennifer Brown MD 230 [place] [address] documented as of this encounter Visit Diagnoses Not on filedocumented in this encounter Additional Health Concerns Assessment Noted Time PHQ-9 Depression Total Score: 5 03/11/20 24 11:51 AM EDT documented as of this encounter Care Teams Senior Program Manager Relationship Specialty Start Date End Date Jennifer Brown MD [address] [place] [address] PCP - General Family Medicine 07/15/18 Scott Riley, PharmD [address] [place] [address] [phone] Pharmacist Internal Medicine 07/01/24 documented as of this encounter
--- OUTSIDE RECORDS SUMMARY | 2024-11-09 16:55 | XMS_ITS | Encounter Summary ---
Author Organization [employer] Address 75 [facility] 7t [place] [address] Care Team Providers Care Clinical Engineer Name Role Phone Jennifer Brown MD Primary Care Provider [phone] Scott Riley PharmD Unavailable [phone] Reason for Visit * Reason Onset Date Comments Med Refill 11/07/2023 Encounter Details Date Type Department Care Team (Late st Contact Info) Description 11/07/2023 Refill [facility] 230 [place] [address] Jennifer Brown MD 230 [place] [address] Vitamin D insufficiency Social History Tobacco Use [...] 11:00 AM EDT Medication Management [facility] [address] [place] [address] Scott Riley, Teresa [address] [place] [address] 01/12/2025 3:15 PM EDT Office Visit [facility] [address] [place] [address] Jennifer Brown MD [address] [place] [address] documented as of this encounter Visit Diagnoses Diagnosis Vitamin D insufficiency documented in this encounter Additional Health Concerns Assessment Noted Time PHQ-9 Depression Total Score: 0 07/12/20 22 10:25 AM EST documented as of this encounter Care Teams Clinical Engineer Relationship Specialty Start Date End Date Jennifer Brown MD [address] [place] [address] PCP - General Family Medicine 07/15/18 Scott Riley, PharmD [address] [place] [address] [phone] Pharmacist Internal Medicine 07/01/24 documented as of this encounter
--- OUTSIDE RECORDS SUMMARY | 2024-11-09 16:55 | XMS_ITS | Encounter Summary ---
Author Organization [employer] Address 75 [facility] 7t [place] [address] Care Team Providers Care Rehabilitation Technician Name Role Phone Jennifer Brown MD Primary Care Provider [phone] Scott Riley PharmD Unavailable [phone] Reason for Visit * Reason Onset Date Comments Appointment Request 11/09/2024 Encounter Details Date Type Department Care Team ([facility] st Contact Info) Description 11/09/2024 Telephone [facility] 230 [place] [address] Jennifer Brown MD 230 [place] [address] Appointment Request Social History Tobacco Use Types Packs/Day Years [...] encounter Miscellaneous Notes * Telephone Encounter - Candace Dixon - 11/09/2024 2:20 PM EDT PT is requesting a New appt. States she cannot come on November 13 documented in this encounter Plan of Treatment Upcoming Encounters Date Type Department Care Team (Late st Contact Info) Description 11/13/2024 11:00 AM EDT Medication Management [facility] [address] [place] [address] Scott Riley, PharmD [address] [place] [address] 01/12/2025 3:15 PM EDT Office Visit [facility] [address] [place] [address] [phone] Jennifer Brown MD [address] [place] [address] documented as of this encounter Visit Diagnoses Not on filedocumented in this encounter Additional Health Concerns Assessment Noted Time PHQ-9 Depression Total Score: 5 03/11/20 24 11:51 AM EDT documented as of this encounter Care Teams Rehabilitation Technician Relationship Specialty Start Date End Date Jennifer Brown MD 230 [place] [address] PCP - General Family Medicine 07/15/18 Scott Riley, AnabellaD 230 [place] [address] Pharmacist Internal Medicine 07/01/24 documented as of this encounter
--- OUTSIDE RECORDS SUMMARY | 2024-11-09 16:55 | XMS_ITS | Encounter Summary ---
Author Organization [employer] Address 75 [facility] 7t [place] [address] Care Team Providers Care Rampman Name Role Phone Jennifer Brown MD Primary Care Provider [phone] Scott Riley PharmD Unavailable [phone] Reason for Visit * Reason Onset Date Comments Med Refill 10/26/2024 Encounter Details Date Type Department Care Team (Late st Contact Info) Description 10/26/2024 Refill [facility] 230 [place] [address] Jennifer Brown MD 230 [place] [address] Vitamin D insufficiency Social History Tobacco Use [...] with others, in a hotel, in a skilled nursing, living outside on the street, on a [...] Description 11/13/2024 11:00 AM EDT Medication Management [facility] [address] [place] [address] Scott Riley, PharmD [address] [place] [address] 01/12/2025 3:15 PM EDT Office Visit [facility] [address] [place] [address] Jennifer Brown MD [address] [place] [address] documented as of this encounter Visit Diagnoses Diagnosis Vitamin D insufficiency documented in this encounter Additional Health Concerns Assessment Noted Time PHQ-9 Depression Total Score: 5 03/11/20 24 11:51 AM EDT documented as of this encounter Care Teams Rampman Relationship Specialty Start Date End Date Jennifer Brown MD [address] [place] [address] PCP - General Family Medicine 07/15/18 Scott Riley, PharmD 230 [place] [address] Pharmacist Internal Medicine 07/01/24 documented as of this encounter
--- OUTSIDE RECORDS SUMMARY | 2024-11-09 16:55 | XMS_ITS | Encounter Summary ---
Author Organization [employer] Address [address] [facility] 7t [place] [address] Care Team Providers Care Divisional Human Resources Director Name Role Phone Jennifer Brown MD Primary Care Provider [phone] Scott Riley PharmD Unavailable [phone] Reason for Visit * Reason Onset Date Comments Med Refill 10/26/2024 Encounter Details Date Type Department Care Team (Late st Contact Info) Description 10/26/2024 Refill [facility] MEDICINE [address] [place] [address] Jennifer Brown MD [address] [place] [address] Viral syndrome; Trochanteric bursitis of both hips [...] Description 11/13/2024 11:00 AM EDT Medication Management [facility] MEDICINE [address] [place] [phone] Scott Riley, PharmD [address] [place] [address] 01/12/2025 3:15 PM EDT Office Visit [facility] MEDICINE [address] [place] [phone] Jennifer Brown MD [address] [place] [phone] documented as of this encounter Visit Diagnoses Diagnosis Viral syndrome Unspecified viral infection, in conditions classified elsewhere and of unspecified site Trochanteric bursitis of both hips documented in this encounter Additional Health Concerns Assessment Noted Time PHQ-9 Depression Total Score: 5 03/11/20 24 11:51 AM EDT documented as of this encounter Care Teams Divisional Human Resources Director Relationship Specialty Start Date End Date Jennifer Brown MD [address] [place] [phone] PCP - General Family Medicine 07/15/18 Scott Riley, AnabellaD [address] [place] [address] [place] [address] Pharmacist Internal Medicine 07/01/24 documented as of this encounter
--- OUTSIDE RECORDS SUMMARY | 2024-11-09 16:55 | XMS_ITS | Clinical Summary ---
Author Organization [employer] Address 75 [facility] 7t [place] [address] Care Team Providers Care Event Specialist Food Demonstrator Name Role Phone Jennifer Brown MD Primary Care Provider [phone] Scott Riley PharmD Unavailable [phone] Allergies No known active allergies Medications [...] day. 90 capsule 3 04/06/20 24 Active lisinopril 40 MG tablet Take 1 tablet (40 mg) by mouth Once per day. 90 tablet 3 05/26/20 24 Active Linzess 72 MCG capsule Take 72 mcg by mouth in the morning. 06/18/20 24 Active Blood Pressure kitIndications:P rimary hypertension Use to check blood pressure once daily. XL Cuff 1 kit 07/01/20 24 Active chlorthalidone (Hygroton) 25 MG tabletIndication s:Primary hypertension Take 1 tablet by mouth once daily 90 tablet 3 07/24/19 25 Active Acetaminophen Extra Strength 500 MG tabletIndication s:Viral syndrome TAKE 1 TO 2 TABLETS BY MOUTH EVERY 8 HOURS NEEDED FOR PAIN OR FEVER 30 tablet 3 09/30/19 25 Active omeprazole (PriLOSEC) [address] capsule TAKE 1 CAPSULE BY MOUTH EVERY TWELVE HOURS 180 capsule 09/30/19 25 Active Tirzepatide-Weig ht Management (Zepbound) 7.5 MG/0.5ML solution auto-injector Inject 0.5 mL (7.5 mg) under the skin 1 (one) time per week. 2 mL 11 10/07/19 25 Active rosuvastatin (Crestor) 40 MG tablet Take 1 tablet (40 mg) by mouth Once per day. 90 tablet 3 10/07/19 25 026 Active Diclofenac Sodium 1 % gel APPLY 2 GRAMS TOPICALLY TO AFFECTED AREA(S) TWICE DAILY NEEDED FOR PAIN 100 g 3 10/17/19 25 Active naproxen (Naprosyn) 500 MG tabletIndication s:Trochanteric bursitis of both hips TAKE 1 TABLET BY MOUTH TWICE DAILY WITH BREAKFAST AND WITH DINNER 60 tablet 3 10/22/19 25 Active famotidine (Pepcid) 20 MG tablet Take 1 tablet (20 mg) by mouth 2 times daily. 180 tablet 10/28/19 25 Active Diclofenac Sodium 1 % gel APPLY 2 GRAMS APPLY TO THE AFFECTED AREA(S) TWICE DAILY NEEDED FOR PAIN 100 g 3 04/06/20 24 025 Discontinued naproxen (Naprosyn) 500 MG tabletIndication s:Trochanteric bursitis of both hips Take 1 tablet (500 mg) by mouth with breakfast and with evening meal. 60 tablet 3 04/06/20 24 025 Discontinued famotidine (Pepcid) 20 MG tablet Take 1 tablet (20 mg) by mouth 2 times daily. 180 tablet 06/17/20 24 025 Discontinued(R eorder (will not trigger notification to Pharmacy)) Active Problems Problem Noted Date Diagnosed Date Anxiety 03/11/2024 Assessment & Plan (03/11/2024 11:18 AM EDT): - patient was seen by [facility] Adjustment disorder with mixed anxiety and depre [...] 4:36 AM EDT): -Followed by [facility] -Continue working on fiber-rich diet -Continue linaclotide Assessment & Plan (07/15/2022 4:57 PM EST): -Followed by [facility] -Continue working on [...] Plan (10/10/2024 7:27 AM EDT): -Evaluated by [facility] Assessment & Plan (03/11/2024 4:38 AM EDT): -Evaluated by [facility] -Anticipating shrinkage since she is going through menopause Assessment & Plan (07/15/2022 5:07 PM EST): -Evaluated by [facility] -Anticipating shrinkage since she is going through [...] repeat in 3 yrs -Called [facility] office; they will review her pathology report and will contact pt Assessment & Plan (07/15/2022 4:59 PM EST): -Family Hx colon cancer -10/21/18 Colonoscopy: ascending colon polyp (tubular adenoma), diverticulosis, poor prep. -Recommended repeat in 3 yrs -Called [facility] office; they will [...] Encounters Date Type Department Care Team Description 11/09/2024 Telephone [facility] MEDICINE [address] [place] [address] Jennifer Brown MD Appointment Request 11/05/2024 Telephone [facility] MEDICINE [address] [place] [address] Brianna Christy MA january recall 10/27/2024 Telephone [facility] MEDICINE [address] [place] [address] Jennifer Brown MD PA 10/26/2024 Refill [facility] MEDICINE [address] [place] [address] Jennifer Brown MD 10/26/2024 Refill [facility] [address] [place] [address] Jennifer Brown MD 10/26/2024 Refill [facility] [address] [place] [address] Jennifer Brown MD Vitamin D insufficiency 10/26/2024 Refill [facility] MEDICINE [address] [place] [address] Jennifer Brown MD Viral syndrome; Trochanteric bursitis of both hips 10/21/2024 Refill [facility] [address] [place] [address] Jennifer Borwn MD Trochanteric bursitis of both hips 10/16/2024 Refill [facility] [address] [place] [address] Jennifer Brown MD 10/13/2024 Orders Only [facility] External Provider, [facility] 10/07/[address] [address] Jennifer Brown MD 10/06/2024 3:30 PM EDT Office Visit [address] [address] Jennifer Brown MD Primary hypertension (Primary Dx); Class 3 severe obesity due to excess calories with body mass index (BMI) of 40.0 to 44.9 in adult, unspecified whether serious comorbidity present (CMS/HCC); Dyslipidemia; Leiomyoma 10/06/2024 Travel 10/02/2024 Telephone [facility] MEDICINE [address] [place] [address] Jennifer Brown MD chart prep 09/28/2024 Refill [facility] [address] [place] [address] Jennifer Brown MD Viral syndrome 09/25/2024 Population Health Risk Score [facility] () [address] [phone] Provider, Population Health Generic 09/08/2024 2:15 PM EST Office Visit [facility]OMET[facility] [address] [place] [address] Ni Murrell, OD Presbyopia (Primary Dx) 09/01/2024 Refill [facility] [address] [facility] [place] [address] Jennifer Brown MD 08/28/2024 Orders Only [facility] MEDICINE [address] [place] [address] Jennifer Brown MD 08/21/2024 Telephone [facility] MEDICINE [address] [place] [address] Jennifer Brown MD 08/21/2024 Travel 08/17/2024 Telephone [facility] MEDICINE [address] [place] [address] Brianna Christy [place] Appointment Confirmation 08/15/2024 Telephone [facility] MEDICINE [address] [place] [address] Soila Bloom RNpublic accountant from Last 3 Months Immunizations Name Administration [...] Medication Management [facility] MEDICINE [address] [place] [address] Scott Riley, PharmD [address] [place], [place] [phone] 01/12/2025 3:15 PM EDT Office Visit [facility] MEDICINE [address] [place], [place] [phone] Jennifer Brown MD [address] [place], [place] [phone] Health Maintenance Due Date Last Done Comments [...] EDT Narrative 10/14/2024 7:16 AM EDT ? [facility] ?[address] ?[place] [address] ? Ultrasound Report ? Signed ? Patient: Prather,Yoana ?MR#: [id number] ?? 59 ? : 1970 ?Acct:[id number] ? Age/Sex: 53 / F ?ADM Date: 10/13/24 ? Loc: HO.US ? Attending Dr: Deepti Gibson CNM ? Ordering Physician: Deepti Gibson CNM ?? Date of Service: 10/13/24 ?? Procedure(s): US pelvic and transvaginal ?? Accession Number(s): [id number] ? cc: Deepti Gibson CNM; Jennifer Brown [...] DD/ 1307 ? TD/TT: 10/13/24 1319 ? Run Lead: ? Procedure Note Shanna, Image - 10/14/2024 [place] [address] Ultrasound Report Signed Patient: Yoana PratherMR#: [id number] 59 : 1970Acct:[id number] Age/Sex: 53 / FADM Date: 10/13/24 Loc: HO.US Attending Dr: Deepti Gibson CNM Ordering Physician: Deepti Gibson CNM Date of Service: 10/13/24 Procedure(s): US pelvic and transvaginal Accession Number(s): [id number] cc: Deepti Gibson CNM; Jennifer Brown MD [...] 10/14/24 0713 DD/ 1307 TD/TT: 10/13/24 1319 Run Lead: us [facility] External Provider IMG US PROCEDURES Edited Result - Final * Hepatic Function Panel (08/28/2024 11:03 AM EST) Bilirubin, Total 0.3 0.0 - 1.0 mg/dL [facility] Bilirubin, Direct 0.1 0.0 - 0.5 mg/dL [facility] Aspartate Amino Transferase 21 5 - 31 U/L [facility] Alanine Aminotransferase 27 0 - 31 U/L [facility] Total Protein 7.4 6.5 - 8.0 g/dL [facility] Albumin Level 3.9 3.5 - 5.0 g/dL [facility] Alkaline Phosphatase 106 39 - 117 U/L [facility] 08/28/2024 11:0 3 AM EST 08/28/2024 1:10 PM EST Jennifer Brown MD LAB BLOOD ORDERABLES Final Resul t Performing Organization Address [facility] Co de Phone Number [facility] [address] [place] [phone] * (ABNORMAL) Lipid Panel, Standard (08/28/2024 11:03 AM EST) Triglycerides 128 <150 mg/dL [facility] Comment:Desirable Triglyceri de: less than 150 mg/dLBorderline High Triglyceride 150-199 mg/dLHigh Triglyceride: 200-499 mg/dLVery High Triglyceride: greater than or equal to 5OO mg/dL Cholesterol 258(H) <200 mg/dL [facility] Comment:Desirable Cholestero l: less than 200 mg/dLBorderline High Cholesterol: 200-239 mg/dLHigh Cholesterol: greater than 239 mg/dL LDL Cholesterol Calculated 184(H) <100 mg/dL [facility] Comment:Desirable LDL: less than 100 mg/dLNear Optimal/Above Optimal LDL: 110- 129 mg/dLBorderline High LDL: 130-159 mg/dLHigh LDL: 160-189 mg/dLVery High LDL: greater than or equal to 190 mg/dL HDL Cholesterol 49 >40 mg/dL [facility] Comment:Desirable HDL: great er than 40 mg/dL Note: This HDL assay may give artificially low results in patients with liver disease. 08/28/2024 11:0 3 AM EST 08/28/2024 1:10 PM EST us Jennifer Brown MD LAB BLOOD ORDERABLES Final Resul t Performing Organization Address [facility] Co de Phone Number [facility] [address] [place] [phone] [phone] * (ABNORMAL) Basic Metabolic Panel (08/28/2024 11:03 AM EST) Sodium 137 135 - 145 mmol/L [facility] Potassium 4.3 3.3 - 5.1 mmol/L [facility] Chloride 108 96 - 108 mmol/L [facility] Carbon Dioxide 22 22 - 29 mmol/L [facility] Anion Gap 11(L) 12 - 20 [facility] Urea Nitrogen (BUN) 16 9 - 16 mg/dL [facility] Creatinine, Serum 0.58 0.5 - 1.4 mg/dL [facility] Estimated Glomerular Filt Rate >60 [facility] Comment:Chronic Kidney Disea se: Estimated GFR < 60 mL/min/1.47h6Zkbuod Kidney Disease: Estimated GFR < 15 mL/min/1.73m2 Glucose 83 60 - 115 mg/dL [facility] Calcium 9.1 8.4 - 10.2 mg/dL [facility] 08/28/2024 11:0 3 AM EST 08/28/2024 1:10 PM EST us Jennifer Brown MD LAB BLOOD ORDERABLES Final Resul t Performing Organization Address City/State/[facility] Co de Phone Number [facility] [address] [place] [address] [phone] * BI Mammogram Screening Tomosynthesis Bilateral (08/07/2023 12:04 PM EST) Anatomical Region Laterality Modality Breast Bilateral Mammography 08/07/2023 12:0 4 PM EST Narrative 08/20/2023 6:14 AM EST ? [facility] ? [address] [facility] ?[place] [address] ? Mammography Report ? Signed ? Patient: Prather,Yoana ?MR#: [id number] ?? 59 ? : 1970 ?Acct:[id number] ? Age/Sex: 52 / F ?ADM Date: 01/24/24 ? Loc: HO.MAMMO ? Attending Lawrence Brown MD ? Ordering Physician: Jennifer Brown MD ?Results: 1Negative ? Date of Service: 08/07/23 ?Follow Up: 1 Year From Orig ?? inal Mammogram ? Procedure(s): MM tomosynthesis screening BI ?? Accession Number(s): [id number] ? cc: Jennifer Brown MD ? EXAMINATION: [...] ? 08/20/[address]609 ? DD/ ? TD/TT: ? Run Lead: ? Procedure Note Donotuseinterpreter, Image - 08/20/2023 [facility] [address] [place] [address] [place] [address] Mammography Report Signed Patient: Yoana PratherMR#: [id number] 59 : 1970Acct:[id number] Age/Sex: 52 / FADM Date: 08/07/23 Loc: HO.MAMMO Attending Dr: Jennifer Brown MD Ordering Physician: Jennifer Brown MDResults: 1Negative Date of Service: 08/07/23Follow Up: 1 Year From Orig inal Mammogram Procedure(s): MM tomosynthesis screening BI Accession Number(s): [id number] cc: Jennifer Brown MD EXAMINATION: MM SCREENING [...] in OV> 08/20/23 0610 DD/ 1204 TD/TT: Run Lead: Jennifer Brown MD IMG BI PROCEDURES Edited Result - Final * Hepatitis C Ab (08/01/2023 10:52 AM EST) Pathologist [facility] Hepatitis C Antibody Nonreactive Nonreactive [facility] Comment:Antibodies to HCV no t detected; does not exclude early acuteHCV infection. 08/01/2023 10:5 2 AM EST 08/01/2023 10:52 AM EST us Generic External Data Provider LAB BLOOD ORDERAB LES Final Result Performing Organization Address City/[facility]/ZIP Co de Phone Number [facility] [address] [place] [phone] * HIV-1/2 Antigen and Antibodies, Fourth Generation, with Reflexes (08/01/2023 10:52 AM EST) [facility] HIV AB/AG Nonreactive Nonreactive [facility] Comment:HIV-1 p24 Ag and/or HIV-1/HIV-2 Ab not detected.A test result that is nonreactive does not exclude thepossibility of exposure to or infection with HIV-1 and/orHIV-2. Nonreactive results in this assay for individualswith prior exposure to HIV-1 and/or HIV-2 may be due toantigen and antibody levels that are below the limit ofdetection of this assay.The CelenoniYABUY HIV Ag/Ab Combo assay result andsupplemental assay results should be interpreted inconjunction with the patient's clinical presentation,history and other laboratory results. If the results areinconsistent with clinical evidence, additional testing issuggested to confirm the result. 08/01/2023 10:5 2 AM EST 08/01/2023 10:52 AM EST us Generic External Data Provider LAB BLOOD ORDERAB LES Final Result Performing Organization Address [facility] Co de Phone Number [facility] [address] [place] [phone] * Hm Pap Smear (04/19/2021) [facility] Pap Negative for intraephithelial lesion or malignancy Negative for intraephithelial lesion or malignancy, Other HPV Undetected Undetected, Indeterminate, Quantitative, Not Detected us Historical Provider HEALTH MAINTENANCE Final Result * Colonoscopy (10/21/2018) [facility] Signature Colonoscopy Normal Normal us Historical Provider HEALTH MAINTENANCE Final Result from Last 3 Months or Most Recently Relevant to Health Maintenance Insurance [facility] [place] C3 Care Teams Event Specialist Food Demonstrator Relationship Specialty Start Date End Date Jennifer Brown MD [address] [place] [address] PCP - General Family Medicine 07/15/18 Scott Riley, PharmD [address] [place] [address] Pharmacist Internal Medicine 07/01/24
--- OUTSIDE RECORDS SUMMARY | 2024-11-09 16:55 | XMS_ITS | Encounter Summary ---
Author Organization [employer] Address [address] [facility] 7t [place] [address] Care Team Providers Care Epic Director Name Role Phone Jennifer Brown MD Primary Care Provider Scott Riley PharmD Unavailable [phone] Reason for Visit * Reason Onset Date Comments Med Refill 10/26/2024 Encounter Details Date Type Department Care Team (Late st Contact Info) Description 10/26/[address] [facility] MEDICINE [address] [place] [address] Jeninfer Brown MD [address] [place] [address] Social History Tobacco Use Types Packs/Day Years [...] Description 11/13/2024 11:00 AM EDT Medication Management [facility] MEDICINE [address] [place] [phone] Scott Riley, PharmD [address] [place] [phone] 01/12/2025 3:15 PM EDT Office Visit [address] [address] Jennifer Brown MD [address] [place] [address] documented as of this encounter Visit Diagnoses Not on filedocumented in this encounter Additional Health Concerns Assessment Noted Time PHQ-9 Depression Total Score: 5 03/11/20 24 11:51 AM EDT documented as of this encounter Care Teams Epic Director Relationship Specialty Start Date End Date Jennifer Brown MD [address] [place] [phone] PCP - General Family Medicine 07/15/18 Scott Riley, PharmD [address] [place] [address] Pharmacist Internal Medicine 07/01/24 documented as of this encounter
--- OUTSIDE RECORDS SUMMARY | 2024-11-09 16:55 | XMS_ITS | Encounter Summary ---
Author Organization [email or web address] Address [address] [facility] 7t [place] [address] Care Team Providers Care Environmental Protection Forester Name Role Phone Jennifer Brown MD Primary Care Provider [phone] Scott Riley PharmD Unavailable [phone] Reason for Visit * Reason Onset Date Comments january recall 11/05/2024 Encounter Details Date Type Department Care Team ([facility] st Contact Info) Description 11/05/2024 Telephone [facility] MEDICINE [address] [place] [address] Brianna Christy MA january recall Social History Tobacco Use Types Packs/Day Years [...] Telephone Encounter - Brianna Christy MA - 11/05/2024 3:03 PM EDT ..Telephone call to patient to schedule a recall appointment. No answer, Left voicemail to return call to clinic.. Recall letter sent. Visit type: Follow Up Appointment notes: RV for Dyslipidemia and Weight Loss. Month due: December With: Kevin Please schedule appointment above if patient returns call documented in this encounter Plan of Treatment Upcoming Encounters Date Type Department Care Team (Late st Contact Info) Description 11/13/2024 11:00 AM EDT Medication Management [facility] MEDICINE [address] [place] [phone] Scott Riley, AnabellaD [address] [place] [address] 01/12/2025 3:15 PM EDT Office Visit [facility] MEDICINE [address] [place] [phone] Jennifer Brown MD [address] [place] [address] documented as of this encounter Visit Diagnoses Not on filedocumented in this encounter Additional Health Concerns Assessment Noted Time PHQ-9 Depression Total Score: 5 03/11/20 24 11:51 AM EDT documented as of this encounter Care Teams Environmental Protection Forester Relationship Specialty Start Date End Date Jennifer Brown MD [address] [place] [address] PCP - General Family Medicine 07/15/18 Scott Riley, AnabellaD [address] [place] [address] Pharmacist Internal Medicine 07/01/24 documented as of this encounter
== END 2024-11-09 14:07 | disposition home or self-care (01) ==
LOC: HO.HHCL 14:06
PROVIDERS: Visit Provider Nurse Practitioner
DX: R10.10 Upper abdominal pain, unspecified (principal); R93.89 Abnormal findings on diagnostic imaging of other specified body structures
CPT/HCPCS: 36415; 82150; 83690

== ENCOUNTER 2024-11-11 14:46 | Outpatient (AMB) | payer MEDICAID, SELFPAY ==
--- NOTE | 2024-11-11 14:52 | MHC.OFFVIS ---
Vital Signs 11/11/24 14:59 Height 4 ft 3 in Weight 192 lb BMI 51.9 BP 126/72 Intake Visit Reasons: hysteroscopy consult Typewriter Ribbon Winder Required: Yes Typewriter Ribbon Winder Language: Academic Physician Services: Typewriter Ribbon Winder Present (in person) Typewriter Ribbon Winder Name: Mary HENDERSON Information Interpreted: non-clinical & clinical [employer]ocomotive [employer] Clerk: [employer] Clerk Present Accompanied by: Self / Same As Patient Allergies No Known Allergies Allergy (Verified 11/11/24 14:56) Is last menstrual period known: No Post menopausal: Yes Patient : No Do you need a note to return to daycare/school/sports/work: Yes (for surgery on saturday) HPI Comments Details: Presenting referred from Deepti Gibson CNM regarding endometrial thickening in menopause. No history of vaginal bleeding. Pelvic ultrasound showed the following: Uterus: The uterus is normal in size, measuring 9.9 x 6.8 x 7.1 cm. Myometrium has a normal echotexture. Again seen is a fundal fibroid to the left of midline measuring 3.9 x 3.9 x 4.4 cm (previously 3.9 x 4.2 x 4.2 cm), and a small posterior fibroid measuring 0.9 x 0.8 x 0.9 cm (previously 1.1 x 1.0 x 1.2 cm). Endometrium: The endometrial stripe measures 5 mm in thickness. There are nabothian cysts in the cervix. Right ovary: The right ovary measures 1.3 x 0.7 x 1.0 cm. The right ovary is normal in size and echotexture. Left ovary: The left ovary measures 1.3 x 1.7 x 0.8 cm. The left ovary is normal in size and echotexture. Pelvic fluid: none. Last co testing in 05/04 was negative PFSH Medical History Left sided abdominal pain Pre-op examination FH: breast cancer Encounter for annual routine gynecological examination Family history of cancer Urinary urgency Well woman exam Perimenopause Diarrhea in adult patient Gastritis Fibroma Hypertension High cholesterol Depression Surgical History History of esophagogastroduodenoscopy (EGD) Hx of colonoscopy History of tubal ligation Family History Mother Colon cancer Sister Uterine cancer Sister Uterine cancer Other Diabetes HTN (hypertension) Heart problem Social History Alcohol intake: never Patient Tobacco Use Status: Never used Tobacco Gender identity: Female Female Reproductive History Menstrual Age of Menarche: 11 Date of last menstrual period: 05/12/20 Total pregnancies: 2 Full term: 2 Review of Systems Card Reports as per HPI and Reports no additional complaints Resp Reports as per HPI and Reports no additional complaints GI Reports as per HPI and Reports no additional complaints Reports as per HPI Physical Exam Vital Signs: Last Vital Signs BP 126/72 11/11/24 14:59 BMI result Body Mass Index 51.9 Const General: cooperative, healthy appearing and comfortable Resp Effort & Inspection: normal respiratory effort Auscultation: clear to auscultation bilaterally Percussion: percussion normal Cardio Palpation: normal PMI Rate: regular rate Rhythm: regular rhythm Heart sounds: no murmurs and no rubs Peripheral pulses: Peripheral pulses 2+ throughout GI Inspection: Yes normal to inspection Palpation (GI): Soft to palpation, nontender, no guarding, not rigid and No hepatosplenomegaly present Percussion: Yes normal to percussion Auscultation: normal bowel sounds Rectal Exam - Female: deferred Assessment & Plan Assessment & Plan (1) Uterine myoma: Code(s): D25.9 - Leiomyoma of uterus, unspecified Category: Medical Plan: Discussed with the patient the findings on pelvic ultrasound & the risk of myosarcoma; in addition reviewed with the patient that malignancy and pre malignancy cannot be ruled out without hysterectomy for pathological evaluation ; furthermore, explained to the patient the limitation of pelvic ultrasound and endometrial biopsy in the setting. Discussed with the patient the options of treatment including expectant management versus hysterectomy; the pros and cons, risks benefits of each approach were discussed with the patient including the fact that in cases of myosarcoma, surgical treatment can lead to early diagnosis and positively affects the prognosis; after further discussion, the patient decided to proceed with expectant management. Will repeat pelvic ultrasound periodically. Instructions given to patient to call in case any of the following occurs: pressure symptoms, abnormal uterine bleeding, pelvic pain; and to schedule a 12 months pelvic ultrasound (order placed) and a follow-up appointment . All questions answered, the patient verbalized understanding and agreed with the plan . (2) Endometrial thickening on ultrasound: Code(s): R93.89 - Abnormal findings on diagnostic imaging of other specified body structures Category: Medical Plan: Discussed with the patient endometrial thickness above 4 mm in menopause , the differential diagnosis of a thickened endometrium includes but not limited to endometrial polyp, hyperplasia or carcinoma. Explained to the patient that endometrial each thickness is less predictive of endometrial neoplasia in asymptomatic patients, i.e. those without postmenopausal uterine bleeding. The sensitivity and specificity for detecting endometrial carcinoma at an endometrial thickness of >= 5mm was 83 and 72 percent, respectively; this is lower than in patients with bleeding. Studies have shown that postmenopausal patients without uterine bleeding who had an endometrial thickness >11 mm had an endometrial carcinoma risk of 6.7 percent; this risk is similar to postmenopausal patients with bleeding and an endometrial thickness >5 mm. Recommended endometrial sampling to rule endometrial pathology via either office endometrial biopsy or diagnostic hysteroscopy/D&C with possible polypectomy/myomectomy. All pros and cons, risks and benefits of each approach were discussed with the patient, the patient decided to proceed with hysteroscopy D&C possible polypectomy/myomectomy Discussed with the patient the procedure , all benefits and risks including but not limited to inability to complete the procedure , insufficient endometrial tissue for a complete evaluation of the endometrial cavity , bleeding, infection, possible need for blood transfusion with all its risk ( HIV,syphilis, Hepatitis, anaphylaxis shock, others..), injury to bladder, rectum, possible need for laparoscopy/laparotomy or hysterectomy. The patient verbalized understanding and signed the consent. Instructions given the patient to stay NPO after midnight the day prior to the procedure and to discontinue tirzepatide 1 week prior to the procedure and to take only the specific lisinopril the morning of the surgical procedure and to schedule a 2 week postoperative appointment Orders: Orders US pelvic and transvaginal 12 Months D25.9 - Leiomyoma of uterus, unspecified Coding Level of Care Code Est Pt Level 3 (72262) Diagnoses Uterine myoma D25.9 Endometrial thickening on ultrasound R93.89
[2024-11-11 14:59] VITALS: BP 126/72; BMI 51.9
--- OUTSIDE RECORDS SUMMARY | 2024-11-11 15:54 | XMS_ITS | Encounter Summary ---
Author Organization [employer] Address [address] [facility] 7t [place] [address] Care Team Providers Care Material Yard Clerk Name Role Phone Jennifer Brown MD Primary Care Provider [phone] Scott Riley PharmD Unavailable [phone] Reason for Visit * Reason Onset Date Comments Med Refill 07/15/2024 Encounter Details Date Type Department Care Team (Late st Contact Info) Description 07/15/2024 Refill [facility] PEDS [address] [place] [address] Jennifer Brown MD [address] [place] [address] Social History Tobacco Use Types Packs/Day Years [...] Care Team (Late st Contact Info) Description 11/26/2024 10:30 AM EDT Medication Management [facility] MEDICINE [address] [place] [phone] Scott Riley, PharmD [address] [place] [phone] 01/12/2025 3:15 PM EDT Office Visit [facility] MED[facility]INE [address] [place] [phone] Jennifer Brown MD [address] [place] [phone] documented as of this encounter Visit Diagnoses Not on filedocumented in this encounter Additional Health Concerns Assessment Noted Time PHQ-9 Depression Total Score: 5 03/11/20 24 11:51 AM EDT documented as of this encounter Care Teams Material Yard Clerk Relationship Specialty Start Date End Date Jennifer Brown MD [address] [place] [id number] PCP - General Family Medicine 07/15/18 Scott Riley, PharmD [address] [place] [address] Pharmacist Internal Medicine 07/01/24 documented as of this encounter
--- OUTSIDE RECORDS SUMMARY | 2024-11-11 15:54 | XMS_ITS | Encounter Summary ---
Author Organization [employer] Address [address] [facility] 7t [place] [address] Care Team Providers Care Advertising Space Clerk Name Role Phone Jennifer Brown MD Primary Care Provider [phone] Scott Riley PharmD Unavailable [phone] Reason for Visit * Reason Onset Date Comments Med Refill 11/07/2023 Encounter Details Date Type Department Care Team (Late st Contact Info) Description 11/07/2023 Refill [facility] MED[facility] [address] [place] [address] Jennifer Brown MD [address] [place] [address] Trochanteric bursitis of both hips; Viral syndrome [...] Description 11/26/2024 10:30 AM EDT Medication Management [facility] [address] [place] [phone] Scott Riley, Teresa [address] [place] [address] 01/12/2025 3:15 PM EDT Office Visit [facility] [address] [place] [phone] Jennifer Brown MD [address] [place] [phone] documented as of this encounter Visit Diagnoses Diagnosis Trochanteric bursitis of both hips Viral syndrome Unspecified viral infection, in conditions classified elsewhere and of unspecified site documented in this encounter Additional Health Concerns Assessment Noted Time PHQ-9 Depression Total Score: 0 07/12/20 22 10:25 AM EST documented as of this encounter Care Teams Advertising Space Clerk Relationship Specialty Start Date End Date Jennifer Brown MD [address] [place] [phone] PCP - General Family Medicine 07/15/18 Scott Riley, PharmD [address] [place] [phone] Pharmacist Internal Medicine 07/01/24 documented as of this encounter
--- OUTSIDE RECORDS SUMMARY | 2024-11-11 15:54 | XMS_ITS | Encounter Summary ---
Author Organization [employer] Address [address] [facility] 7t [place] [address] Care Team Providers Care Injection Molding Engineer Name Role Phone Jennifer Brown MD Primary Care Provider [phone] Scott Riley PharmD Unavailable [phone] Reason for Visit * Reason Onset Date Comments Med Refill 10/26/2024 Encounter Details Date Type Department Care Team (Late st Contact Info) Description 10/26/2024 Refill [facility] [address] [place] [address] Jennifer Brown MD [address] [place] [address] Vitamin D insufficiency Social History Tobacco Use [...] Description 11/26/2024 10:30 AM EDT Medication Management [facility] MEDICINE [address] [place] [phone] Scott Riley, PharmD [address] [place] [phone] 01/12/2025 3:15 PM EDT Office Visit [facility] MEDICINE [address] [place] [phone] Jennifer Brown MD [address] [place] [phone] documented as of this encounter Visit Diagnoses Diagnosis Vitamin D insufficiency documented in this encounter Additional Health Concerns Assessment Noted Time PHQ-9 Depression Total Score: 5 03/11/20 24 11:51 AM EDT documented as of this encounter Care Teams Injection Molding Engineer Relationship Specialty Start Date End Date Jennifer Brown MD [address] [place] [phone] PCP - General Family Medicine 07/15/18 Scott Riley, PharmD [address] [place] [address] Pharmacist Internal Medicine 07/01/24 documented as of this encounter
--- OUTSIDE RECORDS SUMMARY | 2024-11-11 15:54 | XMS_ITS | Encounter Summary ---
Author Organization [employer] Address [address] [facility] 7t [place] [address] Care Team Providers Care Pediatric Orthodontist Name Role Phone Jennifer Brown MD Primary Care Provider [phone] Scott Riley PharmD Unavailable [phone] Reason for Visit * Reason Onset Date Comments Med Refill 10/26/2024 Encounter Details Date Type Department Care Team (Late st Contact Info) Description 10/26/2024 Refill [facility] MED[facility] [address] [place] [address] Jennifer Brown MD [address] [place] [address] Viral syndrome; Trochanteric bursitis of both hips [...] Description 11/26/2024 10:30 AM EDT Medication Management [facility] [address] [place] [phone] Scott Riley, PharmD [address] [place] [phone] 01/12/2025 3:15 PM EDT Office Visit [facility] MED[facility] [address] [place] [phone] Jennifer Brown MD [address] [place] [phone] documented as of this encounter Visit Diagnoses Diagnosis Viral syndrome Unspecified viral infection, in conditions classified elsewhere and of unspecified site Trochanteric bursitis of both hips documented in this encounter Additional Health Concerns Assessment Noted Time PHQ-9 Depression Total Score: 5 03/11/20 24 11:51 AM EDT documented as of this encounter Care Teams Pediatric Orthodontist Relationship Specialty Start Date End Date Jennifer Brown MD [address] [place] [phone] PCP - General Family Medicine 07/15/18 Scott Riley, AnabellaD [address] [place] [address] [place] [address] Pharmacist Internal Medicine 07/01/24 documented as of this encounter
--- OUTSIDE RECORDS SUMMARY | 2024-11-11 15:54 | XMS_ITS | Encounter Summary ---
Author Organization [employer] Address [address] [facility] 7t [place] [address] Care Team Providers Care Emergency Medicine Specialist Name Role Phone Jennifer Brown MD Primary Care Provider [phone] Scott Riley PharmD Unavailable [phone] Reason for Visit * Reason Onset Date Comments Med Refill 07/15/2024 Encounter Details Date Type Department Care Team (Late st Contact Info) Description 07/15/2024 Refill [facility] [address] [place] [address] Jennifer Brown MD [address] [place] [address] Social History Tobacco Use Types Packs/Day Years [...] Description 11/26/2024 10:30 AM EDT Medication Management [facility] [address] [place] [phone] Scott Riley, PharmD [address] [place] [phone] 01/12/2025 3:15 PM EDT Office Visit [address] [address] Jennifer Brown MD [address] [place] [phone] documented as of this encounter Visit Diagnoses Not on filedocumented in this encounter Additional Health Concerns Assessment Noted Time PHQ-9 Depression Total Score: 5 03/11/20 24 11:51 AM EDT documented as of this encounter Care Teams Emergency Medicine Specialist Relationship Specialty Start Date End Date Jennifer Brown MD [address] [place] [phone] PCP - General Family Medicine 07/15/18 Scott Riley, PharmD [address] [place] [address] Pharmacist Internal Medicine 07/01/24 documented as of this encounter
--- OUTSIDE RECORDS SUMMARY | 2024-11-11 15:54 | XMS_ITS | Encounter Summary ---
Author Organization [employer] Address [address] [facility] 7t [place] [address] Care Team Providers Care Injury Prevention Coordinator Name Role Phone Jennifer Brown MD Primary Care Provider [phone] Scott Riley PharmD Unavailable [phone] Reason for Visit * Reason Onset Date Comments Med Refill 04/06/2024 Encounter Details Date Type Department Care Team (Late st Contact Info) Description 04/06/2024 Refill [facility] [address] [place] [address] Ayan Madsen MD [address] [place] [address] Social History Tobacco Use Types Packs/Day Years [...] Description 11/26/2024 10:30 AM EDT Medication Management [facility] MED[facility]INE [address] [place] [phone] Scott Riley, PharmD [address] [place] [phone] 01/12/2025 3:15 PM EDT Office Visit [address] [address] Jennifer Brown MD [address] [place] [phone] documented as of this encounter Visit Diagnoses Not on filedocumented in this encounter Additional Health Concerns Assessment Noted Time PHQ-9 Depression Total Score: 5 03/11/20 24 11:51 AM EDT documented as of this encounter Care Teams Injury Prevention Coordinator Relationship Specialty Start Date End Date Jennifer Brown MD [address] [place] [phone] PCP - General Family Medicine 07/15/18 Scott Riley, PharmD [address] [place] [address] Pharmacist Internal Medicine 07/01/24 documented as of this encounter
--- OUTSIDE RECORDS SUMMARY | 2024-11-11 15:54 | XMS_ITS | Clinical Summary ---
Author Organization [employer] Address 75 [facility] 7t [place] [address] Care Team Providers Care Soldering Machine Tender Name Role Phone Jennifer Brown MD Primary Care Provider [phone] Scott Riley PharmD Unavailable [phone] Allergies No known active allergies Medications * [...] EDT): - patient was seen by [facility] [place] Adjustment disorder with mixed anxiety and depre [...] Plan (03/11/2024 4:36 AM EDT): -Followed by [facility] -Continue working on fiber-rich diet -Continue linaclotide Assessment & Plan (07/15/2022 4:57 PM EST): -Followed by [facility] -Continue working on fiber-rich diet -Continue [...] Plan (10/10/2024 7:27 AM EDT): -Evaluated by BUSINESS DEVELOPMENT MANAGER Assessment & Plan (03/11/2024 4:38 AM EDT): -Evaluated by BUSINESS DEVELOPMENT MANAGER -Anticipating shrinkage since she is going through menopause Assessment & Plan (07/15/2022 5:07 PM EST): -Evaluated by BUSINESS DEVELOPMENT MANAGER -Anticipating shrinkage since she is going through [...] prep. -Recommended repeat in 3 yrs -Called [facility] office; they will review her pathology report and will contact pt Assessment & Plan (07/15/2022 4:59 PM EST): -Family Hx colon cancer -10/21/18 Colonoscopy: ascending colon polyp (tubular adenoma), diverticulosis, poor prep. -Recommended repeat in 3 yrs -Called [facility] office; they will review her pathology [...] Type Department Care Team Description 11/09/2024 Telephone [facility] [address] [place] [address] Jennifer Brown MD Appointment Request 11/05/2024 Telephone [facility] [address] [place] [address] Brianna Christy [place] january recall 10/27/2024 Telephone [facility] [address] [place] [address] Jennifer Brown MD PA 10/26/2024 Refill [facility] [address] [place] [address] Jennifer Brown MD 10/26/2024 Refill [facility] [address] [place] [address] Jennifer Brown MD 10/26/2024 Refill [facility] [address] [place] [address] Jennifer Brown MD Vitamin D insufficiency 10/26/2024 Refill [facility] [address] [place] [address] Jennifer Brown MD Viral syndrome; Trochanteric bursitis of both hips 10/21/2024 Refill [facility] [address] [place] [address] Jennifer Brown MD Trochanteric bursitis of both hips 10/16/2024 Refill [facility] [address] [place] [address] Jennifer Brown MD 10/13/2024 Orders Only [facility] External Provider, [facility] 10/07/[address] [address] Jennifer Brown MD 10/06/2024 3:30 PM EDT Office Visit [address] [address] Jennifer Brown MD Primary hypertension (Primary Dx); Class 3 severe obesity due to excess calories with body mass index (BMI) of 40.0 to 44.9 in adult, unspecified whether serious comorbidity present (CMS/HCC); Dyslipidemia; Leiomyoma 10/06/2024 Travel 10/02/2024 Telephone [facility] [address] [place] [address] Jennifer Brown MD chart prep 09/28/2024 Refill [facility] [address] [place] [address] Jennifer Brown MD Viral syndrome 09/25/2024 Population Health Risk Score [facility] () [address] [phone] Provider, Population Health Generic 09/08/2024 2:15 PM EST Office Visit [facility] [address] [address] Ni Murrell, OD Presbyopia (Primary Dx) 09/01/2024 Refill [facility] [address] [facility] [place] [address] Jennifer Brown MD 08/28/2024 Orders Only [facility] [address] [place] [address] Jennifer Brown MD 08/21/2024 Telephone [facility] 230 [place] [address] Jennifer Brown MD 08/21/2024 Travel 08/17/2024 Telephone [facility] [address] [place] [address] Brianna Christy MA Appointment Confirmation 08/15/2024 Telephone [facility] [address] [place] [address] Soila Bloom RNc4 planner from Last 3 Months Immunizations Name Administration [...] Description 11/26/2024 10:30 AM EDT Medication Management [facility] [address] [place] [address] Scott Riley, PharmD [address] [place], [place] [phone] 01/12/2025 3:15 PM EDT Office Visit [facility] [address] [place], [place] [phone] Jennifer Brown MD [address] [place], [place] [phone] Health Maintenance Due Date Last Done Comments [...] EDT Narrative 10/14/2024 7:16 AM EDT ? [facility] ?[address] ?[place] [address] ? Ultrasound Report ? Signed ? Patient: Prather,Yoana ?MR#: [id number] ?? 59 ? : 1970 ?Acct:[id number] ? Age/Sex: 53 / F ?ADM Date: 10/13/24 ? Loc: HO.US ? Attending Dr: Deepti Gibson CNM ? Ordering Physician: Deepti Gibson CNM ?? Date of Service: 10/13/24 ?? Procedure(s): US pelvic and transvaginal ?? Accession Number(s): [id number] ? cc: Deepti Gibson CNM; Jennifer Brown [...] DD/ 1307 ? TD/TT: 10/13/24 1319 ? Media Sales Representative: ? Procedure Note Shanna, Image - 10/14/2024 [place] [address] Ultrasound Report Signed Patient: Yoana PratherMR#: [id number] 59 : 1970Acct:[id number] Age/Sex: 53 / FADM Date: 10/13/24 Loc: HO.US Attending Dr: Deepti Gibson CNM Ordering Physician: Deepti Gibson CNM Date of Service: 10/13/24 Procedure(s): US pelvic and transvaginal Accession Number(s): [id number] cc: Deepti Gibson CNM; Jennifer Brown MD [...] 10/14/24 0713 DD/ 1307 TD/TT: 10/13/24 1319 Media Sales Representative: us [facility] External Provider IMG US PROCEDURES Edited Result - Final * Hepatic Function Panel (08/28/2024 11:03 AM EST) Bilirubin, Total 0.3 0.0 - 1.0 mg/dL [facility] Bilirubin, Direct 0.1 0.0 - 0.5 mg/dL [facility] Aspartate Amino Transferase 21 5 - 31 U/L [facility] Alanine Aminotransferase 27 0 - 31 U/L [facility] Total Protein 7.4 6.5 - 8.0 g/dL [facility] Albumin Level 3.9 3.5 - 5.0 g/dL [facility] Alkaline Phosphatase 106 39 - 117 U/L [facility] 08/28/2024 11:0 3 AM EST 08/28/2024 1:10 PM EST Jennifer Brown MD LAB BLOOD ORDERABLES Final Resul t Performing Organization Address [facility] Co de Phone Number [facility] [address] [place] [phone] * (ABNORMAL) Lipid Panel, Standard (08/28/2024 11:03 AM EST) Triglycerides 128 <150 mg/dL [facility] Comment:Desirable Triglyceri de: less than 150 mg/dLBorderline High Triglyceride 150-199 mg/dLHigh Triglyceride: 200-499 mg/dLVery High Triglyceride: greater than or equal to 5OO mg/dL Cholesterol 258(H) <200 mg/dL [facility] Comment:Desirable Cholestero l: less than 200 mg/dLBorderline High Cholesterol: 200-239 mg/dLHigh Cholesterol: greater than 239 mg/dL LDL Cholesterol Calculated 184(H) <100 mg/dL [facility] Comment:Desirable LDL: less than 100 mg/dLNear Optimal/Above Optimal LDL: 110- 129 mg/dLBorderline High LDL: 130-159 mg/dLHigh LDL: 160-189 mg/dLVery High LDL: greater than or equal to 190 mg/dL HDL Cholesterol 49 >40 mg/dL [facility] Comment:Desirable HDL: great er than 40 mg/dL Note: This HDL assay may give artificially low results in patients with liver disease. 08/28/2024 11:0 3 AM EST 08/28/2024 1:10 PM EST us Jennifer Brown MD LAB BLOOD ORDERABLES Final Resul t Performing Organization Address [facility] Co de Phone Number [facility] [address] [place] [address] [phone] * (ABNORMAL) Basic Metabolic Panel (08/28/2024 11:03 AM EST) Sodium 137 135 - 145 mmol/L [facility] Potassium 4.3 3.3 - 5.1 mmol/L [facility] Chloride 108 96 - 108 mmol/L [facility] Carbon Dioxide 22 22 - 29 mmol/L [facility] Anion Gap 11(L) 12 - 20 [facility] Urea Nitrogen (BUN) 16 9 - 16 mg/dL [facility] Creatinine, Serum 0.58 0.5 - 1.4 mg/dL [facility] Estimated Glomerular Filt Rate >60 [facility] Comment:Chronic Kidney Disea se: Estimated GFR < 60 mL/min/1.95c7Chosgj Kidney Disease: Estimated GFR < 15 mL/min/1.73m2 Glucose 83 60 - 115 mg/dL [facility] Calcium 9.1 8.4 - 10.2 mg/dL [facility] 08/28/2024 11:0 3 AM EST 08/28/2024 1:10 PM EST us Jennifer Brown MD LAB BLOOD ORDERABLES Final Resul t Performing Organization Address City/State/[facility] Co de Phone Number [facility] [address] [place] [phone] * BI Mammogram Screening Tomosynthesis Bilateral (08/07/2023 12:04 PM EST) Anatomical Region Laterality Modality Breast Bilateral Mammography 08/07/2023 12:0 4 PM EST Narrative 08/20/2023 6:14 AM EST ? [facility] ? [address] [facility] ?[place] [address] ? Mammography Report ? Signed ? Patient: Prather,Yoana ?MR#: [id number] ?? 59 ? : 1970 ?Acct:[id number] ? Age/Sex: 52 / F ?ADM Date: 01/24/24 ? Loc: HO.MAMMO ? Attending Lawrence Brown MD ? Ordering Physician: Jennifer Brown MD ?Results: 1Negative ? Date of Service: 08/07/23 ?Follow Up: 1 Year From Orig ?? inal Mammogram ? Procedure(s): MM tomosynthesis screening BI ?? Accession Number(s): [id number] ? cc: Jennifer Brown MD ? EXAMINATION: [...] ? 08/20/23609 ? DD/ ? TD/TT: ? Media Sales Representative: ? Procedure Note Donotuseinterpreter, Image - 08/20/2023 [facility] [address] [place] [address] [place] [address] Mammography Report Signed Patient: Yoana PratherMR#: [id number] 59 : 1970Acct:[id number] Age/Sex: 52 / FADM Date: 08/07/23 Loc: HO.MAMMO Attending Dr: Jennifer Brown MD Ordering Physician: Jennifer Brown MDResults: 1Negative Date of Service: 08/07/23Follow Up: 1 Year From Orig inal Mammogram Procedure(s): MM tomosynthesis screening BI Accession Number(s): [id number] cc: Jennifer Brown MD EXAMINATION: MM SCREENING [...] in OV> 08/20/23 0610 DD/ 1204 TD/TT: Media Sales Representative: Jennifer Brown MD IMG BI PROCEDURES Edited Result - Final * Hepatitis C Ab (08/01/2023 10:52 AM EST) Pathologist [facility] Hepatitis C Antibody Nonreactive Nonreactive [facility] Comment:Antibodies to HCV no t detected; does not exclude early acuteHCV infection. 08/01/2023 10:5 2 AM EST 08/01/2023 10:52 AM EST us Generic External Data Provider LAB BLOOD ORDERAB LES Final Result Performing Organization Address City/[facility]/ZIP Co de Phone Number [facility] [address] [place] [phone] * HIV-1/2 Antigen and Antibodies, Fourth Generation, with Reflexes (08/01/2023 10:52 AM EST) [facility] HIV AB/AG Nonreactive Nonreactive [facility] Comment:HIV-1 p24 Ag and/or HIV-1/HIV-2 Ab not detected.A test result that is nonreactive does not exclude thepossibility of exposure to or infection with HIV-1 and/orHIV-2. Nonreactive results in this assay for individualswith prior exposure to HIV-1 and/or HIV-2 may be due toantigen and antibody levels that are below the limit ofdetection of this assay.The [employer] HIV Ag/Ab Combo assay result andsupplemental assay results should be interpreted inconjunction with the patient's clinical presentation,history and other laboratory results. If the results areinconsistent with clinical evidence, additional testing issuggested to confirm the result. 08/01/2023 10:5 2 AM EST 08/01/2023 10:52 AM EST us Generic External Data Provider LAB BLOOD ORDERAB LES Final Result Performing Organization Address [facility] Co de Phone Number [facility] [address] [place] [phone] * Hm Pap Smear (04/19/2021) [facility] Pap Negative for intraephithelial lesion or malignancy Negative for intraephithelial lesion or malignancy, Other HPV Undetected Undetected, Indeterminate, Quantitative, Not Detected us Historical Provider HEALTH MAINTENANCE Final Result * Colonoscopy (10/21/2018) [facility] Signature Colonoscopy Normal Normal us Historical Provider HEALTH MAINTENANCE Final Result from Last 3 Months or Most Recently Relevant to Health Maintenance Insurance Lift C3 Care Teams Soldering Machine Tender Relationship Specialty Start Date End Date Jennifer Brown MD [address] [place] [address] PCP - General Family Medicine 07/15/18 Scott Riley, PharmD [address] [place] [address] Pharmacist Internal Medicine 07/01/24
--- OUTSIDE RECORDS SUMMARY | 2024-11-11 15:54 | XMS_ITS | Encounter Summary ---
Author Organization [employer] Address 75 [facility] 7t [place] [address] Care Team Providers Care Women'S Swim Coach Name Role Phone Jennifer Brown MD Primary Care Provider [phone] Scott Riley PharmD Unavailable [phone] Reason for Visit * Reason Onset Date Comments Med Refill 07/15/2024 Encounter Details Date Type Department Care Team (Late st Contact Info) Description 07/15/2024 Refill [facility] [address] [place] [address] Lisbeth Felton ANP [address] [place] [address] Social History Tobacco Use Types Packs/Day Years [...] Description 11/26/2024 10:30 AM EDT Medication Management [facility] [address] [place] [address] Scott Riley PharmD [address] [place] [address] 01/12/2025 3:15 PM EDT Office Visit [address] [address] Jennifer Brown MD [address] [place] [address] documented as of this encounter Visit Diagnoses Not on filedocumented in this encounter Additional Health Concerns Assessment Noted Time PHQ-9 Depression Total Score: 5 03/11/20 24 11:51 AM EDT documented as of this encounter Care Teams Women'S Swim Coach Relationship Specialty Start Date End Date Jennifer Brown MD [address] [place] [address] PCP - General Family Medicine 07/15/18 Scott Riley, PharmD [address] [place] [address] Pharmacist Internal Medicine 07/01/24 documented as of this encounter
--- OUTSIDE RECORDS SUMMARY | 2024-11-11 15:54 | XMS_ITS | Clinical Summary ---
Author Organization [employer] [facility] ity Address [address] [place] [address] Care Team Providers Care Mud Jack Nozzle Worker Name Role Phone Unavailable Primary Care Provider [...]
--- OUTSIDE RECORDS SUMMARY | 2024-11-11 15:54 | XMS_ITS | Encounter Summary ---
Author Organization [employer] Address 75 [facility] 7t [place] [address] Care Team Providers Care Curve Saw Operator Name Role Phone Jennifer Brown MD Primary Care Provider [phone] Scott Riley PharmD Unavailable [phone] Reason for Visit * Reason Onset Date Comments Med Refill 10/26/2024 Encounter Details Date Type Department Care Team (Late st Contact Info) Description 10/26/2024 Refill [facility] MED[facility] [address] [place] [address] Jennifer Brown MD [address] [place] [address] Social History Tobacco Use Types Packs/Day Years [...] Description 11/26/2024 10:30 AM EDT Medication Management [facility] [address] [place] [address] Scott Riley, PharmD [address] [place] [address] 01/12/2025 3:15 PM EDT Office Visit [address] [address] Jennifer Brown MD [address] [place] [address] documented as of this encounter Visit Diagnoses Not on filedocumented in this encounter Additional Health Concerns Assessment Noted Time PHQ-9 Depression Total Score: 5 03/11/20 24 11:51 AM EDT documented as of this encounter Care Teams Curve Saw Operator Relationship Specialty Start Date End Date Jennifer Brown MD [address] [place] [address] PCP - General Family Medicine 07/15/18 Scott Riley, PharmD [address] [place] [address] Pharmacist Internal Medicine 07/01/24 documented as of this encounter
--- OUTSIDE RECORDS SUMMARY | 2024-11-11 15:54 | XMS_ITS | Encounter Summary ---
Author Organization [employer] Address 75 [facility] 7t [place] [address] Care Team Providers Care Pulmonologist Intensivist Name Role Phone Jennifer Brown MD Primary Care Provider [phone] Scott Riley PharmD Unavailable [phone] Reason for Visit * Reason Onset Date Comments PA 10/27/2024 Encounter Details Date Type Department Care Team ([facility] st Contact Info) Description 10/27/2024 Telephone [facility] [address] [place], [place] [phone] Jennifer Brown MD [address] [place], [place] [phone] PA Social History Tobacco Use Types Packs/Day [...] with others, in a hotel, in a penitentiary, living outside on the street, on a [...] PA for [employer] signed and faxed to [employer]. Confirmation received and sent to scan. If patient calls to check status on above, please advise them to contact [facility] at [phone]. * Telephone Encounter - Alex Edwards - [...] Description 11/26/2024 10:30 AM EDT Medication Management [facility] [address] [place] [address] Scott Riley, PharmLucila [address] [place] [address] 01/12/2025 3:15 PM EDT Office Visit [facility] [address] [place] [address] Jennifer Brown MD [address] [place] [address] documented as of this encounter Visit Diagnoses Not on filedocumented in this encounter Additional Health Concerns Assessment Noted Time PHQ-9 Depression Total Score: 5 03/11/20 24 11:51 AM EDT documented as of this encounter Care Teams Pulmonologist Intensivist Relationship Specialty Start Date End Date Jennifer Brown MD [address] [place] [address] PCP - General Family Medicine 07/15/18 Scott Riley, PharmD [address] [place] [phone] Pharmacist Internal Medicine 07/01/24 documented as of this encounter
--- OUTSIDE RECORDS SUMMARY | 2024-11-11 15:54 | XMS_ITS | Encounter Summary ---
Author Organization [employer] Address 75 [facility] 7t [place] [address] Care Team Providers Care Nursing Informatics Clinical Analyst Name Role Phone Jennifer Brown MD Primary Care Provider [phone] Scott Riley PharmD Unavailable [phone] Reason for Visit * Reason Onset Date Comments Med Refill 05/15/2024 Encounter Details Date Type Department Care Team (Late st Contact Info) Description 05/15/2024 Refill [facility] [address] [place] [address] Jennifer Brown MD [address] [place] [address] Social History Tobacco Use Types Packs/Day Years [...] Description 11/26/2024 10:30 AM EDT Medication Management [facility] MED[facility] [address] [place] [address] Scott Riley, PharmD [address] [place] [address] 01/12/2025 3:15 PM EDT Office Visit [address] [address] Jennifer Brown MD [address] [place] [address] documented as of this encounter Visit Diagnoses Not on filedocumented in this encounter Additional Health Concerns Assessment Noted Time PHQ-9 Depression Total Score: 5 03/11/20 24 11:51 AM EDT documented as of this encounter Care Teams Nursing Informatics Clinical Analyst Relationship Specialty Start Date End Date Jennifer Brown MD [address] [place] [address] PCP - General Family Medicine 07/15/18 Scott Riley, PharmD [address] [place] [address] Pharmacist Internal Medicine 07/01/24 documented as of this encounter
--- OUTSIDE RECORDS SUMMARY | 2024-11-11 15:54 | XMS_ITS | Encounter Summary ---
Author Organization [employer] Address 75 [facility] 7t [place] [address] Care Team Providers Care Electromechanical Inspector Name Role Phone Jennifer Brown MD Primary Care Provider [phone] Scott Riley PharmD Unavailable [phone] Reason for Visit * Reason Onset Date Comments Med Refill 11/07/2023 Encounter Details Date Type Department Care Team (Late st Contact Info) Description 11/07/2023 Refill [facility] [address] [place] [address] Jennifer Brown MD [address] [place] [address] Vitamin D insufficiency Social History Tobacco Use [...] Description 11/26/2024 10:30 AM EDT Medication Management [facility] [address] [place] [phone] Scott Riley, Teresa [address] [place] [address] 01/12/2025 3:15 PM EDT Office Visit [facility] [address] [place] [address] Jennifer Brown MD [address] [place] [address] documented as of this encounter Visit Diagnoses Diagnosis Vitamin D insufficiency documented in this encounter Additional Health Concerns Assessment Noted Time PHQ-9 Depression Total Score: 0 07/12/20 22 10:25 AM EST documented as of this encounter Care Teams Electromechanical Inspector Relationship Specialty Start Date End Date Jennifer Brown MD [address] [place] [address] PCP - General Family Medicine 07/15/18 Scott Riley, PharmD [address] [place] [address] Pharmacist Internal Medicine 07/01/24 documented as of this encounter
--- OUTSIDE RECORDS SUMMARY | 2024-11-11 15:54 | XMS_ITS | Encounter Summary ---
Author Organization [employer] Address 75 [facility] 7t [place] [address] Care Team Providers Care Brand Recorder Name Role Phone Jennifer Brown MD Primary Care Provider [phone] Scott Riley PharmD Unavailable [phone] Reason for Visit * Reason Onset Date Comments Appointment Request 11/09/2024 Encounter Details Date Type Department Care Team ([facility] st Contact Info) Description 11/09/2024 Telephone [facility] [address] [place] [address] Jennifer Brown MD [address] [place] [address] Appointment Request Social History Tobacco Use Types [...] Description 11/26/2024 10:30 AM EDT Medication Management [facility] [address] [place] [address] Scott Riley, PharmD [address] [place] [address] 01/12/2025 3:15 PM EDT Office Visit [facility] [address] [place] [phone] Jennifer Brown MD [address] [place] [address] documented as of this encounter Visit Diagnoses Not on filedocumented in this encounter Additional Health Concerns Assessment Noted Time PHQ-9 Depression Total Score: 5 03/11/20 24 11:51 AM EDT documented as of this encounter Care Teams Brand Recorder Relationship Specialty Start Date End Date Jennifer Brown MD [address] [place] [address] PCP - General Family Medicine 07/15/18 Scott Riley, AnabellaD [address] [place] [address] Pharmacist Internal Medicine 07/01/24 documented as of this encounter
== END 2024-11-11 15:29 | disposition home or self-care (01) ==
LOC: HO.HWS 14:46
PROVIDERS: PCP Family Medicine; Visit Provider Obstetrics & Gynecology
DX: D25.9 Leiomyoma of uterus, unspecified (principal); R93.89 Abnormal findings on diagnostic imaging of other specified body structures
CPT/HCPCS: 99213

== ENCOUNTER → 2024-11-11 14:46 | Outpatient (BNVA) | payer MEDICAID, SELFPAY | PROVIDERS: PCP Family Medicine; Visit Provider Obstetrics & Gynecology | DX: D25.9 Leiomyoma of uterus, unspecified (principal); R93.89 Abnormal findings on diagnostic imaging of other specified body structures | CPT/HCPCS: 99212 ==

== ENCOUNTER 2024-11-16 10:28 | Outpatient (AMB) | payer MEDICAID, SELFPAY ==
--- NOTE | 2024-11-16 10:55 | MHC.OFFVIS ---
Intake Visit Reasons: 6m/PVR Intake Note: Patient presents today for a 6 month follow up/PVR Urology Medication: Oxybutynin Antibiotic Allergies:None Blood Thinners: None PVR:91ml Center Sales And Service Associate Required: Yes Center Sales And Service Associate Name: [id number] Accompanied by: Self / Same As Patient Allergies No Known Allergies Allergy (Verified 11/16/24 11:06) Medication List - Last Reconciled 11/16/24 by VALENTÍN Lewis-WAN acetaminophen 500 - 1,000 mg PO Q8H PRN bisacodyl (Dulcolax (bisacodyl)) 10 mg (2 x 5 mg) PO BEDTIME 2 days chlorthalidone 12.5 mg PO DAILY cholecalciferol (vitamin D3) 25 mcg PO DAILY diclofenac sodium 1% 2 grams topical BID PRN dicyclomine 20 mg PO QID famotidine 20 mg PO BID linaclotide (Linzess) 72 mcg PO QAM lisinopril 40 mg PO DAILY naproxen 500 mg PO BID omeprazole 20 mg PO DAILY 30 days oxybutynin chloride ER 10 mg PO DAILY 90 days rosuvastatin 40 mg PO DAILY simethicone 180 mg PO QID tirzepatide (weight loss) (Zepbound) mg subcut QWEEK tirzepatide (weight loss) (Zepbound) mg subcut QWEEK HPI Comments Details: Yoana is a very pleasant 53-year-old Surinamese-speaking female patient of Dr. Brown. She has a past medical history of gastritis, constipation, fibroma, hypertension, hypercholesteremia, and depression. She presents to the office today for follow-up of her overactive bladder In discussion with the patient today she discusses having followed up with tool sharpener in his having upcoming surgical procedure with Dr. Meliton adamson and will be undergoing hysteroscopy D&C possible polypectomy/myomectomy. She reports noting ongoing issues with urinary frequency and bladder pressure. She reports initially upon initiation of oxybutynin she did feel improvement in lower urinary tract symptoms however feels they have returned. We discussed potential causes of these lower urinary tract symptoms. In office urinalysis results reviewed with the patient today. PVR 91 mL. We discussed further treatment options and risks and benefits of these treatment options. Previous workup has included a retroperitoneal ultrasound 10/05 noting bilateral kidneys with no calculi, lesions, and or hydronephrosis. The bladder is distended and normal. Bilateral ureteral jets are demonstrated. Pre void bladder volume is approximately 200 mL. Postvoid bladder volume is approximately 15 mL. Unremarkable retroperitoneal examination. She denies hematuria, dysuria, foul smelling urine, changes to urinary stream, flank pain, fever, and or chills. She otherwise offers no other issues or concerns at this time. [facility] Medical History Left sided abdominal pain Pre-op examination FH: breast cancer Encounter for annual routine gynecological examination Family history of cancer Urinary urgency Well woman exam Perimenopause Diarrhea in adult patient Gastritis Fibroma Hypertension High cholesterol Depression Surgical History History of esophagogastroduodenoscopy (EGD) Hx of colonoscopy History of tubal ligation Family History Mother Colon cancer Sister Uterine cancer Sister Uterine cancer Other Diabetes HTN (hypertension) Heart problem Social History Alcohol intake: never Patient Tobacco Use Status: Never used Tobacco Gender identity: Female Female Reproductive History Menstrual Age of Menarche: 11 Review of Systems Const Reports no additional complaints Eyes Reports no additional complaints ENT Reports no additional complaints Card Reports as per HPI Resp Reports no additional complaints GI Reports as per HPI Reports as per HPI Musc Reports no additional complaints Neuro Reports no additional complaints Psych Reports as per HPI Endo Reports no additional complaints Armen/Lymph Reports no additional complaints Aller/Immun Reports no additional complaints Physical Exam Const General: cooperative, healthy appearing, comfortable, no acute distress, well developed, alert and awake Nutritional Appearance: overweight Orientation/consciousness: patient oriented x3 Limitations: no limitations HEENT Head: Yes normal to inspection, Yes normocephalic and Yes atraumatic Ears: hearing grossly normal bilaterally Eyes General: appearance normal, both eyes and all related structures Neck Neck: Yes normal visual inspection and Yes trachea midline Chest Chest palpation & inspection: normal inspection of the chest Resp Effort & Inspection: normal respiratory effort and able to speak in complete sentences Cardio Rate: regular rate GI Inspection: Yes normal to inspection General: Yes no CVA tenderness Back/Spine/Pelvis Back: no CVA tenderness Skin General skin exam: no rashes or lesions noted Neuro General: patient oriented x3 Extrem General: Yes normal to inspection Psych Appearance: grossly normal and well kempt Mental Status: mental status grossly normal Speech and movement: Normal speech and movement present and Clear speech present Affect: normal affect Attitude: cooperative Thought process: Normal thought process present Thought content: Normal thought content present Insight: Fair insight present (Psych) Judgement: Fair judgement present (Psych) Results AMB Urinalysis, Automated UA Leukoctes 0 Cole/uL Last Edit by Dian Martinez on 11/16/24 11:12 UA Nitrite Negative Last Edit by Dian Martinez on 11/16/24 11:12 UA Urobilinogen 0.2 mg/dL Last Edit by Dian Martinez on 11/16/24 11:12 UA Protein 0 mg/dL Last Edit by Dian Martinez on 11/16/24 11:12 UA pH 5.0 Last Edit by Dian Martinez on 11/16/24 11:12 UA Blood 0 Elfego/uL Last Edit by Dian Martinez on 11/16/24 11:12 UA Specific [place] 1.025 Last Edit by Dian Martinez on 11/16/24 11:12 UA Ketone Negative Last Edit by Dian Martinez on 11/16/24 11:12 UA Bilirubin 0 mg/dL Last Edit by Dian Martinez on 11/16/24 11:12 UA Glucose 0 mg/dL Last Edit by Dian Martinez on 11/16/24 11:12 Results Reviewed Results Reviewed: Laboratory Last Values Urine pH (Auto) 5.0 11/16/24 08:11 Specific [place] (Auto) 1.025 11/16/24 08:11 Urine Protein (Auto) 0 mg/dL 11/16/24 08:11 Glucose (UA)(Auto) 0 mg/dL 11/16/24 08:11 Urine Ketones (Auto) Negative 11/16/24 08:11 Urine Blood (Auto) 0 Elfego/uL 11/16/24 08:11 Urine Nitrite (Auto) Negative 11/16/24 08:11 Urine Bilirubin (Auto) 0 mg/dL 11/16/24 08:11 Urine Urobilinogen (Auto) 0.2 mg/dL 11/16/24 08:11 Leukocyte Esterase (Auto) 0 Cole/uL 11/16/24 08:11 Assessment & Plan Assessment & Plan (1) Urinary frequency: Code(s): R35.0 - Frequency of micturition Category: Medical (2) Sensation of pressure in bladder area: Code(s): R39.89 - Other symptoms and signs involving the genitourinary system Category: Medical Plan In office urinalysis results reviewed with the patient today; as noted above. PVR 91 mL. We discussed at length potential causes of bladder pressure as well as urinary frequency and further treatment options and risks and benefits of these treatment options. Stop oxybutynin. Start Myrbetriq as discussed and prescribed. We discussed potential near future in office cystoscopy and or urodynamics for further assessment evaluation. We discussed bladder triggers/irritants. We discussed importance of adequate hydration relation to lower urinary tract symptoms as well as overall health and well-being. Follow-up in 1-3 months with PVR; or sooner with any issues, concerns, and or questions. Orders: Orders AMB Urinalysis Automated Today Z13.9 - Encounter for screening, unspecified AMB Post Void Residual by ultrasound Today R35.0 - Frequency of micturition Patient Instructions: The patient had an opportunity to ask questions regarding the treatment plan. All questions were answered. Physical exam, labs, and imaging were discussed and reviewed in detail. As well as risks, benefits, and discussion of treatment choices. No major barriers to understanding were identified. The patient expressed understanding and agreement with the above treatment plan. The patient was made aware they should contact our office by phone for worsening of their current condition, the appearance of new symptoms, or with any questions or concerns. Compliance is encouraged with any medications and follow up testing that is ordered. It is a privilege to be allowed the opportunity to participate in? your urological care.? Again, if you have any questions or concerns If you have any questions or concerns please do not hesitate to contact me. The office is [phone]. This note is constructed using voice recognition software. While every effort has been made to ensure accuracy workers' compensation claims supervisor errors may have been included. Yours sincerely, CLAUDE Lewis Coding Level of Care Code Est Pt Level 4 (36162) Diagnoses Urinary frequency R35.0 Sensation of pressure in bladder area R39.89
--- OUTSIDE RECORDS SUMMARY | 2024-11-16 11:52 | XMS_ITS | Clinical Summary ---
Author Organization [employer] [facility] ity Address [address] [place] [address] Care Team Providers Care Power Generation Engineer Name Role Phone Unavailable Primary Care Provider [...]
--- OUTSIDE RECORDS SUMMARY | 2024-11-16 11:52 | XMS_ITS | Encounter Summary ---
Author Organization [employer] Address [address] [facility] 7t [place] [address] Care Team Providers Care Gas Singer Name Role Phone Jennifer Brown MD Primary Care Provider [phone] Scott Riley PharmD Unavailable [phone] Reason for Visit * Reason Onset Date Comments Med Refill 07/15/2024 Encounter Details Date Type Department Care Team (Late st Contact Info) Description 07/15/2024 Refill [facility] [address] [place] [address] Jennifer Brown MD [address] [place] [address] Social History Tobacco Use Types Packs/Day Years [...] Description 11/26/2024 10:30 AM EDT Medication Management [facility] [address] [place] [phone] Scott Riley, PharmD [address] [place] [phone] 01/12/2025 3:15 PM EDT Office Visit [address] [address] Jennifer Brown MD [address] [place] [phone] documented as of this encounter Visit Diagnoses Not on filedocumented in this encounter Additional Health Concerns Assessment Noted Time PHQ-9 Depression Total Score: 5 03/11/20 24 11:51 AM EDT documented as of this encounter Care Teams Gas Singer Relationship Specialty Start Date End Date Jennifer Brown MD [address] [place] [phone] PCP - General Family Medicine 07/15/18 Scott Riley, PharmD [address] [place] [address] Pharmacist Internal Medicine 07/01/24 documented as of this encounter
--- OUTSIDE RECORDS SUMMARY | 2024-11-16 11:52 | XMS_ITS | Clinical Summary ---
Author Organization [employer] Address [address] [facility] [address] [place] [address] Care Team Providers Care Telephone Lineman Name Role Phone Jennifer Brown MD Primary Care Provider [phone] Scott Riley PharmD Unavailable [phone] Allergies No known active allergies Medications * [...] times daily. 180 tablet 10/28/19 25 Active naproxen (Naprosyn) 500 MG tabletIndication [...] Plan (03/11/2024 4:36 AM EDT): -Followed by [facility] -Continue working on fiber-rich diet -Continue linaclotide Assessment & Plan (07/15/2022 4:57 PM EST): -Followed by [facility] -Continue working on fiber-rich diet -Continue [...] Plan (10/10/2024 7:27 AM EDT): -Evaluated by [facility] Assessment & Plan (03/11/2024 4:38 AM EDT): -Evaluated by [facility] -Anticipating shrinkage since she is going through menopause Assessment & Plan (07/15/2022 5:07 PM EST): -Evaluated by [facility] -Anticipating shrinkage since she is going through [...] prep. -Recommended repeat in 3 yrs -Called [facility] office; they will review her pathology report and will contact pt Assessment & Plan (07/15/2022 4:59 PM EST): -Family Hx colon cancer -10/21/18 Colonoscopy: ascending colon polyp (tubular adenoma), diverticulosis, poor prep. -Recommended repeat in 3 yrs -Called [facility] office; they will review her pathology [...] Type Department Care Team Description 11/09/2024 Telephone [facility] [address] [place] [address] Jennifer Brown MD Appointment Request 11/05/2024 Telephone [facility] [address] [place] [address] Brianna Christy MA dany recall 10/27/2024 Telephone [facility] [address] [place] [address] Jennifer Brown MD PA 10/26/2024 Refill [facility] [address] [place] [address] Jennifer Brown MD 10/26/2024 Refill [facility] [address] [place], [place] [phone] Jennifer Brown MD 10/26/2024 Refill [facility] [address] [place] [phone] Jennifer Brown MD Vitamin D insufficiency 10/26/2024 Refill [facility] [address] [place] [address] Jennifer Brown MD Viral syndrome; Trochanteric bursitis of both hips 10/21/2024 Refill [facility] [address] [place] [address] Jennifer Brown MD Trochanteric bursitis of both hips 10/16/2024 Refill [facility] [address] [place] [phone] Jennifer Brown MD 10/13/2024 Orders Only [facility] External Provider, [facility] 10/07/2024 Telephone [facility] [address] [place] [phone] Jennifer Brown MD 10/06/2024 3:30 PM EDT Office Visit [facility] [address] [place] [phone] Jennifer Brown MD Primary hypertension (Primary Dx); Class 3 severe obesity due to excess calories with body mass index (BMI) of 40.0 to 44.9 in adult, unspecified whether serious comorbidity present (CMS/HCC); Dyslipidemia; Leiomyoma 10/06/2024 Travel 10/02/2024 Telephone [facility] [address] [place] [phone] Jennifer Brown MD chart prep 09/28/2024 Refill [facility] [address] [place] [phone] Jennifer Brown MD Viral syndrome 09/25/2024 Population Health Risk Score [facility] ([facility] Department [address] [place] [phone] Provider, Population Health Generic 09/08/2024 2:15 PM EST Office Visit [facility] [address] [place] [address] Handy, Ni, OD Presbyopia (Primary Dx) 09/01/2024 Refill [facility] [address], [place] [address] Jennifer Brown MD 08/28/2024 Orders Only [facility] [address] [place] [address] Jennifer Brown MD 08/21/2024 Telephone [facility] [address] [place] [phone] Jennifer Brown MD 08/21/2024 Travel from Last 3 Months Immunizations Name [...] Description 11/26/2024 10:30 AM EDT Medication Management [facility] [address] [place] [phone] Scott Riley, PharmD [address] [place] [phone] 01/12/2025 3:15 PM EDT Office Visit [facility] [address] [place] [phone] Jennifer Brown MD [address] [place] [phone] Health Maintenance Due Date Last Done Comments CT Colonography 1969 FIT DNA/Cologuard 1969 FIT 1969 FOBT 1970 Sigmoidoscopy 1970 Pneumococcal Vaccine: 50+ Years (1 of 1 - PCV) 12/07/2019 Colonoscopy 10/21/2021 10/21/2018 Colorectal Cancer Screening 10/21/2021 COVID-19 Vaccine ( - season) 2024 Influenza Vaccine (#1) 2024 05/18/2014 SDOH Screening 02/27/2025 02/28/2024 Alcohol/Substance Use Screening 03/11/2025 03/11/2024 Depression Screening 03/11/2025 03/11/2024, 03/11/20 Mammogram 08/07/2025 08/07/2023, 07/15, 08/01/2022, Additional history [...] EDT Narrative 10/14/2024 7:16 AM EDT ? [facility] ?[address] ?[place] [address] ? Ultrasound Report ? Signed ? Patient: Prather,Yoana ?MR#: [id number] ?? 59 ? : 1970 ?Acct:[id number] ? Age/Sex: 53 / F ?ADM Date: 04/01/25 ? Loc: HO.US ? Attending Dr: Deepti Gibson CNM ? Ordering Physician: Deepti Gibson CNM ?? Date of Service: 10/13/24 ?? Procedure(s): US pelvic and transvaginal ?? Accession Number(s): [id number] ? cc: Deepti Gibson CNM; Jennifer Brown [...] DD/ 06 ? TD/TT: 10/13/24 1319 ? Generation Technologist: ? Procedure Note Donsandrine, Ken - 10/14/[address] [address] Ultrasound Report Signed Patient: Yoana PratherMR#: [id number] 59 : 1970Acct:[id number] Age/Sex: 53 / FADM Date: 10/13/24 Loc: HO.US Attending Dr: Deepti Gibson CNM Ordering Physician: Deepti Gibson CNM Date of Service: 10/13/24 Procedure(s): US pelvic and transvaginal Accession Number(s): [id number] cc: Deepti Gibson CNM; Jennifer Brown MD [...] Emre Julio MD 10/14/2024 07:13 AM EDT RP Dictated By: Emre Julio MD Signed By: <Electronically signed by Emre Julio MD in OV> 10/14/24 0713 DD/ 1307 TD/TT: 10/13/24 1319 Generation Technologist: [facility] External Provider IMG US PROCEDURES Edited Result - Final * Hepatic Function Panel (08/28/2024 11:03 AM EST) Bilirubin, Total 0.3 0.0 - 1.0 mg/dL [facility] Bilirubin, Direct 0.1 0.0 - 0.5 mg/dL [facility] Aspartate Amino Transferase 21 5 - 31 U/L [facility] Alanine Aminotransferase 27 0 - 31 U/L [facility] Total Protein 7.4 6.5 - 8.0 g/dL [facility] Albumin Level 3.9 3.5 - 5.0 g/dL [facility] Alkaline Phosphatase 106 39 - 117 U/L [facility] 08/28/2024 11:0 3 AM EST 08/28/2024 1:10 PM EST Jennifer Brown MD LAB BLOOD ORDERABLES Final Resul t [facility] [address] [place] [phone] * (ABNORMAL) Lipid Panel, Standard (08/28/2024 11:03 AM EST) Triglycerides 128 <150 mg/dL [facility] Comment:Desirable Triglyceri de: less than 150 mg/dLBorderline High Triglyceride 150-199 mg/dLHigh Triglyceride: 200-499 mg/dLVery High Triglyceride: greater than or equal to 5OO mg/dL Cholesterol 258(H) <200 mg/dL [facility] Comment:Desirable Cholestero l: less than 200 mg/dLBorderline High Cholesterol: 200-239 mg/dLHigh Cholesterol: greater than 239 mg/dL LDL Cholesterol Calculated 184(H) <100 mg/dL [facility] Comment:Desirable LDL: less than 100 mg/dLNear Optimal/Above Optimal LDL: 110- 129 mg/dLBorderline High LDL: 130-159 mg/dLHigh LDL: 160-189 mg/dLVery High LDL: greater than or equal to 190 mg/dL HDL Cholesterol 49 >40 mg/dL [facility] Comment:Desirable HDL: great er than 40 mg/dL Note: This HDL assay may give artificially low results in patients with liver disease. 08/28/2024 11:0 3 AM EST 08/28/2024 1:10 PM EST us Jennifer Brown MD LAB BLOOD ORDERABLES Final Resul t [facility] [address] [place] [phone] * (ABNORMAL) Basic Metabolic Panel (08/28/2024 11:03 AM EST) Sodium 137 135 - 145 mmol/L [facility] Potassium 4.3 3.3 - 5.1 mmol/L [facility] Chloride 108 96 - 108 mmol/L [facility] Carbon Dioxide 22 22 - 29 mmol/L [facility] Anion Gap 11(L) 12 - 20 [facility] Urea Nitrogen (BUN) 16 9 - 16 mg/dL [facility] Creatinine, Serum 0.58 0.5 - 1.4 mg/dL [facility] Estimated Glomerular Filt Rate >60 [facility] Comment:Chronic Kidney Disea se: Estimated GFR < 60 mL/min/1.28p4Xkpkby Kidney Disease: Estimated GFR < 15 mL/min/1.73m2 Glucose 83 60 - 115 mg/dL [facility] Calcium 9.1 8.4 - 10.2 mg/dL [facility] 08/28/2024 11:0 3 AM EST 08/28/2024 1:10 PM EST us Jennifer Brown MD LAB BLOOD ORDERABLES Final Resul t [facility] [address] [facility] [place] [place] [address] [phone] * BI Mammogram Screening Tomosynthesis Bilateral (08/07/2023 12:04 PM EST) Anatomical Region Laterality Modality Breast Bilateral Mammography 08/07/2023 12:0 4 PM EST Narrative 08/20/2023 6:14 AM EST ? [facility] ? [address] ?[place] [address] ? Mammography Report ? Signed ? Patient: Prather,Yoana ?MR#: [id number] ?? 59 ? : 1970 ?Acct:[id number] ? Age/Sex: 52 / F ?ADM Date: //24 ? Loc: HO.MAMMO ? Attending Dr: Jennifer Brown MD ? Ordering Physician: Jennifer Brown MD ?Results: 1Negative ? Date of Service: //24 ?Follow Up: 1 Year From Orig ?? inal Mammogram ? Procedure(s): MM tomosynthesis screening BI ?? Accession Number(s): [id number] ? cc: Jennifer Brown MD ? EXAMINATION: [...] Mariposa Cantu MD in OV> ? 08/20/23 06 ? DD/ 1204 ? TD/TT: ? Generation Technologist: ? Procedure Note Ken Otero - 08/20/2023 [facility] [address] [place] [address] Dr. [place], [place] [address] Mammography Report Signed Patient: Yoana PratherMR#: [id number] 59 : 1970Acct:[id number] Age/Sex: 52 / FADM Date: 08/07/23 Loc: HO.MAMMO Attending Dr: Jennifer Brown MD Ordering Physician: Jennifer Brown MDResults: 1Negative Date of Service: 08/07/23Follow Up: 1 Year From Orig ina Mammogram Procedure(s): MM tomosynthesis screening BI Accession Number(s): [id number] cc: Jennifer Brown MD EXAMINATION: MM SCREENING [...] in OV> 08/20/23 0610 DD/ 1204 TD/TT: Generation Technologist: us Jennifer Brown MD IMG BI PROCEDURES Edited Result - Final * Hepatitis C Ab (08/01/2023 10:52 AM EST) Hepatitis C Antibody Nonreactive Nonreactive [facility] Comment:Antibodies to HCV no t detected; does not exclude early acuteHCV infection. 08/01/2023 10:5 2 AM EST 08/01/2023 10:52 AM EST us Generic External Data Provider LAB BLOOD ORDERAB LES Final Result [facility] [address] [place] [address] [phone] * HIV-1/2 Antigen and Antibodies, Fourth Generation, with Reflexes (08/01/2023 10:52 AM EST) Pathologist [facility] HIV AB/AG Nonreactive Nonreactive [facility] Comment:HIV-1 p24 Ag and/or HIV-1/HIV-2 Ab not detected.A test result that is nonreactive does not exclude thepossibility of exposure to or infection with HIV-1 and/orHIV-2. Nonreactive results in this assay for individualswith prior exposure to HIV-1 and/or HIV-2 may be due toantigen and antibody levels that are below the limit ofdetection of this assay.The [employer] HIV Ag/Ab Combo assay result andsupplemental assay results should be interpreted inconjunction with the patient's clinical presentation,history and other laboratory results. If the results areinconsistent with clinical evidence, additional testing issuggested to confirm the result. 08/01/2023 10:5 2 AM EST 08/01/2023 10:52 AM EST us Generic External Data Provider LAB BLOOD ORDERAB LES Final Result [facility] [address] [place] [address] [phone] * Pap Smear (04/19/2021) Pathologist [facility] Pap Negative for intraephithelial lesion or malignancy Negative for intraephithelial lesion or malignancy, Other HPV Undetected Undetected, Indeterminate, Quantitative, Not Detected us Historical Provider HEALTH MAINTENANCE Final Result * Colonoscopy (10/21/2018) [facility] Colonoscopy Normal Normal us Historical Provider HEALTH MAINTENANCE Final Result from Last 3 Months or Most Recently Relevant to Health Maintenance Insurance [facility] C[facility] Care Teams Telephone Lineman Relationship Specialty Start Date End Date Jennifer Brown MD [address] [place] [address] PCP - General Family Medicine 07/15/18 Scott Riley, Teresa [address] [place] [address] Pharmacist Internal Medicine 07/01/24
--- OUTSIDE RECORDS SUMMARY | 2024-11-16 11:52 | XMS_ITS | Encounter Summary ---
Author Organization [employer] Address 75 [facility] 7t [place] [address] Care Team Providers Care Formulation Technician Name Role Phone Jennifer Brown MD Primary Care Provider [phone] Scott Riley PharmD Unavailable [phone] Reason for Visit * Reason Onset Date Comments Med Refill 11/07/2023 Encounter Details Date Type Department Care Team (Late st Contact Info) Description 11/07/2023 Refill [facility] [address] [place] [address] Jennifer Brown MD 230 [place] [address] Vitamin D insufficiency Social History Tobacco Use [...] Description 11/26/2024 10:30 AM EDT Medication Management [facility] MEDICINE [address] [place] [address] Scott Riley, Teresa [address] [place] [address] 01/12/2025 3:15 PM EDT Office Visit [facility] MEDICINE [address] [place] [address] Jennifer Brown MD [address] [place] [address] documented as of this encounter Visit Diagnoses Diagnosis Vitamin D insufficiency documented in this encounter Additional Health Concerns Assessment Noted Time PHQ-9 Depression Total Score: 0 07/12/20 22 10:25 AM EST documented as of this encounter Care Teams Formulation Technician Relationship Specialty Start Date End Date Jennifer Brown MD [address] [place] [address] PCP - General Family Medicine 07/15/18 Scott Riley, PharmD [address] [place] [address] Pharmacist Internal Medicine 07/01/24 documented as of this encounter
--- OUTSIDE RECORDS SUMMARY | 2024-11-16 11:52 | XMS_ITS | Encounter Summary ---
Author Organization [employer] Address 75 [facility] 7t [place] [address] Care Team Providers Care Match Up Worker Name Role Phone Jennifer Brown MD Primary Care Provider [phone] Scott Riley PharmD Unavailable [phone] Reason for Visit * Reason Onset Date Comments Med Refill 04/06/2024 Encounter Details Date Type Department Care Team (Late st Contact Info) Description 04/06/2024 Refill [facility] 230 [place] [address] Ayan Madsen MD 230 [place] [address] Social History Tobacco Use Types Packs/Day Years [...] Description 11/26/2024 10:30 AM EDT Medication Management [facility] MEDICINE [address] [place] [address] Scott Riley, PharmD [address] [place] [address] 01/12/2025 3:15 PM EDT Office Visit [address] [address] Jennifer Brown MD [address] [place] [address] documented as of this encounter Visit Diagnoses Not on filedocumented in this encounter Additional Health Concerns Assessment Noted Time PHQ-9 Depression Total Score: 5 03/11/20 24 11:51 AM EDT documented as of this encounter Care Teams Match Up Worker Relationship Specialty Start Date End Date Jennifer Brown MD [address] [place] [address] PCP - General Family Medicine 07/15/18 Scott Riley, PharmD 230 [place] [address] Pharmacist Internal Medicine 07/01/24 documented as of this encounter
--- OUTSIDE RECORDS SUMMARY | 2024-11-16 11:52 | XMS_ITS | Encounter Summary ---
Author Organization [employer] Address 75 [facility] 7t [place] [address] Care Team Providers Care Trailer Body Assembler Name Role Phone Jennifer Brown MD Primary Care Provider [phone] Scott Riley PharmD Unavailable [phone] Reason for Visit * Reason Onset Date Comments Med Refill 05/15/2024 Encounter Details Date Type Department Care Team (Late st Contact Info) Description 05/15/2024 Refill [facility] 230 [place] [address] Jennifer Brown MD 230 [place] [address] Social History Tobacco Use Types Packs/Day Years [...] Description 11/26/2024 10:30 AM EDT Medication Management [facility] [address] [place] [address] Scott Riley, PharmD [address] [place] [address] 01/12/2025 3:15 PM EDT Office Visit [address] [address] Jennifer Brown MD [address] [place] [address] documented as of this encounter Visit Diagnoses Not on filedocumented in this encounter Additional Health Concerns Assessment Noted Time PHQ-9 Depression Total Score: 5 03/11/20 24 11:51 AM EDT documented as of this encounter Care Teams Trailer Body Assembler Relationship Specialty Start Date End Date Jennifer Brown MD [address] [place] [address] PCP - General Family Medicine 07/15/18 Scott Riley, PharmD 230 [place] [address] Pharmacist Internal Medicine 07/01/24 documented as of this encounter
--- OUTSIDE RECORDS SUMMARY | 2024-11-16 11:52 | XMS_ITS | Encounter Summary ---
Author Organization [employer] Address 75 [facility] 7t [place] [address] Care Team Providers Care Web Site Designer Name Role Phone Jennifer Brown MD Primary Care Provider [phone] Scott Riley PharmD Unavailable [phone] Reason for Visit * Reason Onset Date Comments Med Refill 11/07/2023 Encounter Details Date Type Department Care Team (Late st Contact Info) Description 11/07/2023 Refill [facility] MED[facility]INE [address] [place] [address] Jennifer Brown MD 230 [place] [address] Trochanteric bursitis of both hips; Viral syndrome [...] 10:30 AM EDT Medication Management [facility] MED[facility] [address] [place] [address] Scott Riley, Teresa [address] [place] [address] 01/12/2025 3:15 PM EDT Office Visit [facility] MED[facility]INE [address] [place] [address] Jennifer Brown MD [address] [place] [address] documented as of this encounter Visit Diagnoses Diagnosis Trochanteric bursitis of both hips Viral syndrome Unspecified viral infection, in conditions classified elsewhere and of unspecified site documented in this encounter Additional Health Concerns Assessment Noted Time PHQ-9 Depression Total Score: 0 07/12/20 22 10:25 AM EST documented as of this encounter Care Teams Web Site Designer Relationship Specialty Start Date End Date Jennifer Brown MD [address] [place] [address] PCP - General Family Medicine 07/15/18 Scott Riley, PharmD [address] [place] [address] Pharmacist Internal Medicine 07/01/24 documented as of this encounter
--- OUTSIDE RECORDS SUMMARY | 2024-11-16 11:52 | XMS_ITS | Encounter Summary ---
Author Organization [employer] Address 75 [facility] 7t [place] [address] Care Team Providers Care Leather Leveler Name Role Phone Jennifer Brown MD Primary Care Provider [phone] Scott Riley PharmD Unavailable [phone] Reason for Visit * Reason Onset Date Comments Med Refill 07/15/2024 Encounter Details Date Type Department Care Team (Late st Contact Info) Description 07/15/2024 Refill [facility] [address] [place] [address] Jennifer Brown MD 230 [place] [address] Social History Tobacco Use Types Packs/Day Years [...] Description 11/26/2024 10:30 AM EDT Medication Management [facility] MEDICINE [address] [place] [address] Scott Riley, PharmD [address] [place] [address] 01/12/2025 3:15 PM EDT Office Visit [facility] MEDICINE [address] [place] [address] Jennifer Brown MD [address] [place] [address] documented as of this encounter Visit Diagnoses Not on filedocumented in this encounter Additional Health Concerns Assessment Noted Time PHQ-9 Depression Total Score: 5 03/11/20 24 11:51 AM EDT documented as of this encounter Care Teams Leather Leveler Relationship Specialty Start Date End Date Jennifer Brown MD [address] [place] [address] PCP - General Family Medicine 07/15/18 Scott Riley, PharmD [address] [place] [address] Pharmacist Internal Medicine 07/01/24 documented as of this encounter
--- OUTSIDE RECORDS SUMMARY | 2024-11-16 11:52 | XMS_ITS | Encounter Summary ---
Author Organization [employer] Address 75 [facility] 7t [place] [address] Care Team Providers Care Chief Innovation Officer Name Role Phone Jennifer Brown MD Primary Care Provider [phone] Scott Riley PharmD Unavailable [phone] Reason for Visit * Reason Onset Date Comments Med Refill 10/26/2024 Encounter Details Date Type Department Care Team (Late st Contact Info) Description 10/26/2024 Refill [facility] 230 [place] [address] Jennifer Brown MD 230 [place] [address] Vitamin D insufficiency Social History Tobacco Use [...] with others, in a hotel, in a chcf, living outside on the street, on a [...] Description 11/26/2024 10:30 AM EDT Medication Management [facility] MED[facility] [address] [place] [address] Scott Riley, PharmD [address] [place] [address] 01/12/2025 3:15 PM EDT Office Visit [facility] [address] [place] [address] Jennifer Brown MD [address] [place] [address] documented as of this encounter Visit Diagnoses Diagnosis Vitamin D insufficiency documented in this encounter Additional Health Concerns Assessment Noted Time PHQ-9 Depression Total Score: 5 03/11/20 24 11:51 AM EDT documented as of this encounter Care Teams Chief Innovation Officer Relationship Specialty Start Date End Date Jennifer Brown MD [address] [place] [address] PCP - General Family Medicine 07/15/18 Scott Riley, PharmD 230 [place] [address] Pharmacist Internal Medicine 07/01/24 documented as of this encounter
--- OUTSIDE RECORDS SUMMARY | 2024-11-16 11:52 | XMS_ITS | Encounter Summary ---
Author Organization [email or web address] Address 75 [facility] 7t [place] [address] Care Team Providers Care Double End Tenon Operator Name Role Phone Jennifer Brown MD Primary Care Provider [phone] Scott Riley PharmD Unavailable [phone] Reason for Visit * Reason Onset Date Comments Med Refill 10/26/2024 Encounter Details Date Type Department Care Team (Late st Contact Info) Description 10/26/2024 Refill [facility] MEDICINE 230 [place] [address] Jennifer Brown MD [address] [place] [address] Social History Tobacco Use Types Packs/Day Years [...] Description 11/26/2024 10:30 AM EDT Medication Management [facility] MEDICINE [address] [place] [address] Scott Riley, PharmD [address] [place] [address] 01/12/2025 3:15 PM EDT Office Visit [address] [address] Jennifer Brown MD [address] [place] [address] documented as of this encounter Visit Diagnoses Not on filedocumented in this encounter Additional Health Concerns Assessment Noted Time PHQ-9 Depression Total Score: 5 03/11/20 24 11:51 AM EDT documented as of this encounter Care Teams Double End Tenon Operator Relationship Specialty Start Date End Date Jennifer Brown MD [address] [place] [address] PCP - General Family Medicine 07/15/18 Scott Riley, PharmD 230 [place] [address] Pharmacist Internal Medicine 07/01/24 documented as of this encounter
--- OUTSIDE RECORDS SUMMARY | 2024-11-16 11:52 | XMS_ITS | Encounter Summary ---
Author Organization [employer] Address 75 [facility] 7t [place] [address] Care Team Providers Care Division Toll Wire Chief Name Role Phone Jennifer Brown MD Primary Care Provider [phone] Scott Riley PharmD Unavailable [phone] Reason for Visit * Reason Onset Date Comments Med Refill 10/26/2024 Encounter Details Date Type Department Care Team (Late st Contact Info) Description 10/26/2024 Refill [facility] MEDICINE 230 [place] [address] Jennifer Brown MD 230 [place] [address] Viral syndrome; Trochanteric bursitis of both hips [...] Description 11/26/2024 10:30 AM EDT Medication Management [facility] MEDICINE [address] [place] [address] Scott Riley, PharmD [address] [place] [address] 01/12/2025 3:15 PM EDT Office Visit [facility] MEDICINE [address] [place] [address] Jennifer Brown MD [address] [place] [address] documented as of this encounter Visit Diagnoses Diagnosis Viral syndrome Unspecified viral infection, in conditions classified elsewhere and of unspecified site Trochanteric bursitis of both hips documented in this encounter Additional Health Concerns Assessment Noted Time PHQ-9 Depression Total Score: 5 03/11/20 24 11:51 AM EDT documented as of this encounter Care Teams Division Toll Wire Chief Relationship Specialty Start Date End Date Jennifer Brown MD [address] [place] [address] PCP - General Family Medicine 07/15/18 Scott Riley, AnabellaD [address] [place] [address] [place] [address] Pharmacist Internal Medicine 07/01/24 documented as of this encounter
--- OUTSIDE RECORDS SUMMARY | 2024-11-16 11:52 | XMS_ITS | Encounter Summary ---
Author Organization [employer] Address 75 [facility] 7t [place] [address] Care Team Providers Care Insurance Claims Specialist Name Role Phone Jennifer Brown MD Primary Care Provider [phone] Scott Riley PharmD Unavailable [phone] Reason for Visit * Reason Onset Date Comments Med Refill 07/15/2024 Encounter Details Date Type Department Care Team (Late st Contact Info) Description 07/15/2024 Refill [facility] MED[facility] 230 [place] [address] Lisbeth Felton ANP [address] [place] [address] Social History Tobacco Use Types Packs/Day Years [...] [facility] MED[facility] [address] [place] [address] Scott Riley PharmD [address] [place] [address] 01/12/2025 3:15 PM EDT Office Visit [address] [address] Jennifer Brown MD [address] [place] [address] documented as of this encounter Visit Diagnoses Not on filedocumented in this encounter Additional Health Concerns Assessment Noted Time PHQ-9 Depression Total Score: 5 03/11/20 24 11:51 AM EDT documented as of this encounter Care Teams Insurance Claims Specialist Relationship Specialty Start Date End Date Jennifer Brown MD [address] [place] [address] PCP - General Family Medicine 07/15/18 Scott Riley, PharmD 230 [place] [address] Pharmacist Internal Medicine 07/01/24 documented as of this encounter
== END 2024-11-16 11:22 | disposition home or self-care (01) ==
LOC: HO.HUSH 10:29
PROVIDERS: PCP Family Medicine; Visit Provider Nurse Practitioner Family
DX: R35.0 Frequency of micturition (principal); R39.89 Other symptoms and signs involving the genitourinary system; Z13.9 Encounter for screening, unspecified
CPT/HCPCS: 99214

== ENCOUNTER → 2024-11-16 10:28 | Outpatient (BNVA) | payer MEDICAID, SELFPAY | PROVIDERS: PCP Family Medicine; Visit Provider Nurse Practitioner Family | DX: R35.0 Frequency of micturition (principal); R39.89 Other symptoms and signs involving the genitourinary system | CPT/HCPCS: 51798; 81003; 99212 ==

== ENCOUNTER 2024-11-26 11:50 | Day surgery (SDC) | payer MEDICAID, SELFPAY ==
--- OUTSIDE RECORDS SUMMARY | 2024-11-23 06:11 | XMS_ITS | Encounter Summary ---
Author Organization [employer] Address 75 [facility] 7t [place] [address] Care Team Providers Care Relationship Specialist Name Role Phone Jennifer Brown MD Primary Care Provider [phone] Scott Riley PharmD Unavailable [phone] Reason for Visit * Reason Onset Date Comments Med Refill 04/06/2024 Encounter Details Date Type Department Care Team (Late st Contact Info) Description 04/06/2024 Refill [facility] 230 [place] [address] Ayan Madsen MD [address] [place] [address] Social History Tobacco Use Types Packs/Day Years [...] AM EDT Medication Management [facility] MEDICINE [address] [place] [address] Scott Riley, AnabellaD [address] [place] [address] 01/12/2025 3:15 PM EDT Office Visit [address] [address] Jennifer Brown MD [address] [place] [address] documented as of this encounter Visit Diagnoses Not on filedocumented in this encounter Additional Health Concerns Assessment Noted Time PHQ-9 Depression Total Score: 5 03/11/20 24 11:51 AM EDT documented as of this encounter Care Teams Relationship Specialist Relationship Specialty Start Date End Date Jennifer Brown MD [address] [place] [address] PCP - General Family Medicine 07/15/18 Scott Riley, PharmD [address] [place] [address] Pharmacist Internal Medicine 07/01/24 documented as of this encounter
--- OUTSIDE RECORDS SUMMARY | 2024-11-23 06:11 | XMS_ITS | Encounter Summary ---
Author Organization [employer] Address 75 [facility] 7t [place] [address] Care Team Providers Care Cardiology Nurse Practitioner Name Role Phone Jennifer Brown MD Primary Care Provider [phone] Scott Riley PharmD Unavailable [phone] Reason for Visit * Reason Onset Date Comments Med Refill 07/15/2024 Encounter Details Date Type Department Care Team (Late st Contact Info) Description 07/15/2024 Refill [facility] MED [facility] P[facility] [address] [place] [address] Jennifer Brown MD 230 [place] [address] Social History Tobacco Use Types Packs/Day Years [...] 11/26/2024 10:30 AM EDT Medication Management [facility] MEDICINE [address] [place] [address] Scott Riley, PharmD [address] [place] [address] 01/12/2025 3:15 PM EDT Office Visit [address] [address] Jennifer Brown MD [address] [place] [address] documented as of this encounter Visit Diagnoses Not on filedocumented in this encounter Additional Health Concerns Assessment Noted Time PHQ-9 Depression Total Score: 5 03/11/20 24 11:51 AM EDT documented as of this encounter Care Teams Cardiology Nurse Practitioner Relationship Specialty Start Date End Date Jennifer Brown MD [address] [place] [address] PCP - General Family Medicine 07/15/18 Scott Riley PharmD [address] [place] [address] Pharmacist Internal Medicine 07/01/24 documented as of this encounter
--- OUTSIDE RECORDS SUMMARY | 2024-11-23 06:11 | XMS_ITS | Encounter Summary ---
Author Organization [employer] Address 75 [facility] 7t [place] [address] Care Team Providers Care Civil Clerk Name Role Phone Jennifer Brown MD Primary Care Provider [phone] Scott Riley PharmD Unavailable [phone] Reason for Visit * Reason Onset Date Comments Med Refill 07/15/2024 Encounter Details Date Type Department Care Team (Late st Contact Info) Description 07/15/2024 Refill [facility] MEDICINE 230 [place] [address] Jennifer Brown MD 230 [place] [address] Social History Tobacco Use Types Packs/Day Years [...] Description 11/26/2024 10:30 AM EDT Medication Management [facility] MEDICINE [address] [place] [address] Scott Riley, AnabellaD [address] [place] [address] 01/12/2025 3:15 PM EDT Office Visit [address] [address] Jennifer Brown MD [address] [place] [address] documented as of this encounter Visit Diagnoses Not on filedocumented in this encounter Additional Health Concerns Assessment Noted Time PHQ-9 Depression Total Score: 5 03/11/20 24 11:51 AM EDT documented as of this encounter Care Teams Civil Clerk Relationship Specialty Start Date End Date Jennifer Brown MD [address] [place] [address] PCP - General Family Medicine 07/15/18 Scott Riley, PharmD 230 [place] [address] Pharmacist Internal Medicine 07/01/24 documented as of this encounter
--- OUTSIDE RECORDS SUMMARY | 2024-11-23 06:11 | XMS_ITS | Clinical Summary ---
Author Organization [employer] [facility] Address [address] [place] [address] Care Team Providers Care Plumbing And Heating Mechanic Name Role Phone Unavailable Primary Care Provider [...]
--- OUTSIDE RECORDS SUMMARY | 2024-11-23 06:11 | XMS_ITS | Encounter Summary ---
Author Organization [employer] Address 75 [facility] 7t [place] [address] Care Team Providers Care Mid Level Java Developer Name Role Phone Jennifer Brown MD Primary Care Provider [phone] Scott Riley PharmD Unavailable [phone] Reason for Visit * Reason Onset Date Comments Med Refill 07/15/2024 Encounter Details Date Type Department Care Team (Late st Contact Info) Description 07/15/2024 Refill [facility] MEDICINE [address] [place] [address] Lisbeth Felton ANP [address] [place] [address] Social History Tobacco Use Types Packs/Day Years [...] 11/26/2024 10:30 AM EDT Medication Management [facility] MEDICINE [address] [place] [address] Scott Riley PharmD [address] [place] [address] 01/12/2025 3:15 PM EDT Office Visit [address] [address] Jennifer Brown MD [address] [place] [address] documented as of this encounter Visit Diagnoses Not on filedocumented in this encounter Additional Health Concerns Assessment Noted Time PHQ-9 Depression Total Score: 5 03/11/20 24 11:51 AM EDT documented as of this encounter Care Teams Mid Level Java Developer Relationship Specialty Start Date End Date Jennifer Brown MD [address] [place] [address] PCP - General Family Medicine 07/15/18 RileyScott PharmD [address] [place] [address] Pharmacist Internal Medicine 07/01/24 documented as of this encounter
--- OUTSIDE RECORDS SUMMARY | 2024-11-23 06:12 | XMS_ITS | Clinical Summary ---
Author Organization [employer] Address [address] [facility] 7t [place] [address] Care Team Providers Care Curbing Stonecutter Name Role Phone Jennifer Brown MD Primary Care Provider Scott Riley PharmD Unavailable [phone] Allergies No known active allergies Medications * [...] times daily. 180 tablet 10/28/19 25 Active famotidine (Pepcid) 20 MG tablet Take 1 tablet (20 mg) by mouth 2 times daily. 180 tablet 06/17/20 24 025 Discontinued(R eorder (will not trigger notification to Pharmacy)) Active Problems Problem Noted Date Diagnosed Date Anxiety 03/11/2024 Assessment & Plan (03/11/2024 11:18 AM EDT): - patient was seen by [facility] Adjustment disorder with mixed anxiety and depre [...] Plan (03/11/2024 4:36 AM EDT): -Followed by [facility] -Continue working on fiber-rich diet -Continue linaclotide Assessment & Plan (07/15/2022 4:57 PM EST): -Followed by [facility] -Continue working on fiber-rich diet -Continue [...] Plan (10/10/2024 7:27 AM EDT): -Evaluated by DIRECT MARKETING EXECUTIVE Assessment & Plan (03/11/2024 4:38 AM EDT): -Evaluated by DIRECT MARKETING EXECUTIVE -Anticipating shrinkage since she is going through menopause Assessment & Plan (07/15/2022 5:07 PM EST): -Evaluated by DIRECT MARKETING EXECUTIVE -Anticipating shrinkage since she is going through [...] prep. -Recommended repeat in 3 yrs -Called [facility] office; they will review her pathology report and will contact pt Assessment & Plan (07/15/2022 4:59 PM EST): -Family Hx colon cancer -10/21/18 Colonoscopy: ascending colon polyp (tubular adenoma), diverticulosis, poor prep. -Recommended repeat in 3 yrs -Called [facility] office; they will review her pathology [...] Type Department Care Team Description 11/09/2024 Telephone [facility] [address] [place] [address] Jennifer Brown MD Appointment Request 11/05/2024 Telephone [facility] [address] [place] [address] Brianna Christy [place] january recall 10/27/2024 Telephone [facility] [address] [place] [address] Jennifer Brown MD PA 10/26/2024 Refill [facility] [address] [place] [address] Jennifer Brown MD 10/26/2024 Refill [facility] [address] [place], [place] [phone] Jennifer Brown MD 10/26/2024 Refill [facility] [address] [place] [address] Jennifer Brown MD Vitamin D insufficiency 10/26/2024 Refill [facility] [address] [place] [address] Jennifer Brown MD Viral syndrome; Trochanteric bursitis of both hips 10/21/2024 Refill [facility] [address] [place] [address] Jennifer Brown MD Trochanteric bursitis of both hips 10/16/2024 Refill [facility] [address] [place] [address] Jennifer Brown MD 10/13/2024 Orders Only [facility] External Provider, [facility] 10/07/2024 Telephone [facility] [address] [place] [phone] Jennifer Brown MD 10/06/2024 3:30 PM EDT Office Visit [facility] [address] [place] [phone] Jennifer Brown MD Primary hypertension (Primary Dx); Class 3 severe obesity due to excess calories with body mass index (BMI) of 40.0 to 44.9 in adult, unspecified whether serious comorbidity present (CMS/LTAC, [facility]IN [facility]); Dyslipidemia; Leiomyoma 10/06/2024 Travel 10/02/2024 Telephone [facility] [address] [place] [phone] Jennifer Brown MD chart prep 09/28/2024 Refill [facility] [address] [place] [phone] Jennifer Brown MD Viral syndrome 09/25/2024 Population Health Risk Score [facility] ([facility] Department [address] [place] [address] [phone] Provider, Population Health Generic 09/08/2024 2:15 PM EST Office Visit [facility] OPTOM[facility] [address] [place] [address] Handy, Ni, OD Presbyopia (Primary Dx) 09/01/2024 Refill [facility] [address] [place] [address] Jennifer Brown MD 08/28/2024 Orders Only [facility] [address] [place] [phone] Jnenifer Brown MD from Last 3 Months Immunizations [...] 11/26/2024 10:30 AM EDT Medication Management [facility] [address] [place] [phone] Scott Riley, PharmD [address] [place] [phone] 01/12/2025 3:15 PM EDT Office Visit [facility] [address] [place] [phone] Jennifer Brown MD [address] [place] [address] Health Maintenance Due Date Last Done Comments [...] FUNCTION PANEL Routine 5 11:03 AM EST BI MAMMOGRAM SCREENING TOMOSYNTHESIS [...] EDT Narrative 10/14/2024 7:16 AM EDT ? [facility] ?[address] ?[place] [address] ? Ultrasound Report ? Signed ? Patient: Prather,Yoana ?MR#: [id number] ?? 59 ? : 1970 ?Acct:[id number] ? Age/Sex: 53 / F ?ADM Date: 04/01/25 ? Loc: HO.US ? Attending Dr: Deepti Gibson CNM ? Ordering Physician: Deepti Gibson CNM ?? Date of Service: 10/13/24 ?? Procedure(s): US pelvic and transvaginal ?? Accession Number(s): [id number] ? cc: Deepti Gibson CNM; Jennifer Brown [...] signed by Emre Julio MD in OV> ?10/14/24 0713 ? DD/ 1307 ? TD/TT: 10/13/24 1319 ? Heel Gouger: ? Procedure Note Shanna, Image - 10/14/[address] [address] Ultrasound Report Signed Patient: Yoana PratherMR#: [id number] 59 : 1970Acct:[id number] Age/Sex: 53 / FADM Date: 10/13/24 Loc: HO.US Attending Dr: Deepti Gibson CNM Ordering Physician: Deepti Gibson CNM Date of Service: 10/13/24 Procedure(s): US pelvic and transvaginal Accession Number(s): [id number] cc: Deepti Gibson CNM; Jennifer Brown MD [...] 10/14/2024 07:13 AM EDT RP Dictated By: Emer Julio MD Signed By: <Electronically signed by Emre Julio MD in OV> 10/14/24 0713 DD/ 1307 TD/TT: 10/13/24 1319 Heel Gouger: [facility] External Provider IMG US PROCEDURES Edited Result - Final * Hepatic Function Panel (08/28/2024 11:03 AM EST) Bilirubin, Total 0.3 0.0 - 1.0 mg/dL [facility] Bilirubin, Direct 0.1 0.0 - 0.5 mg/dL [facility] Aspartate Amino Transferase 21 5 - 31 U/L [facility] Alanine Aminotransferase 27 0 - 31 U/L [facility] Total Protein 7.4 6.5 - 8.0 g/dL [facility] Albumin Level 3.9 3.5 - 5.0 g/dL [facility] Alkaline Phosphatase 106 39 - 117 U/L [facility] 08/28/2024 11:0 3 AM EST 08/28/2024 1:10 PM EST Jennifer Brown MD LAB BLOOD ORDERABLES Final Resul t [facility] [address] [place] [phone] * (ABNORMAL) Lipid Panel, Standard (08/28/2024 11:03 AM EST) Triglycerides 128 <150 mg/dL [facility] Comment:Desirable Triglyceri de: less than 150 mg/dLBorderline High Triglyceride 150-199 mg/dLHigh Triglyceride: 200-499 mg/dLVery High Triglyceride: greater than or equal to 5OO mg/dL Cholesterol 258(H) <200 mg/dL [facility] Comment:Desirable Cholestero l: less than 200 mg/dLBorderline High Cholesterol: 200-239 mg/dLHigh Cholesterol: greater than 239 mg/dL LDL Cholesterol Calculated 184(H) <100 mg/dL [facility] Comment:Desirable LDL: less than 100 mg/dLNear Optimal/Above Optimal LDL: 110- 129 mg/dLBorderline High LDL: 130-159 mg/dLHigh LDL: 160-189 mg/dLVery High LDL: greater than or equal to 190 mg/dL HDL Cholesterol 49 >40 mg/dL [facility] Comment:Desirable HDL: great er than 40 mg/dL Note: This HDL assay may give artificially low results in patients with liver disease. 08/28/2024 11:0 3 AM EST 08/28/2024 1:10 PM EST us Jennifer Brown MD LAB BLOOD ORDERABLES Final Resul t [facility] [address] [place] [address] [phone] * (ABNORMAL) Basic Metabolic Panel (08/28/2024 11:03 AM EST) Sodium 137 135 - 145 mmol/L [facility] Potassium 4.3 3.3 - 5.1 mmol/L [facility] Chloride 108 96 - 108 mmol/L [facility] Carbon Dioxide 22 22 - 29 mmol/L [facility] Anion Gap 11(L) 12 - 20 [facility] Urea Nitrogen (BUN) 16 9 - 16 mg/dL [facility] Creatinine, Serum 0.58 0.5 - 1.4 mg/dL [facility] Estimated Glomerular Filt Rate >60 [facility] Comment:Chronic Kidney Disea se: Estimated GFR < 60 mL/min/[id number] Kidney Disease: Estimated GFR < 15 mL/min/1.73m2 Glucose 83 60 - 115 mg/dL [facility] Calcium 9.1 8.4 - 10.2 mg/dL [facility] 08/28/2024 11:0 3 AM EST 08/28/2024 1:10 PM EST us Jennifer Brown MD LAB BLOOD ORDERABLES Final Resul t [facility] [address] [place] [address] [phone] * BI Mammogram Screening Tomosynthesis Bilateral (08/07/2023 12:04 PM EST) Anatomical Region Laterality Modality Breast Bilateral Mammography 08/07/2023 12:0 4 PM EST Narrative 08/20/2023 6:14 AM EST ? [facility] ? [address] ?[place] [address] ? Mammography Report ? Signed ? Patient: Yoana Prather ?MR#: [id number] ?? 59 ? : 1970 ?Acct:[id number] ? Age/Sex: 52 / F ?ADM Date: 08/07/23 ? Loc: HO.MAMMO ? Attending Dr: Jennifer Brown MD ? Ordering Physician: Jennifer Brown MD ?Results: 1Negative ? Date of Service: 08/07/23 ?Follow Up: 1 Year From Orig ?? inal Mammogram ? Procedure(s): MM tomosynthesis screening BI ?? Accession Number(s): [id number] ? cc: Jennifer Brown MD ? EXAMINATION: [...] 0610 ? DD/ 1204 ? TD/TT: ? Heel Gouger: ? Procedure Note Shanna, Image - 08/20/2023 [facility] [address] [place] [address] Mammography Report Signed Patient: Yoana PratherMR#: [id number] 59 : 1970Acct:[id number] Age/Sex: 52 / FADM Date: 08/07/23 Loc: [facility] Attending Dr: Jennifer Brown MD Ordering Physician: Jennifer Brownesults: 1Negative Date of Service: 08/07/23Follow Up: 1 Year From Orig inal Mammogram Procedure(s): MM tomosynthesis screening BI Accession Number(s): [id number] cc: Jennifer Brown MD EXAMINATION: MM SCREENING [...] in OV> 08/20/23 0610 DD/ 1204 TD/TT: Heel Gouger: us Jennifer Brown MD IMG BI PROCEDURES Edited Result - Final * Hepatitis C Ab (08/01/2023 10:52 AM EST) Hepatitis C Antibody Nonreactive Nonreactive [facility] Comment:Antibodies to HCV no t detected; does not exclude early acuteHCV infection. 08/01/2023 10:5 2 AM EST 08/01/2023 10:52 AM EST us Generic External Data Provider LAB BLOOD ORDERAB LES Final Result [facility] [address] [place] [phone] * HIV-1/2 Antigen and Antibodies, Fourth Generation, with Reflexes (08/01/2023 10:52 AM EST) HIV AB/AG Nonreactive Nonreactive [facility] Comment:HIV-1 p24 Ag and/or HIV-1/HIV-2 Ab not detected.A test result that is nonreactive does not exclude thepossibility of exposure to or infection with HIV-1 and/orHIV-2. Nonreactive results in this assay for individualswith prior exposure to HIV-1 and/or HIV-2 may be due toantigen and antibody levels that are below the limit ofdetection of this assay.The [employer] HIV Ag/Ab Combo assay result andsupplemental assay results should be interpreted inconjunction with the patient's clinical presentation,history and other laboratory results. If the results areinconsistent with clinical evidence, additional testing issuggested to confirm the result. 08/01/2023 10:5 2 AM EST 08/01/2023 10:52 AM EST Generic External Data Provider LAB BLOOD ORDERAB LES Final Result [facility] [address] [place] [phone] * Pap Smear (04/19/2021) Pap Negative for intraephithelial lesion or malignancy Negative for intraephithelial lesion or malignancy, Other HPV Undetected Undetected, Indeterminate, Quantitative, Not Detected Historical Provider HEALTH MAINTENANCE Final Result * Colonoscopy (10/21/2018) Colonoscopy Normal Normal Historical Provider HEALTH MAINTENANCE Final Result from Last 3 Months or Most Recently Relevant to Health Maintenance [facility] Care Teams Curbing Stonecutter Relationship Specialty Start Date End Date Jennifer Brown MD [address] [place] [address] PCP - General Family Medicine 07/15/18 Scott Riley, PharmD [address] [place] [address] Pharmacist Internal Medicine 07/01/24
--- OUTSIDE RECORDS SUMMARY | 2024-11-23 06:12 | XMS_ITS | Encounter Summary ---
Author Organization [employer] Address [address] [facility] 7t [place] [address] Care Team Providers Care Case Reviewer Name Role Phone Jennifer Brown MD Primary Care Provider [phone] Scott Riley PharmD Unavailable [phone] Reason for Visit * Reason Onset Date Comments Med Refill 10/26/2024 Encounter Details Date Type Department Care Team (Late st Contact Info) Description 10/26/2024 Refill [facility] [address] [place] [address] Jennifer Brown MD [address] [place] [address] Social History Tobacco Use Types Packs/Day Years [...] Description 11/26/2024 10:30 AM EDT Medication Management [facility] [address] [place] [phone] Scott Riley, AnabellaD [address] [place] [phone] 01/12/2025 3:15 PM EDT Office Visit [address] [address] Jennifer Brown MD [address] [place] [phone] documented as of this encounter Visit Diagnoses Not on filedocumented in this encounter Additional Health Concerns Assessment Noted Time PHQ-9 Depression Total Score: 5 03/11/20 24 11:51 AM EDT documented as of this encounter Care Teams Case Reviewer Relationship Specialty Start Date End Date Jennifer Brown MD [address] [place] [phone] PCP - General Family Medicine 07/15/18 Scott Riley, PharmD [address] [place] [address] Pharmacist Internal Medicine 07/01/24 documented as of this encounter
--- OUTSIDE RECORDS SUMMARY | 2024-11-23 06:12 | XMS_ITS | Encounter Summary ---
Author Organization [employer] Address [address] [facility] 7t [place] [address] Care Team Providers Care Commercial Plumber Name Role Phone Jennifer Brown MD Primary Care Provider [phone] Scott Riley PharmD Unavailable [phone] Reason for Visit * Reason Onset Date Comments Med Refill 11/07/2023 Encounter Details Date Type Department Care Team (Late st Contact Info) Description 11/07/2023 Refill [facility] [address] [place] [address] Jennifer Brown MD [address] [place] [address] Vitamin D insufficiency Social History Tobacco Use [...] Description 11/26/2024 10:30 AM EDT Medication Management [address] [address] Scott Riley, PharmD [address] [place] [phone] 01/12/2025 3:15 PM EDT Office Visit [facility] [address] [place] [phone] Jennifer Brown MD [address] [place] [address] [phone] documented as of this encounter Visit Diagnoses Diagnosis Vitamin D insufficiency documented in this encounter Additional Health Concerns Assessment Noted Time PHQ-9 Depression Total Score: 0 07/12/20 22 10:25 AM EST documented as of this encounter Care Teams Commercial Plumber Relationship Specialty Start Date End Date Jennifer Brown MD [address] [place] [phone] PCP - General Family Medicine 07/15/18 Scott Riley, PharmD [address] [place] [address] [phone] Pharmacist Internal Medicine 07/01/24 documented as of this encounter
--- OUTSIDE RECORDS SUMMARY | 2024-11-23 06:12 | XMS_ITS | Encounter Summary ---
Author Organization [employer] Address [address] [facility] 7t [place] [address] Care Team Providers Care Cold Type Composing Machine Operator Name Role Phone Jennifer Brown MD Primary Care Provider [phone] Scott Riley PharmD Unavailable [phone] Reason for Visit * Reason Onset Date Comments Med Refill 10/26/2024 Encounter Details Date Type Department Care Team (Late st Contact Info) Description 10/26/2024 Refill [facility] [address] [place] [address] Jennifer Brown MD [address] [place] [address] Viral syndrome; Trochanteric bursitis of both hips [...] 10:30 AM EDT Medication Management [facility] [address] [place] [phone] Scott Riley, PharmD [address] [place] [phone] 01/12/2025 3:15 PM EDT Office Visit [facility] [address] [place] [phone] Jennifer Brown MD [address] [place] [phone] documented as of this encounter Visit Diagnoses Diagnosis Viral syndrome Unspecified viral infection, in conditions classified elsewhere and of unspecified site Trochanteric bursitis of both hips documented in this encounter Additional Health Concerns Assessment Noted Time PHQ-9 Depression Total Score: 5 03/11/20 24 11:51 AM EDT documented as of this encounter Care Teams Cold Type Composing Machine Operator Relationship Specialty Start Date End Date Jennifer Brown MD [address] [place] [phone] PCP - General Family Medicine 07/15/18 Scott Riley, PharmD [address] [place] [address] [place] [address] Pharmacist Internal Medicine 07/01/24 documented as of this encounter
--- OUTSIDE RECORDS SUMMARY | 2024-11-23 06:12 | XMS_ITS | Encounter Summary ---
Author Organization [employer] Address [address] [facility] 7t [place] [address] Care Team Providers Care Training Development Specialist Name Role Phone Jennifer Brown MD Primary Care Provider [phone] Scott Riley PharmD Unavailable [phone] Reason for Visit * Reason Onset Date Comments Med Refill 11/07/2023 Encounter Details Date Type Department Care Team (Late st Contact Info) Description 11/07/2023 Refill [facility] [address] [place] [address] Jennifer Brown MD [address] [place] [address] Trochanteric bursitis of both hips; Viral syndrome [...] [facility] [address] [place] [phone] Scott Riley, Teresa [address] [place] [phone] 01/12/2025 3:15 PM EDT Office Visit [facility] [address] [place] [phone] Jennifer Brown MD [address] [place] [phone] documented as of this encounter Visit Diagnoses Diagnosis Trochanteric bursitis of both hips Viral syndrome Unspecified viral infection, in conditions classified elsewhere and of unspecified site documented in this encounter Additional Health Concerns Assessment Noted Time PHQ-9 Depression Total Score: 0 07/12/20 22 10:25 AM EST documented as of this encounter Care Teams Training Development Specialist Relationship Specialty Start Date End Date Jennifer Brown MD [address] [place] [address] PCP - General Family Medicine 07/15/18 Scott Riley, PharmD [address] [place] [phone] Pharmacist Internal Medicine 07/01/24 documented as of this encounter
--- OUTSIDE RECORDS SUMMARY | 2024-11-23 06:12 | XMS_ITS | Encounter Summary ---
Author Organization [employer] Address [address] [facility] 7t [place] [address] Care Team Providers Care Motor Racer Name Role Phone Jennifer Brown MD Primary Care Provider [phone] Scott Riley PharmD Unavailable [phone] Reason for Visit * Reason Onset Date Comments Med Refill 10/26/2024 Encounter Details Date Type Department Care Team (Late st Contact Info) Description 10/26/2024 Refill [facility] [address] [place] [address] Jennifer Brown MD [address] [place] [address] Vitamin D insufficiency Social History Tobacco Use [...] 10:30 AM EDT Medication Management [facility] [address] [place] [phone] Scott Riley, PharmD [address] [place] [address] 01/12/2025 3:15 PM EDT Office Visit [facility] [address] [place] [phone] Jennifer Brown MD [address] [place] [phone] documented as of this encounter Visit Diagnoses Diagnosis Vitamin D insufficiency documented in this encounter Additional Health Concerns Assessment Noted Time PHQ-9 Depression Total Score: 5 03/11/20 24 11:51 AM EDT documented as of this encounter Care Teams Motor Racer Relationship Specialty Start Date End Date Jennifer Brown MD [address] [place] [address] PCP - General Family Medicine 07/15/18 Scott Riley, PharmD [address] [place] [phone] Pharmacist Internal Medicine 07/01/24 documented as of this encounter
--- OUTSIDE RECORDS SUMMARY | 2024-11-23 06:12 | XMS_ITS | Encounter Summary ---
Author Organization [employer] Address [address] [facility] 7t [place] [address] Care Team Providers Care Manager Med Surg Name Role Phone Jennifer Brown MD Primary Care Provider [phone] Scott Riley PharmD Unavailable [phone] Reason for Visit * Reason Onset Date Comments Med Refill 05/15/2024 Encounter Details Date Type Department Care Team (Late st Contact Info) Description 05/15/2024 Refill [facility] [address] [place] [address] Jennifer Brown MD [address] [place] [address] Social History Tobacco Use Types Packs/Day Years [...] 10:30 AM EDT Medication Management [facility] [address] [place] [phone] Scott Riley, AnabellaD [address] [place] [phone] 01/12/2025 3:15 PM EDT Office Visit [address] [address] Jennifer Brown MD [address] [place] [phone] documented as of this encounter Visit Diagnoses Not on filedocumented in this encounter Additional Health Concerns Assessment Noted Time PHQ-9 Depression Total Score: 5 03/11/20 24 11:51 AM EDT documented as of this encounter Care Teams Manager Med Surg Relationship Specialty Start Date End Date Jennifer Brown MD [address] [place] [phone] PCP - General Family Medicine 07/15/18 Scott Riley, PharmD [address] [place] [address] Pharmacist Internal Medicine 07/01/24 documented as of this encounter
--- NOTE | 2024-11-25 08:55 | P.CONAN_ITS ---
Documented by User: Freda Sharma NP 11/25/24 08:56 HPI - Anesthesia Eval Consult details Narrative: 53yo F for D&C Hysteroscopy, possible myometomy / polypectomy PMFSH Active Problems Active Problems: All Active Problems Sensation of pressure in bladder area (Acute) Uterine myoma (Acute) Abnormal CT scan (Acute) Endometrial thickening on ultrasound (Acute) Upper abdominal pain (Acute) Fibroid (Acute) Stress incontinence (Acute) Urinary frequency (Acute) Irritable bowel syndrome with both constipation and diarrhea (Acute) Myoma (Acute) Family history of colon cancer (Acute) Chronic idiopathic constipation (Acute) GERD (gastroesophageal reflux disease) (Acute) Past Medical History Medical History Left sided abdominal pain Pre-op examination FH: breast cancer Encounter for annual routine gynecological examination Family history of cancer Urinary urgency Well woman exam Perimenopause Diarrhea in adult patient Gastritis Fibroma Hypertension High cholesterol Depression Family History Family History Mother Colon cancer Sister Uterine cancer Sister Uterine cancer Other Diabetes HTN (hypertension) Heart problem Surgical History Surgical History History of esophagogastroduodenoscopy (EGD) Hx of colonoscopy History of tubal ligation Social History Social History Are you a primary patient care nursing assistant to a significant other at home: No Do you presently have visiting nurse or other home services: No Alcohol intake: never Patient Tobacco Use Status: Never used Tobacco Use of substances other than those prescribed or required for medical reasons: No Have you been hit, kicked, punched, or otherwise hurt by someone within the past year? If so, by whom?: No Are you DNR?: No Advance Directives: No Advance Directives Information Provided: Yes Patient : No Gender identity: Female Meds Allergies Allergy/AdvReac Type Severity Reaction Status Date / Time No Known Allergies Allergy Verified 11/26/24 12:28 Home Medications ?Medication ?Instructions ?Recorded ?Confirmed ?Last Taken ?Type cholecalciferol (vitamin D3) 25 25 mcg PO DAILY 04/17/21 09/24/24 Unknown History mcg (1,000 unit) tablet chlorthalidone 25 mg tablet 12.5 mg PO DAILY 05/20/24 09/24/24 Unknown History tirzepatide (weight loss) 5 mg/0.5 mg subcut QWEEK 09/22/24 09/24/24 11/06/24 History mL subcutaneous pen injector (Zepbound) famotidine 20 mg tablet 20 mg PO BID 10/29/24 Unknown History lisinopril 40 mg tablet 40 mg PO DAILY 10/29/24 Unknown History acetaminophen 500 mg tablet 500 - 1,000 mg PO Q8H PRN fever 11/16/24 Unknown History diclofenac sodium 1 % topical gel 2 g topical BID PRN pain 11/16/24 Unknown History naproxen 500 mg tablet 500 mg PO BID 11/16/24 Unknown History rosuvastatin 40 mg tablet 40 mg PO DAILY 11/16/24 Unknown History Assessment and Plan Assessment Anesthesia Assessment: Chart Reviewed Documented by User: Eda Sanders MD 11/26/24 13:27 PMFSH Past Medical History Medical History Left sided abdominal pain Pre-op examination FH: breast cancer Encounter for annual routine gynecological examination Family history of cancer Urinary urgency Well woman exam Perimenopause Diarrhea in adult patient Gastritis Fibroma Hypertension High cholesterol Depression Family History Family History Mother Colon cancer Sister Uterine cancer Sister Uterine cancer Other Diabetes HTN (hypertension) Heart problem Surgical History Surgical History History of esophagogastroduodenoscopy (EGD) Hx of colonoscopy History of tubal ligation History of Problems with Anesthesia: No Social History Social History Are you a primary patient care nursing assistant to a significant other at home: No Do you presently have visiting nurse or other home services: No Alcohol intake: never Patient Tobacco Use Status: Never used Tobacco Use of substances other than those prescribed or required for medical reasons: No Have you been hit, kicked, punched, or otherwise hurt by someone within the past year? If so, by whom?: No Are you DNR?: No Advance Directives: No Advance Directives Information Provided: Yes Patient : No Gender identity: Female Meds Allergies Allergy/AdvReac Type Severity Reaction Status Date / Time No Known Allergies Allergy Verified 11/26/24 12:28 Home Medications ?Medication ?Instructions ?Recorded ?Confirmed ?Last Taken ?Type cholecalciferol (vitamin D3) 25 25 mcg PO DAILY 04/17/21 09/24/24 Unknown History mcg (1,000 unit) tablet chlorthalidone 25 mg tablet 12.5 mg PO DAILY 05/20/24 09/24/24 Unknown History tirzepatide (weight loss) 5 mg/0.5 mg subcut QWEEK 09/22/24 09/24/24 11/06/24 History mL subcutaneous pen injector (Zepbound) famotidine 20 mg tablet 20 mg PO BID 10/29/24 Unknown History lisinopril 40 mg tablet 40 mg PO DAILY 10/29/24 Unknown History acetaminophen 500 mg tablet 500 - 1,000 mg PO Q8H PRN fever 11/16/24 Unknown History diclofenac sodium 1 % topical gel 2 g topical BID PRN pain 11/16/24 Unknown History naproxen 500 mg tablet 500 mg PO BID 11/16/24 Unknown History rosuvastatin 40 mg tablet 40 mg PO DAILY 11/16/24 Unknown History Exam Airway Mallampati Class: II TM Dist: >3cm Neck ROM: Full Loose/Missing/Broken Teeth: No Heart: RRR Lungs: CTA Assessment and Plan Assessment Anesthesia Assessment: Anesthesia Plan Discussed Final Anesthetic Review History of Problems with Anesthesia: No NPO: Yes ASA Class: III Final Preanesthetic Review: Meds/Allgs Chart Reviewed, Consent Obtained/Reviewed and Anes Risks/Benef Reviewed Patient Risk: Intermediate Procedure Risk: Low Anesthetic Plan Anesthetic Plan: GA Disposition: Standard PACU
[2024-11-26 12:32] VITALS: BP 138/62; PULSE 53; RESP 14; TEMP 36.7; O2SAT 98; BMI 51.8
[2024-11-26] MEDS: Lactated Ringers 1,000 ML 100 ML IVCONT (12:44)
--- NOTE | 2024-11-26 13:35 | MHC.SHP ---
Pre-Procedural Eval Section A - 24 Hr Update-Section A only Date of Service: 11/26/24 The patient is an INPATIENT: No Changes since office visit: No Cold of Flu in the past 2 weeks, No New Medical Problems, No Changes in Medication and No Patient answered all questions The patient has been examined within 24 hours of the surgical procedure. The History & Physical has been completed within 30 days and I have reviewed it.: Yes Section B - Complete if H&P > 30 days Chief Complaint: Abnormal findings on diagnostic imaging of other s Allergies: Allergies Allergy/AdvReac Type Severity Reaction Status Date / Time No Known Allergies Allergy Verified 11/26/24 12:28 Plan Diagnosis/Plan: Unchanged I have reviewed the history and physical and performed a pertinent physical examination on my patient. No changes have occurred unless specified. Time Spent With Patient Time: Total time managing care of this patient today ____ minutes.
--- NOTE | 2024-11-26 14:06 | P.OP_ITS ---
Operative Note Operative Note Date of Service: 11/26/24 Narrative: Preop Diagnosis: Thick endometrium by ultrasound Operation: Diagnostic Hysteroscopy, Dilataion & Curettage Post Op Diagnosis: Normal endometrial cavity QBL: Minimal Anesthesia: GLMA Surgeon: Emerson Coelho MD Treating Machine Operator: None Complication: None Pathology: Endometrial Scrapings Procedure: The patient was put in the dorsal lithotomy position, scrubbed, and draped in the usual manner. A sterile speculum was inserted in the patient's vagina. The anterior lip of the cervix was grasped with a single tooth tenaculum. The cervix was dilated up to 5 mm, then the scope was inserted in the patient's uterus. Inspection revealed Normal endometrial cavity. The Myosure Reach device was used; the scope was removed from the endometrial cavity , sharp curettings was carried on with minimal to moderate amount of tissues retrieved. At the end of the procedure, all instruments were taken out of the patient uterine and vaginal cavity. The single tooth tenaculum was removed and homeostasis was assured using pressure,. The patient tolerated the procedure well and was transferred to the PACU in a stable condition.
--- NOTE | 2024-11-26 14:06 | PM.OP ---
Brief Operative Note Date of Service: 11/26/24 Pre-op diagnosis: Thick endometrium by ultrasound Post-op diagnosis: same (Normal endometrial cavity) Procedure: Hysteroscopy D&C Surgeon: Emerson Coelho MD Anesthesia: GLMA Was an Fluorescent Lighting Model Maker used for this Procedure?: No Estimated blood loss (mL): 0 Pathology: other (Endometrial Scrapping. ) Condition: stable Disposition: PACU
[2024-11-26 14:14] VITALS: BP 145/69; PULSE 63; RESP 14; TEMP 36.8; O2SAT 100
[2024-11-26 14:19] VITALS: BP 150/70; PULSE 60; RESP 14; O2SAT 98
[2024-11-26 14:24] VITALS: BP 130/55; PULSE 61; RESP 16; O2SAT 98
[2024-11-26 14:29] VITALS: BP 134/54; PULSE 58; RESP 18; TEMP 36.8; O2SAT 99
[2024-11-26 14:44] VITALS: BP 140/61; PULSE 56; RESP 18; TEMP 36.7; O2SAT 100
--- NOTE | 2024-11-26 15:07 | PC.NURSE ---
PATIENT RECEIVED ANESTHESIA BUT PROCEDURE WAS NOT COMPLETED PATIENT WAS NORMAL. IN HOUSE RUG SAMPLE BEVELER USED.
== END 2024-11-26 15:17 | disposition home or self-care (01) ==
PROVIDERS: PCP Family Medicine; Visit Provider Obstetrics & Gynecology
PROC: 0UDB8ZZ Extraction of Endometrium, Via Natural or Artificial Opening Endoscopic (ICD-10-PCS; CPT 58558; principal; 2024-11-26 13:30)
DX: R93.89 Abnormal findings on diagnostic imaging of other specified body structures (principal); N85.8 Other specified noninflammatory disorders of uterus; N88.8 Other specified noninflammatory disorders of cervix uteri; D25.9 Leiomyoma of uterus, unspecified; Z98.51 Tubal ligation status; I10 Essential (primary) hypertension; E78.00 Pure hypercholesterolemia, unspecified; F32.A Depression, unspecified; Z80.3 Family history of malignant neoplasm of breast; Z79.1 Long term (current) use of non-steroidal anti-inflammatories (NSAID); Z79.85 Long-term (current) use of injectable non-insulin antidiabetic drugs; Z79.899 Other long term (current) drug therapy
CPT/HCPCS: 58558; 88305; J1100; J2003; J2250; J2405; J2704; J3010

== ENCOUNTER → 2024-11-26 11:50 | Outpatient (BNV) | payer MEDICAID, SELFPAY | PROVIDERS: PCP Family Medicine; Visit Provider Obstetrics & Gynecology | DX: R93.89 Abnormal findings on diagnostic imaging of other specified body structures (principal) | CPT/HCPCS: 58558 ==

== ENCOUNTER 2024-12-24 15:44 | Outpatient (AMB) | payer MEDICAID, SELFPAY ==
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
[2024-12-24 15:57] VITALS: BP 118/58; PULSE 72; O2SAT 99; BMI 39.1
--- OUTSIDE RECORDS SUMMARY | 2024-12-24 18:07 | XMS_ITS | Encounter Summary ---
Author Organization [employer] Address [address] [place] [address] Care Team Providers Care Agronomy Advisor Name Role Phone Jennifer Brown MD Primary Care Provider [phone] Scott Riley PharmD Unavailable [phone] Reason for Visit * Reason Onset Date Comments Med Refill 04/06/2024 Encounter Details Date Type Department Care Team (Late st Contact Info) Description 04/06/2024 Refill [facility] [address] [place] [address] Ayan Madsen MD [address] [place] [address] Social History Tobacco Use Types Packs/Day Years [...] Care Team (Late st Contact Info) Description 01/11/2025 3:30 PM EDT Telemedicine [facility] [address] [place] [id number] Scott Riley, PharmD [address] [place] [phone] 01/12/2025 3:15 PM EDT Office Visit [facility] [address] [place] [phone] Jennifer Brown MD [address] [place] [phone] documented as of this encounter Visit Diagnoses Not on filedocumented in this encounter Additional Health Concerns Assessment Noted Time PHQ-9 Depression Total Score: 5 03/11/20 24 11:51 AM EDT documented as of this encounter Care Teams Agronomy Advisor Relationship Specialty Start Date End Date Jennifer Brown MD [address] [place] [phone] PCP - General Family Medicine 07/15/18 Scott Riley, PharmD [address] [place] [phone] Pharmacist Internal Medicine 07/01/24 documented as of this encounter
== END 2024-12-24 16:37 | disposition home or self-care (01) ==
LOC: HO.HGI 15:44
PROVIDERS: PCP Family Medicine; Visit Provider Nurse Practitioner
DX: K59.04 Chronic idiopathic constipation (principal); K21.9 Gastro-esophageal reflux disease without esophagitis; R10.9 Unspecified abdominal pain
CPT/HCPCS: 99213

== ENCOUNTER → 2024-12-24 15:44 | Outpatient (BNVA) | payer MEDICAID, SELFPAY | PROVIDERS: PCP Family Medicine; Visit Provider Nurse Practitioner | DX: K59.04 Chronic idiopathic constipation (principal); K21.9 Gastro-esophageal reflux disease without esophagitis; R10.9 Unspecified abdominal pain | CPT/HCPCS: 99212 ==

== ENCOUNTER 2025-01-01 12:20 | Outpatient (REF) | payer MEDICAID, SELFPAY ==
--- OUTSIDE RECORDS SUMMARY | 2025-01-01 12:23 | XMS_ITS | Clinical Summary ---
Author Organization [facility] ity Address [address] [place] [address] Care Team Providers Care Log Haul Operator Name Role Phone Unavailable Primary Care Provider [...]
[2025-01-01 14:41] LABS: Alanine Aminotransferase 23 U/L (0-31); Albumin Level 4.3 g/dL (3.5-5.0); Alkaline Phosphatase 95 U/L (39-117); Aspartate Amino Transferase 24 U/L (5-31); Bilirubin Direct 0.2 mg/dL (0.0-0.5); Bilirubin Total 0.5 mg/dL (0.0-1.0); Cholesterol 261 mg/dL (<200); HDL Cholesterol 52 mg/dL (>40); LDL Cholesterol Calculated 190 mg/dL (<100); Total Protein 7.3 g/dL (6.5-8.0); Triglycerides 99 mg/dL (<150)
== END 2025-01-01 12:21 | disposition home or self-care (01) ==
LOC: HO.HHCL 12:20
PROVIDERS: PCP Family Medicine; Visit Provider Family Medicine
DX: E78.5 Hyperlipidemia, unspecified (principal)
CPT/HCPCS: 36415; 80061; 80076

== ENCOUNTER 2025-01-04 14:43 | Outpatient (AMB) | payer MEDICAID, SELFPAY ==
--- NOTE | 2025-01-04 14:43 | A.OFFVIS_ITS ---
Intake Visit Reasons: TV Results/post op Belt Loop Maker Required: Yes Belt Loop Maker Language: Process Manager Services: Belt Loop Maker Present (in person) Belt Loop Maker Name: Mary HENDERSON Information Interpreted: non-clinical & clinical Accompanied by: Self / Same As Patient Allergies No Known Allergies Allergy (Verified 01/04/25 14:44) HPI Comments Details: The patient is presenting post hysteroscopy D&C no complaints minimal vaginal bleeding no feverishness chills or abdominal pain. Intraoperative finding normal endometrial cavity with no evidence of polyp or any other pathology D and C pathology showed the following: Endometrium, curettage: Scant benign atrophic endometrium, and benign endocervical glandular and squamous epithelium; no atypia or carcinoma PFSH Medical History (Updated 01/04/25 @ 14:48 by Emerson Coelho MD) Endometrial thickening on ultrasound Left sided abdominal pain Myoma Abnormal CT scan Upper abdominal pain Pre-op examination FH: breast cancer Encounter for annual routine gynecological examination Family history of cancer Urinary urgency Well woman exam Perimenopause Diarrhea in adult patient Gastritis Fibroma Hypertension High cholesterol Depression Surgical History History of esophagogastroduodenoscopy (EGD) Hx of colonoscopy History of tubal ligation Family History Mother Colon cancer Sister Uterine cancer Sister Uterine cancer Other Diabetes HTN (hypertension) Heart problem Social History Are you a primary team primary care physician to a significant other at home: No Do you presently have visiting nurse or other home services: No Alcohol intake: never Patient Tobacco Use Status: Never used Tobacco Gender identity: Female Female Reproductive History Menstrual Age of Menarche: 11 Review of Systems Const All systems reviewed & are unremarkable except as noted in HPI and below Reports as per HPI and Reports no additional complaints GI Reports no additional complaints Reports no additional complaints Telehealth Telehealth Telehealth Platform: Telephone Location of provider rendering services: practice address Location of patient: address on file Patient Identification confirmed using: Name, : Yes Telehealth method: video Patient verbally consented to treatment: Yes Patient verbally consented to billing insurance company: Yes Patient informed of any privacy concerns related to visit: Yes Minutes spent on Phone/Video with Pt.: 3 Assessment & Plan Assessment & Plan (1) Endometrial thickening on ultrasound: Code(s): R93.89 - Abnormal findings on diagnostic imaging of other specified body structures Category: Medical Plan: Discussed with the patient the intraoperative findings showing normal endometrial cavity and the results of the endometrial biopsy pathology. Discussed with the patient the sensitivity, specificity, positive and negative predictive value, of endometrial biopsy in detecting endometrial pathology including but not limited to endometrial hyperplasia, cancer and other pathology; instructed the patient to call in case vaginal bleeding occurs, the next step will be to proceed with a diagnostic hysteroscopy/D&C for further endometrial sampling evaluation to rule out endometrial pathology. All questions answered and the patient verbalized understanding and agreed with the plan. I spent a total of 20 minutes reviewing the chart, talking to the patient via video and documenting in the medical record. Coding Level of Care Code Tele Est Pt Level 3 (14820) Diagnoses Endometrial thickening on ultrasound R93.89
--- OUTSIDE RECORDS SUMMARY | 2025-01-04 16:14 | XMS_ITS | Encounter Summary ---
Author Organization [employer] Address [address] [facility] 7[address] [place] [address] Care Team Providers Care Commutator V Ring Assembler Name Role Phone Jennifer Brown MD Primary Care Provider Scott Riley PharmD Unavailable [phone] Reason for Visit * Reason Onset Date Comments Med Refill 04/06/2024 Encounter Details Date Type Department Care Team (Late st Contact Info) Description 04/06/2024 Refill [facility] [address] [place] [address] Ayan Madsen MD [address] [place] [address] Social History Tobacco Use Types Packs/Day Years [...] Info) Description 01/11/2025 3:30 PM EDT Telemedicine [facility] [address] [place] [phone] Scott Riley, PharmD [address] [place] [address] 01/12/2025 3:15 PM EDT Office Visit [facility] [address] [place] [phone] Jennifer Brown MD [address] [place] [phone] documented as of this encounter Visit Diagnoses Not on filedocumented in this encounter Additional Health Concerns Assessment Noted Time PHQ-9 Depression Total Score: 5 03/11/20 24 11:51 AM EDT documented as of this encounter Care Teams Commutator V Ring Assembler Relationship Specialty Start Date End Date Jennifer Brown MD [address] [place] [id number] PCP - General Family Medicine 07/15/18 Scott Riley, PharmD [address] [place] [address] Pharmacist Internal Medicine 07/01/24 documented as of this encounter
== END 2025-01-04 15:35 | disposition home or self-care (01) ==
LOC: HO.HWS 14:43
PROVIDERS: PCP Family Medicine; Visit Provider Obstetrics & Gynecology
DX: R93.89 Abnormal findings on diagnostic imaging of other specified body structures (principal)
CPT/HCPCS: 99213

== ENCOUNTER 2025-01-07 15:26 | Outpatient (AMB) | payer MEDICAID, SELFPAY ==
--- NOTE | 2025-01-07 15:44 | MHC.OFFVIS ---
Vital Signs 01/07/25 15:46 Height 4 ft 10 in Weight 188 lb BMI 39.3 BP 150/66 H Blood Pressure Location Lt brachial Position Sitting Pulse 68 Intake Visit Reasons: genetic results Intake Note: Patient is seen in office for genetic testing results. Pt c/o: maria dolores any concerns here for results Traveling Plant Operator Required: Yes Traveling Plant Operator Language: Financial Services Specialist Services: Traveling Plant Operator Present Traveling Plant Operator Name: Emmy HENDERSON Information Interpreted: non-clinical & clinical Director Automotive: Director Automotive Present Accompanied by: Self / Same As Patient Allergies No Known Allergies Allergy (Verified 01/07/25 15:45) Medication List - Last Reconciled 01/11/25 by Beltran Hagan MD acetaminophen 500 - 1,000 mg PO Q8H PRN bisacodyl (Dulcolax (bisacodyl)) 10 mg (2 x 5 mg) PO BEDTIME 2 days chlorthalidone 12.5 mg PO DAILY cholecalciferol (vitamin D3) 25 mcg PO DAILY diclofenac sodium 1% 2 grams topical BID PRN dicyclomine 20 mg PO QID famotidine 20 mg PO BEDTIME linaclotide (Linzess) 145 mcg PO QAM lisinopril 40 mg PO DAILY mirabegron ER (Myrbetriq) 25 mg PO DAILY 30 days naproxen 500 mg PO BID omeprazole 20 mg PO DAILY 30 days oxybutynin chloride ER 10 mg PO DAILY 90 days rosuvastatin 40 mg PO DAILY simethicone 180 mg PO QID tirzepatide (weight loss) (Zepbound) mg subcut QWEEK HPI Comments Details: 53-year-old female patient presenting with a strong family history of cancer and apparently a sister with BRCA positive gene. The patient does not know the full extent of her family history but denies any previous history of breast problems or breast surgery. Her family history is significant for uterine cancer in 2 sisters. She denies a family history of breast cancer and is uncertain about ovarian cancer. She is , menarche is at the age of 11. She denies breast-feeding. She underwent genetic testing on 11/06/2024. She returns today to review the results. Test results revealed no clinically significant mutations identified. Two variance of uncertain significance were identified in the NTHL1 and POLD1 genes. Her breast cancer risk score was calculated at 6.4% and Tyrer-Cuzick remaining lifetime risk of breast cancer was calculated at 8.5%, both below the 20% high risk threshold placing her at average risk for breast cancer. Her last mammogram was performed on 08/07/2023 and revealed no mammographic evidence of malignancy (BI-RADS 1). She is now due for her annual mammogram. [facility] Medical History Endometrial thickening on ultrasound Left sided abdominal pain Myoma Abnormal CT scan Upper abdominal pain Pre-op examination FH: breast cancer Encounter for annual routine gynecological examination Family history of cancer Urinary urgency Well woman exam Perimenopause Diarrhea in adult patient Gastritis Fibroma Hypertension High cholesterol Depression Surgical History History of esophagogastroduodenoscopy (EGD) Hx of colonoscopy History of tubal ligation Family History Mother Colon cancer Sister Uterine cancer Sister Uterine cancer Other Diabetes HTN (hypertension) Heart problem Social History Are you a primary healthcare associate to a significant other at home: No Do you presently have visiting nurse or other home services: No Alcohol intake: never Patient Tobacco Use Status: Never used Tobacco Gender identity: Female Female Reproductive History Menstrual Age of Menarche: 11 Review of Systems Const All systems reviewed & are unremarkable except as noted in HPI and below Physical Exam Vital Signs: Last Vital Signs Pulse 68 01/07/25 15:46 BP 150/66 H 01/07/25 15:46 BMI result Body Mass Index 39.3 Const General: cooperative and no acute distress Nutritional Appearance: well nourished Orientation/consciousness: patient oriented x3 Limitations: no limitations HEENT Head: Yes normocephalic and Yes atraumatic Ears: hearing grossly normal bilaterally Resp Effort & Inspection: normal respiratory effort, no audible wheezes, no cough and no respiratory distress Cardio Jugular venous distension: no JVD GI Inspection: Yes normal to inspection Skin Other: Warm, dry, no rash Neuro General: patient oriented x3 Extrem General: Yes no clubbing, cyanosis or edema Assessment & Plan Assessment & Plan (1) Breast cancer screening by mammogram: Code(s): Z12.31 - Encounter for screening mammogram for malignant neoplasm of breast Category: Medical Plan 54-year-old female patient returning with a family history of BRCA, found on genetic testing performed on 11/06/2024 to have no clinically significant mutations and to variance of unknown significance as noted above. She was found to be at average risk for breast cancer with a breast cancer risk score of 6.4% and Tyrer-zick breast cancer risk calculation of 8.5%. I recommended she undergo her annual screening mammogram which is now past due. She expressed understanding and agrees with the plan. She should follow up as needed. Orders: Orders MM screening mammo BI 01/07/25 Z12.31 - Encounter for screening mammogram for malignant neoplasm of breast Coding Level of Care Code Est Pt Level 3 (28539) Diagnoses Breast cancer screening by mammogram Z12.31
[2025-01-07 15:46] VITALS: BP 150/66; PULSE 68; BMI 39.3
== END 2025-01-07 16:17 | disposition home or self-care (01) ==
LOC: HO.HGS 15:27
PROVIDERS: PCP Family Medicine; Visit Provider Surgery
DX: Z12.31 Encounter for screening mammogram for malignant neoplasm of breast (principal)
CPT/HCPCS: 99213

== ENCOUNTER → 2025-01-07 15:26 | Outpatient (BNVA) | payer MEDICAID, SELFPAY | PROVIDERS: PCP Family Medicine; Visit Provider Surgery | DX: Z71.2 Person consulting for explanation of examination or test findings (principal) | CPT/HCPCS: 99212 ==

== ENCOUNTER → 2025-01-19 14:45 | Outpatient (BNV) | payer MEDICAID, SELFPAY | PROVIDERS: PCP Family Medicine; Visit Provider Internal Medicine | DX: Z12.31 Encounter for screening mammogram for malignant neoplasm of breast (principal) | CPT/HCPCS: 77063; 77067 ==

== ENCOUNTER 2025-01-19 14:49 | Outpatient (REF) | payer MEDICAID, SELFPAY ==
--- OUTSIDE RECORDS SUMMARY | 2025-01-19 15:32 | XMS_ITS | Clinical Summary ---
Author Organization [facility] [employer] [facility] Address [address] [place] [address] Care Team Providers Care Trade Economist Name Role Phone Unavailable Primary Care Provider [...] 2023-2 5 season) 2024 Influenza Vaccine (#1) 2025 HIB Vaccines Aged Out No longer [...] 5 Years) and At-Risk Patients (6 to 49 Years) Aged Out No longer eligible b ased on patient's age to complete this topic RSV Immunization Patients Un fish 20 months Aged Out No longer eligible b ased on patient's age to complete this topic Varicella Vaccines Aged Out No longer eligible based on patient's age to complete this topic
--- OUTSIDE RECORDS SUMMARY | 2025-01-19 15:32 | XMS_ITS | Encounter Summary ---
Author Organization [employer] Address [address] [facility] [address] [place] [address] Care Team Providers Care Straw Hat Machine Operator Name Role Phone Jennifer Brown MD Primary Care Provider [phone] Scott Riley PharmD Unavailable [phone] Reason for Visit * Reason Onset Date Comments Med Refill 04/06/2024 Encounter Details Date Type Department Care Team (Late st Contact Info) Description 04/06/2024 Refill [facility] [address] [place] [address] Ayan Madsen MD [address] [place] [address] Social History Tobacco Use Types Packs/Day Years [...] Care Team (Late st Contact Info) Description 02/22/2025 3:30 PM EDT Telemedicine [facility] [address] [place] [phone] Scott Riley, PharmD [address] [place] [address] documented as of this encounter Visit Diagnoses Not on filedocumented in this encounter Additional Health Concerns Assessment Noted Time PHQ-9 Depression Total Score: 5 03/11/20 24 11:51 AM EDT documented as of this encounter Care Teams Straw Hat Machine Operator Relationship Specialty Start Date End Date Jennifer Brown MD [address] [place] [address] PCP - General Family Medicine 07/15/18 Scott Riley, PharmD [address] [place] [phone] Pharmacist Internal Medicine 07/01/24 documented as of this encounter
== END 2025-01-19 14:50 | disposition home or self-care (01) ==
LOC: HO.MAMMO 14:49
PROVIDERS: PCP Family Medicine; Visit Provider Surgery
DX: Z12.31 Encounter for screening mammogram for malignant neoplasm of breast (principal)
CPT/HCPCS: 77063; 77067

== ENCOUNTER 2025-04-09 08:07 | Outpatient (REF) | payer MEDICAID, SELFPAY ==
--- OUTSIDE RECORDS SUMMARY | 2025-04-09 08:19 | XMS_ITS | Clinical Summary ---
Author Organization [facility] [facility] ity Address [address] [place] [address] Care Team Providers Care Department Head Name Role Phone Unavailable Primary Care Provider [...] 12/07/2019 Zoster Vaccines (1 of 2) 12/07/2019 Depression Screening 07/15/2024 COVID-19 Vaccine ( - 2023-2 5 season) 2025 Influenza Vaccine (#1) 2025 HIB Vaccines Aged [...]
[2025-04-09 11:56] LABS: Alanine Aminotransferase 30 U/L (0-31); Albumin Level 4.1 g/dL (3.5-5.0); Alkaline Phosphatase 93 U/L (39-117); Aspartate Amino Transferase 26 U/L (5-31); Cholesterol 253 mg/dL (<200); HDL Cholesterol 51 mg/dL (>40); Total Protein 6.7 g/dL (6.5-8.0); Triglycerides 77 mg/dL (<150)
[2025-04-09 12:34] LABS: Folate 11.0 ng/mL (> or = 4.0); Vitamin B12 819 pg/mL (200-900)
== END 2025-04-09 08:08 | disposition home or self-care (01) ==
LOC: HO.HHCL 08:07
PROVIDERS: PCP Family Medicine; Visit Provider Family Medicine
DX: R20.2 Paresthesia of skin (principal); E78.5 Hyperlipidemia, unspecified
CPT/HCPCS: 36415; 80061; 80076; 82607; 82746

== ENCOUNTER 2025-05-10 14:50 | Outpatient (AMB) | payer MEDICAID, SELFPAY ==
--- NOTE | 2025-05-10 15:00 | A.OFFVIS_ITS ---
Intake Visit Reasons: 3m/PVR Intake Note: Patient is present for 3M/PVR Urology Medication:MIRABEGRON ER,OXYBUTYNIN Antibiotic Allergy:NONE Blood Thinner:NONE Last PVR:91ML'S Todays PVR:0ML'S Social Service Worker Required: No Social Service Worker Services: Social Service Worker Present Social Service Worker Name: [id number] Allergies No Known Allergies Allergy (Verified 05/10/25 21:18) Medication List - Last Reconciled 05/10/25 by CLAUDE Lewis acetaminophen 500 - 1,000 mg PO Q8H PRN bisacodyl (Dulcolax (bisacodyl)) 10 mg (2 x 5 mg) PO BEDTIME 2 days chlorthalidone 12.5 mg PO DAILY cholecalciferol (vitamin D3) 25 mcg PO DAILY diclofenac sodium 1% 2 grams topical BID PRN dicyclomine 20 mg PO QID famotidine 20 mg PO BEDTIME linaclotide (Linzess) 145 mcg PO QAM lisinopril 40 mg PO DAILY mirabegron ER (Myrbetriq) 25 mg PO DAILY 90 days naproxen 500 mg PO BID omeprazole 20 mg PO DAILY 30 days peg 3350-electrolytes 236-22.74-6.74 -5.86 gram 240 mL PO Q10M PRN rosuvastatin 40 mg PO DAILY simethicone 180 mg PO QID tirzepatide (weight loss) (Zepbound) mg subcut QWEEK HPI Comments Details: Yoana is a very pleasant 54-year-old [place]orese-speaking female patient of Dr. Brown. She has a past medical history of gastritis, constipation, fibroma, hypertension, hypercholesteremia, and depression. She presents to the office today for follow-up of her overactive bladder In discussion with the patient today she reports to be doing and feeling well. She reports significant improvement in overactive bladder symptoms with Myrbetriq as prescribed. She reports since her last office visit here she has undergone a procedure with Dr. Coelho and continues to follow-up as planned. She currently denies any bothersome urinary issues or concerns. In office urinalysis results reviewed with the patient today. PVR 0 mL. We did discuss further treatment options of overactive bladder however patient would like to continue with current management. Previous workup has included a retroperitoneal ultrasound 10/05 noting bilateral kidneys with no calculi, lesions, and or hydronephrosis. The bladder is distended and normal. Bilateral ureteral jets are demonstrated. Pre void bladder volume is approximately 200 mL. Postvoid bladder volume is approximately 15 mL. Unremarkable retroperitoneal examination. She denies hematuria, dysuria, foul smelling urine, changes to urinary stream, flank pain, fever, and or chills. She otherwise offers no other issues or concerns at this time. [facility] Medical History Endometrial thickening on ultrasound Left sided abdominal pain Myoma Abnormal CT scan Upper abdominal pain Pre-op examination FH: breast cancer Encounter for annual routine gynecological examination Family history of cancer Urinary urgency Well woman exam Perimenopause Diarrhea in adult patient Gastritis Fibroma Hypertension High cholesterol Depression Surgical History History of esophagogastroduodenoscopy (EGD) Hx of colonoscopy History of tubal ligation Family History Mother Colon cancer Sister Uterine cancer Sister Uterine cancer Other Diabetes HTN (hypertension) Heart problem Social History Are you a primary clinical care coordinator to a significant other at home: No Do you presently have visiting nurse or other home services: No Alcohol intake: never Patient Tobacco Use Status: Never used Tobacco Gender identity: Female Female Reproductive History Menstrual Age of Menarche: 11 Review of Systems Const Reports no additional complaints Eyes Reports no additional complaints ENT Reports no additional complaints Card Reports as per HPI Resp Reports no additional complaints GI Reports as per HPI Reports as per HPI Musc Reports no additional complaints Neuro Reports no additional complaints Psych Reports as per HPI Endo Reports no additional complaints Armen/Lymph Reports no additional complaints Aller/Immun Reports no additional complaints Physical Exam Const General: cooperative, healthy appearing, comfortable, no acute distress, well developed, alert and awake Nutritional Appearance: overweight Orientation/consciousness: patient oriented x3 Limitations: no limitations HEENT Head: Yes normal to inspection, Yes normocephalic and Yes atraumatic Ears: hearing grossly normal bilaterally Eyes General: appearance normal, both eyes and all related structures Neck Neck: Yes normal visual inspection and Yes trachea midline Chest Chest palpation & inspection: normal inspection of the chest Resp Effort & Inspection: normal respiratory effort and able to speak in complete sentences Cardio Rate: regular rate GI Inspection: Yes normal to inspection General: Yes no CVA tenderness Back/Spine/Pelvis Back: no CVA tenderness Skin General skin exam: no rashes or lesions noted Neuro General: patient oriented x3 Extrem General: Yes normal to inspection Psych Appearance: grossly normal and well kempt Mental Status: mental status grossly normal Speech and movement: Normal speech and movement present and Clear speech present Affect: normal affect Attitude: cooperative Thought process: Normal thought process present Thought content: Normal thought content present Insight: Fair insight present (Psych) Judgement: Fair judgement present (Psych) Office Procedures Post Void Residual Post Residual Void Post Void Residual (PVR): 0 35986-Pflf Void Residual by ultrasound Results AMB Urinalysis, Automated UA Leukoctes 0 Cole/uL Last Edit by DANNY Early on 05/10/25 15:51 UA Nitrite Negative Last Edit by Rosangela Mims CCM on 05/10/25 15:51 UA Urobilinogen 0.2 mg/dL Last Edit by Rosangela Mims CCM on 05/10/25 15:5 1 UA Protein 0 mg/dL Last Edit by Rosangela Mims CCM on 05/10/25 15:51 UA pH 6.0 Last Edit by Rosangela Mims CCM on 05/10/25 15:51 UA Blood 0 Elfego/uL Last Edit by Rosangela Mims CCM on 05/10/25 15:51 UA Specific [place] 1.020 Last Edit by DANNY Early on 05/10/25 15: 51 UA Ketone Negative Last Edit by Rosangela Mims CCM on 05/10/25 15:51 UA Bilirubin 0 mg/dL Last Edit by Rosangela Mims CCM on 05/10/25 15:51 UA Glucose 0 mg/dL Last Edit by Rosangela Mims [facility] on 05/10/25 15:51 Results Reviewed Results Reviewed: Laboratory Last Values Urine pH (Auto) 6.0 05/10/25 15:51 Specific [place] (Auto) 1.020 05/10/25 15:51 Urine Protein (Auto) 0 mg/dL 05/10/25 15:51 Glucose (UA)(Auto) 0 mg/dL 05/10/25 15:51 Urine Ketones (Auto) Negative 05/10/25 15:51 Urine Blood (Auto) 0 Elfego/uL 05/10/25 15:51 Urine Nitrite (Auto) Negative 05/10/25 15:51 Urine Bilirubin (Auto) 0 mg/dL 05/10/25 15:51 Urine Urobilinogen (Auto) 0.2 mg/dL 05/10/25 15:51 Leukocyte Esterase (Auto) 0 Cole/uL 05/10/25 15:51 Assessment & Plan Assessment & Plan (1) Urinary frequency: Code(s): R35.0 - Frequency of micturition Category: Medical (2) Stress incontinence: Code(s): N39.3 - Stress incontinence (female) (male) Category: Medical (3) Sensation of pressure in bladder area: Code(s): R39.89 - Other symptoms and signs involving the genitourinary system Category: Medical Plan In office urinalysis results reviewed with the patient today; as noted above. PVR 0 mL. She currently denies any bothersome urinary issues or concerns. She reports be happy with current voiding parameters on Myrbetriq; will continue; refill provided. All questions were answered. We did discussed further treatment options risks and benefits of these treatment options. Will continue with surveillance monitoring. All questions were answered. Follow-up in 6 months with PVR; or sooner with any issues, concerns, and or questions. Orders: Orders AMB Urinalysis Automated Today Z13.9 - Encounter for screening, unspecified Medications: Changed From mirabegron ER (Myrbetriq) 25 mg PO DAILY 30 days 30 tabs 2RF N39.3 - Stress incontinence (female) (male), R35.0 - Frequency of micturition To mirabegron ER (Myrbetriq) 25 mg PO DAILY 90 tabs 2RF 90 days N39.3 - Stress incontinence (female) (male), R35.0 - Frequency of micturition Discontinued oxybutynin chloride ER Discontinued Reason: Doctor's Order 10 mg PO DAILY 90 days 90 tabs 3RF N32.81 - Overactive bladder Patient Instructions: The patient had an opportunity to ask questions regarding the treatment plan. All questions were answered. Physical exam, labs, and imaging were discussed and reviewed in detail. As well as risks, benefits, and discussion of treatment choices. No major barriers to understanding were identified. The patient expressed understanding and agreement with the above treatment plan. The patient was made aware they should contact our office by phone for worsening of their current condition, the appearance of new symptoms, or with any questions or concerns. Compliance is encouraged with any medications and follow up testing that is ordered. It is a privilege to be allowed the opportunity to participate in? your urological care.? Again, if you have any questions or concerns If you have any questions or concerns please do not hesitate to contact me. The office is [phone]. This note is constructed using voice recognition software. While every effort has been made to ensure accuracy associate professor of sociology errors may have been included. Yours sincerely, CLAUDE Lewis Coding Level of Care Code Est Pt Level 3 (24507) Complex EM visit Add On G2211 Diagnoses Urinary frequency R35.0 Stress incontinence N39.3 Sensation of pressure in bladder area R39.89 CPT Codes Post Residual Void - PVR CPT Code: 49238-Cnft Void Residual by ultrasound ([id number])
--- OUTSIDE RECORDS SUMMARY | 2025-05-10 18:17 | XMS_ITS | Clinical Summary ---
Author Organization [facility] it[facility] Address [address] [place] [address] Care Team Providers Care Street Cleaner Name Role Phone Unavailable Primary Care Provider [...] 5 season) 2025 Influenza Vaccine (#1) 2025 RSV Immunization Adult Patie nts (1 - 1-dose 75+ series) 2044 HIB Vaccines Aged Out No longer eligi [...]
== END 2025-05-10 15:41 | disposition home or self-care (01) ==
LOC: HO.HUSH 14:51
PROVIDERS: PCP Family Medicine; Visit Provider Nurse Practitioner Family
DX: R35.0 Frequency of micturition (principal); N39.3 Stress incontinence (female) (male); R39.89 Other symptoms and signs involving the genitourinary system; Z13.9 Encounter for screening, unspecified
CPT/HCPCS: 99213

== ENCOUNTER → 2025-05-10 14:50 | Outpatient (BNVA) | payer MEDICAID, SELFPAY | PROVIDERS: PCP Family Medicine; Visit Provider Nurse Practitioner Family | DX: R35.0 Frequency of micturition (principal); N39.3 Stress incontinence (female) (male); R39.89 Other symptoms and signs involving the genitourinary system | CPT/HCPCS: 51798; 81003; 99212 ==

== ENCOUNTER 2025-06-22 16:23 | Outpatient (AMB) | payer MEDICAID, SELFPAY ==
[2025-06-22 16:24] VITALS: BP 153/70; PULSE 69; BMI 36.3
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
--- OUTSIDE RECORDS SUMMARY | 2025-06-22 22:58 | XMS_ITS | Encounter Summary ---
Author Organization [employer] Address [address] [facility] [address] [place] [address] Care Team Providers Care Inspector Set Up And Lay Out Name Role Phone Jennifer Brown MD Primary Care Provider [phone] Scott Riley PharmD Unavailable [phone] Reason for Visit * Reason Onset Date Comments Med Refill 05/15/2024 Encounter Details Date Type Department Care Team (Late st Contact Info) Description 05/15/2024 Refill [facility] [address] [place] [address] Jennifer Brown MD [address] [place] [address] Social History Tobacco Use Types Packs/Day Years [...] Care Team (Late st Contact Info) Description 07/20/2025 1:30 PM EST Office Visit [address] [address] Jennifer Brown MD [address] [place] [phone] 07/30/2025 1:00 PM EST Medication Management [address] [address] Scott Riley PharmD [address] [place] [phone] documented as of this encounter Visit Diagnoses Not on filedocumented in this encounter Additional Health Concerns Assessment Noted Time PHQ-9 Depression Total Score: 5 03/11/20 24 11:51 AM EDT documented as of this encounter Care Teams Inspector Set Up And Lay Out Relationship Specialty Start Date End Date Jennifer Brown MD [address] [place] [phone] PCP - General Family Medicine 07/15/18 Scott Riley, PharmD [address] [place] [address] Pharmacist Internal Medicine 07/01/24 documented as of this encounter
--- OUTSIDE RECORDS SUMMARY | 2025-06-22 22:58 | XMS_ITS | Encounter Summary ---
Author Organization [employer] Address [address] [facility] [address] [place] [address] Care Team Providers Care Mortgage Loan Specialist Name Role Phone Jennifer Brown MD Primary Care Provider [phone] Scott Riley PharmD Unavailable [phone] Reason for Visit * Reason Onset Date Comments Med Refill 11/07/2023 Encounter Details Date Type Department Care Team (Late st Contact Info) Description 11/07/[address] [facility] [address] [place] [address] Jennifer Brown MD [address] [place] [address] Trochanteric bursitis of both hips; Viral syndrome [...] Description 07/20/2025 1:30 PM EST Office Visit [address] [address] Jennifer Brown MD [address] [place] [phone] 07/30/2025 1:00 PM EST Medication Management [address] [address] Scott Riley, PharmD [address] [place] [phone] documented as of this encounter Visit Diagnoses Diagnosis Trochanteric bursitis of both hips Viral syndrome Unspecified viral infection, in conditions classified elsewhere and of unspecified site documented in this encounter Additional Health Concerns Assessment Noted Time PHQ-9 Depression Total Score: 0 07/12/20 22 10:25 AM EST documented as of this encounter Care Teams Mortgage Loan Specialist Relationship Specialty Start Date End Date Jennifer Brown MD [address] [place] [phone] PCP - General Family Medicine 07/15/18 Scott Riley, PharmD [address] [place] [phone] Pharmacist Internal Medicine 07/01/24 documented as of this encounter
--- OUTSIDE RECORDS SUMMARY | 2025-06-22 22:58 | XMS_ITS | Encounter Summary ---
Author Organization [employer] Address [address] [facility] [address] [place] [address] Care Team Providers Care Machinery Repair Maintenance Supervisor Name Role Phone Jennifer Brown MD Primary Care Provider [phone] Scott Riley PharmD Unavailable [phone] Reason for Visit * Reason Onset Date Comments Med Refill 10/26/2024 Encounter Details Date Type Department Care Team (Late st Contact Info) Description 10/26/2024 Refill [facility] [address] [place] [address] Jennifer Brown MD [address] [place] [address] Vitamin D insufficiency Social History Tobacco Use [...] Description 07/20/2025 1:30 PM EST Office Visit [address] [address] Jennifer Brown MD [address] [place] [phone] 07/30/2025 1:00 PM EST Medication Management [address] [address] Scott Riley, PharmD [address] [place] [phone] documented as of this encounter Visit Diagnoses Diagnosis Vitamin D insufficiency documented in this encounter Additional Health Concerns Assessment Noted Time PHQ-9 Depression Total Score: 5 03/11/20 24 11:51 AM EDT documented as of this encounter Care Teams Machinery Repair Maintenance Supervisor Relationship Specialty Start Date End Date Jennifer Brown MD [address] [place] [phone] PCP - General Family Medicine 07/15/18 Scott Riley, PharmD [address] [place] [phone] Pharmacist Internal Medicine 07/01/24 documented as of this encounter
--- OUTSIDE RECORDS SUMMARY | 2025-06-22 22:58 | XMS_ITS | Clinical Summary ---
Author Organization [employer] Address [address] [facility] [address] [place] [address] Care Team Providers Care Promotion Writer Name Role Phone Jennifer Brown MD Primary Care Provider [phone] Scott Riley PharmD Unavailable [phone] Allergies No known active allergies Medications * This document contains information received from the source organization and may not represent a complete record from that organization. Simethicone Ultra Strength 180 MG capsule Take 180 mg by mouth 4 times daily. 02/07/20 22 Active dicyclomine (Bentyl) 20 MG tablet Take 20 mg by mouth 4 times daily. 02/28/20 24 Active Blood Pressure kitIndications:Pr imary hypertension Use to check blood pressure once daily. XL Cuff 1 kit 07/01/20 24 Active chlorthalidone (Hygroton) 25 MG tabletIndications :Primary hypertension Take 1 tablet by mouth once daily 90 tablet 3 5 3:29 PM EST 07/24/19 25 Active omeprazole (PriLOSEC) [address] capsule TAKE 1 CAPSULE BY MOUTH EVERY TWELVE HOURS 180 capsule 09/30/19 25 Active rosuvastatin (Crestor) 40 MG tablet Take 1 tablet (40 mg) by mouth Once per day. 90 tablet 3 10/07/19 25 026 Active Diclofenac Sodium 1 % gel APPLY 2 GRAMS TOPICALLY TO AFFECTED AREA(S) TWICE DAILY NEEDED FOR PAIN 100 g 3 10/17/19 25 Active ezetimibe (Zetia) 10 MG tablet Take 1 tablet (10 mg) by mouth Once per day. 90 tablet 3 5 3:29 PM EST 01/13/20 25 026 Active Myrbetriq 25 MG 24 hr tablet Take 1 tablet by mouth Once per day. 02/17/20 25 Active Linzess 145 MCG capsule TAKE 1 CAPSULE BY MOUTH EVERY MORNING WITH A FULL GLASS OF WATER 02/17/20 25 Active Multiple Vitamins-Minerals (CENTRUM ADULT PO) Take 1 tablet by mouth Once per day. Active alirocumab (Praluent) 75 MG/ML injection Inject 1 mL (75 mg) under the skin every 14 (fourteen) days. 2 mL 11 5 5:21 PM EST 04/19/20 25 Active amLODIPine (Norvasc) 10 MG tabletIndications :Dyslipidemia Take 1 tablet (10 mg) by mouth Once per day. Dose increase 90 tablet 3 04/19/20 25 Active celecoxib (CeleBREX) 100 MG capsule Take 1 capsule (100 mg) by mouth if needed in the morning and at bedtime for moderate pain. 60 capsule 1 5 3:29 PM EST 04/19/20 25 Active Tirzepatide-Weigh t Management (Zepbound) 12.5 MG/0.5ML solution auto-injector Inject 0.5 mL (12.5 mg) under the skin 1 (one) time per week. 2 mL 11 5 5:21 PM EST 04/19/20 25 Active Acetaminophen Extra Strength 500 MG tablet TAKE 1 TO 2 TABLETS BY MOUTH EVERY 8 HOURS NEEDED FOR PAIN OR FEVER 04/19/20 25 Active lisinopril 40 MG tablet TAKE 1 TABLET BY MOUTH EVERY DAY 90 tablet 3 5 3:29 PM EST 05/17/20 25 Active D3-1000 25 MCG (1000 UT) capsuleIndication s:Vitamin D insufficiency TAKE 1 CAPSULE BY MOUTH EVERY DAY 90 capsule 3 5 4:10 PM EST 06/16/20 25 Active famotidine (Pepcid) 20 MG tablet TAKE 1 TABLET BY MOUTH TWICE DAILY 180 tablet 3 5 4:10 PM EST 06/16/20 25 Active cholecalciferol (Vitamin D High Potency) 25 MCG (1000 UT) capsuleIndication s:Vitamin D insufficiency Take 1 capsule (25 mcg) by mouth Once per day. 90 capsule 3 04/06/20 24 025 Discontinued famotidine (Pepcid) 20 MG tablet TAKE 1 TABLET BY MOUTH TWICE A DAY 180 tablet 01/14/20 25 025 Discontinued Active Problems Problem Noted Date Diagnosed Date Numbness of fingers of both hands 01/25/2025 Numbness of feet 01/25/2025 Chronic pain of both shoulders 01/12/2025 Assessment & Plan (05/03/2025 5:02 AM EDT): - she declines PT - Reminded about x-ray order - continue judicious use of APAP/ NSAIDs prn Anxiety 03/11/2024 Assessment & Plan (03/11/2024 11:18 AM EDT): - patient was seen by [facility] Adjustment disorder with mixed anxiety and depre [...] (03/11/2024 4:36 AM EDT): -Followed by [facility] -Continue working on fiber-rich diet -Continue linaclotide Assessment & Plan (07/15/2022 4:57 PM EST): -Followed by [facility] -Continue working on fiber-rich diet -Continue linaclotide Dyslipidemia 07/12/2022 Assessment & Plan (05/03/2025 5:00 AM EDT): -Last lipid profile: 04/09/25 TC 253; TG 99; HDL 51; LDL 187 -Current medication: rosuvastatin 40 mg daily, starting ezetimibe 10 mg daily -Treatment Hx: Previously on pravastatin, but switched to atorvastatin due to inadequate response -Continue working on lifestyle modifications -start PCSK9 inhibitor, alirocumab 75 mg subcutaneous every 2 weeks Assessment & Plan (01/25/2025 5:37 AM EDT): -Last lipid profile: 01/01/25 TC 261; TG 99; HDL 52; LDL 190 -Current medication: rosuvastatin 40 mg daily, starting ezetimibe 10 mg daily -Treatment Hx: Previously on pravastatin, but switched to atorvastatin due to inadequate response -Continue working on lifestyle modifications -Refer to evening sitter if patient qualifies for PCSK9 inhibitor. Assessment & Plan (10/10/2024 7:28 AM EDT): [...] Plan (10/10/2024 7:27 AM EDT): -Evaluated by [employer] Assessment & Plan (03/11/2024 4:38 AM EDT): -Evaluated by [employer] -Anticipating shrinkage since she is going through menopause Assessment & Plan (07/15/2022 5:07 PM EST): -Evaluated by [employer] -Anticipating shrinkage since she is going through menopause Obesity 07/12/2022 Assessment & Plan (05/03/2025 5:00 AM EDT): - will advance GLP1 RA dose, currently trazepatide. New dose 12.5 mg weekly - Continue working on lifestyle modifications. - [...] moderate- and vigorous-intensity activity Assessment & Plan (10/10/2024 7:27 AM EDT): [...] adenoma of colon 07/12/2022 Assessment & Plan (05/03/2025 5:05 AM EDT): - Following with [facility], last seen in December 2024 -Family Hx colon cancer -10/21/18 Colonoscopy: ascending colon polyp (tubular adenoma), diverticulosis, poor prep. -Recommended repeat in 3 yrs -Called [facility] office; they will review her pathology report and will contact pt Assessment & Plan (03/11/2024 4:36 AM EDT): -Family Hx colon cancer -10/21/18 Colonoscopy: ascending colon polyp (tubular adenoma), diverticulosis, poor prep. -Recommended repeat in 3 yrs -Called [facility] office; they will review her pathology report and will contact pt Assessment & Plan (07/15/2022 4:59 PM EST): -Family Hx colon cancer -10/21/18 Colonoscopy: ascending colon polyp (tubular adenoma), diverticulosis, poor prep. -Recommended repeat in 3 yrs -Called [facility] office; they will review her pathology report and will contact pt Vitamin D insufficiency 04/21/2018 Primary hypertension 07/24/2014 Assessment & Plan (05/03/2025 4:58 AM EDT): -Goal BP < 130/80 per ACC/AHA guideline (Tx threshold >= 140/90) -BP not at goal today -Treatment Hx: Dx 2014, initially tried hydrochlorothiazide, but changed to lisinopril due to ineffectiveness -Continue working on lifestyle modifications -Continue Lisinopril 40 mg daily -Continue chlorthalidone 25 mg daily -Increase amlodipine to 10 mg daily --anticipate increasing GLP1-RA dose will improve her BP as well Assessment & Plan (01/25/2025 5:34 AM EDT): -Goal BP < 130/80 per ACC/AHA guideline (Tx threshold >= 140/90) -BP not at goal today -Treatment Hx: Dx 2014, initially tried hydrochlorothiazide, but changed to lisinopril due to ineffectiveness -Continue working on lifestyle modifications -Continue current medication: Lisinopril 20 mg daily; chlorthalidone 25 mg daily, anticipates increasing GLP1-RA dose will improve her BP as well Assessment & Plan (10/10/2024 7:25 AM EDT): [...] Encounters Date Type Department Care Team Description 06/14/[address] [facility] [address] [place] [address] Jennifer Brown MD Vitamin D insufficiency 06/14/[address] [facility] [address] [place] [address] Jennifer Brown MD July recall 06/14/[address] [facility] [address] [place] [address] Jennifer Brown MD july06/04/[address] [facility] [address] [place] [address] Jennifer Brown MD 05/18/[address] [facility] [address] [place] [phone] Jennifer Brown MD Prior Auth Prescription 05/16/[address] [facility] [address] [place] [phone] Jennifer Brown MD 05/11/2025 Orders Only [address] [address] Jennifer Brown MD Primary hypertension (Primary Dx) 05/07/2025 Telephone [facility] [address] [place] [address] Jennifer Brown MD Prior Authorization ( PA: Zepbound/Praluent) 05/03/[address] [address] Jennifer Brown MD 05/03/2025 Travel 04/19/2025 3:00 PM EDT Office Visit [address] [address] Jennifer Brown MD Primary hypertension (Primary Dx); Dyslipidemia; Dietary counseling; Exercise counseling; Class 2 severe obesity due to excess calories with serious comorbidity and body mass index (BMI) of 38.0 to 38.9 in adult; Tubular adenoma of colon; Chronic pain of both shoulders 04/19/2025 Travel 04/16/[address] [facility] [address] [place] [phone] Abbie Paz [place] 04/09/2025 Orders Only [address] [address] Jennifer Brown MD 03/29/[address] [address] Jennifer Brown MD from Last 3 Months Immunizations Immunization Administration Dates Next Due Hep A, Adult [...] Date Recorded Patient Health Questionnaire-9 Score 0 04/19/2025 Patient Health Questionnaire-9 Score 0 04/19/2025 Last PHQ-9: Questionnaire Data Not on file 1 Housing Stability Answer Date Recorded What is your housing situation today? I do not have housing (Staying with others, in a hotel, in a prison, living outside on the street, on a [...] getting things needed for daily living? No 01/05/2025 Utilities Answer Date Recorded In the past 12 months, has t he electric, gas, oil or water company threatened to shut off services in your home? No 02/21/2024 Depression Answer Date Recorded Patient Health Questionnaire-2 Score 0 04/19/2025 Internet Access Answer Date Recorded Internet Access [...] Sign Reading Time Taken Comments Blood Pressure 132/74 05/03/2025 1:07 PM EDT Pulse 64 05/03/2025 1:07 PM EDT Temperature 36.2 C (97.1 F) 04/19/2025 2:51 PM EDT Respiratory Rate 20 04/19/2025 2:51 PM EDT Oxygen Saturation 97% 04/19/2025 2:51 PM EDT Inhaled Oxygen Concentration - - Weight 80.7 kg (178 lb) 05/03/2025 1:07 PM EDT Height 144.8 cm (4' 9 ) 04/19/2025 2:51 PM EDT Body Mass Index 38.52 04/19/2025 2:51 PM EDT Plan of Treatment Upcoming Encounters Date Type Department Care Team (Late st Contact Info) Description 07/20/2025 1:30 PM EST Office Visit [facility] [address] [place] [phone] Jennifer Brown MD [address] [place] [address] 07/30/2025 1:00 PM EST Medication Management [address] [address] Scott Riley, PharmD [address] [place] [address] Health Maintenance Due Date Last Done Comments CT Colonography 1970 FIT DNA/Cologuard 1970 FIT 1970 FOBT 1970 Sigmoidoscopy 1970 Pneumococcal Vaccine: 50+ Years (1 of 1 - PCV) 12/07/2019 Colonoscopy 10/21/2021 10/21/2018 Colorectal Cancer Screening 10/21/2021 COVID-19 Vaccine ( - season) 2025 Influenza Vaccine (#1) 2025 05/18/2014 Disability Screening 10/06/2025 10/06/2024 SDOH Screening 01/05/2026 01/05/2025 Alcohol/Substance Use Screening 04/19/2026 04/19/2025 Cervical Cancer Screening 04/19/2026 Depression Screening 04/19/2026 04/19/2025, 04/19/20 HPV/Cotest 04/19/2026 04/19/2021 Pap Smear 04/19/2026 04/19/2021 Tobacco Screening 05/03/2026 05/03/2025 Mammogram 01/19/2027 01/19/2025, 07/16, 08/01/2022, Additional history exists Lipid Panel 04/09/2030 04/09/2025, 12/14, 08/28/2024, Additional history exists DTaP/Tdap/Td Vaccines (3 - [...] Associated Diagnosis Comments LIPID PANEL, STANDARD Routine 04/09/2025 8:09 AM EDT HEPATIC FUNCTION PANEL Routine 8:09 AM EDT VITAMIN B12/FOLATE, SERUM PANEL Routine 04/09/2025 8:09 AM EDT Paresthesia BI MAMMOGRAM SCREENING TOMOSYNTHESIS BILATERAL Routine 01/19/2025 2:52 PM EDT HEPATITIS C ANTIBODY Routine 08/01/2023 10:52 AM EST HIV 1/2 ANTIGEN/ANTIBODY, FOURTH GENERATION W/RFL Routine 08/01/2023 10:52 AM EST PAP/HPV Routine 04/19/2021 COLONOSCOPY Routine 10/21/2018 from Last 3 Months or Most Recently Relevant to Health Maintenance Results * Vitamin B12/Folate, Serum Panel (04/09/2025 8:09 AM EDT) Vitamin B12 819 200 - 900 pg/mL [facility] Comment:NORMAL 200-900 PG/ML INDETERMINATE 160-199 PG/ML DEFICIENT < 160 PG/ML Folate 11.0 > or = 4.0 ng/mL [facility] Comment:Reference Values:> o r = 4.0 ng/mL< 4.0 ng/mL suggests folate deficiency Methotrexate, aminopterin and folinic acid(leucovorin) are chemotherapeutic agents whose molecularstructures are similar to folate; therefore, the Architectfolate assay cannot be used for patients using these drugs. Blood Venous blood specimen / Unknown 04/09/2025 8:09 AM EDT 04/09/2025 11:21 AM EDT us Jennifer Brown MD LAB BLOOD ORDERABLES Final Resul t [facility] [address] [place] [address] [phone] * Hepatic Function Panel (04/09/2025 8:09 AM EDT) Bilirubin, Total 0.3 0.0 - 1.0 mg/dL [facility] Bilirubin, Direct 0.1 0.0 - 0.5 mg/dL [facility] Aspartate Amino Transferase 26 5 - 31 U/L [facility] Alanine Aminotransferase 30 0 - 31 U/L [facility] Total Protein 6.7 6.5 - 8.0 g/dL [facility] Albumin Level 4.1 3.5 - 5.0 g/dL [facility] Alkaline Phosphatase 93 39 - 117 U/L [facility] 04/09/2025 8:09 AM EDT 04/09/2025 11:21 AM EDT us Jennifer Brown MD LAB BLOOD ORDERABLES Final Resul t Performing Organization Address City/[facility] Co de Phone Number [facility] [address] [place] [address] [phone] * (ABNORMAL) Lipid Panel, Standard (04/09/2025 8:09 AM EDT) Triglycerides 77 <150 mg/dL [facility] Comment:Desirable Triglyceri de: less than 150 mg/dLBorderline High Triglyceride 150-199 mg/dLHigh Triglyceride: 200-499 mg/dLVery High Triglyceride: greater than or equal to 5OO mg/dL Cholesterol 253(H) <200 mg/dL [facility] Comment:Desirable Cholestero l: less than 200 mg/dLBorderline High Cholesterol: 200-239 mg/dLHigh Cholesterol: greater than 239 mg/dL LDL Cholesterol Calculated 187(H) <100 mg/dL [facility] Comment:Desirable LDL: less than 100 mg/dLNear Optimal/Above Optimal LDL: 110- 129 mg/dLBorderline High LDL: 130-159 mg/dLHigh LDL: 160-189 mg/dLVery High LDL: greater than or equal to 190 mg/dL HDL Cholesterol 51 >40 mg/dL [facility] Comment:Desirable HDL: great er than 40 mg/dL Note: This HDL assay may give artificially low results in patients with liver disease. 04/09/2025 8:09 AM EDT 04/09/2025 11:21 AM EDT us Jennifer Brown MD LAB BLOOD ORDERABLES Final Resul t Performing Organization Address City/[facility]/ZIP Co de Phone Number [facility] [address] [place] [address] [phone] * BI Mammogram Screening Tomosynthesis Bilateral (01/19/2025 2:52 PM EDT) Anatomical Region Laterality Modality Breast Bilateral Mammography 01/19/2025 2:52 PM EDT Narrative 02/02/2025 9:05 AM EDT [facility] [address] [place] [address] Mammography Report Signed Patient: Yoana Prather MR#: [id number] 59 : 1970 Acct:[id number] Age/Sex: 54 / F ADM Date: 01/19/25 Loc: [facility] Attending Dr: Beltran Hagan MD Ordering Physician: Beltran Hagan MD Results: 1Nega tive Date of Service: 01/19/25 Follow Up: 1 Year From [facility] Mammogram Procedure(s): MM tomosynthesis screening BI Accession Number(s): [id number] cc: Beltran Hagan MD; Jennifer Brown MD EXAMINATION: MM SCREENING DIGITAL BREAST TOMOSYNTHESIS, BILATERAL CLINICAL INFORMATION: Screening. Asymptomatic. COMPARISON: Mammography: Comparison is made with available priors TECHNIQUE: Digital breast mammography with tomosynthesis is performed in both the craniocaudal and mediolateral oblique views along with computer-aided detection (CAD). FINDINGS: There are scattered areas of fibroglandular density (ACR BI-RADS breast composition Category b). There are no significant masses, abnormal calcifications, [...] target due date for their next mammogram. Electronically signed by: Marjorie Barlow DO 02/02/2025 09:02 AM EDT Dictated By: Marjorie Barlow DO Signed By: <Electronically signed by Marjorie Barlow DO in OV> 02/02/25 0902 DD/ 1452 TD/TT: 01/19/25 1506 Collar Trimmer: Procedure Note Donotstiveninterpreter, Image - [facility] [address] [place] [address] Mammography Report Signed Patient: Yoana PratherMR#: [id number] 59 : 1970Acct:[id number] Age/Sex: 54 / FADM Date: 01/19/25 Loc: HO.MAMMO Attending Dr: Beltran Hagan MD Ordering Physician: Beltran Haganesults: 1Nega tive Date of Service: 01/19/25Follow Up: 1 Year From Orig ina Mammogram Procedure(s): MM tomosynthesis screening BI Accession Number(s): [id number] cc: Beltran Hagan MD; Jennifer Brown MD EXAMINATION: MM SCREENING DIGITAL BREAST TOMOSYNTHESIS, BILATERAL CLINICAL INFORMATION: Screening. Asymptomatic. COMPARISON: Mammography: Comparison is made with available priors TECHNIQUE: Digital breast mammography with tomosynthesis is performed in both the craniocaudal and mediolateral oblique views along with computer-aided detection (CAD). FINDINGS: There are scattered areas of fibroglandular density (ACR BI-RADS breast composition Category b). There are no significant masses, abnormal calcifications, [...] target due date for their next mammogram. Electronically signed by: Marjorie Barlow DO 02/02/2025 09:02 AM EDT Dictated By: Marjorie Barlow DO Signed By: <Electronically signed by Marjorie Barlow DO in OV> 02/02/25 0902 DD/ 1452 TD/TT: 01/19/25 1506 Collar Trimmer: [facility] External Provider IMG BI PROCEDURES Final Result * Hepatitis C Ab (08/01/2023 10:52 AM EST) Hepatitis C Antibody Nonreactive Nonreactive [facility] Comment:Antibodies to HCV no t detected; does not exclude early acuteHCV infection. 08/01/2023 10:5 2 AM EST 08/01/2023 10:52 AM EST Generic External Data Provider LAB BLOOD ORDERAB LES Final Result Performing Organization Address [facility] Co de Phone Number [facility] [address] [place] [phone] * HIV-1/2 Antigen and Antibodies, Fourth Generation, with Reflexes (08/01/2023 10:52 AM EST) HIV AB/AG Nonreactive Nonreactive [facility] Comment:HIV-1 p24 Ag and/or HIV-1/HIV-2 Ab not detected.A test result that is nonreactive does not exclude thepossibility of exposure to or infection with HIV-1 and/orHIV-2. Nonreactive results in this assay for individualswith prior exposure to HIV-1 and/or HIV-2 may be due toantigen and antibody levels that are below the limit ofdetection of this assay.The [employer] HIV Ag/Ab Combo assay result andsupplemental assay results should be interpreted inconjunction with the patient's clinical presentation,history and other laboratory results. If the results areinconsistent with clinical evidence, additional testing issuggested to confirm the result. 08/01/2023 10:5 2 AM EST 08/01/2023 10:52 AM EST Generic External Data Provider LAB BLOOD ORDERAB LES Final Result Performing Organization Address [facility] Co de Phone Number [facility] [address] [place] [phone] * Pap Smear (04/19/2021) Pap Negative for intraephithelial lesion or malignancy Negative for intraephithelial lesion or malignancy, Other HPV Undetected Undetected, Indeterminate, Quantitative, Not Detected us Historical Provider HEALTH MAINTENANCE Final Result * Colonoscopy (10/21/2018) Colonoscopy Normal Normal us Historical Provider HEALTH MAINTENANCE Final Result from Last 3 Months or Most Recently Relevant to Health Maintenance Insurance [address] [place], [place] [address] Care Teams Promotion Writer Relationship Specialty Start Date End Date Jennifer Brown MD [address] [place] [phone] PCP - General Family Medicine 07/15/18 Scott Riley, PharmD [address] [place] [address] Pharmacist Internal Medicine 07/01/24
--- OUTSIDE RECORDS SUMMARY | 2025-06-22 22:58 | XMS_ITS | Clinical Summary ---
Author Organization [employer] [facility] ity Address [address] [place] [address] Care Team Providers Care Budget Controller Name Role Phone Unavailable Primary Care Provider [...] Depression Screening 07/15/2024 COVID-19 Vaccine ( - 2024-2 6 season) 2025 Influenza Vaccine (#1) 2025 RSV [...]
--- OUTSIDE RECORDS SUMMARY | 2025-06-22 22:58 | XMS_ITS | Encounter Summary ---
Author Organization [employer] Address [address] [facility] [address] [place] [address] Care Team Providers Care District Sales Manager Name Role Phone Jennifer Brown MD Primary Care Provider [phone] Scott Riley PharmD Unavailable [phone] Reason for Visit * Reason Onset Date Comments Med Refill 07/15/2024 Encounter Details Date Type Department Care Team (Late st Contact Info) Description 07/15/2024 Refill [facility] [address] [place] [address] Lisbeth Felton ANP [address] [place] [address] Social History Tobacco Use Types Packs/Day Years [...] Description 07/20/2025 1:30 PM EST Office Visit [address] [address] Jennifer Brown MD [address] [place] [phone] 07/30/2025 1:00 PM EST Medication Management [address] [address] Scott Riley PharmD [address] [place] [phone] documented as of this encounter Visit Diagnoses Not on filedocumented in this encounter Additional Health Concerns Assessment Noted Time PHQ-9 Depression Total Score: 5 03/11/20 24 11:51 AM EDT documented as of this encounter Care Teams District Sales Manager Relationship Specialty Start Date End Date Jennifer Brown MD [address] [place] [phone] PCP - General Family Medicine 07/15/18 RileyScott PharmD [address] [place] [phone] Pharmacist Internal Medicine 07/01/24 documented as of this encounter
--- OUTSIDE RECORDS SUMMARY | 2025-06-22 22:58 | XMS_ITS | Encounter Summary ---
Author Organization [employer] Address [address] [facility] 7t [place] [address] Care Team Providers Care Coal Crusher Operator Name Role Phone Jennifer Brown MD Primary Care Provider [phone] Scott Riley PharmD Unavailable [phone] Reason for Referral * Consultation (Routine) - Authorized Specialty Diagnoses / Procedures Referred By Contac t Referred To Contact Pharmacy Diagnoses Primary hypertension Jennifer Brown MD [address] [place] [address] Phone: tel: fax: Referral ID Status Reason Start Date Expiration Date Visits Requested Visits Authorized [id number] Authorized Consult and Treat 05/11/2025 05/11/2026 6 6 Encounter Details Date Type Department Care Team (Late st Contact Info) Description 05/11/2025 Orders Only [facility] [address] [place] [address] [phone] Jennifer Brown MD [address] [place], [place] [phone] Primary hypertension (Primary Dx) Social History Tobacco Use Types [...] Description 07/20/2025 1:30 PM EST Office Visit [facility] [address] [place] [address] Jennifer Brown MD [address] [place] [address] 07/30/2025 1:00 PM EST Medication Management [facility] [address] [place] [phone] Scott Riely, PharmD [address] [place] [address] Scheduled Referrals Name Type Priority Associated Diagnoses Orde r Schedule Referral to Pharmacy CDTM Outpatient Referral Routine Primary hypertension Ordered: 05/11/2025 documented as of this encounter Visit Diagnoses Diagnosis Primary hypertension- Primary Unspecified essential hypertension documented in this encounter Additional Health Concerns Assessment Noted Time PHQ-9 Depression Total Score: 0 04/19/20 25 2:52 PM EDT documented as of this encounter Care Teams Coal Crusher Operator Relationship Specialty Start Date End Date Jennifer Brown MD [address] [place] [address] PCP - General Family Medicine 07/15/18 Scott Riley PharmD [address] [place] [address] Pharmacist Internal Medicine 07/01/24 documented as of this encounter
--- OUTSIDE RECORDS SUMMARY | 2025-06-22 22:58 | XMS_ITS | Encounter Summary ---
Author Organization [employer] Address 75 [facility] 7t [place] [address] Care Team Providers Care Front Office Coordinator Name Role Phone Jennifer Brown MD Primary Care Provider [phone] Scott Riley PharmD Unavailable [phone] Reason for Visit * Reason Onset Date Comments Med Refill 07/15/2024 Encounter Details Date Type Department Care Team (Late st Contact Info) Description 07/15/2024 Refill [facility] [address] [place] [address] Jennifer Brown MD [address] [place] [address] Social History Tobacco Use Types Packs/Day Years [...] Description 07/20/2025 1:30 PM EST Office Visit [address] [address] Jennifer Brown MD [address] [place] [address] 07/30/2025 1:00 PM EST Medication Management [address] [address] Scott Riley, PharmD [address] [place] [address] documented as of this encounter Visit Diagnoses Not on filedocumented in this encounter Additional Health Concerns Assessment Noted Time PHQ-9 Depression Total Score: 5 03/11/20 24 11:51 AM EDT documented as of this encounter Care Teams Front Office Coordinator Relationship Specialty Start Date End Date Jennifer Brown MD [address] [place] [address] PCP - General Family Medicine 07/15/18 Scott Riley PharmD [address] [place] [address] Pharmacist Internal Medicine 07/01/24 documented as of this encounter
--- OUTSIDE RECORDS SUMMARY | 2025-06-22 22:58 | XMS_ITS | Encounter Summary ---
Author Organization [employer] Address [address] [facility] 7t [place] [address] Care Team Providers Care Currency Examiner Name Role Phone Jennifer Brown MD Primary Care Provider [phone] Scott Riley PharmD Unavailable [phone] Reason for Visit * Reason Onset Date Comments Med Refill 11/07/2023 Encounter Details Date Type Department Care Team (Late st Contact Info) Description 11/07/2023 Refill [facility] [address] [place] [address] Jennifer Brown MD [address] [place] [address] Vitamin D insufficiency Social History Tobacco Use [...] Description 07/20/2025 1:30 PM EST Office Visit [facility] [address] [place] [address] Jennifer Brown MD [address] [place] [address] 07/30/2025 1:00 PM EST Medication Management [address] [address] Scott Riley, PharmD [address] [place] [address] documented as of this encounter Visit Diagnoses Diagnosis Vitamin D insufficiency documented in this encounter Additional Health Concerns Assessment Noted Time PHQ-9 Depression Total Score: 0 07/12/20 22 10:25 AM EST documented as of this encounter Care Teams Currency Examiner Relationship Specialty Start Date End Date Jennifer Brown MD [address] [place] [address] PCP - General Family Medicine 07/15/18 Scott Riley, PharmD [address] [place] [address] [phone] Pharmacist Internal Medicine 07/01/24 documented as of this encounter
--- OUTSIDE RECORDS SUMMARY | 2025-06-22 22:58 | XMS_ITS | Encounter Summary ---
Author Organization [employer] Address 75 [facility] 7t [place] [address] Care Team Providers Care Facility Mechanic Name Role Phone Jennifer Brown MD Primary Care Provider [phone] Scott Riley PharmD Unavailable [phone] Reason for Visit * Reason Onset Date Comments Med Refill 10/26/2024 Encounter Details Date Type Department Care Team (Late st Contact Info) Description 10/26/2024 Refill [facility] [address] [place] [address] Jennifer Brown MD [address] [place] [address] Viral syndrome; Trochanteric bursitis of both hips [...] Description 07/20/2025 1:30 PM EST Office Visit [address] [address] Jennifer Brown MD [address] [place] [address] 07/30/2025 1:00 PM EST Medication Management [address] [address] Scott Riley, PharmD [address] [place] [address] documented as of this encounter Visit Diagnoses Diagnosis Viral syndrome Unspecified viral infection, in conditions classified elsewhere and of unspecified site Trochanteric bursitis of both hips documented in this encounter Additional Health Concerns Assessment Noted Time PHQ-9 Depression Total Score: 5 03/11/20 24 11:51 AM EDT documented as of this encounter Care Teams Facility Mechanic Relationship Specialty Start Date End Date Jennifer Brown MD [address] [place] [address] PCP - General Family Medicine 07/15/18 Scott Riley, PharmD [address] [place] [address] [place] [address] Pharmacist Internal Medicine 07/01/24 documented as of this encounter
--- OUTSIDE RECORDS SUMMARY | 2025-06-22 22:58 | XMS_ITS | Encounter Summary ---
Author Organization [employer] Address 75 [facility] 7t [place] [address] Care Team Providers Care Cement Mason [employer] Name Role Phone Jennifer Brown MD Primary Care Provider [phone] Scott Riley PharmD Unavailable [phone] Reason for Visit * Reason Onset Date Comments Med Refill 07/15/2024 Encounter Details Date Type Department Care Team (Late st Contact Info) Description 07/15/2024 Refill [facility] [address] [place] [address] Jennifer Brown MD [address] [place] [address] Social History Tobacco Use Types Packs/Day Years [...] Description 07/20/2025 1:30 PM EST Office Visit [address] [address] Jennifer Brown MD [address] [place] [address] 07/30/2025 1:00 PM EST Medication Management [address] [address] Scott Riley PharmD [address] [place] [address] documented as of this encounter Visit Diagnoses Not on filedocumented in this encounter Additional Health Concerns Assessment Noted Time PHQ-9 Depression Total Score: 5 03/11/20 24 11:51 AM EDT documented as of this encounter Care Teams Cement [employer] Relationship Specialty Start Date End Date Jennifer Brown MD [address] [place] [address] PCP - General Family Medicine 07/15/18 Scott Riley, PharmD [address] [place] [address] Pharmacist Internal Medicine 07/01/24 documented as of this encounter
--- OUTSIDE RECORDS SUMMARY | 2025-06-22 22:58 | XMS_ITS | Encounter Summary ---
Author Organization [facility] [employer] Address 75 [facility] 7[address] [place] [address] Care Team Providers Care Motor And Controls Tester Name Role Phone Jennifer Brown MD Primary Care Provider [phone] Scott Riley PharmD Unavailable [phone] Reason for Visit * Reason Onset Date Comments Appointment Request 12/24/2024 Encounter Details Date Type Department Care Team ([facility] st Contact Info) Description 12/24/2024 Telephone [facility] [address] [place] [address] Jennifer Brown MD [address] [place] [address] Appointment Request Social History Tobacco Use Types [...] encounter Miscellaneous Notes * Telephone Encounter - Erasto Toney - 12/24/2024 12:37 PM EDT Tc from pt requesting to reschedule CDTM visit stating she was informed appt was for 2:00 pm not for 9:30 am. Please contact pt at [phone]. (Welsh Speaker) documented in this encounter Plan of Treatment Upcoming Encounters Date Type Department Care Team (Late st Contact Info) Description 07/20/2025 1:30 PM EST Office Visit [facility] [address] [place] [address] Jennifer Brown MD [address] [place] [address] 07/30/2025 1:00 PM EST Medication Management [facility] [address] [place] [address] Scott Riley, PharmD [address] [place] [address] documented as of this encounter Visit Diagnoses Not on filedocumented in this encounter Additional Health Concerns Assessment Noted Time PHQ-9 Depression Total Score: 5 03/11/20 24 11:51 AM EDT documented as of this encounter Care Teams Motor And Controls Tester Relationship Specialty Start Date End Date Jennifer Brown MD [address] [place] [address] PCP - General Family Medicine 07/15/18 Scott Riley, Teresa [address] [place] [address] Pharmacist Internal Medicine 07/01/24 documented as of this encounter
--- OUTSIDE RECORDS SUMMARY | 2025-06-22 22:58 | XMS_ITS | Encounter Summary ---
Author Organization [employer] Address [address] [facility] 7t [place] [address] Care Team Providers Care Security Incident Response Engineer Name Role Phone Jennifer Brown MD Primary Care Provider [phone] Scott Riley PharmD Unavailable [phone] Reason for Visit * Reason Onset Date Comments Med Refill 04/06/2024 Encounter Details Date Type Department Care Team (Late st Contact Info) Description 04/06/2024 Refill [facility] [address] [place] [address] Ayan Madsen MD [address] [place] [address] Social History Tobacco Use Types Packs/Day Years [...] Description 07/20/2025 1:30 PM EST Office Visit [address] [address] Jennifer Brown MD [address] [place] [address] 07/30/2025 1:00 PM EST Medication Management [address] [address] Scott Riley PharmD [address] [place] [address] documented as of this encounter Visit Diagnoses Not on filedocumented in this encounter Additional Health Concerns Assessment Noted Time PHQ-9 Depression Total Score: 5 03/11/20 24 11:51 AM EDT documented as of this encounter Care Teams Security Incident Response Engineer Relationship Specialty Start Date End Date Jennifer Brown MD [address] [place] [address] PCP - General Family Medicine 07/15/18 Scott Riley, PharmD [address] [place] [address] Pharmacist Internal Medicine 07/01/24 documented as of this encounter
--- OUTSIDE RECORDS SUMMARY | 2025-06-22 22:58 | XMS_ITS | Encounter Summary ---
Author Organization [employer] Address [address] [facility] 7[address] [place] [address] Care Team Providers Care Cold Water Machine Operator Name Role Phone Jennifer Brown MD Primary Care Provider [phone] Scott Riley PharmD Unavailable [phone] Reason for Visit * Reason Comments Med Refill Encounter Details Date Type Department Care Team (Late st Contact Info) Description 06/04/2025 Refill [facility] [address] [place] [address] Jennifer Brown MD [address] [place] [address] Social History Tobacco Use Types Packs/Day Years [...] Description 07/20/2025 1:30 PM EST Office Visit [address] [address] Jennifer Brown MD [address] [place] [address] 07/30/2025 1:00 PM EST Medication Management [address] [address] Scott Riley PharmD [address] [place] [address] documented as of this encounter Visit Diagnoses Not on filedocumented in this encounter Additional Health Concerns Assessment Noted Time PHQ-9 Depression Total Score: 0 04/19/20 25 2:52 PM EDT documented as of this encounter Care Teams Cold Water Machine Operator Relationship Specialty Start Date End Date Jennifer Brown MD [address] [place] [address] PCP - General Family Medicine 07/15/18 Scott Riley, AnabellaD [address] [place] [address] Pharmacist Internal Medicine 07/01/24 documented as of this encounter
--- OUTSIDE RECORDS SUMMARY | 2025-06-22 22:58 | XMS_ITS | Encounter Summary ---
Author Organization [employer] Address [address] [facility] 7[address] [place] [address] Care Team Providers Care Patrol Guard Name Role Phone Jennifer Brown MD Primary Care Provider [phone] Scott Riley PharmD Unavailable [phone] Reason for Visit * Reason Onset Date Comments Med Refill 10/26/2024 Encounter Details Date Type Department Care Team (Late st Contact Info) Description 10/26/2024 Refill [facility] [address] [place] [address] Jennifer Brown MD [address] [place] [address] Social History Tobacco Use Types Packs/Day Years [...] Description 07/20/2025 1:30 PM EST Office Visit [address] [address] Jennifer Brown MD [address] [place] [address] 07/30/2025 1:00 PM EST Medication Management [address] [address] Scott Riley PharmD [address] [place] [address] documented as of this encounter Visit Diagnoses Not on filedocumented in this encounter Additional Health Concerns Assessment Noted Time PHQ-9 Depression Total Score: 5 03/11/20 24 11:51 AM EDT documented as of this encounter Care Teams Patrol Guard Relationship Specialty Start Date End Date Jennifer Brown MD [address] [place] [address] PCP - General Family Medicine 07/15/18 Scott Riley, PharmD [address] [place] [address] Pharmacist Internal Medicine 07/01/24 documented as of this encounter
== END 2025-06-22 16:52 | disposition home or self-care (01) ==
LOC: HO.HGI 16:24
PROVIDERS: PCP Family Medicine; Visit Provider Nurse Practitioner
DX: K21.9 Gastro-esophageal reflux disease without esophagitis (principal); K59.04 Chronic idiopathic constipation; R10.9 Unspecified abdominal pain
CPT/HCPCS: 99213

== ENCOUNTER → 2025-06-22 16:23 | Outpatient (BNVA) | payer MEDICAID, SELFPAY | PROVIDERS: PCP Family Medicine; Visit Provider Nurse Practitioner | DX: K21.9 Gastro-esophageal reflux disease without esophagitis (principal); K59.04 Chronic idiopathic constipation; R10.9 Unspecified abdominal pain; Z79.899 Other long term (current) drug therapy | CPT/HCPCS: 99212 ==